=== PATIENT | female | born 1965 | race Caucasian/White ===

== ENCOUNTER 2020-07-18 09:55 | Outpatient (REF) | payer OTHER, SELFPAY ==
--- NOTE | 2020-07-18 09:58 | CT_ITS ---
EXAMINATION: CT CHEST WITHOUT CONTRAST CLINICAL INFORMATION: Malignant neoplasm of upper lobe and right bronchus. COMPARISON: None TECHNIQUE: Multidetector volumetric CT imaging of the chest was done. Axial MIP volume rendering provided. Sagittal and coronal reformatted images were obtained. This CT examination was performed using dose optimization techniques as appropriate, variously including the following: *Automated exposure control *Adjustment of mA and/or kV according to patient size (this includes techniques or standardized protocols for targeted exams where dose is matched to indication/reason for exam; i.e. 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 LUNGS: There is diffuse centrilobular emphysema with right upper lobe postsurgical changes following partial right upper lobectomy. No recurrent mass, nodule or ground-glass density seen. MEDIASTINUM: The thyroid lobes are symmetrical and normal. The central trachea and the bronchi are widely patent. Small pericardial effusion seen. The heart size and the great vessels are normal caliber. No abnormal-sized mediastinal or hilar lymph node seen. PLEURA: There is no pleural effusion. No pleural mass or thickening. AXILLA: There are small shotty lymph nodes seen in the mediastinum. The chest wall appears unremarkable. UPPER ABDOMEN: Visualized liver, spleen, pancreas and bilateral adrenal glands are unremarkable. OSSEOUS STRUCTURES: No lytic or sclerotic process seen. CT/CT chest wo con IMPRESSION: Centrilobular emphysema with postsurgical changes right upper lobe. No recurrent mass or nodule seen. Tiny pericardial effusion, unchanged to previous study.
== END 2020-07-18 09:56 | disposition home or self-care (01) ==
LOC: HO.CT 09:55
PROVIDERS: Visit Provider Surgery
DX: C34.11 Malignant neoplasm of upper lobe, right bronchus or lung (principal)
CPT/HCPCS: 71250

== ENCOUNTER → 2020-07-31 16:00 | Outpatient (BNV) | payer MEDICAID, OTHER, SELFPAY | PROVIDERS: PCP Internal Medicine; Visit Provider Internal Medicine | DX: Z85.118 Personal history of other malignant neoplasm of bronchus and lung (principal); Z87.891 Personal history of nicotine dependence; R91.1 Solitary pulmonary nodule | CPT/HCPCS: 99213; 99214 ==

== ENCOUNTER → 2020-08-03 09:16 | Outpatient (BNVA) | payer OTHER, SELFPAY | PROVIDERS: PCP Internal Medicine; Visit Provider Surgery | DX: Z13.89 Encounter for screening for other disorder (principal) | CPT/HCPCS: 99215 ==

== ENCOUNTER 2020-11-05 14:33 | Outpatient (REF) | payer OTHER, SELFPAY ==
--- NOTE | ~2020-11-05 | XR_ITS ---
EXAMINATION: XR HIP, RIGHT CLINICAL INFORMATION: Right hip pain. COMPARISON: None TECHNIQUE: Two views of the right hip. FINDINGS: Prominent mixed lucency and sclerosis in the subchondral femoral head, with slight flattening/subchondral collapse along the medial aspect of the femoral head. Findings are suspicious for avascular necrosis. Borderline right hip joint space narrowing. No acute fracture is seen in the visualized pelvis. XR/XR hip RT min 2V IMPRESSION: Prominent area of mixed lucency and sclerosis in the subchondral right femoral head suggesting avascular necrosis. Findings suspicious for subchondral collapse/fracture in the medial femoral head. Consider further evaluation with MRI.
== END 2020-11-05 14:34 | disposition home or self-care (01) ==
LOC: HO.HMGCX 14:33
PROVIDERS: PCP Internal Medicine; Visit Provider Hospitalist
DX: M25.551 Pain in right hip (principal)
CPT/HCPCS: 73502

== ENCOUNTER → 2020-11-13 10:06 | Outpatient (BNVA) | payer OTHER, SELFPAY | PROVIDERS: PCP Internal Medicine; Visit Provider Orthopaedic Surgery ==

== ENCOUNTER 2021-01-22 08:15 | Outpatient (REF) | payer OTHER, SELFPAY ==
--- NOTE | ~2021-01-22 | CT_ITS ---
EXAMINATION: CT CHEST WITHOUT CONTRAST CLINICAL INFORMATION: Lung cancer COMPARISON: Previous CT scans most recent July 2020 TECHNIQUE: Multidetector volumetric CT imaging of the chest was done. Axial MIP volume rendering provided. Sagittal and coronal reformatted images were obtained. This CT examination was performed using dose optimization techniques as appropriate, variously including the following: *Automated exposure control *Adjustment of mA and/or kV according to patient size (this includes techniques or standardized protocols for targeted exams where dose is matched to indication/reason for exam; i.e. 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 There is a new irregularly-shaped parenchymal density seen in the posterior right upper lobe abutting and retracting the major fissure. This measures 1 x 2 cm in transverse and AP dimension and 2 cm in longitudinal dimension. This has spiculated margins. Appearance is worrisome for neoplasm. The lungs are otherwise clear. MEDIASTINUM: There is coronary artery calcification. There is a small pericardial effusion that is stable. There are small mediastinal lymph nodes that are stable. PLEURA: There is no pleural effusion. No pleural mass or thickening. AXILLA: No lymphadenopathy. UPPER ABDOMEN: Unremarkable. OSSEOUS STRUCTURES: Unremarkable. CT/CT chest wo con IMPRESSION: Postsurgical changes from partial right upper lobe lobectomy. New be spiculated lesion in the posterior right upper lobe near the major fissure worrisome for neoplasm. Coronary artery calcification. Stable small pericardial effusion.
== END 2021-01-22 08:16 | disposition home or self-care (01) ==
LOC: HO.CT 08:15
PROVIDERS: PCP Internal Medicine; Visit Provider Surgery
DX: C34.90 Malignant neoplasm of unspecified part of unspecified bronchus or lung (principal)
CPT/HCPCS: 71250

== ENCOUNTER 2021-02-01 08:27 | Outpatient (REF) | payer OTHER, SELFPAY ==
--- NOTE | 2021-02-01 | PFT_ITS ---
Forced vital capacity is normal. FEV1, GAC77-71 are markedly reduced. MVV moderately reduced. Post bronchodilator therapy, there is a slight improvement in FEV1 and [id number]. Total lung capacity and residual volume normal. Diffusion capacity is markedly decreased. CONCLUSION: Severe obstructive airway disorder. Minimal improvement after bronchodilator therapy is noted. MD STEPHIE Melton/SISSY / [id number]
== END 2021-02-01 08:28 | disposition home or self-care (01) ==
LOC: HO.RESP 08:27
PROVIDERS: PCP Internal Medicine; Visit Provider Surgery
DX: R91.1 Solitary pulmonary nodule (principal)
CPT/HCPCS: 94060; 94727; 94729

== ENCOUNTER 2021-02-05 09:42 | Outpatient (REF) | payer OTHER, SELFPAY ==
--- NOTE | ~2021-02-05 | PE_ITS ---
EXAMINATION: PET/CT FUSION SKULL TO THIGH CLINICAL INFORMATION: Solitary pulmonary nodule. COMPARISON: CT chest 01/22/2021 TECHNIQUE: Following intravenous administration of 16.7 mCi of F 18 FDG in left antecubital vein, whole-body emission scan was obtained approximately 60 minutes later. 3.[address] transmission scan was obtained without oral or IV contrast. CT scan was performed for correlative imaging. Serum baseline glucose measures DLP 496 mGy-cm. FINDINGS: SKULL: There is no abnormal metabolic activity seen in the skull or the neck region except for mild metabolic activity in bilateral maxillary sinuses which corresponds to polyps or retention cysts. No intracranial parenchymal abnormality seen. Normal activity seen within the posterior tongue and palatoglossal sulcus likely secondary to salivary secretions. Nonspecific metabolic activity seen in the left posterior neck strap muscle with an SUV of 3.44. No corresponding CT abnormality seen. This may be related to nonspecific muscle contusion or inflammation. Correlate clinically. CHEST: There is a solitary right upper lobe pulmonary nodule with an SUV of 3.67 which corresponds to an irregular nodule in the right upper lobe measuring 2 cm. No additional metabolic activity seen in the chest. No abnormal metabolic activity seen in the mediastinum or the axilla. ABDOMEN AND PELVIS: No abnormal metabolic activity is seen in the abdomen. Normal activity seen in both kidneys and right ureter. Nonspecific mild focal activity seen sigmoid and descending colon. MSK: No abnormal skeletal metabolic activity seen. PET/PET CT fusion skull to thigh IMPRESSION: Solitary abnormal metabolic activity of right upper lobe nodule highly suspicious for metastatic focus. Findings are concordant with previous CT chest exam 01/22/2021 No additional areas of abnormal activity seen in the lungs or the mediastinum. No distant abnormal metabolic activity is seen. Nonspecific metabolic activity is seen in the left posterior neck strap muscle, likely contusion or inflammation. Correlate with clinical exam.
== END 2021-02-05 09:43 | disposition home or self-care (01) ==
LOC: HO.PET 09:42
PROVIDERS: PCP Internal Medicine; Visit Provider Surgery
DX: Z13.89 Encounter for screening for other disorder (principal)

== ENCOUNTER 2021-02-14 10:41 | Day surgery (SDC) | payer OTHER, SELFPAY ==
--- NOTE | 2021-02-13 10:50 | HO.ANESPROP2 ---
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 PMFSH Active Problems Active Problems: All Active Problems (Updated 01/29/21 @ 15:35 by Hilda Mazariegos MD) On home O2 (Acute) Tobacco dependence (Acute) Malignant neoplasm of right upper lobe of lung (Acute ~2017) Avascular necrosis of bone of right hip (Acute) Right hip pain (Acute) Hyperlipemia (Acute) Depression (Acute) COPD (chronic obstructive pulmonary disease) (Acute) Lung cancer (Chronic ~2018) Past Medical History Medical History Anxiety COPD (chronic obstructive pulmonary disease) Depression History of hypertension History of seizure Hyperlipemia Lung cancer Malignant neoplasm of right upper lobe of lung (~2017) On home O2 Osteopenia Restless leg syndrome Tobacco dependence Family History Family History Father Alcohol abuse Maternal Aunt Breast cancer Sister Breast cancer Brother Skin cancer Surgical History Surgical History History of bronchoscopy (~06/2018) History of colonoscopy (~03/2017) History of lung surgery (~07/2018) History of tonsillectomy Social History Social History Household Members: Spouse Housing: House Alcohol intake: current Alcohol intake frequency: holidays/special occasions only Patient Tobacco Use Status: Current everyday Tobacco user Tobacco use type: Cigar Cigarettes Per Day: 2 Years Smoked: 43 (onset 12yo) Smoked in Last 30 Days: Yes e-Cigarette/Vaping Use: Former Use Patient Interested in Nicotine Replacement: No Patient Given Instructions on How to Stop Smoking: No Second Hand Smoke Exposure: No Use of substances other than those prescribed or required for medical reasons: Yes Substance Use Type: Marijuana Substance Use Frequency: Occasionally Are you DNR?: No Advance Directives: No Advance Directives Information Provided: Yes Patient : No Meds Allergies Allergy/AdvReac Type Severity Reaction Status Date / Time apple [Apple] Allergy Severe TONGUE Verified 02/13/21 12:22 SWELLS penicillin V Allergy Unknown unknown - Verified 02/13/21 12:22 childhood Penicillins [PENICILLINS] Allergy Unknown UNKNOWN-CHILDHOOD Verified 02/13/21 12:22 ALLERGY Home Medications Medication Instructions Recorded Confirmed Last Taken Type albuterol sulfate 90 mcg/actuation 2 puff PO Q4H PRN 07/31/20 02/13/21 Unknown History aerosol inhaler atorvastatin 20 mg tablet 1 tab PO DAILY 07/31/20 02/13/21 Unknown History fluticasone fur. 100 mcg-umeclid 100 inh INHALATION DAILY 07/31/20 02/13/21 02/14/21 07:30 History 62.5 mcg-vilant 25 mcg inhalat.powder (Trelegy Ellipta) montelukast 10 mg tablet 1 tab PO DAILY 07/31/20 02/13/21 Unknown History risperidone 1 mg tablet 1 tab PO BEDTIME 07/31/20 02/13/21 Unknown History trazodone 50 mg tablet tab PO 07/31/20 02/13/21 Unknown History venlafaxine 37.5 mg tablet 37.5 mg PO DAILY 07/31/20 02/13/21 Unknown History venlafaxine 75 mg tablet 75 mg PO DAILY 07/31/20 02/13/21 Unknown History nicotine 14 mg/24 hr daily 1 patch TOPICAL DAILY 02/13/21 02/13/21 Unknown History transdermal patch Exam Exam Date and Time: February 13, 2021 1050 Pertinent Lab Results Pertinent Lab Results: Laboratory Tests 01/29/21 01/29/21 15:53 15:53 WBC 9.8 Hgb 14.0 Hct 41.4 Plt Count 190 Sodium 139 Potassium 3.8 Chloride 102 Carbon Dioxide 25 BUN 9 Creatinine 0.88 Narrative Narrative: PFT 01/2021 Forced vital capacity is normal.? FEV1, XCS96-26 are markedly reduced.? MVV moderately reduced. ? Post bronchodilator therapy, there is a slight improvement in FEV1 and RPZ57-84. ? Total lung capacity and residual volume normal. ? Diffusion capacity is markedly decreased. ? CONCLUSION:? Severe obstructive airway disorder. ? Minimal improvement after bronchodilator therapy is noted. Assessment and Plan Assessment Anesthesia Assessment: Chart Reviewed Documented by User: Chente Berkowitz MD 02/14/21 13:06 [facility] Past Medical History Medical History Anxiety COPD (chronic obstructive pulmonary disease) Depression History of hypertension History of seizure Hyperlipemia Lung cancer Malignant neoplasm of right upper lobe of lung (~2017) On home O2 Osteopenia Restless leg syndrome Tobacco dependence Family History Family History Father Alcohol abuse Maternal Aunt Breast cancer Sister Breast cancer Brother Skin cancer Family history of problems with anesthesia: No Surgical History Surgical History History of bronchoscopy (~06/2018) History of colonoscopy (~03/2017) History of lung surgery (~07/2018) History of tonsillectomy History of Problems with Anesthesia: No Social History Social History Household Members: Spouse Housing: House Alcohol intake: current Alcohol intake frequency: holidays/special occasions only Patient Tobacco Use Status: Current everyday Tobacco user Tobacco use type: Cigar Cigarettes Per Day: 2 Years Smoked: 43 (onset 12yo) Smoked in Last 30 Days: Yes e-Cigarette/Vaping Use: Former Use Patient Interested in Nicotine Replacement: No Patient Given Instructions on How to Stop Smoking: No Second Hand Smoke Exposure: No Use of substances other than those prescribed or required for medical reasons: Yes Substance Use Type: Marijuana Substance Use Frequency: Occasionally Are you DNR?: No Advance Directives: No Advance Directives Information Provided: Yes Patient : No Meds Allergies Allergy/AdvReac Type Severity Reaction Status Date / Time apple [Apple] Allergy Severe TONGUE Verified 02/13/21 12:22 SWELLS penicillin V Allergy Unknown unknown - Verified 02/13/21 12:22 childhood Penicillins [PENICILLINS] Allergy Unknown UNKNOWN-CHILDHOOD Verified 02/13/21 12:22 ALLERGY Home Medications Medication Instructions Recorded Confirmed Last Taken Type albuterol sulfate 90 mcg/actuation 2 puff PO Q4H PRN 01/19/21 08/04/21 Unknown History aerosol inhaler atorvastatin 20 mg tablet 1 tab PO DAILY 07/31/20 02/13/21 Unknown History fluticasone fur. 100 mcg-umeclid 100 inh INHALATION DAILY 07/31/20 02/13/21 02/14/21 07:30 History 62.5 mcg-vilant 25 mcg inhalat.powder (Trelegy Ellipta) montelukast 10 mg tablet 1 tab PO DAILY 07/31/20 02/13/21 Unknown History risperidone 1 mg tablet 1 tab PO BEDTIME 07/31/20 02/13/21 Unknown History trazodone 50 mg tablet tab PO 07/31/20 02/13/21 Unknown History venlafaxine 37.5 mg tablet 37.5 mg PO DAILY 07/31/20 02/13/21 Unknown History venlafaxine 75 mg tablet 75 mg PO DAILY 07/31/20 02/13/21 Unknown History nicotine 14 mg/24 hr daily 1 patch TOPICAL DAILY 02/13/21 02/13/21 Unknown History transdermal patch Exam Airway Mallampati Class: II TM Dist: >3cm Neck ROM: Full Denture: Upper Loose/Missing/Broken Teeth: Yes (Poor dentition, broken teeth lower) Assessment and Plan Assessment Anesthesia Assessment: Anesthesia Plan Discussed Final Anesthetic Review Family History of Problems with Anesthesia: No History of Problems with Anesthesia: No NPO: Yes ASA Class: III Final Preanesthetic Review: No Changes in Pt Med Stat, Meds/Allgs Chart Reviewed, Consent Obtained/Reviewed and Anes Risks/Benef Reviewed Patient Risk: High Procedure Risk: Intermediate Anesthetic Plan Anesthetic Plan: MAC: Disposition: Standard PACU
[2021-02-14] VITALS (7 sets, daily range): BP systolic 111–167; BP diastolic 67–93; PULSE 56–65; RESP 16–20; TEMP 36.3–36.7; O2SAT 95–98; BMI 22.6
--- NOTE | ~2021-02-14 | XR_ITS ---
EXAMINATION: XR CHEST CLINICAL INFORMATION: Follow-up right apical pneumothorax. COMPARISON: None TECHNIQUE: Frontal view of the chest was obtained. FINDINGS: There is a small right apical pneumothorax less than 5% unchanged to the previous study from 3:11 PM. There are surgical sutures seen in the right upper lobe from previous intervention for lung cancer. There is increased interstitial markings in both lungs likely mild interstitial pneumonitis or chronic changes. Heart size and pulmonary vascularity is normal. No gross bony abnormality. XR/XR chest 1V IMPRESSION: Small right apical pneumothorax, stable. Otherwise no change in prominent interstitial markings from previous exam..
--- NOTE | ~2021-02-14 | XR_ITS ---
EXAMINATION: XR CHEST CLINICAL INFORMATION: Small pneumothorax post right upper lobe biopsy. COMPARISON: Post right upper lobe chest biopsy 02/14/2021. TECHNIQUE: Frontal view of the chest was obtained. FINDINGS: There is a tiny right apical pneumothorax but appears stable when compared to CT chest both biopsy findings. Otherwise the lungs are well-expanded with increased bilateral interstitial markings likely chronic interstitial changes. There is minimal atelectatic changes in the lung bases. The heart size is normal. No visible pneumothorax seen. XR/XR chest 1V IMPRESSION: Trace right apical pneumothorax is visualized. Recommends repeat chest x-ray inspiration and expiration.
--- NOTE | ~2021-02-14 | CT_ITS ---
PROCEDURE: CT GUIDED BIOPSY, LUNG CLINICAL INFORMATION: Right upper lobe lesion. Positive on PET/CT study. COMPARISON: PET/CT fusion 02/05/[address] chest 01/22/2021 TECHNIQUE: Following explaining CT fluoroscopy-guided right upper lobe spiculated lesion biopsy procedure, benefits and risk, a written consent was obtained. Patient was initially placed in a right decubitus view but subsequently changed to left decubitus view on the CT table and imaging was performed. An optimal site was selected along the right posterior chest wall and marked with markers following scanning. The optimal marker was cleaned and draped in the usual sterile manner. 1% lidocaine was injected at puncture site. Through a small skin incision, a 20-gauge guide needle was advanced from the skin to the posterior pleura. Coaxially a 20-gauge Achieve biopsy gun was inserted, and a 2 pass right upper lobe nodule biopsy was obtained. There is adequate tissue obtained. Patient developed a small pneumothorax. At this point, the exam was discontinued following removal of the guide needle. Complete hemostasis was achieved at puncture site. Simple compression dressing applied at the puncture site. Sedation was provided by Anesthesia Department. This CT examination was performed using dose optimization techniques as appropriate, variously including the following: *Automated exposure control *Adjustment of mA and/or kV according to patient size (this includes techniques or standardized protocols for targeted exams where dose is matched to indication/reason for exam; i.e. extremities or head) *Use of iterative reconstruction technique DLP: 351 mGy-cm FINDINGS: There is a spiculated lesion in the right upper lobe tenting the major fissure. A small sliver of superior segment right lower lobe is seen between the posterior chest wall and the lesion. There is a second lesion more along the paramediastinum which is not metabolically active and much smaller. CT fluoroscopy-guided successful right upper lobe posterior segment lesion biopsy performed. Initial results by pathologist revealed adequate tissue for diagnosis. There is a small right apical pneumothorax which will be followed with sequential chest x-rays. CT/CT guided needle placement IMPRESSION: Successful CT fluoroscopy-guided right upper lobe apical posterior segment lung lesion biopsy performed. Patient developed a small pneumothorax which will be followed with chest x-ray.
[2021-02-14 11:10] LABS: MANUAL DIFF FLAG NO
[2021-02-14 11:14] LABS: Basophils Percent Auto 0.5 % (0-2); Eosinophils Absolute Auto 0.1 X10*3/uL (0.0-0.4); Eosinophils Percent Auto 0.9 % (0-4); Hemoglobin 14.5 g/dl (12.0-16.0); Imm Gran Abs Auto 0.03 X10*3/uL (0.00-0.03); Imm Gran Pct Auto 0.4 % (0.0-0.4); Lymphocytes Absolute Auto 1.7 X10*3/uL (1.2-4.9); Lymphocytes Percent Auto 20.7 % (20-40); Mean Corpuscular Hemoglobin 31.5 pg (27.0-33.0); Mean Corpuscular Volume 95.7 fL (80-98); Mean Platelet Volume 10.7 fL (9.4-12.3); Monocytes Absolute Auto 0.5 X10*3/uL (0.1-1.2); Monocytes Percent Auto 6.6 % (2-11); Neutrophils Absolute Auto 5.8 X10*3/uL (2.0-8.3); Neutrophils Percent Auto 70.9 % (45-73); Platelet Count 174 X10*3/uL (160-400); Red Cell Distribution Width 11.9 % (11.0-16.0); White Blood Count 8.2 X10*3/uL (4.8-10.8)
[2021-02-14 11:18] LABS: Prothrombin Time 11.7 SEC (9.9-13.0)
[2021-02-14 11:20] LABS: Partial Thromboplastin Time 36.1 SEC (24.1-38.0)
[2021-02-14] MEDS: Lactated Ringers 1,000 ML 50 ML IVCONT (11:32)
[2021-02-14] MEDS: Acetaminophen 325 MG TABLET 975 MG PO (11:33)
== END 2021-02-14 17:15 | disposition home or self-care (01) ==
PROVIDERS: Radiology Diagnostic Radiology; PCP Internal Medicine; Visit Provider Radiology Diagnostic Radiology
DX: C34.11 Malignant neoplasm of upper lobe, right bronchus or lung (principal); Z90.2 Acquired absence of lung [part of]; J93.83 Other pneumothorax; J44.9 Chronic obstructive pulmonary disease, unspecified; Z99.81 Dependence on supplemental oxygen; M85.80 Other specified disorders of bone density and structure, unspecified site; Z79.51 Long term (current) use of inhaled steroids; F17.290 Nicotine dependence, other tobacco product, uncomplicated; F12.90 Cannabis use, unspecified, uncomplicated; Z88.0 Allergy status to penicillin
CPT/HCPCS: 32408; 36415; 71045; 77012; 85025; 85610; 85730; 88305; 88333

== ENCOUNTER 2021-02-15 08:07 | Outpatient (REF) | payer OTHER, SELFPAY ==
--- NOTE | ~2021-02-15 | XR_ITS ---
EXAMINATION: XR CHEST CLINICAL INFORMATION: Status post biopsy right upper lobe. Follow-up small pneumothorax. COMPARISON: Chest x-ray 11/29/2020. TECHNIQUE: 2 views of the chest were obtained. FINDINGS: The lungs are well-expanded better than 02/14/2021. A tiny right apical pneumothorax is stable. There is no pleural effusion. The heart size and pulmonary vascularity is normal. No gross bony abnormality seen. XR/XR chest 2V IMPRESSION: Small right apical pneumothorax is stable. The lungs are clear.
== END 2021-02-15 08:08 | disposition home or self-care (01) ==
LOC: HO.XRAY 08:07
PROVIDERS: PCP Internal Medicine; Visit Provider Radiology Diagnostic Radiology
DX: J93.9 Pneumothorax, unspecified (principal)
CPT/HCPCS: 71046

== ENCOUNTER → 2021-02-22 10:38 | Outpatient (BNVA) | payer OTHER, SELFPAY | PROVIDERS: PCP Internal Medicine; Visit Provider Surgery | DX: C34.11 Malignant neoplasm of upper lobe, right bronchus or lung (principal); F17.210 Nicotine dependence, cigarettes, uncomplicated; Z79.899 Other long term (current) drug therapy; Z90.2 Acquired absence of lung [part of] | CPT/HCPCS: 99212 ==

== ENCOUNTER 2021-04-22 12:19 | Emergency (ER) | payer OTHER, SELFPAY ==
[2021-04-22 12:56] VITALS: BP 166/76; PULSE 79; RESP 16; TEMP 36.4; O2SAT 98; BMI 22.6
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
[2021-04-22] MEDS: HYDROcodone Bit/Acetam 5/325 TABLET 1 TAB PO (15:31)
[2021-04-22] MEDS: Cyclobenzaprine HCl 10 MG TABLET PO (15:31)
== END 2021-04-22 15:38 | disposition home or self-care (01) ==
PROVIDERS: Emergency Provider Emergency Medicine; PCP Internal Medicine
DX: S16.1XXA Strain of muscle, fascia and tendon at neck level, initial encounter (principal); S39.012A Strain of muscle, fascia and tendon of lower back, initial encounter; I10 Essential (primary) hypertension; J44.9 Chronic obstructive pulmonary disease, unspecified; Z79.899 Other long term (current) drug therapy; V43.52XA Car driver injured in collision with other type car in traffic accident, initial encounter; Y93.9 Activity, unspecified; Y92.410 Unspecified street and highway as the place of occurrence of the external cause; Y99.9 Unspecified external cause status; Z99.81 Dependence on supplemental oxygen
CPT/HCPCS: 99283; 99284

== ENCOUNTER → 2021-05-24 09:48 | Outpatient (BNVA) | payer OTHER, SELFPAY | PROVIDERS: PCP Internal Medicine; Visit Provider Surgery | DX: C34.11 Malignant neoplasm of upper lobe, right bronchus or lung (principal); R91.1 Solitary pulmonary nodule; J44.9 Chronic obstructive pulmonary disease, unspecified; F17.290 Nicotine dependence, other tobacco product, uncomplicated; Z71.6 Tobacco abuse counseling; Z79.899 Other long term (current) drug therapy | CPT/HCPCS: 99212 ==

== ENCOUNTER 2021-07-03 10:00 | Outpatient (RCR) | payer OTHER, SELFPAY ==
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
== END 2021-07-15 10:57 | disposition home or self-care (01) ==
LOC: HO.PT 10:00
PROVIDERS: PCP Internal Medicine; Visit Provider Internal Medicine
DX: M54.50 Low back pain, unspecified (principal); M54.2 Cervicalgia
CPT/HCPCS: 97110; 97140; 97162; 97530

== ENCOUNTER 2021-08-22 14:16 | Outpatient (REF) | payer OTHER, SELFPAY ==
--- NOTE | ~2021-08-22 | XR_ITS ---
EXAMINATION: XR CERVICAL SPINE CLINICAL INFORMATION: Neck pain. COMPARISON: None TECHNIQUE: 3 views of the cervical spine were obtained. FINDINGS: There is normal cervical lordosis. The vertebral heights and alignment is normal. There is mild loss of C5-C6 disc height with mild ventral spondylosis C5-C6 and C6-C7 disc levels. No visible acute fracture, dislocation or lytic process seen. The prevertebral and paravertebral soft tissues are unremarkable. Incidental finding of surgical sutures in right lung apex from previous intervention. XR/XR cervical spine 3V IMPRESSION: Degenerative disc changes with ventral spondylosis C5-C6 and C6-C7 disc levels.
== END 2021-08-22 14:17 | disposition home or self-care (01) ==
LOC: HO.XRAY 14:16
PROVIDERS: PCP Internal Medicine; Visit Provider Internal Medicine
DX: M54.2 Cervicalgia (principal)
CPT/HCPCS: 72040

== ENCOUNTER 2021-09-12 09:18 | Outpatient (REF) | payer OTHER, SELFPAY ==
--- NOTE | ~2021-09-12 | MM_ITS ---
EXAMINATION: MM SCREENING DIGITAL BREAST TOMOSYNTHESIS, BILATERAL CLINICAL INFORMATION: Screening. Asymptomatic. The lifetime risk of breast cancer based on the Tyrer-Cuzick Model is 6%. COMPARISON: Mammography: 02/09/2020, 09/29/2018, 09/23/2017 TECHNIQUE: Digital breast tomosynthesis is performed in both the craniocaudal and mediolateral oblique views along with computer-aided detection (CAD). Synthesized 2D images are generated from the tomosynthesis. Additional bilateral CC and right MLO views are provided. FINDINGS: There are scattered areas of fibroglandular density (ACR BI-RADS breast composition Category b). There are no significant masses, abnormal calcifications, or other abnormalities. There are bilateral solitary low axillary node bilateral posterior upper outer quadrants. There is no developing density or architectural abnormality. The skin contours are smooth. There is chronic bilateral nipple retraction similar to prior exams. No significant changes. MM/MM tomosynthesis screening BI IMPRESSION: No significant changes from prior studies. ASSESSMENT: BI-RADS 2: Benign RECOMMENDATION: Routine annual mammography screening. This patient's information was entered into a reminder system with a target due date for their next mammogram.
== END 2021-09-12 09:19 | disposition home or self-care (01) ==
LOC: HO.MAMMO 09:18
PROVIDERS: PCP Internal Medicine; Visit Provider Internal Medicine
DX: Z12.31 Encounter for screening mammogram for malignant neoplasm of breast (principal)
CPT/HCPCS: 77063; 77067

== ENCOUNTER → 2021-11-29 10:12 | Outpatient (BNVA) | payer OTHER, SELFPAY | PROVIDERS: PCP Internal Medicine; Visit Provider Surgery | DX: C34.11 Malignant neoplasm of upper lobe, right bronchus or lung (principal); R91.1 Solitary pulmonary nodule; F17.210 Nicotine dependence, cigarettes, uncomplicated | CPT/HCPCS: 99212 ==

== ENCOUNTER 2022-02-27 10:09 | Outpatient (REF) | payer OTHER, SELFPAY ==
--- NOTE | ~2022-02-27 | XR_ITS ---
EXAMINATION: XR LUMBOSACRAL SPINE CLINICAL INFORMATION: Low back pain COMPARISON: None TECHNIQUE: Three views of the lumbosacral spine. FINDINGS: Bone alignment is normal. No fracture or dislocation is seen. There is degenerative spondylosis and L2-L3 and L3-L4. Disc spaces are normal. There is lower lumbar spine facet arthritis. There is atherosclerotic disease. XR/XR lumbar spine 2-3V IMPRESSION: Degenerative changes.
== END 2022-02-27 10:10 | disposition home or self-care (01) ==
LOC: HO.HMGCX 10:09
PROVIDERS: PCP Internal Medicine; Visit Provider Internal Medicine
DX: G89.29 Other chronic pain (principal); M54.50 Low back pain, unspecified
CPT/HCPCS: 72100

== ENCOUNTER 2022-09-24 08:11 | Outpatient (REF) | payer OTHER, MEDICAID, SELFPAY ==
--- NOTE | ~2022-09-24 | MM_ITS ---
EXAMINATION: MM SCREENING DIGITAL BREAST TOMOSYNTHESIS, BILATERAL CLINICAL INFORMATION: Screening. Asymptomatic. Family history breast cancer: sister, maternal aunt. The lifetime risk of breast cancer based on the Tyrer-Cuzick Model is 10%. COMPARISON: Mammography: 09/12/2021, 02/09/2020, 09/29/2018, 09/23/2017 TECHNIQUE: Digital breast tomosynthesis is performed in both the craniocaudal and mediolateral oblique views along with computer-aided detection (CAD). Synthesized 2D images are generated from the tomosynthesis. FINDINGS: There are scattered areas of fibroglandular density (ACR BI-RADS breast composition Category b). There is subtle 0.4 cm focal nodular asymmetric density retroareolar left breast. Patient will be recalled for additional imaging. The remainder of the bilateral breasts show parenchymal pattern similar to prior studies. There are incidental intramammary nodes in both outer quadrants. There are no abnormal calcifications. No architectural abnormality. The axilla are unremarkable. There is chronic bilateral nipple retraction, stable. MM/MM tomosynthesis screening BI IMPRESSION: Left: -Subtle 4 mm focal nodular asymmetric density retroareolar left breast. Right: -No mammographic evidence of malignancy. ASSESSMENT: BI-RADS 0: Incomplete - Need Additional Imaging Evaluation RECOMMENDATION: 1. Additional views left breast (spot CC, spot ML). 2. Targeted ultrasound if warranted after review of the additional views. 3. Radiology department staff will contact the patient for additional imaging. This patient's information was entered into a reminder system with a target due date for their next mammogram.
== END 2022-09-24 08:12 | disposition home or self-care (01) ==
LOC: HO.MAMMO 08:11
PROVIDERS: PCP Internal Medicine; Visit Provider Internal Medicine
DX: Z12.31 Encounter for screening mammogram for malignant neoplasm of breast (principal)
CPT/HCPCS: 77063; 77067

== ENCOUNTER 2022-10-15 07:57 | Outpatient (REF) | payer OTHER, MEDICAID, SELFPAY ==
--- NOTE | ~2022-10-15 | CT_ITS ---
EXAMINATION: CT CHEST WITHOUT CONTRAST CLINICAL INFORMATION: Malignant neoplasm of upper lobe. COMPARISON: Chest x-ray 02/14/2021. CT chest 01/22/[address] biopsy 02/14/2021. TECHNIQUE: Multidetector volumetric CT imaging of the chest was done. Axial MIP volume rendering provided. Sagittal and coronal reformatted images were obtained. This CT examination was performed using dose optimization techniques as appropriate, variously including the following: *Automated exposure control *Adjustment of mA and/or kV according to patient size (this includes techniques or standardized protocols for targeted exams where dose is matched to indication/reason for exam; i.e. extremities or head) *Use of iterative reconstruction technique DLP: 109 mGy-cm FINDINGS: MOTOR MAN: Hyperinflated lungs are clear. LUNGS: There is a postsurgical scar in the right upper lobe anteriorly. There is an ill-defined soft tissue opacity, right upper lobe, measuring 7 mm, significantly improved since 01/22/2021 exam. There are no new pulmonary nodules, masses or consolidation. There is diffuse centrilobular emphysema. MEDIASTINUM: The thyroid lobes are symmetric and normal. The central trachea and the bronchi are widely patent. A three-vessel branching arch is noted. There is mild atherosclerotic calcification of thoracic arch without dilation. No abnormal size mediastinal or hilar lymph nodes seen. No pericardial effusion. CORONARY ARTERY CALCIFICATION: Moderate coronary artery calcifications are noted. PLEURA: There is no pleural effusion. No pleural mass or thickening. AXILLA: There are benign small shotty lymph nodes in bilateral axilla. UPPER ABDOMEN: Visualized liver, spleen, pancreas and bilateral adrenal glands are unremarkable. OSSEOUS STRUCTURES: No aggressive lytic or sclerotic process seen. CT/CT chest wo IV con IMPRESSION: 1. Previously seen nodular-like density, right upper lobe posteriorly, is now smaller and appears ill-defined soft tissue. No additional lesions seen. 2. There is a postop scar right upper lobe anteriorly. 3. Diffuse emphysema without acute process. Fleischner guidelines were followed.
== END 2022-10-15 07:58 | disposition home or self-care (01) ==
LOC: HO.CT 07:57
PROVIDERS: PCP Internal Medicine; Visit Provider Surgery
DX: C34.11 Malignant neoplasm of upper lobe, right bronchus or lung (principal)
CPT/HCPCS: 71250

== ENCOUNTER 2022-10-20 14:41 | Outpatient (REF) | payer OTHER, MEDICAID, SELFPAY ==
--- NOTE | ~2022-10-20 | MM_ITS ---
EXAMINATION: MM DIAGNOSTIC DIGITAL BREAST TOMOSYNTHESIS, LEFT US DIAGNOSTIC ULTRASOUND BREAST, LEFT CLINICAL INFORMATION: Recall from screening for small nodular asymmetry periareolar 12:00 left breast. Family history breast cancer, sister, maternal aunt. TC score 10%. COMPARISON: Prior mammography exams, most recent dated 09/24/2022. TECHNIQUE: Digital breast tomosynthesis is performed. 2D images are generated from the tomosynthesis. The following views are obtained: Spot CC, spot ML Ultrasound left breast is targeted to the retroareolar and periareolar breast using grayscale imaging and color Doppler without and with harmonics. FINDINGS: There are scattered areas of fibroglandular density (ACR BI-RADS breast composition Category b). There is fibronodular parenchymal pattern similar to prior studies. The finding for recall is less conspicuous on the additional views. There is no suspicious focal asymmetric density or architectural abnormality. Ultrasound demonstrates no cystic or solid mass or architectural abnormality or focal duct ectasia. No abnormal color flow. Results are discussed with the patient at time of visit. As a precaution given the family history, short interval six-month follow-up left diagnostic mammography will be requested to exclude remote possibility of a developing density. MM/MM tomosynthesis added views L IMPRESSION: -Finding for recall left conspicuous on additional views. No architectural abnormality. -Unremarkable left breast ultrasound. ASSESSMENT: BI-RADS 3: Probably Benign RECOMMENDATION: Diagnostic left mammography in 6 months. This patient's information was entered into a reminder system with a target due date for their next mammogram.
== END 2022-10-20 14:42 | disposition home or self-care (01) ==
LOC: HO.MAMMO 14:41
PROVIDERS: PCP Internal Medicine; Visit Provider Internal Medicine
DX: R92.2 Inconclusive mammogram (principal)
CPT/HCPCS: 76642; 77061; 77065

== ENCOUNTER → 2022-11-07 09:12 | Outpatient (BNVA) | payer OTHER, MEDICAID, SELFPAY | PROVIDERS: PCP Internal Medicine; Visit Provider Surgery | DX: Z85.118 Personal history of other malignant neoplasm of bronchus and lung (principal); R91.8 Other nonspecific abnormal finding of lung field; F17.290 Nicotine dependence, other tobacco product, uncomplicated | CPT/HCPCS: 99212 ==

== ENCOUNTER 2022-12-08 18:04 | Emergency (ER) | payer OTHER, MEDICAID, SELFPAY ==
--- NOTE | ~2022-12-08 | XR_ITS ---
EXAMINATION: XR WRIST, RIGHT CLINICAL INFORMATION: Rule out foreign body above wrist. Animal bite. COMPARISON: None available. TECHNIQUE: PA, lateral, and oblique views of the right wrist. FINDINGS: The bones and soft tissues are normal. No fracture. Alignment is anatomic with normal joint spaces. No erosions or abnormal soft tissue calcifications. XR/XR wrist RT 2V IMPRESSION: No fracture or radiopaque foreign body.
[2022-12-08 18:08] VITALS: BP 141/81; PULSE 89; RESP 18; TEMP 36.9; O2SAT 97; BMI 21.1
--- NOTE | 2022-12-08 18:09 | ED.GENADULT ---
HPI - General Adult General Chief complaint: Extremity Injury, Upper Stated complaint: cat scratches,bites right arm Time Seen by Provider: 12/08/22 19:34 Source: patient Mode of arrival: ambulatory Limitations: no limitations History of Present Illness HPI narrative: Patient comes to emergency room complaining of bilateral cat scratches and bites. Patient states that she was at home in her backyard, had her cat on a leash. They were sitting around a picnic table. Patient noticed that there was a bear coming towards them, patient tried to grab her cat and run, the leash got stuck, tried picking up her cat quickly, the cat panicked and started scratching and biting the patient in both forearms and hands. The cat is up-to-date with all its shots, patient states that she is up-to-date with her tetanus shot. Related Data Home Medications Medication Instructions Recorded Confirmed albuterol sulfate 90 mcg/actuation 2 puff PO Q4H PRN Shortness Of 07/31/20 11/07/22 aerosol inhaler Breath fluticasone fur. 100 mcg-umeclid 100 inh inhalation DAILY 07/31/20 11/07/22 62.5 mcg-vilant 25 mcg inhalat.powder (Trelegy Ellipta) trazodone 50 mg tablet 1 tab PO DAILY 07/31/20 11/07/22 multivitamin 1 tab PO DAILY 04/02/21 11/07/22 ipratropium 0.5 mg-albuterol 3 mg ml inhalation 02/26/22 11/07/22 (2.5 mg base)/3 mL nebulization soln Previous Rx's Medication Instructions Recorded nicotine 1 patch transdermal DAILY #56 08/21/21 21mg/24hr-14mg/24hr-7mg/24hr daily patches transderm patches,sequentl ibuprofen 600 mg tablet 600 mg PO Q6H PRN pain #60 tabs 06/17/22 atorvastatin 20 mg tablet 20 mg PO DAILY #90 tabs 08/06/22 cyclobenzaprine 10 mg tablet 10 mg PO BID PRN for muscle spasm 08/06/22 #30 tabs omeprazole 40 mg capsule,delayed 40 mg PO DAILY #90 caps 09/12/22 release doxycycline hyclate 100 mg tablet 100 mg PO BID #19 tabs 12/08/22 Allergies Allergy/AdvReac Type Severity Reaction Status Date / Time apple [Apple] Allergy Severe TONGUE Verified 11/07/22 09:52 SWELLS penicillin V Allergy Unknown unknown - Verified 11/07/22 09:52 childhood Penicillins [PENICILLINS] Allergy Unknown UNKNOWN-CHILDHOOD Verified 11/07/22 09:52 ALLERGY Review of Systems Review of Systems: Constitutional : No Weight loss, No Fever, No Chills, No Night Sweats, No Fatigue, No Malaise ENT/Mouth : No Hearing loss, No Ear Pain, No Nasal Congestion, No Sinus Pain, No Hoarseness, No sore throat, No Rhinorrhea, No Swallowing Difficulty Eyes: No Eye Pain, No Swelling, No Redness, No Foreign Body, No Discharge, No Vision Changes Cardiovascular : No Chest Pain, No SOB, No Dyspnea on Exertion, No Orthopnea, No Edema, No Palpitations Respiratory : No Cough, No Sputum, No Wheezing, No Smoke Exposure, No Dyspnea Gastrointestinal : No Nausea, No Vomiting, No Diarrhea, No Constipation, No abdominal Pain, No Hematochezia, No Melena Genitourinary : no irregular bleeding, No Dysuria, No Urinary Frequency, No Hematuria, No Urinary Incontinence, No Urgency, No Flank Pain, No Urinary Flow Changes, No Hesitancy Musculoskeletal : No joint pain, No Myalgias, No Joint Swelling Skin : Complaining of multiple scratches and multiple cat bites to both hands and forearms Neuro : No Weakness, No Numbness, No Paresthesias, No Loss of Consciousness, No Dizziness, No Headache Psych : No Anxiety/Panic, No Depression, No SI/HI/AH/VH, No Social Issues, Heme/Lymph: No Bruising, No Bleeding,No Lymphadenopathy Endocrine : No Polyuria, No Polydipsia, No Temperature Intolerance [facility] Past Medical History Medical History Anxiety COPD (chronic obstructive pulmonary disease) Depression History of seizure Hyperlipemia Lower back pain Malignant neoplasm of right upper lobe of lung (~2017) Neck pain On home O2 Osteopenia Restless leg syndrome Tobacco dependence Surgical History History of bronchoscopy (~06/2018) History of colonoscopy (~03/2017) History of lung surgery (~07/2018) History of tonsillectomy Family History Family History Father Alcohol abuse Maternal Aunt Breast cancer Sister Breast cancer Brother Skin cancer Other Mental health disorder Substance use disorder Social History Social History Household Members: Spouse Housing: House Alcohol intake: current Alcohol intake frequency: holidays/special occasions only Patient Tobacco Use Status: Current everyday Tobacco user Tobacco use type: Cigar Cigarettes Per Day: 2 Years Smoked: 43 (onset 12yo) e-Cigarette/Vaping Use: Former Use Second Hand Smoke Exposure: No Substance Use Type: Marijuana Advance Directives: No Advance Directives Information Provided: Yes service: No 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 Oriented X3. No acute distress. Eyes: Pupils equal, round and reactive to light. ENT: Pharynx normal. Neck: Normal inspection. Neck supple. No lymph nodes noted. No crepitus CVS: Normal heart rate and rhythm. Pulses normal. Normal S1 and S2 Respiratory: No respiratory distress. Breath sounds normal. No Wheezing. No rales Abdomen: Soft and nontender. No rigidity. No distention. Skin: Skin warm and dry. Patient has multiple scratches and puncture wounds to both hands on the dorsum and forearms, bleeding controlled Extremities: No lower extremity edema. No Lacerations. No Rash Neuro: Oriented X 3. No motor deficit. No sensory deficit. Moving all extremities. No slurred speech. CN 2 through 12 grossly intact Psych: calm, cooperative, normal affect Course Course Course Narrative: RME: 57 yold female presents to the ED for mutliple cat scratch and bites on right arm caused by her cat. She states Cat is uptodate with rabies. patient herself uptodate with tetanus. She state Cat bite is very painful Medications Administered Discontinued Medications Generic Name Dose Route Start Last Admin Trade Name Freq PRN Reason Stop Dose Admin Doxycycline Monohydrate 100 mg 12/08/22 19:41 12/08/22 19:55 Doxycycline Monohydrate 100 Mg Capsule PO 12/08/22 19:42 100 mg ONCE ONE Administration Ketorolac Tromethamine 60 mg 12/08/22 19:50 12/08/22 19:56 Ketorolac Tromethamine 60 Mg/2 Ml Vial IM 12/08/22 19:51 60 mg ONCE ONE Administration Medical Decision Making Medical Decision Making MDM Narrative: -my interpretation of x-ray of the wrist: No foreign body present, no fracture -patient is allergic to penicillin, unknown allergic reaction. At this time, patient does not have cellulitis, patient will be given empiric treatment with doxycycline, 1st dose given in the emergency room. Patient will continue treatment at home. Discharge Plan Discharge Clinical Impression: Cat scratch, Cat bite Patient Disposition: Home, Self-Care Instructions: Animal Bite (ED) Additional Instructions: If you see any signs of infection such as redness, pus drainage, fever chills, please return to the emergency room. Please make sure that you take the full course of antibiotics. Please follow-up with your primary care physician tomorrow. If you have any worsening or new symptoms, please return to the emergency room or call 911 Prescriptions: New doxycycline hyclate 100 mg tablet 100 mg PO BID Qty: 19 0RF No Action atorvastatin 20 mg tablet 20 mg PO DAILY Qty: 90 3RF cyclobenzaprine 10 mg tablet 10 mg PO BID PRN (Reason: for muscle spasm) Qty: 30 1RF omeprazole 40 mg capsule,delayed release(DR/EC) 40 mg PO DAILY Qty: 90 1RF trazodone 50 mg tablet 1 tab PO DAILY albuterol sulfate 90 mcg/actuation HFA aerosol inhaler 2 puff PO Q4H PRN (Reason: Shortness Of Breath) Trelegy Ellipta 100-62.5-25 mcg blister with device 100 inh inhalation DAILY multivitamin Tablet 1 tab PO DAILY nicotine 21-14-7 mg/24 hr patch, TD daily, sequential 1 patch transdermal DAILY Qty: 56 3RF ipratropium-albuterol 0.5 mg-3 mg(2.5 mg base)/3 mL solution for nebulization inhalation ibuprofen 600 mg tablet 600 mg PO Q6H PRN (Reason: pain) Qty: 60 0RF Interventions: ED Discharge Assessment Last Done: 12/08/22 20:33 Discharge Date/Time: 12/08/22 20:34
[2022-12-08] MEDS: Doxycycline Monohydrate 100 MG CAPSULE PO (19:55)
[2022-12-08] MEDS: Ketorolac Tromethamine 60 MG/2 ML VIAL IM (19:56)
--- NOTE | 2022-12-08 20:03 | PC.NURSE ---
pt medicated per SEP, toradol 60mg IM given for 10 pain
== END 2022-12-08 20:34 | disposition home or self-care (01) ==
PROVIDERS: Emergency Provider Emergency Medicine; PCP Internal Medicine
DX: S40.811A Abrasion of right upper arm, initial encounter (principal); S40.812A Abrasion of left upper arm, initial encounter; W55.03XA Scratched by cat, initial encounter; Y93.9 Activity, unspecified; Y92.9 Unspecified place or not applicable; Y99.9 Unspecified external cause status; Z79.899 Other long term (current) drug therapy
CPT/HCPCS: 73100; 96372; 99283; 99284; J1885

== ENCOUNTER 2022-12-10 22:40 | Inpatient (IN) | payer OTHER, MEDICAID, SELFPAY ==
--- NOTE | ~2022-12-10 | CT_ITS ---
EXAMINATION: CT WRIST WITH CONTRAST, RIGHT CLINICAL INFORMATION: Tenosynovitis COMPARISON: Radiographs 12/08/2022 TECHNIQUE: CT of the right wrist is performed following intravenous administration of 85 mL Omnipaque 350 iodinated contrast. Sagittal and coronal reformats were performed. This CT examination was performed using dose optimization techniques as appropriate, variously including the following: *Automated exposure control *Adjustment of mA and/or kV according to patient size (this includes techniques or standardized protocols for targeted exams where dose is matched to indication/reason for exam; i.e. extremities or head) *Use of iterative reconstruction technique DLP: 152 mGy-cm FINDINGS: Diffuse subcutaneous edema surrounds the distal forearm, wrist, and hand. There is no focal fluid collection to indicate an abscess. Flexor and extensor tendons appear intact although assessment is suboptimal with CT. No significant tenosynovitis. No cortical erosions are identified that would suggest osteomyelitis. There is curvilinear sclerosis of the proximal pole of the scaphoid, possibly chronic AVN. No fracture is evident. Consider MRI for further evaluation if indicated. CT/CT wrist RT w IV con IMPRESSION: 1. Diffuse subcutaneous edema. No abscess or evidence of osteomyelitis. No significant tenosynovitis. 2. 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 Consider MRI for further evaluation if indicated. MRI is also more sensitive in the evaluation of tenosynovitis or tendon integrity.
[2022-12-10 22:42] VITALS: BP 151/79; PULSE 91; RESP 17; TEMP 36.6; O2SAT 97; BMI 21.1
--- NOTE | 2022-12-11 01:15 | ED.EXTPRO ---
HPI - Extremity Problem General Chief complaint: Extremity Problem Stated complaint: Right hand swollen revisit Time Seen by Provider: 12/11/22 01:14 Source: patient Mode of arrival: ambulatory Limitations: no limitations History of Present Illness HPI Narrative: Patient comes here for right hand swelling after cat bite on 12/08. Patient got bitten by her cat accidentally 3 days ago was seen here on day 1 and start on antibiotic doxycycline in last 24 hours swelling has increased with increased pains redness spreading to the forearm Related Data Home Medications Medication Instructions Recorded Confirmed albuterol sulfate 90 mcg/actuation 2 puff PO Q4H PRN Shortness Of 07/31/20 12/11/22 aerosol inhaler Breath fluticasone fur. 100 mcg-umeclid 100 inh inhalation DAILY 07/31/20 12/11/22 62.5 mcg-vilant 25 mcg inhalat.powder (Trelegy Ellipta) trazodone 50 mg tablet 1 tab PO DAILY 07/31/20 12/11/22 multivitamin 1 tab PO DAILY 04/02/21 12/09/22 lorazepam 0.5 mg tablet 0.5 mg PO DAILY PRN Anxiety 12/11/22 12/11/22 Previous Rx's Medication Instructions Recorded nicotine 1 patch transdermal DAILY #56 08/21/21 21mg/24hr-14mg/24hr-7mg/24hr daily patches transderm patches,sequentl atorvastatin 20 mg tablet 20 mg PO DAILY #90 tabs 08/06/22 omeprazole 40 mg capsule,delayed 40 mg PO DAILY #90 caps 09/12/22 release Allergies Allergy/AdvReac Type Severity Reaction Status Date / Time apple [Apple] Allergy Severe TONGUE Verified 12/11/22 04:00 SWELLS penicillin V Allergy Unknown unknown - Verified 12/11/22 04:00 childhood Penicillins [PENICILLINS] Allergy Unknown UNKNOWN-CHILDHOOD Verified 12/11/22 04:00 ALLERGY Review of Systems Review of Systems: Yes all other systems are reviewed and are negative PMFSH Past Medical History Medical History Anxiety COPD (chronic obstructive pulmonary disease) Depression History of seizure Hyperlipemia Lower back pain Malignant neoplasm of right upper lobe of lung (~2017) Neck pain On home O2 Osteopenia Restless leg syndrome Tobacco dependence Surgical History History of bronchoscopy (~06/2018) History of colonoscopy (~03/2017) History of lung surgery (~07/2018) History of tonsillectomy Family History Family History Father Alcohol abuse Maternal Aunt Breast cancer Sister Breast cancer Brother Skin cancer Other Mental health disorder Substance use disorder Social History Social History Household Members: Spouse Housing: House Alcohol intake: current Alcohol intake frequency: a few times a week Patient Tobacco Use Status: Current everyday Tobacco user Tobacco use type: Cigar Cigarettes Per Day: 2 Years Smoked: 43 (onset 12yo) Smoked in Last 30 Days: Yes e-Cigarette/Vaping Use: Former Use Second Hand Smoke Exposure: No Substance Use Type: Marijuana Advance Directives: No Advance Directives Information Provided: Yes Patient : No service: No Current occupational status: employed and unemployed Cognitive needs: No Hearing needs: No Vision needs: Yes Physical Exam Vital Signs: Vital Signs: Last Vital Signs Temp 98.3 F 12/11/22 06:13 Pulse 66 12/11/22 06:13 Resp 17 12/11/22 06:13 BP 131/63 12/11/22 06:13 Pulse Ox 94 12/11/22 06:13 O2 Del Method Room Air 12/11/22 06:13 BMI result Body Mass Index 21.1 Appearance: Alert. Oriented X3. No acute distress. Neck: Normal inspection. Neck supple. CVS: Normal heart rate and rhythm. Pulses normal. Respiratory: No respiratory distress. Equal air entry bilateral, Abdomen: Soft and nontender. Bowel sounds are present, no mass palpable, no CVA tenderness Skin: Skin warm and dry. Normal skin color. Normal skin turgor. Extremities: No lower extremity edema. No calf tenderness right hand swollen erythema all the way spreading to the forearm with bite alexandra on the wrist sensations normal increased pain on dorsiflexion of the right wrist Neuro: Oriented X 3. No motor deficit. No sensory deficit.No cerebellar signs , cranial nerves II-XII intact Medications Administered Discontinued Medications Generic Name Dose Route Start Last Admin Trade Name Freq PRN Reason Stop Dose Admin Piperacillin Sod/Tazobactam 50 mls @ 100 mls/hr 12/11/22 01:37 12/11/22 03:04 Sod 3.375 gm/ Sodium Chloride IV 12/11/22 02:06 Infused ONCE ONE Infusion Vancomycin HCl 1,500 mg/ 500 mls @ 333.333 mls/hr 12/11/22 02:00 12/11/22 04:36 Sodium Chloride IV 12/11/22 03:29 Infused ONCE ONE Infusion Morphine Sulfate 4 mg 12/11/22 01:39 12/11/22 02:42 Morphine Sulfate 4 Mg/Ml Cartridge IVPUSH 12/11/22 01:40 4 mg ONCE ONE Administration Protocol Ondansetron HCl 4 mg 12/11/22 01:39 12/11/22 01:56 Ondansetron Hcl 4 Mg/2 Ml Vial IVPUSH 12/11/22 01:40 4 mg ONCE ONE Administration Medical Decision Making Medical Decision Making MDM Narrative: Patient with infected wounds the right wrist after a cat bite 3 days ago. Cat is up-to-date with her shots patient a tetanus shot in 2018 on antibiotic doxycycline comes here for worsening of the swelling at this time is possible involvement of the tendons questionable tenosynovitis. Started on vancomycin and Zosyn we are getting a CT scan of the wrist surgeon to see in am Consult Healthcare Provider Management of the patient was discussed with: Hospitalist Lab Data 12/11/22 06:16 12/11/22 06:16 Labs: Lab Results 12/11/22 12/11/22 12/11/22 Range/Units 04:16 04:16 05:08 WBC 10.9 H (4.8-10.8) X10*3/uL RBC 4.07 L (4.20-5.50) X10*6/uL Hgb 13.4 (12.0-16.0) g/dl Hct 38.4 (37.0-47.0) % MCV 94.3 (80.0-98.0) fL MCH 32.9 (27.0-33.0) pg MCHC 34.9 (31.0-35.0) g/dl RDW 12.2 (11.0-16.0) % Plt Count 109 L D (160-400) X10*3/uL MPV 11.4 (9.4-12.3) fL Immature Gran % (Auto) 0.4 (0.0-0.4) % Neut % (Auto) 56.1 (45-73) % Lymph % (Auto) 33.6 (20-40) % [place] % (Auto) 7.9 (2-11) % Eos % (Auto) 1.4 (0-4) % Baso % (Auto) 0.6 (0-2) % Lymph # (Auto) 3.7 (1.2-4.9) X10*3/uL [place] # (Auto) 0.9 (0.1-1.2) X10*3/uL Eos # (Auto) 0.2 (0.0-0.4) X10*3/uL Baso # (Auto) 0.1 (0.0-0.2) X10*3/uL Abs Immat Gran (auto) 0.04 H (0.00-0.03) X10*3/uL Absolute Neuts (auto) 6.1 (2.0-8.3) x10*3/uL Absolute Nucleated RBC 0.000 (0.0-0.012) X10*3/uL Nucleated RBC % (auto) 0.0 (0.0-0.2) /100WBC PT 11.1 (10.0-13.1) SEC INR 1.0 (0.9-1.1) Sodium 141 (135-145) mmol/L Potassium 3.4 (3.3-5.1) mmol/L Chloride 105 (96-108) mmol/L Carbon Dioxide 26 (22-29) mmol/L Anion Gap 13 (12-20) BUN 6 L (9-16) mg/dL Creatinine 0.81 (0.5-1.4) mg/dL Estim Creat Clear Calc 68.1 Estimated GFR > 60 Random Glucose 106 (60-115) mg/dL Lactic Acid (0.5-2.0) mmol/L Calcium 9.2 D (8.4-10.2) mg/dL Total Bilirubin 1.2 H (0.0-1.0) mg/dL AST 25 (5-31) U/L ALT 17 (0-31) U/L Alkaline Phosphatase 93 (39-117) U/L Total Protein 5.8 L (6.5-8.0) g/dL Albumin 3.8 (3.5-5.0) g/dL 12/11/22 Range/Units 05:08 WBC (4.8-10.8) X10*3/uL RBC (4.20-5.50) X10*6/uL Hgb (12.0-16.0) g/dl Hct (37.0-47.0) % MCV (80.0-98.0) fL MCH (27.0-33.0) pg MCHC (31.0-35.0) g/dl RDW (11.0-16.0) % Plt Count (160-400) X10*3/uL MPV (9.4-12.3) fL Immature Gran % (Auto) (0.0-0.4) % Neut % (Auto) (45-73) % Lymph % (Auto) (20-40) % [place] % (Auto) (2-11) % Eos % (Auto) (0-4) % Baso % (Auto) (0-2) % Lymph # (Auto) (1.2-4.9) X10*3/uL [place] # (Auto) (0.1-1.2) X10*3/uL Eos # (Auto) (0.0-0.4) X10*3/uL Baso # (Auto) (0.0-0.2) X10*3/uL Abs Immat Gran (auto) (0.00-0.03) X10*3/uL Absolute Neuts (auto) (2.0-8.3) x10*3/uL Absolute Nucleated RBC (0.0-0.012) X10*3/uL Nucleated RBC % (auto) (0.0-0.2) /100WBC PT (10.0-13.1) SEC INR (0.9-1.1) Sodium (135-145) mmol/L Potassium (3.3-5.1) mmol/L Chloride (96-108) mmol/L Carbon Dioxide (22-29) mmol/L Anion Gap (12-20) BUN (9-16) mg/dL Creatinine (0.5-1.4) mg/dL Estim Creat Clear Calc Estimated GFR Random Glucose (60-115) mg/dL Lactic Acid 1.2 (0.5-2.0) mmol/L Calcium (8.4-10.2) mg/dL Total Bilirubin (0.0-1.0) mg/dL AST (5-31) U/L ALT (0-31) U/L Alkaline Phosphatase (39-117) U/L Total Protein (6.5-8.0) g/dL Albumin (3.5-5.0) g/dL Discharge Plan Discharge Clinical Impression: Cellulitis of hand, right, Cat bite Patient Disposition: Admitted As Inpatient
[2022-12-11] MEDS: ondansetron HCL 4 MG/2 ML VIAL IVPUSH (01:56)
[2022-12-11] MEDS: Piperacillin Sodium/Tazobactam 3.375 GM in 0.9 % Sodium Chloride 50 ML IV (02:30)
[2022-12-11] MEDS: vancomycin HCL 1,500 MG in 0.9 % Sodium Chloride 500 ML 333.33 MG IV (02:41)
[2022-12-11 02:42] VITALS: RESP 20
[2022-12-11] MEDS: Morphine Sulfate 4 MG/ML CARTRIDGE IVPUSH (02:42)
[2022-12-11 03:03] VITALS: BP 122/66; PULSE 71; RESP 14; TEMP 36.9; O2SAT 96
[2022-12-11 04:20] LABS: Basophils Percent Auto 0.6 % (0-2); Imm Gran Abs Auto 0.04 X10*3/uL (0.00-0.03); Imm Gran Pct Auto 0.4 % (0.0-0.4); Lymphocytes Absolute Auto 3.7 X10*3/uL (1.2-4.9); PLT CLUMP 1; Red Cell Distribution Width 12.2 % (11.0-16.0); SCAN SMEAR FLAG 1
[2022-12-11 04:22] LABS: Basophils Absolute Auto 0.1 X10*3/uL (0.0-0.2); Eosinophils Absolute Auto 0.2 X10*3/uL (0.0-0.4); Eosinophils Percent Auto 1.4 % (0-4); Hematocrit 38.4 % (37.0-47.0); Hemoglobin 13.4 g/dl (12.0-16.0); Lymphocytes Percent Auto 33.6 % (20-40); Mean Corpuscular HGB Conc 34.9 g/dl (31.0-35.0); Mean Corpuscular Hemoglobin 32.9 pg (27.0-33.0); Mean Corpuscular Volume 94.3 fL (80.0-98.0); Mean Platelet Volume 11.4 fL (9.4-12.3); Monocytes Absolute Auto 0.9 X10*3/uL (0.1-1.2); Monocytes Percent Auto 7.9 % (2-11); Neutrophils Absolute Auto 6.1 x10*3/uL (2.0-8.3); Neutrophils Percent Auto 56.1 % (45-73); Red Blood Count 4.07 X10*6/uL (4.20-5.50)
[2022-12-11 04:24] LABS: MANUAL DIFF FLAG NO; White Blood Count 10.9 X10*3/uL (4.8-10.8)
[2022-12-11 04:25] LABS: Prothrombin Time 11.1 SEC (10.0-13.1)
--- NOTE | 2022-12-11 04:30 | PC.NURSE ---
med rec complete
--- NOTE | 2022-12-11 04:41 | PC.NURSE ---
report given to Lauren RN, pt to ED17
[2022-12-11 04:42] LABS: Platelet Count 109 X10*3/uL (160-400)
--- NOTE | 2022-12-11 05:24 | PC.NURSE ---
Report received by RN, Addie. pt is resting in bed, denies any CP, SOB, feeling of faint, numbness/tingling to extremities.
[2022-12-11 05:33] LABS: Lactic Acid 1.2 mmol/L (0.5-2.0)
[2022-12-11 05:38] LABS: Alanine Aminotransferase 17 U/L (0-31); Albumin Level 3.8 g/dL (3.5-5.0); Alkaline Phosphatase 93 U/L (39-117); Anion Gap 13 (12-20); Aspartate Amino Transferase 25 U/L (5-31); Bilirubin Total 1.2 mg/dL (0.0-1.0); Blood Urea Nitrogen 6 mg/dL (9-16); Calcium 9.2 mg/dL (8.4-10.2); Carbon Dioxide 26 mmol/L (22-29); Chloride 105 mmol/L (96-108); Creatinine Clr Calc Pharmacy 68.1; Estimated Glomerular Filt Rate > 60; Glucose Random 106 mg/dL (60-115); Potassium 3.4 mmol/L (3.3-5.1); Sodium 141 mmol/L (135-145); Total Protein 5.8 g/dL (6.5-8.0)
--- NOTE | 2022-12-11 05:42 | PC.NURSE ---
Patient to ED for c/o right hand swelling after cat bite on 12/08. Pt states she got bitten by her cat accidentally 3 days ago was seen at [facility] and placed on the antibiotic, doxycycline. Pt states in last 24 hours swelling has increased with increased pains and redness that is spreading to the forearm
--- NOTE | 2022-12-11 05:45 | PM.IMHP ---
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 Patient reports that on Thursday, she had a cat scratch/bite from her cat due to the CT being nervous in the presence of a bare, her cat is fully vaccinated, Thursday she started developing pain and swelling in her right hand, she came to the ED here, was given doxycycline, she took approximately 2-3 doses of that, but noticed that the swelling was getting worse and the redness was traveling upper arm to the point where now she cannot close her hand in a fist. She went to a walk-in clinic the day prior, was given meloxicam, and sent home. She 2 turns stating no relief, and worsening symptoms. She denies any fever, has chills, reports no chest pain, no shortness of breath, no dizziness headache or change in vision, no abdominal pain nausea or vomiting, no diarrhea constipation, no urinary symptoms and no lower extremity edema. She has swelling of her right hand, unable to make a fist, limited range of motion, pain in the thumb when she tries to bend it, pain is severe, worse with movement, is also swelling and redness of her right arm. On arrival to the ED patient hemodynamically stable with no significant abnormal vitals labs are significant for WBC count of 10.9, hemoglobin of 4.0, labs otherwise unremarkable CT of the hand pending Patient started on IV antibiotics and will be admitted for further management Review of Systems Review of Systems: Yes all other systems are reviewed and are negative [facility], [facility] Medical History Anxiety COPD (chronic obstructive pulmonary disease) Depression History of seizure Hyperlipemia Lower back pain Malignant neoplasm of right upper lobe of lung (~2018) Neck pain On home O2 Osteopenia Restless leg syndrome Tobacco dependence Family History Father Alcohol abuse Maternal Aunt Breast cancer Sister Breast cancer Brother Skin cancer Other Mental health disorder Substance use disorder Surgical History History of bronchoscopy (~06/2018) History of colonoscopy (~03/2017) History of lung surgery (~07/2018) History of tonsillectomy Social History Household Members: Spouse Housing: House Alcohol intake: current Alcohol intake frequency: a few times a week Patient Tobacco Use Status: Current everyday Tobacco user Tobacco use type: Cigar Cigarettes Per Day: 2 Years Smoked: 43 (onset 12yo) Smoked in Last 30 Days: Yes e-Cigarette/Vaping Use: Former Use Second Hand Smoke Exposure: No Substance Use Type: Marijuana Advance Directives: No Advance Directives Information Provided: Yes Patient : No service: No Current occupational status: employed and unemployed Cognitive needs: No Hearing needs: No Vision needs: Yes Meds Allergies Allergy/AdvReac Type Severity Reaction Status Date / Time apple [Apple] Allergy Severe TONGUE Verified 12/11/22 04:00 SWELLS penicillin V Allergy Unknown unknown - Verified 12/11/22 04:00 childhood Penicillins [PENICILLINS] Allergy Unknown UNKNOWN-CHILDHOOD Verified 12/11/22 04:00 ALLERGY Active Medications: Current Medications Acetaminophen (Acetaminophen 325 Mg Tablet) 650 mg PO Q6H PRN PRN Reason: Pain, Mild (Pain Scale 1-3) Docusate Sodium (Docusate Sodium 100 Mg Capsule) 100 mg PO DAILY PRN PRN Reason: Constipation Vancomycin HCl 1,250 mg/ (Sodium Chloride) 250 mls @ 166.667 mls/hr IV Q12H [facility] Cefepime HCl 2 gm/ Sodium (Chloride) 50 mls @ 100 mls/hr IV Q8H [facility] Ondansetron HCl (Ondansetron Hcl 4 Mg/2 Ml Vial) 4 mg IVPUSH Q8H PRN PRN Reason: Nausea and Vomiting Pharmacy Consult (Consult Rx Vancomycin Dosing) 1 each MISCELLANE DAILY PRN PRN Reason: Consult order Pharmacy Consult (Consult Rx Vancomycin Dosing) 1 each MISCELLANE DAILY PRN PRN Reason: Consult order Sodium Chloride (0.9 % Sodium Chloride Flush 3 Ml Syringe) 3 ml IVFLUSH QSHIFT [facility] Home Medications Medication Instructions Recorded Confirmed Last Taken Type albuterol sulfate 90 mcg/actuation 2 puff PO Q4H PRN Shortness Of 07/31/20 12/11/22 Unknown History aerosol inhaler Breath fluticasone fur. 100 mcg-umeclid 100 inh inhalation DAILY 07/31/20 12/11/22 02/14/21 07:30 History 62.5 mcg-vilant 25 mcg inhalat.powder (Trelegy Ellipta) trazodone 50 mg tablet 1 tab PO DAILY 07/31/20 12/11/22 Unknown History multivitamin 1 tab PO DAILY 04/02/21 12/09/22 Unknown History lorazepam 0.5 mg tablet 0.5 mg PO DAILY PRN Anxiety 12/11/22 12/11/22 Unknown History Physical Exam Vital Signs and Narrative: Vital Signs: Last Vital Signs Temp 98.4 F 12/11/22 03:03 Pulse 71 12/11/22 03:03 Resp 14 12/11/22 03:03 BP 122/66 12/11/22 03:03 Pulse Ox 96 12/11/22 03:03 O2 Del Method Room Air 12/11/22 03:03 BMI result Body Mass Index 21.1 Const: General: cooperative and no acute distress Orientation/consciousness: patient oriented x3 Eyes: General: appearance normal, both eyes and all related structures Resp: Effort & Inspection: normal respiratory effort Auscultation: clear to auscultation bilaterally Cardio: Rate: regular rate Rhythm: regular rhythm GI: Palpation (GI): Soft to palpation Auscultation: normal bowel sounds Skin: Other: Right hand erythema, warmth, limited range of motion due to pain, erythema is traveling all the way to the mid forearm, Neuro: General: patient oriented x3 Cognition (Neuro): normal cognition Extrem: Other: No pedal edema See scanned Results Labs 12/11/22 04:16 12/11/22 05:08 Labs: Laboratory Results - last 24 hr 12/11/22 12/11/22 12/11/22 04:16 04:16 05:08 MCV 94.3 MCH 32.9 MCHC 34.9 RDW 12.2 Plt Count 109 L D MPV 11.4 Immature Gran % (Auto) 0.4 Neut % (Auto) 56.1 Lymph % (Auto) 33.6 [place] % (Auto) 7.9 Eos % (Auto) 1.4 Baso % (Auto) 0.6 Lymph # (Auto) 3.7 [place] # (Auto) 0.9 Eos # (Auto) 0.2 Baso # (Auto) 0.1 Abs Immat Gran (auto) 0.04 H Absolute Neuts (auto) 6.1 Absolute Nucleated RBC 0.000 Nucleated RBC % (auto) 0.0 PT 11.1 INR 1.0 Anion Gap 13 Estim Creat Clear Calc 68.1 Estimated GFR > 60 Random Glucose 106 Lactic Acid Calcium 9.2 D Total Bilirubin 1.2 H AST 25 ALT 17 Alkaline Phosphatase 93 Total Protein 5.8 L Albumin 3.8 12/11/22 05:08 MCV MCH MCHC RDW Plt Count MPV Immature Gran % (Auto) Neut % (Auto) Lymph % (Auto) [place] % (Auto) Eos % (Auto) Baso % (Auto) Lymph # (Auto) [place] # (Auto) Eos # (Auto) Baso # (Auto) Abs Immat Gran (auto) Absolute Neuts (auto) Absolute Nucleated RBC Nucleated RBC % (auto) PT INR Anion Gap Estim Creat Clear Calc Estimated GFR Random Glucose Lactic Acid 1.2 Calcium Total Bilirubin AST ALT Alkaline Phosphatase Total Protein Albumin Assessment and Plan (1) Cellulitis of hand, right: Status: Acute (2) Cat bite: Status: Acute Plan 57-year-old female with past medical history as mentioned above presents to the hospital with worsening right hand cellulitis # acute right hand cellulitis - secondary to cat bite/scratch is - failed outpatient therapy with p.o. doxycycline - worsening - patient started on IV antibiotic - follow cultures - if does not improve, consider infectious disease consult # history of COPD - not in exacerbation - continue home inhalers # depression anxiety - continue home anxiolytic DVT prophylaxis: Early ambulation Given patient's need for IV antibiotics, patient will require minimum 2 nights inpatient hospital stay for further management and monitor Time Spent With Patient Time: Total time managing care of this patient today ____ minutes. Quality Stroke Does the patient have a stroke diagnosis?: No VTE Prior VTE?: No VTE Risk Level:: Medical - low VTE Device Contraindication: N/A - Device Ordered VTE Drug Contraindication: Treatment Not Indicated
[2022-12-11 06:13] VITALS: BP 131/63; PULSE 66; RESP 17; TEMP 36.8; O2SAT 94
[2022-12-11 06:22] LABS: Hematocrit 38.2 % (37.0-47.0); Imm Gran Abs Auto 0.03 X10*3/uL (0.00-0.03); Imm Gran Pct Auto 0.3 % (0.0-0.4); Mean Platelet Volume 11.2 fL (9.4-12.3); PLT CLUMP 1; Red Cell Distribution Width 12.1 % (11.0-16.0); SCAN SMEAR FLAG 1
[2022-12-11 06:24] LABS: Basophils Absolute Auto 0.1 X10*3/uL (0.0-0.2); Basophils Percent Auto 0.5 % (0-2); Eosinophils Absolute Auto 0.1 X10*3/uL (0.0-0.4); Eosinophils Percent Auto 1.3 % (0-4); Hemoglobin 13.1 g/dl (12.0-16.0); Lymphocytes Absolute Auto 3.5 X10*3/uL (1.2-4.9); Lymphocytes Percent Auto 35.9 % (20-40); Mean Corpuscular HGB Conc 34.3 g/dl (31.0-35.0); Mean Corpuscular Hemoglobin 32.3 pg (27.0-33.0); Mean Corpuscular Volume 94.3 fL (80.0-98.0); Monocytes Absolute Auto 0.7 X10*3/uL (0.1-1.2); Neutrophils Absolute Auto 5.4 x10*3/uL (2.0-8.3); Red Blood Count 4.05 X10*6/uL (4.20-5.50)
[2022-12-11 06:26] LABS: MANUAL DIFF FLAG NO; Platelet Count 127 X10*3/uL (160-400); White Blood Count 9.9 X10*3/uL (4.8-10.8)
[2022-12-11 06:45] LABS: Anion Gap 12 (12-20); Blood Urea Nitrogen 6 mg/dL (9-16); Calcium 8.7 mg/dL (8.4-10.2); Carbon Dioxide 25 mmol/L (22-29); Chloride 107 mmol/L (96-108); Creatinine Clr Calc Pharmacy 73.5; Estimated Glomerular Filt Rate > 60; Glucose Random 105 mg/dL (60-115); Potassium 3.2 mmol/L (3.3-5.1); Sodium 141 mmol/L (135-145)
--- NOTE | 2022-12-11 06:48 | MHC.CM.PN ---
Attempted to meet with patient in regards to discharge planning. Patient currently sleeping. No family present. Will attempt to meet again. Continue to monitor for d/c needs.
--- NOTE | 2022-12-11 06:52 | PHA.PROG ---
Admission Date/Time: December 11, 2022 05:37 Indication: BONE & JOINT Weight in k.606 kg Adjusted body weight in K.242 [place] body weight in K.0 Obesity Dosing Indication % IBW: 21.1 Serum Creatinine - Last 168 Hours 12/11/22 12/11/22 05:08 06:16 Creatinine 0.81 0.75 Estimated CrCl and GFR - Last 168 Hours 12/11/22 12/11/22 05:08 06:16 Estim Creat Clear Calc 68.1 73.5 Estimated GFR > 60 > 60 Vancomycin Loading Dose: 2000 MG Current Vancomycin Dosing Regimen: 1250 MG Q12 Vancomycin Monitoring using AUC goal of 400 - 600 range with trough as surrogate marker: AUC 444 EXPECTED AFTER 4TH DOSE. TREATING MORE AGGRESSIVELY WITH DOSE APPROX 22 MG/KG. PT WAS SCRATCHED BY A CAT AND TREATED ON PO DOXYCYCLINE X2-3 DAYS WITH WORSENING SYMPTOMS. Date and Time for next Vancomycin Level to be drawn: 12/12 @1300 Pharmacist Comments on Vancomycin Plan: CLOSELY MONITOR PT SCR. CURRENT SCR IS GOOD AT 0.81 BUT MONITOR FOR CHANGES WITH HIGHER DOSING. Vancomycin dosing will take advantage of [employer] as a clinical decision support tool that uses Bayesian modeling to calculate individual patient's pharmacokinetic parameters and forecast the patient's drug concentration time course with the target goal AUC 24 range of 400 - 600 mg/L/hr.
[2022-12-11] MEDS: cefEPime HCl 2 GM in 0.9 % Sodium Chloride 50 ML IV ×3 (07:30→21:37)
--- NOTE | 2022-12-11 07:39 | PHA.MEDREC ---
Pharmacy Consult ? Medication Reconciliation Pharmacy has reviewed the medication reconciliation.
[2022-12-11] MEDS: levoFLOXacin/D5W 750 MG/150 ML PIGGYBACK 100 MG IV (08:03)
--- NOTE | 2022-12-11 08:11 | PC.NURSE ---
assumed care of this pt at 0700. pt a&o x4, pleasant, calm, and cooperative. pt ate breakfast at side of the bed and walked independently to the bathroom. makes needs known. medicated per sep. currently resting quietly on stretcher in no apparent distress. rr even/unlabored. awaiting CT scan and bed assignment. wctm
--- NOTE | 2022-12-11 09:26 | MHC.CM.PN ---
Met with patient in regards to discharge planning. Patient lives with her , ambulates independently and had no services prior to coming to the hospital. No services anticipated to be needed because patient is not homebound. PCP verified. Copy of HCP verified to be on file. Patient received 4 Moderna vaccines and 1 Pfizer vaccine. Patient's or mother will transport her home when medically stable. Continue to monitor for d/c needs.
[2022-12-11] MEDS: Potassium Chloride Packet 20 MEQ PACKET 40 MEQ PO (10:12)
[2022-12-11 10:15] LABS: Erythrocyte Sedimentation Rate 11 MM/HR (0-20)
[2022-12-11 10:16] LABS: C Reactive Protein 5.28 mg/dL (< or = 0.50); Magnesium 1.1 mg/dL (1.6-2.6)
[2022-12-11] MEDS: iohexoL 350 MG/ML 100 ML INFUS..BTL IV (10:16)
[2022-12-11] MEDS: Magnesium Sulfate/H2O 2 GM/50 ML PIGGYBACK IV (10:41)
--- NOTE | 2022-12-11 12:26 | PC.NURSE ---
continues to rest comfortably in bed, ambulates with steady gait. call deshpande within reach
[2022-12-11 13:09] VITALS: BP 140/76; PULSE 80; RESP 18; TEMP 36.4; O2SAT 94
[2022-12-11] MEDS: 0.9 % Sodium Chloride Flush 3 ML SYRINGE IVFLUSH ×2 (15:00→19:31)
[2022-12-11 15:03] VITALS: BP 140/64; PULSE 68; RESP 18; TEMP 36.2; O2SAT 96
[2022-12-11] MEDS: vancomycin HCL 1,250 MG in 0.9 % Sodium Chloride 250 ML 166.67 MG IV (15:34)
[2022-12-11] MEDS: Acetaminophen 325 MG TABLET 650 MG PO (15:45)
--- NOTE | 2022-12-11 16:13 | P.PNIM_ITS ---
Subjective Subjective Date of Service: 12/11/22 Interval History: swollen hand Review of Systems has erythema ,swelling no fevers Physical Exam Vital Signs: Vital Signs: Last Vital Signs Temp 97.2 F 12/11/22 15:03 Pulse 68 12/11/22 15:03 Resp 18 12/11/22 15:03 BP 140/64 H 12/11/22 15:03 Pulse Ox 96 12/11/22 15:03 O2 Del Method Room Air 12/11/22 15:03 BMI result Body Mass Index 21.1 similar as h&p. Objective Data Active Medications Acetaminophen (Acetaminophen 325 Mg Tablet) 650 mg PO Q6H PRN PRN Reason: Pain, Mild (Pain Scale 1-3) Last Admin: 12/11/22 15:45 Dose: 650 mg Documented By: DONY Albuterol Sulfate (Albuterol Sulfate 90 Mcg 8 Gm Inhaler) 2 puff INHALE Q4H PRN PRN Reason: Shortness Of Breath Atorvastatin Calcium (Atorvastatin Calcium 20 Mg Tablet) 20 mg PO DAILY [facility] Docusate Sodium (Docusate Sodium 100 Mg Capsule) 100 mg PO DAILY PRN PRN Reason: Constipation Vancomycin HCl 1,250 mg/ (Sodium Chloride) 250 mls @ 166.667 mls/hr IV Q12H [facility] Last Admin: 12/11/22 15:34 Dose: 166.67 mls/hr Documented By: DONY Cefepime HCl 2 gm/ Sodium (Chloride) 50 mls @ 100 mls/hr IV Q8H [facility] Last Infusion: 12/11/22 15:27 Dose: 0 mls/hr Documented By: DONY Levofloxacin (Levaquin) 750 mg in 150 mls @ 100 mls/hr IV Q24H [facility] Last Infusion: 12/11/22 09:34 Dose: 0 mls/hr Documented By: SUKHJINDER Lorazepam (Lorazepam 0.5 Mg Tablet) 0.5 mg PO DAILY PRN PRN Reason: Anxiety Magnesium Oxide (Magnesium Oxide 400 Mg Tablet) 400 mg PO BIDPC [facility] Pat Own Med ( Fluticasone- Umeclidin-Vilanter [ Trelegy Ellipta] 100 -62.5-25 Mcg 1 inhalation INHALE DAILY [facility] Last Admin: 12/11/22 14:13 Dose: Not Given Documented By: KOFI Non-Admin Reason: Med Not Available Omeprazole (Omeprazole 40 Mg Capsule.Dr) 40 mg PO DAILY [facility] Ondansetron HCl (Ondansetron Hcl 4 Mg/2 Ml Vial) 4 mg IVPUSH Q8H PRN PRN Reason: Nausea and Vomiting Pharmacy Consult (Consult Rx Vancomycin Dosing) 1 each MISCELLANE DAILY PRN PRN Reason: Consult order Sodium Chloride (0.9 % Sodium Chloride Flush 3 Ml Syringe) 3 ml IVFLUSH QSHIFT [facility] Last Admin: 12/11/22 15:00 Dose: 3 ml Documented By: DONY Trazodone HCl (Trazodone Hcl 50 Mg Tablet) 50 mg PO BEDTIME [facility] Labs 12/11/22 06:16 12/11/22 06:16 Labs: Laboratory Results - last 24 hr 12/11/22 12/11/22 12/11/22 04:16 04:16 05:08 MCV 94.3 MCH 32.9 MCHC 34.9 RDW 12.2 Plt Count 109 L D MPV 11.4 Immature Gran % (Auto) 0.4 Neut % (Auto) 56.1 Lymph % (Auto) 33.6 [place] % (Auto) 7.9 Eos % (Auto) 1.4 Baso % (Auto) 0.6 Lymph # (Auto) 3.7 [place] # (Auto) 0.9 Eos # (Auto) 0.2 Baso # (Auto) 0.1 Abs Immat Gran (auto) 0.04 H Absolute Neuts (auto) 6.1 Absolute Nucleated RBC 0.000 Nucleated RBC % (auto) 0.0 ESR PT 11.1 INR 1.0 Anion Gap 13 Estim Creat Clear Calc 68.1 Estimated GFR > 60 Random Glucose 106 Lactic Acid Calcium 9.2 D Magnesium Total Bilirubin 1.2 H AST 25 ALT 17 Alkaline Phosphatase 93 C-Reactive Protein Total Protein 5.8 L Albumin 3.8 12/11/22 12/11/22 12/11/22 05:08 06:16 06:16 MCV 94.3 MCH 32.3 MCHC 34.3 RDW 12.1 Plt Count 127 L MPV 11.2 Immature Gran % (Auto) 0.3 Neut % (Auto) 55.0 Lymph % (Auto) 35.9 [place] % (Auto) 7.0 Eos % (Auto) 1.3 Baso % (Auto) 0.5 Lymph # (Auto) 3.5 [place] # (Auto) 0.7 Eos # (Auto) 0.1 Baso # (Auto) 0.1 Abs Immat Gran (auto) 0.03 Absolute Neuts (auto) 5.4 Absolute Nucleated RBC 0.000 Nucleated RBC % (auto) 0.0 ESR PT INR Anion Gap 12 Estim Creat Clear Calc 73.5 Estimated GFR > 60 Random Glucose 105 Lactic Acid 1.2 Calcium 8.7 Magnesium 1.1 L* Total Bilirubin AST ALT Alkaline Phosphatase C-Reactive Protein 5.28 H Total Protein Albumin 12/11/22 06:16 MCV MCH MCHC RDW Plt Count MPV Immature Gran % (Auto) Neut % (Auto) Lymph % (Auto) [place] % (Auto) Eos % (Auto) Baso % (Auto) Lymph # (Auto) [place] # (Auto) Eos # (Auto) Baso # (Auto) Abs Immat Gran (auto) Absolute Neuts (auto) Absolute Nucleated RBC Nucleated RBC % (auto) ESR 11 PT INR Anion Gap Estim Creat Clear Calc Estimated GFR Random Glucose Lactic Acid Calcium Magnesium Total Bilirubin AST ALT Alkaline Phosphatase C-Reactive Protein Total Protein Albumin Assessment and Plan (1) Cellulitis of hand, right: Status: Acute (2) Cat bite: Status: Acute Plan 57-year-old female with past medical history as mentioned above presents to the hospital with worsening right hand cellulitis: assessment and plan coordinated inh&p. continue iv antibiotics ,added ortho eval. Time Spent With Patient Time: Total time managing care of this patient today ____ minutes. Quality Stroke Does the patient have a stroke diagnosis?: No VTE Prior VTE?: No VTE Risk Level:: Medical - low VTE Device Contraindication: N/A - Device Ordered VTE Drug Contraindication: Treatment Not Indicated
[2022-12-11] MEDS: Magnesium Oxide 400 MG TABLET PO (17:11)
[2022-12-11 19:16] VITALS: BP 132/72; PULSE 67; RESP 18; TEMP 36.2; O2SAT 97
[2022-12-11] MEDS: traZODone HCL 50 MG TABLET PO (21:36)
[2022-12-12] MEDS: vancomycin HCL 1,250 MG in 0.9 % Sodium Chloride 250 ML 166.67 MG IV ×2 (03:10→22:01)
[2022-12-12 04:00] VITALS: BP 131/81; PULSE 77; RESP 16; TEMP 36; O2SAT 97
[2022-12-12] MEDS: cefEPime HCl 2 GM in 0.9 % Sodium Chloride 50 ML IV ×3 (05:20→21:16)
[2022-12-12] MEDS: levoFLOXacin/D5W 750 MG/150 ML PIGGYBACK 100 MG IV (06:04)
[2022-12-12 07:10] LABS: Creatinine Clr Calc Pharmacy 66.5; Estimated Glomerular Filt Rate > 60
[2022-12-12] MEDS: 0.9 % Sodium Chloride Flush 3 ML SYRINGE IVFLUSH ×3 (07:41→22:01)
[2022-12-12] MEDS: Acetaminophen 325 MG TABLET 650 MG PO ×2 (07:46→13:06)
[2022-12-12] MEDS: Magnesium Oxide 400 MG TABLET PO ×2 (07:47→16:39)
[2022-12-12] MEDS: Atorvastatin Calcium 20 MG TABLET PO (07:47)
[2022-12-12] MEDS: Omeprazole 40 MG CAPSULE.DR PO (07:47)
[2022-12-12 08:00] VITALS: BP 128/68; PULSE 70; RESP 18; TEMP 36.4; O2SAT 97
--- NOTE | 2022-12-12 09:23 | PM.CNOR ---
History of Present Illness HPI Consult date: 12/12/22 Chief complaint: Cellulitis Narrative: 57 yo female who was admitted to the medical service s/p cat bite. She states the bite occured on 12/08-she was seen at urgent care and given Doxycycline but noticed increased redness, pain and swelling the next day so she came to the ED. She was admitted and started on iv abx. She states the pain and swelling has improved slightly since admission but she continues to have severe pain and difficulty with movement. Review of Systems Review of Systems: per [facility] Past Medical History Medical History Anxiety COPD (chronic obstructive pulmonary disease) Depression History of seizure Hyperlipemia Lower back pain Malignant neoplasm of right upper lobe of lung (~2017) Neck pain On home O2 Osteopenia Restless leg syndrome Tobacco dependence Family History Family History Father Alcohol abuse Maternal Aunt Breast cancer Sister Breast cancer Brother Skin cancer Other Mental health disorder Substance use disorder Surgical History Surgical History History of bronchoscopy (~06/2018) History of colonoscopy (~03/2017) History of lung surgery (~07/2018) History of tonsillectomy Social History Social History Household Members: Significant Other Housing: House Do you presently have visiting nurse or other home services: No Alcohol intake: current Alcohol intake frequency: a few times a week Patient Tobacco Use Status: Current someday Tobacco user Tobacco use type: Cigar Cigarettes Per Day: 2 Years Smoked: 43 (onset 12yo) e-Cigarette/Vaping Use: Former Use Second Hand Smoke Exposure: No Substance Use Type: Marijuana service: No Current occupational status: unemployed Cognitive needs: No Hearing needs: No Vision needs: Yes Meds Allergies Allergy/AdvReac Type Severity Reaction Status Date / Time apple [Apple] Allergy Severe TONGUE Verified 12/11/22 04:00 SWELLS penicillin V Allergy Unknown unknown - Verified 12/11/22 04:00 childhood Penicillins [PENICILLINS] Allergy Unknown UNKNOWN-CHILDHOOD Verified 12/11/22 04:00 ALLERGY Active Medications: Current Medications Acetaminophen (Acetaminophen 325 Mg Tablet) 650 mg PO Q6H PRN PRN Reason: Pain, Mild (Pain Scale 1-3) Last Admin: 12/12/22 07:46 Dose: 650 mg Albuterol Sulfate (Albuterol Sulfate 90 Mcg 8 Gm Inhaler) 2 puff INHALE Q4H PRN PRN Reason: Shortness Of Breath Atorvastatin Calcium (Atorvastatin Calcium 20 Mg Tablet) 20 mg PO DAILY [facility] Last Admin: 12/12/22 07:47 Dose: 20 mg Docusate Sodium (Docusate Sodium 100 Mg Capsule) 100 mg PO DAILY PRN PRN Reason: Constipation Vancomycin HCl 1,250 mg/ (Sodium Chloride) 250 mls @ 166.667 mls/hr IV Q12H [facility] Last Infusion: 12/12/22 04:50 Dose: Infused Cefepime HCl 2 gm/ Sodium (Chloride) 50 mls @ 100 mls/hr IV Q8H [facility] Last Infusion: 12/12/22 06:00 Dose: Infused Levofloxacin (Levaquin) 750 mg in 150 mls @ 100 mls/hr IV Q24H [facility] Last Infusion: 12/12/22 07:50 Dose: Infused Lorazepam (Lorazepam 0.5 Mg Tablet) 0.5 mg PO DAILY PRN PRN Reason: Anxiety Magnesium Oxide (Magnesium Oxide 400 Mg Tablet) 400 mg PO BIDPC [facility] Last Admin: 12/12/22 07:47 Dose: 400 mg Pat Own Med ( Fluticasone- Umeclidin-Vilanter [ Trelegy Ellipta] 100 -62.5-25 Mcg 1 inhalation INHALE DAILY [facility] Last Admin: 12/12/22 07:53 Dose: 1 inhalation Omeprazole (Omeprazole 40 Mg Capsule.Dr) 40 mg PO DAILY [facility] Last Admin: 12/12/22 07:47 Dose: 40 mg Ondansetron HCl (Ondansetron Hcl 4 Mg/2 Ml Vial) 4 mg IVPUSH Q8H PRN PRN Reason: Nausea and Vomiting Pharmacy Consult (Consult Rx Vancomycin Dosing) 1 each MISCELLANE DAILY PRN PRN Reason: Consult order Sodium Chloride (0.9 % Sodium Chloride Flush 3 Ml Syringe) 3 ml IVFLUSH QSHIFT [facility] Last Admin: 12/12/22 07:41 Dose: 3 ml Trazodone HCl (Trazodone Hcl 50 Mg Tablet) 50 mg PO BEDTIME [facility] Last Admin: 12/11/22 21:36 Dose: 50 mg Home Medications Medication Instructions Recorded Confirmed Last Taken Type albuterol sulfate 90 mcg/actuation 2 puff PO Q4H PRN Shortness Of 07/31/20 12/11/22 Unknown History aerosol inhaler Breath fluticasone fur. 100 mcg-umeclid 100 inh inhalation DAILY 07/31/20 12/11/22 02/14/21 07:30 History 62.5 mcg-vilant 25 mcg inhalat.powder (Trelegy Ellipta) trazodone 50 mg tablet 1 tab PO DAILY 07/31/20 12/11/22 Unknown History lorazepam 0.5 mg tablet 0.5 mg PO DAILY PRN Anxiety 12/11/22 12/11/22 Unknown History Physical Exam Vital Signs: Vital Signs: Last Vital Signs Temp 97.6 F 12/12/22 08:00 Pulse 70 12/12/22 08:00 Resp 18 12/12/22 08:00 BP 128/68 12/12/22 08:00 Pulse Ox 97 12/12/22 08:00 O2 Del Method Room Air 12/12/22 08:00 BMI result Body Mass Index 21.1 Extrem: Other: Several cat bites on the right hand- of note the most tender bites are the ones ove the wrist and thenar eminance. No evidence of abscess formation No pain along the flexor tendons No pain or abscess formation within the deep web spaces of the hand/palm Significant pain along the wrist-unable to test axial loading due to guarding mild tenderenss along the thenar eminance. No evidence of lymphangitis see updated images below from exam today Results Labs 12/11/22 06:16 12/12/22 05:28 Labs: Abnormal lab results 12/11/22 Range/Units 06: Magnesium 1.1 L* (1.6-2.6) mg/dL C-Reactive Protein 5.28 H (< or = 0.50) mg/dL H & H 12/11/22 12/11/22 Range/Units 04:16 06:16 Hgb 13.4 13.1 (12.0-16.0) g/dl Hct 38.4 38.2 (37.0-47.0) % Coagulation 12/11/22 Range/Units 04:16 INR 1.0 (0.9-1.1) All other labs normal. Assessment and Plan (1) Cellulitis of hand, right: Status: Acute Plan Recommend continue iv abx and re-eval tomorrow as she feels she is improving and there is no evidence of abscess OT order placed for gentle ROM and fabricated hand and wrist splint to use prn No need for surgical intervention at this time Time Spent With Patient Time: Total time managing care of this patient today ____ minutes. Procedures Date of Service Date of Service: 12/12/22
--- NOTE | 2022-12-12 12:09 | MHC.CM.PN ---
per rounds pt not ready for dc dc plan remains home no servceis
--- NOTE | 2022-12-12 13:48 | P.CDIM_ITS ---
PROVIDER RESPONSE TEXT: To clarify, the appropriate diagnosis supported by the clinical indicators: Hypomagnesemia QUERY TEXT: PHYSICIAN'S DOCUMENTATION REQUEST Date of Query: 12/12/2022 12:50 PM EDT Patient Name: Sully Brery Admit Date: 12/11/2022 Dear Pranav Harris, A review of the medical record indicates additional documentation may be needed. Please review below and update the documentation accordingly. Clinical Indicators: The following diagnoses or signs and symptoms were noted in the patient record: Magnesium level on 12/11/22: 1.1 Treated with Magnesium Oxide 400 mg po BID Based on the above, could you clarify the appropriate diagnosis, if significant, that supports the ab ove abnormalities and additional evaluation, monitoring, and/or treatment rendered: Hypomagnesemia Labs indicate a diagnosis of (please specify) Other (explain)Clinically unable to determine (explain)Thank you, Susy Zuniga RN Use of terms such as suspected, likely, concern for, or probable (associated with a specific diagnosi s that is being evaluated, monitored, or treated as if it exists) are acceptable and can be coded in the inpatient se tting, when documented at the time of discharge. Please use your independent medical judgment in providing your response. THIS QUERY IS PART OF THE PERMANENT MEDICAL RECORD
[2022-12-12 13:53] LABS: Vancomycin Trough 24.1 mcg/mL (10.0-20.0)
--- NOTE | 2022-12-12 14:15 | HE.PHANOTE ---
Vancomcyin Dosing Addendum Vancomycin trough 24.1 after 3 doses. Adjusting dose to 1250 mg q24h and attempting to restart tonight at 2300. Random level to be drawn 12/12/22 @2100.
[2022-12-12 15:24] VITALS: BP 130/73; PULSE 80; RESP 18; TEMP 36.2; O2SAT 96
--- NOTE | 2022-12-12 17:05 | HO.PM.IMPN ---
Subjective Subjective Date of Service: 12/12/22 Interval History: swollen hand Review of Systems has erythema ,swelling no fevers Physical Exam Vital Signs: Vital Signs: Last Vital Signs Temp 97.2 F 12/12/22 15:24 Pulse 80 12/12/22 15:24 Resp 18 12/12/22 15:24 BP 130/73 12/12/22 15:24 Pulse Ox 96 12/12/22 15:24 O2 Del Method Room Air 12/12/22 15:24 BMI result Body Mass Index 21.1 Appearance: Alert.? Oriented X3.? not in distress.? cvs: [id number], [id number] , no murmur res: clear to auscultation ,no rhonchii or wheezing abd: no rebound or guarding ,nt, bs present. ext pulses present , no cyanosis . neuro: axo3 , nonfocal. Objective Data Active Medications Acetaminophen (Acetaminophen 325 Mg Tablet) 650 mg PO Q6H PRN PRN Reason: Pain, Mild (Pain Scale 1-3) Last Admin: 12/12/22 13:06 Dose: 650 mg Documented By: JORGE Albuterol Sulfate (Albuterol Sulfate 90 Mcg 8 Gm Inhaler) 2 puff INHALE Q4H PRN PRN Reason: Shortness Of Breath Atorvastatin Calcium (Atorvastatin Calcium 20 Mg Tablet) 20 mg PO DAILY [facility] Last Admin: 12/12/22 07:47 Dose: 20 mg Documented By: VICK Docusate Sodium (Docusate Sodium 100 Mg Capsule) 100 mg PO DAILY PRN PRN Reason: Constipation Cefepime HCl 2 gm/ Sodium (Chloride) 50 mls @ 100 mls/hr IV Q8H [facility] Last Infusion: 12/12/22 14:18 Dose: 0 mls/hr Documented By: JORGE Levofloxacin (Levaquin) 750 mg in 150 mls @ 100 mls/hr IV Q24H [facility] Last Infusion: 12/12/22 07:50 Dose: 100 mls/hr Documented By: VICK Vancomycin HCl 1,250 mg/ (Sodium Chloride) 250 mls @ 166.667 mls/hr IV Q24H [facility] Lorazepam (Lorazepam 0.5 Mg Tablet) 0.5 mg PO DAILY PRN PRN Reason: Anxiety Magnesium Oxide (Magnesium Oxide 400 Mg Tablet) 400 mg PO BIDPC [facility] Last Admin: 12/12/22 16:39 Dose: 400 mg Documented By: JORGE Pat Own Med ( Fluticasone- Umeclidin-Vilanter [ Trelegy Ellipta] 100 -62.5-25 Mcg 1 inhalation INHALE DAILY [facility] Last Admin: 12/12/22 07:53 Dose: 1 inhalation Documented By: VICK Omeprazole (Omeprazole 40 Mg Capsule.Dr) 40 mg PO DAILY [facility] Last Admin: 12/12/22 07:47 Dose: 40 mg Documented By: VICK Ondansetron HCl (Ondansetron Hcl 4 Mg/2 Ml Vial) 4 mg IVPUSH Q8H PRN PRN Reason: Nausea and Vomiting Pharmacy Consult (Consult Rx Vancomycin Dosing) 1 each MISCELLANE DAILY PRN PRN Reason: Consult order Sodium Chloride (0.9 % Sodium Chloride Flush 3 Ml Syringe) 3 ml IVFLUSH QSHIFT [facility] Last Admin: 12/12/22 16:40 Dose: 3 ml Documented By: JORGE Trazodone HCl (Trazodone Hcl 50 Mg Tablet) 50 mg PO BEDTIME [facility] Last Admin: 12/11/22 21:36 Dose: 50 mg Documented By: CALEBSA Labs 12/11/22 06:16 12/12/22 05:28 Labs: Laboratory Results - last 24 hr 12/12/22 12/12/22 05:28 12:59 Estim Creat Clear Calc 66.5 Estimated GFR > 60 Vancomycin Trough 24.1 H Microbiology Microbiology Results: Microbiology 12/11/22 05:09 Blood Culture - Preliminary Blood - Venous No growth after 24 hours. 12/11/22 05:08 Blood Culture - Preliminary Blood - Venous No growth after 24 hours. Assessment and Plan (1) Cellulitis of hand, right: Status: Acute (2) Cat bite: Status: Acute Plan 57-year-old female with past medical history as mentioned above presents to the hospital with worsening right hand cellulitis: acute right hand cellulitis- secondary to cat bite/scratch . failed outpatient therapy with p.o. doxycycline if does not improve. consider infectious disease/ortho -hand swelling seems to be improving, still range of motion is not improving. Will continue IV antibiotics-vanco trough in range 24. on IV antibiotic-vanco and levaquin, follow blood cultures@24hrs , another Vanco trough will be checked this evening for further use of vanco. history of COPD- not in exacerbation continue home inhalers depression anxiety continue home anxiolytic DVT prophylaxis:? Early ambulation inaptient : Severe cellulitis of harm-not improving, c need iv antibiotics ,ortho following Time Spent With Patient Time: Total time managing care of this patient today ____ minutes. Quality Stroke Does the patient have a stroke diagnosis?: No VTE Prior VTE?: No VTE Risk Level:: Medical - low VTE Device Contraindication: N/A - Device Ordered VTE Drug Contraindication: Treatment Not Indicated
[2022-12-12 18:22] LABS: Magnesium 1.7 mg/dL (1.6-2.6)
[2022-12-12 19:37] VITALS: BP 165/85; PULSE 80; RESP 18; TEMP 36.2; O2SAT 96
[2022-12-12 21:22] LABS: Creatinine Clr Calc Pharmacy 58.1; Estimated Glomerular Filt Rate > 60
[2022-12-12 21:26] LABS: Vancomycin Random 15.7 mcg/mL (15-20)
[2022-12-13 03:59] VITALS: BP 167/87; PULSE 86; RESP 16; TEMP 36.2; O2SAT 94
[2022-12-13 05:15] VITALS: BP 144/83
[2022-12-13] MEDS: cefEPime HCl 2 GM in 0.9 % Sodium Chloride 50 ML IV ×3 (05:21→21:46)
[2022-12-13] MEDS: levoFLOXacin/D5W 750 MG/150 ML PIGGYBACK 100 MG IV (05:54)
[2022-12-13 07:06] LABS: Creatinine Clr Calc Pharmacy 66.5; Estimated Glomerular Filt Rate > 60
[2022-12-13] MEDS: Omeprazole 40 MG CAPSULE.DR PO (07:58)
[2022-12-13] MEDS: Atorvastatin Calcium 20 MG TABLET PO (07:58)
[2022-12-13] MEDS: Acetaminophen 325 MG TABLET 650 MG PO (07:58)
[2022-12-13] MEDS: Magnesium Oxide 400 MG TABLET PO (07:58)
[2022-12-13] MEDS: 0.9 % Sodium Chloride Flush 3 ML SYRINGE IVFLUSH ×3 (07:59→21:46)
[2022-12-13 08:00] VITALS: BP 173/78; PULSE 86; RESP 18; TEMP 36.4; O2SAT 97
--- NOTE | 2022-12-13 11:01 | P.PNIM_ITS ---
Subjective Subjective Date of Service: 12/13/22 Interval History: swollen hand Review of Systems has erythema ,swelling slow improvement. no fevers Physical Exam Vital Signs: Vital Signs: Last Vital Signs Temp 97.5 F 12/13/22 08:00 Pulse 86 12/13/22 08:00 Resp 18 12/13/22 08:00 BP 173/78 H 12/13/22 08:00 Pulse Ox 97 12/13/22 08:00 O2 Del Method Room Air 12/13/22 08:00 BMI result Body Mass Index 21.1 Appearance: Alert.? Oriented X3.? not in distress.? cvs: rrr, [id number] , no murmur res: clear to auscultation ,no rhonchii or wheezing abd: no rebound or guarding ,nt, bs present. ext pulses present , no cyanosis . right hand /wrist -swelling erythema/swellin -little improving , rom-little improving neuro: axo3 , nonfocal. Objective Data Active Medications Acetaminophen (Acetaminophen 325 Mg Tablet) 650 mg PO Q6H PRN PRN Reason: Pain, Mild (Pain Scale 1-3) Last Admin: 12/13/22 07:58 Dose: 650 mg Documented By: LOPEZ Albuterol Sulfate (Albuterol Sulfate 90 Mcg 8 Gm Inhaler) 2 puff INHALE Q4H PRN PRN Reason: Shortness Of Breath Atorvastatin Calcium (Atorvastatin Calcium 20 Mg Tablet) 20 mg PO DAILY [facility] Last Admin: 12/13/22 07:58 Dose: 20 mg Documented By: LOPEZ Docusate Sodium (Docusate Sodium 100 Mg Capsule) 100 mg PO DAILY PRN PRN Reason: Constipation Cefepime HCl 2 gm/ Sodium (Chloride) 50 mls @ 100 mls/hr IV Q8H [facility] Last Infusion: 12/13/22 05:51 Dose: 0 mls/hr Documented By: IVORY Levofloxacin (Levaquin) 750 mg in 150 mls @ 100 mls/hr IV Q24H [facility] Last Infusion: 12/13/22 07:53 Dose: 0 mls/hr Documented By: LOPEZ Vancomycin HCl 1,250 mg/ (Sodium Chloride) 250 mls @ 166.667 mls/hr IV Q24H [facility] Last Infusion: 12/12/22 23:31 Dose: 0 mls/hr Documented By: IVORY Lorazepam (Lorazepam 0.5 Mg Tablet) 0.5 mg PO DAILY PRN PRN Reason: Anxiety Magnesium Oxide (Magnesium Oxide 400 Mg Tablet) 400 mg PO BIDPC [facility] Last Admin: 12/13/22 07:58 Dose: 400 mg Documented By: LOPEZ Pat Own Med ( Fluticasone- Umeclidin-Vilanter [ Trelegy Ellipta] 100 -62.5-25 Mcg 1 inhalation INHALE DAILY [facility] Last Admin: 12/13/22 10:42 Dose: 1 inhalation Documented By: LOPEZ Omeprazole (Omeprazole 40 Mg Capsule.Dr) 40 mg PO DAILY [facility] Last Admin: 12/13/22 07:58 Dose: 40 mg Documented By: LOPEZ Ondansetron HCl (Ondansetron Hcl 4 Mg/2 Ml Vial) 4 mg IVPUSH Q8H PRN PRN Reason: Nausea and Vomiting Pharmacy Consult (Consult Rx Vancomycin Dosing) 1 each MISCELLANE DAILY PRN PRN Reason: Consult order Sodium Chloride (0.9 % Sodium Chloride Flush 3 Ml Syringe) 3 ml IVFLUSH QSHIFT [facility] Last Admin: 12/13/22 07:59 Dose: 3 ml Documented By: LOPEZ Trazodone HCl (Trazodone Hcl 50 Mg Tablet) 50 mg PO BEDTIME [facility] Last Admin: 12/12/22 20:26 Dose: Not Given Documented By: IVORY Non-Admin Reason: Patient Refused Labs 12/11/22 06:16 12/13/22 05:41 Labs: Laboratory Results - last 24 hr 12/12/22 12/12/22 12/12/22 12:59 17:31 20:53 Estim Creat Clear Calc Estimated GFR Magnesium 1.7 Vancomycin Trough 24.1 H Random Vancomycin 15.7 12/12/22 12/13/22 20:53 05:41 Estim Creat Clear Calc 58.1 66.5 Estimated GFR > 60 > 60 Magnesium Vancomycin Trough Random Vancomycin Microbiology Microbiology Results: Microbiology 12/11/22 05:09 Blood Culture - Preliminary Blood - Venous No growth after 48 hours. 12/11/22 05:08 Blood Culture - Preliminary Blood - Venous No growth after 48 hours. Assessment and Plan (1) Hypomagnesemia: Status: Acute (2) Hypokalemia: Status: Acute (3) Cellulitis of hand, right: Status: Acute Plan 57-year-old female with past medical history as mentioned above presents to the hospital with worsening right hand cellulitis: ?acute right hand cellulitis- secondary to cat bite/scratch . ?failed outpatient therapy with p.o. doxycycline. hand swelling seems to be little improving, still range of motion is not improving. Will continue IV antibiotics-vanco trough in range 15.7 yesterday ?on IV antibiotic-vanco and levaquin, follow blood? cultures@48hrs . seen by ortho-hand wrist splint ,continue iv antibiotics , OT-need outpatient OT. ?history of COPD- not in exacerbation ?continue home inhalers ?depression anxiety ?continue home anxiolytic DVT prophylaxis:? Early ambulation inaptient :? Severe cellulitis of harm-minimum improving, need? iv antibiotics ,ortho following Time Spent With Patient Time: Total time managing care of this patient today ____ minutes. Quality Stroke Does the patient have a stroke diagnosis?: No VTE Prior VTE?: No VTE Risk Level:: Medical - low VTE Device Contraindication: N/A - Device Ordered VTE Drug Contraindication: Treatment Not Indicated
--- NOTE | 2022-12-13 11:56 | PM.PNORT ---
Subjective Subjective Date of Service: 12/13/22 Interval history: Patient is siting comfortably in bed. at bedside. She reports that the swelling, pain, and redness as begun to subside. The brace is helping. No additional complaints. Physical Exam Vital Signs: Vital Signs: Last Vital Signs Temp 97.5 F 12/13/22 08:00 Pulse 86 12/13/22 08:00 Resp 18 12/13/22 08:00 BP 173/78 H 12/13/22 08:00 Pulse Ox 97 12/13/22 08:00 O2 Del Method Room Air 12/13/22 08:00 BMI result Body Mass Index 21.1 Extrem: Other: Several cat bites on the right hand The most tender bites are the ones over the dorsal aspect of the wrist and thenar eminance. No evidence of abscess formation No pain along the flexor tendons No pain or abscess formation within the deep web spaces of the hand/palm Able to flex and extend the wrist. No evidence of lymphangitis Sensation intact Capillary refill is brisk Procedures Date of Service Date of Service: 12/13/22 Progress Note: A&P Assessment and plan (1) Cellulitis of hand, right: Status: Acute Assessment and Plan: Continue iv abx No evidence of abscess or flexor tenosynovitis OT - gentle ROM Demonstrated exercises to patient at bedside for gentle ROM to get fingers to closed fist No need for surgical intervention at this time - Improving symptoms (2) Cat bite: Status: Acute Time Spent With Patient Time: Total time managing care of this patient today ____ minutes. Quality Stroke Does the patient have a stroke diagnosis?: No VTE Prior VTE?: No VTE Risk Level:: Medical - low VTE Device Contraindication: N/A - Device Ordered VTE Drug Contraindication: Treatment Not Indicated
[2022-12-13 14:14] VITALS: BP 155/85; PULSE 74; RESP 18; O2SAT 97
[2022-12-13] MEDS: oxyCODONE HCl Immed Release 5 MG TABLET PO ×2 (14:44→21:50)
[2022-12-13 15:21] VITALS: BP 146/81; PULSE 71; RESP 16; TEMP 36.3; O2SAT 95
[2022-12-13 19:34] VITALS: BP 158/89; PULSE 75; RESP 18; TEMP 36.2; O2SAT 98
[2022-12-13 21:09] LABS: Vancomycin Random 12.1 mcg/mL (15-20)
[2022-12-13] MEDS: vancomycin HCL 750 MG in 0.9 % Sodium Chloride 250 ML 265 MG IV (22:54)
--- NOTE | 2022-12-14 00:53 | PC.NURSE ---
Patient refuse compression booths and currently not on any DVT prophylaxis medications. Pt states, I ambulate the joyner alot and that she have restless leg syndrome. Patient was educated on the risk of not wearing the compression booths. Dr. Warren was notified .
[2022-12-14 03:51] VITALS: BP 156/93; PULSE 87; RESP 16; TEMP 36.8; O2SAT 93
[2022-12-14 04:03] VITALS: BP 156/93; PULSE 78; RESP 18; TEMP 36.3; O2SAT 94
[2022-12-14 05:10] VITALS: BP 142/84
[2022-12-14] MEDS: cefEPime HCl 2 GM in 0.9 % Sodium Chloride 50 ML IV (05:30)
[2022-12-14] MEDS: levoFLOXacin/D5W 750 MG/150 ML PIGGYBACK 100 MG IV (05:32)
[2022-12-14 06:05] LABS: Creatinine Clr Calc Pharmacy 72.6; Estimated Glomerular Filt Rate > 60
[2022-12-14] MEDS: Omeprazole 40 MG CAPSULE.DR PO (07:48)
[2022-12-14] MEDS: Atorvastatin Calcium 20 MG TABLET PO (07:48)
[2022-12-14] MEDS: 0.9 % Sodium Chloride Flush 3 ML SYRINGE IVFLUSH (07:49)
[2022-12-14] MEDS: oxyCODONE HCl Immed Release 5 MG TABLET PO (07:54)
[2022-12-14 07:59] VITALS: PULSE 90; RESP 20; TEMP 36.4; O2SAT 97
--- NOTE | 2022-12-14 08:45 | PM.PNORT ---
Subjective Subjective Date of Service: 12/14/22 Interval history: Patient is siting comfortably in bed. She reports that the swelling, pain, and redness continues to improve. The brace is helping. No additional complaints. Pain is well managed. C/o slight nausea from abx. Physical Exam Vital Signs: Vital Signs: Last Vital Signs Temp 97.5 F 12/14/22 07:59 Pulse 90 12/14/22 07:59 Resp 20 12/14/22 07:59 BP 142/84 H 12/14/22 05:10 Pulse Ox 97 12/14/22 07:59 O2 Del Method Room Air 12/14/22 07:59 BMI result Body Mass Index 21.1 Const: General: cooperative, healthy appearing and no acute distress Resp: Effort & Inspection: normal respiratory effort and able to speak in complete sentences Cardio: Rate: regular rate Peripheral pulses: Peripheral pulses 2+ throughout GI: Palpation (GI): Soft to palpation Skin: Lesions: no lesions Rashes: no rashes Extrem: Other: Several cat bites on the right hand The most tender bites are the ones over the dorsal aspect of the wrist and thenar eminance. No evidence of abscess formation No pain along the flexor tendons No pain or abscess formation within the deep web spaces of the hand/palm Able to flex and extend the wrist. Lacking about 3cm from making a closed fist No evidence of lymphangitis Sensation intact Capillary refill is brisk Procedures Date of Service Date of Service: 12/14/22 Progress Note: A&P Assessment and plan (1) Cellulitis of hand, right: Status: Acute Assessment and Plan: Transition to PO abx No evidence of abscess or flexor tenosynovitis OT - gentle ROM Demonstrated exercises to patient at bedside for gentle ROM to get fingers to closed fist No need for surgical intervention at this time - Improving symptoms - Orthopedics signing off. May f/u out patient. (2) Cat bite: Status: Acute Time Spent With Patient Time: Total time managing care of this patient today ____ minutes. Quality Stroke Does the patient have a stroke diagnosis?: No VTE Prior VTE?: No VTE Risk Level:: Medical - low VTE Device Contraindication: N/A - Device Ordered VTE Drug Contraindication: Treatment Not Indicated
--- NOTE | 2022-12-14 11:07 | PM.DS ---
DS: Providers Provider Date of Service: 12/14/22 Date of admission: 12/11/22 05:37 Primary care physician: Unknown Physician Consults: 12/11/22 10:20 Consult to Orthopedics Routine Consulting Provider: Yuni Koch Reason for consultation: cat bite right hand -cellulitis vs tenosynovitis Has provider been notified: No 12/13/22 16:21 Consult to Infectious Diseases Routine Consulting Provider: [facility] Infectious Disease Reason for consultation: right upper ext cellulitis Has provider been notified: No DS: Diagnosis Discharge Diagnosis (1) Cellulitis of hand, right: Status: Acute (2) Cat bite: Status: Acute DS: Summary Hospital Course Hospital Course: 57-year-old female with past medical history of hypertension, COPD, anxiety depression, history of seizures, HLD, malignant neoplasm of right upper lobe of lung status post lobectomy, on chronic O2, among others who presents to the hospital with complaints of right hand worsening swelling and redness.? Patient reports that on Thursday, she had a cat scratch/bite from her cat due to the CT being nervous in the presence of a bare, her cat is fully vaccinated, Thursday she started developing pain and swelling in her right hand, she came to the ED here, was given doxycycline, she took approximately 2-3 doses of that, but noticed that the swelling was getting worse and the redness was traveling upper arm to the point where now she cannot close her hand in a fist.? She went to a walk-in clinic the day prior, was given meloxicam, and sent home.? She 2 turns stating no relief, and worsening symptoms.? She denies any fever, has chills, reports no chest pain, no shortness of breath, no dizziness headache or change in vision, no abdominal pain nausea or vomiting, no diarrhea constipation, no urinary symptoms and no lower extremity edema.? She has swelling of her right hand, unable to make a fist, limited range of motion, pain in the thumb when she tries to bend it, pain is severe, worse with movement, is also swelling and redness of her right arm.? On arrival to the ED patient hemodynamically stable with no significant abnormal vitals labs are significant for WBC count of 10.9, hemoglobin of 4.0, labs otherwise unremarkable CT of the hand pending Patient started on IV antibiotics and will be admitted for further management. hospital course: Patient was admitted after failing outpatient treatment for cellulitis(happened after cat bite): Patient was started on IV antibiotics(vanco, Levaquin, cefepime), blood cultures sent, also managed pain with pain medications, also a ortho was consulted due to wrist cellulitis and decreased range of motion- with above treatments-patient leukocytosis resolved, no fever, wrist swelling and erythema is seems to be significantly better, range of motion seems to be improved significantly, seen by OT: Will need outpatient OT. Blood culture negative at 48 hours. Patient will be going home with p.o. antibiotics. Hypomagnesemia and hypokalemia repleted and corrected, will give limited supply of magnesium . she says her cats uptodate with shots. Plan: Please complete the course of Antibiotics for 7 days, monitor BMP and magnesium level outpatient. In addition continue OT outpatient, also follow-up with Ortho outpatient. follow up renal function and electrolytes, magnesium levels out patiently in 1 week. Above management discussed the patient detail and she understand and in agreement with the above plan, Assessment plan coordination time spent 50 minute. Time Spent with Patient Time attestation: Total time managing care of this patient today ____ minutes. Discharge coordination time: Greater than 30 minutes Quality: Safe Use of Opioids Does Pt have an Active Cancer Diagnosis on the Problem List?: No Quality: Stroke Does the patient have a stroke diagnosis?: No Physical Exam Vital Signs: Vital Signs: Last Vital Signs Temp 97.5 F 12/14/22 07:59 Pulse 90 12/14/22 07:59 Resp 20 12/14/22 07:59 BP 142/84 H 12/14/22 05:10 Pulse Ox 97 12/14/22 07:59 O2 Del Method Room Air 12/14/22 07:59 BMI result Body Mass Index 21.1 Appearance: Alert.? Oriented X3.? not in distress.? cvs: rrr, [id number] , no murmur res: clear to auscultation ,no rhonchii or wheezing abd: no rebound or guarding ,nt, bs present. ext pulses present , no cyanosis . right hand /wrist -improved significantly ,no erythema,monimum swelling neuro: axo3 , nonfocal. DS: Data Data Completed and Pending Labs on day of discharge: Laboratory Results - last 24 hr 12/13/22 12/14/22 20:51 05:35 Creatinine 0.76 Estim Creat Clear Calc 72.6 Estimated GFR > 60 Random Vancomycin 12.1 L Preliminary micro results at discharge 12/11/22 05:09 Blood Culture - Preliminary Blood - Venous No growth after 48 hours. 12/11/22 05:08 Blood Culture - Preliminary Blood - Venous No growth after 48 hours. Imaging Chest x-ray: Radiologist's impression: ITS Impressions Wrist CT 12/11/22 10:19 IMPRESSION: 1. Diffuse subcutaneous edema. No abscess or evidence of osteomyelitis. No significant tenosynovitis. 2. 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 Consider MRI for further evaluation if indicated. MRI is also more sensitive in the evaluation of tenosynovitis or tendon integrity. Discharge Plan Discharge Anticipated Discharge Date/Time: 12/14/22 10:45 Patient Disposition: Home Health Service Discharge Diagnosis: Wrist cellulitis, hypokalemia, hypomagnesemia Referrals: Genny Garcia MD [Physician] - 1 Week (follow up outpatient) Yuni Koch MD [Physician] - 1 Week (follow up outpatient) Physician,David Izquierdo [Physician] - 1 Week Discharge Medications: New magnesium oxide 400 mg (241.3 mg magnesium) Tablet 400 mg PO BIDPC Qty: 10 0RF levofloxacin 750 mg tablet 750 mg PO DAILY Qty: 7 0RF clindamycin HCl 300 mg capsule 450 mg PO Q8H Qty: 32 0RF Continued atorvastatin 20 mg tablet 20 mg PO DAILY Qty: 90 3RF omeprazole 40 mg capsule,delayed release(DR/EC) 40 mg PO DAILY Qty: 90 1RF trazodone 50 mg tablet 1 tab PO DAILY albuterol sulfate 90 mcg/actuation HFA aerosol inhaler 2 puff PO Q4H PRN (Reason: Shortness Of Breath) Trelegy Ellipta 100-62.5-25 mcg blister with device 100 inh inhalation DAILY lorazepam 0.5 mg tablet 0.5 mg PO DAILY PRN (Reason: Anxiety) Discharge Orders: Discharge Order (Routine); Ordered 12/14/22 Ordered By: Prnaav Harris Diet: Advance to usual diet Activity on Discharge: As tolerated Stand Alone Forms: Patient Portal Discharge page Care Plan Goals: Patient was admitted after failing outpatient treatment for cellulitis(happened after cat bite): Patient was started on IV antibiotics(vanco, Levaquin, cefepime), blood cultures sent, also managed pain with pain medications, also a ortho was consulted due to wrist cellulitis and decreased range of motion- with above treatments-patient leukocytosis resolved, no fever, wrist swelling and erythema is seems to be significantly better, range of motion seems to be improved significantly, seen by OT: Will need outpatient OT. Blood culture negative at 48 hours. Patient will be going home with p.o. antibiotics. she says her cats uptodate with shots. Hypomagnesemia and hypokalemia repleted and corrected, will give limited supply of magnesium . Please complete the course of Antibiotics for 7 days, monitor BMP and magnesium level outpatient. In addition continue OT outpatient, also follow-up with Ortho outpatient. follow up renal function and electrolytes, magnesium levels out patiently in 1 week. Health Concerns: Please complete the course of Antibiotics for 7 days, monitor BMP and magnesium level outpatient. In addition continue OT outpatient, also follow-up with Ortho outpatient. follow up renal function and electrolytes, magnesium levels out patiently in 1 week. follow up with Dr. Garcia tomorrow at 11:00 am. Plan of Treatment: As above. Assessment: As above.
[2022-12-14] MEDS: vancomycin HCL 750 MG in 0.9 % Sodium Chloride 250 ML 265 MG IV (11:09)
--- NOTE | 2022-12-14 11:10 | P.F2F_ITS ---
Service Date Service Date: 12/14/22 Encounter Date of encounter: 12/14/22 Encounter: Wrist cellulitis, hyponatremia and hypokalemia. Reasons for Services Signs and symptoms assessed: Monitor wrist area-any new erythema or worsening swelling or range of motion Reason for assisted: medication management, medication treatment and teach disease management Reason for occupational therapy: home safety and mobility, therapeutic exercises, restore joint function, gait/transfer training, assess need for DME, ADL training, energy conservation and other MD Overseeing Care: Elisa Clark Homebound: Leaving the home is medically contraindicated at this time without the asist of a device and/or another person due th the listed conditions above and below. Reason homebound: weakness related to hospital stay Homebound supporting statement: Patient is generalized weak post hospitalization, has range of motion wrist limitation-need help to go to appointments, blood draws, and OT to improve range of motion Certification: Based on the above findings, I certify that this patient is confined to the home and needs intermittent assisted care, physical therapy and/or speech therapy, or continues to need occupational therapy. The patient is under my care, and I have initiated the establishment of the plan of care. The patient will be followed by a physician who will periodically review the plan of care. Time Spent With Patient Time: Total time managing care of this patient today ____ minutes.
[2022-12-14] MEDS: Clindamycin HCL 150 MG CAPSULE 450 MG PO (13:00)
--- NOTE | 2022-12-14 13:16 | MHC.CM.PN ---
PT WILL DC HOME TODAY SHE NEEDS [facility] FOR OT REFERRAL M[facility] EXPECTED TOMORROW WHEN THEY REOPEN TO TRANSPORT
== END 2022-12-14 13:11 | disposition home health service (06) | DRG 603 ==
LOC: HO.ED 12-11 04:37 → HO.EDOVER 12-11 05:45 → HO.S3 12-11 13:18
PROVIDERS: Admitting Provider Internal Medicine; Emergency Provider Internal Medicine; PCP Internal Medicine; Visit Provider Internal Medicine
DX: L03.113 Cellulitis of right upper limb (principal); J44.9 Chronic obstructive pulmonary disease, unspecified; G25.81 Restless legs syndrome; S60.571A Other superficial bite of hand of right hand, initial encounter; W55.01XA Bitten by cat, initial encounter; E83.42 Hypomagnesemia; F17.290 Nicotine dependence, other tobacco product, uncomplicated; E87.6 Hypokalemia; Z71.6 Tobacco abuse counseling; F41.9 Anxiety disorder, unspecified; F32.A Depression, unspecified; Z99.81 Dependence on supplemental oxygen; Z88.0 Allergy status to penicillin; Z79.899 Other long term (current) drug therapy
CPT/HCPCS: 36415; 73201; 80048; 80053; 80202; 82565; 83605; 83735; 84132; 85025; 85610; 85652; 86140; 87040; 97166; 99285; J0692; J1956; J2270; J2405; J2543; J3370; J3371; J3475; Q9967

== ENCOUNTER → 2022-12-15 11:13 | Outpatient (BNVA) | payer OTHER, MEDICAID, SELFPAY | PROVIDERS: PCP Internal Medicine; Visit Provider Internal Medicine ==

== ENCOUNTER → 2022-12-16 08:22 | Outpatient (BNVA) | payer OTHER, MEDICAID, SELFPAY | PROVIDERS: PCP Internal Medicine; Visit Provider Physician Assistant ==

== ENCOUNTER 2022-12-22 09:16 | Outpatient (REF) | payer OTHER, MEDICAID, SELFPAY ==
[2022-12-22 11:57] LABS: Anion Gap 16 (12-20); Blood Urea Nitrogen 5 mg/dL (9-16); Calcium 10.6 mg/dL (8.4-10.2); Carbon Dioxide 22 mmol/L (22-29); Chloride 108 mmol/L (96-108); Estimated Glomerular Filt Rate > 60; Glucose Random 103 mg/dL (60-115); Magnesium 1.9 mg/dL (1.6-2.6); Potassium 4.3 mmol/L (3.3-5.1); Sodium 142 mmol/L (135-145)
== END 2022-12-22 09:17 | disposition home or self-care (01) ==
LOC: HO.HMGCLDS 09:16
PROVIDERS: PCP Internal Medicine; Visit Provider Internal Medicine
DX: L03.113 Cellulitis of right upper limb (principal); E83.42 Hypomagnesemia; E87.6 Hypokalemia
CPT/HCPCS: 36415; 80048; 83735

== ENCOUNTER → 2022-12-25 08:48 | Outpatient (BNVA) | payer OTHER, MEDICAID, SELFPAY | PROVIDERS: PCP Internal Medicine; Visit Provider Physician Assistant ==

== ENCOUNTER 2023-01-30 09:00 | Outpatient (RCR) | payer OTHER, MEDICAID, SELFPAY ==
--- NOTE | 2022-12-31 10:20 | MHC.OT.EP ---
[address] [phone] Occupational Therapy Plan of Care Patient Name: Sully Berry Date of Evaluation: 12/31/22 Diagnosis: Right hand cellulitis s/p cat bite Pain Location: Low pain at rest Constant cold feeling Shooting pain w/ certain movements Pain Score: 9 Pain Scale Used: Numeric (0 - 10) Aggravating Factors: Strenuous movements Alleviating Factors: Tylenol Assessment: 57 yo right hand dominant female was bite by a cat almost one month ago, treated at [facility] and received inpatient OT w/ resting wrist orthosis and initiation of ROM. She was seen by [facility] as outpatient and completed course of antibiotics. She has now been referred to OT for continued management of range, strength and sensory changes. On assessment, cat bite location is well healed, she continues to have scabbed lacarations on both hands, no redness, edema or signs of infection however. ROM assessment shows impaired wrist flex, thumb range and digit tightness, especially in hook fist. Gross grasp and pinches are low as well, but patient reports she has been trying to increase use with her right hand, wearing orthosis at nighttime only for protection. Pain is low at rest but increases with movement and use. She notes numbness and tingling in digits and over dorsal hand, Edmond Lucas shows diminished light touch B/L'ly and coordination is impaired B/L'ly (left worse than right) and she is observed to be generally avoiding use of right hand. Sully will benefit form cont'd therapy services to progress range, strength and functional use of right hand. Frequency and Duration: The patient will be seen 2x/wk for 6 weeks Short Term Goals: Ind w/ HEP Ind w/ use of heat and ice appropriately Right gross grasp >20lb Thumb opp to small finger w/ ease <1 cm from hook fist Pt to demo ease w/ ADL closure boards [facility]cf Goals: Right gross grasp >45lb Full hook fist right hand Pain free right hand/wrist w/ light daily activities QuickDASH score <40 pts Wrist flex >50 degrees Ind w/ sensory re-ed techniques Treatment Plan: Therapeutic Exercise Therapeutic Activity Home Exercise Program Patient Education Desensitization/Sensory Re-ed Edema Control ADL Training Paraffin Fluidotherapy MHP Cold Packs Joint Mobilization Soft Tissue Mobilization Kinesiotaping Electronically Signed By: Amparo Maxwell OTR/David CHT Please Sign and return to therapist. Thank you once again for your referral.
--- NOTE | 2023-01-30 10:56 | MHC.OT.DC ---
[address] [phone] F: [phone] Occupational Therapy Discharge Note Patient Name: Sully Berry Provider: Lauren Wright PA-C Diagnosis: Right hand cellulitis s/p cat bite Date of Evaluation: 12/31/22 Date of Discharge: 01/30/23 Treatments to Date: 6 Discharge Status: Achieved Goals Improved Function Independent with HEP Discharge Summary: Sully is doing well w/ overall decreased pain in wrist and hand, good follow through w/ HEP. Still occasional sharp pain in radial or dorsal wrist at times, mild edema. All goals met and good range and strength. She is also dealing with external stressors at home and doing majority of home care needs. Electronically Signed By: Amparo Maxwell OTR/L CHT Please Sign and return to therapist, thank you for your referral.
== END 2023-01-30 10:57 | disposition home or self-care (01) ==
LOC: HO.OT 09:00
PROVIDERS: PCP Internal Medicine; Visit Provider Physician Assistant
DX: L03.113 Cellulitis of right upper limb (principal)
CPT/HCPCS: 97033; 97110; 97165

== ENCOUNTER 2023-02-05 09:31 | Outpatient (AMB) | payer OTHER, MEDICAID, SELFPAY ==
[2023-02-05 09:42] VITALS: BMI 20.1
--- NOTE | 2023-02-05 09:42 | MHC.OFFVIS ---
Intake Vital Signs 02/05/23 09:42 Height 5 ft 5 in Weight 121 lb BMI 20.1 Intake Visit Reasons: ov- RT hand, cat bite DOI 12/08/22 Intake Note: Sully a 57 year old right hand dominant female who present today for a follow up of her cat bite on her right hand, DOI 12/08/22. Patient reports pain comes with certain movements. She has concerns of continued swelling. She finished with OT last Thursday but continues to do at home exercises as instructed. Allergies apple [Apple] Allergy (Severe, Verified 02/05/23 09:44) TONGUE SWELLS penicillin V Allergy (Unknown, Verified 02/05/23 09:44) unknown - childhood Penicillins [PENICILLINS] Allergy (Unknown, Verified 02/05/23 09:44) UNKNOWN-CHILDHOOD ALLERGY HPI ov- RT hand, cat bite DOI 12/08/22 HPI Details 57-year-old right hand dominant female who returns to the office today for a follow-up of right-hand cat bite, 12/08/22. She continues to have swelling and pain in her hand with certain movements. She is completed with occupational therapy last Thursday but she continues to do home exercises as instructed. [facility] Medical History Anxiety COPD (chronic obstructive pulmonary disease) Depression History of seizure Hyperlipemia Lower back pain Malignant neoplasm of right upper lobe of lung (~2017) Neck pain On home O2 Osteopenia Restless leg syndrome Tobacco dependence Surgical History History of bronchoscopy (~06/2018) History of colonoscopy (~03/2017) History of lung surgery (~07/2018) History of tonsillectomy Family History Father Alcohol abuse Maternal Aunt Breast cancer Sister Breast cancer Brother Skin cancer Other Mental health disorder Substance use disorder Social History Household Members: Significant Other Housing: House Do you presently have visiting nurse or other home services: No Alcohol intake: current Alcohol intake frequency: a few times a week Patient Tobacco Use Status: Current someday Tobacco user Tobacco use type: Cigar Cigarettes Per Day: 2 Years Smoked: 43 (onset 12yo) e-Cigarette/Vaping Use: Former Use Second Hand Smoke Exposure: No Substance Use Type: Marijuana service: No Current occupational status: unemployed Cognitive needs: No Hearing needs: No Vision needs: Yes Review of Systems Const All systems reviewed & are unremarkable except as noted in HPI and below Physical Exam Vital Signs: BMI result Body Mass Index 20.1 Extrem Other: Right hand: Normal to inspection. All abrasions are healed.There is no open wound no drainage, erythema or swelling. No pain with wrist ROM or axial loading. She is able to full flex or extend her digits. There is no tenderness with abduction and adduction of thumb. No pain with axial loading. NVI Assessment & Plan Assessment & Plan (1) Cellulitis of hand, right: Code(s): L03.113 - Cellulitis of right upper limb (2) Cat bite of right hand: Comment: She has improvement on regimen designed for patients with PCN allergy Code(s): S61.451A - Open bite of right hand, initial encounter; W55.01XA - Bitten by cat, initial encounter Plan She will continue to work on her home exercises to maintain her motion and strength. She will see me back as needed. Patient Instructions: Scribed for Oksana Hopkins PA-C, by Saul Gan medical biller coder, on 02/05/2023 at 9:45 AM MILLICENT. IOksana PA-C, have personally reviewed and agree with the information entered by the scribe. Coding Level of Care Code Est Pt Level 3 (86581) Diagnoses Cellulitis of hand, right L03.113 Cat bite of right hand S61.451A; W55.01XA
== END 2023-02-05 10:34 | disposition home or self-care (01) ==
PROVIDERS: PCP Internal Medicine; Visit Provider Physician Assistant
DX: L03.113 Cellulitis of right upper limb (principal); S61.451D Open bite of right hand, subsequent encounter; W55.01XD Bitten by cat, subsequent encounter
CPT/HCPCS: 99213

== ENCOUNTER → 2023-02-05 09:31 | Outpatient (BNVA) | payer OTHER, MEDICAID, SELFPAY | PROVIDERS: PCP Internal Medicine; Visit Provider Physician Assistant ==

== ENCOUNTER 2023-02-11 12:13 | Outpatient (AMB) | payer OTHER, MEDICAID, SELFPAY ==
--- NOTE | 2023-02-11 12:15 | AM.OFFWIN_ITS ---
Intake Vital Signs 02/11/23 12:16 Height 5 ft 5 in BP 150/64 H Blood Pressure Location Rt brachial Position Sitting Pulse 78 Pulse Source Pulse Oximeter Temp 97.4 F Temp Source Temporal Artery Scan Pulse Oximetry (%) 95 Oxygen Delivery Method Room Air Intake Visit Reasons: EP High BP? 187/93, pulse 88, anxiety (lobby) Intake Note: Pt is here c/o high bp readings for the last week. Pt states her pulse has also been very high all week. Patient Tobacco Use Status: Current someday Tobacco user Allergies apple [Apple] Allergy (Severe, Verified 02/11/23 12:27) TONGUE SWELLS penicillin V Allergy (Unknown, Verified 02/11/23 12:27) unknown - childhood Penicillins [PENICILLINS] Allergy (Unknown, Verified 02/11/23 12:27) UNKNOWN-CHILDHOOD ALLERGY Medication List - Last Reconciled 02/11/23 by Tom Gómez MD albuterol sulfate 90 mcg/actuation 2 puffs PO Q4H PRN atorvastatin 20 mg PO DAILY gpflvcraqhu-kykybgmkf-addynyao 100-62.5-25 mcg (Trelegy Ellipta) 100 inhalations inhalation DAILY lisinopril 10 mg PO DAILY lorazepam 0.5 mg PO DAILY PRN multivitamin 1 tab PO DAILY omeprazole 40 mg PO DAILY trazodone 1 tab PO DAILY Do you need a note to return to daycare/school/sports/work: No HPI EP High BP? 187/93, pulse 88, anxiety (lobby) HPI Details 57-year-old female presents to the office for a sick visit. Patient has been recording her blood pressures at home and has found it to be elevated. The blood pressures were also elevated in a recent hospitalization for ce llulitis of the hand. She reports no symptoms of headaches or blurred visions. Patient smokes cigars. Currently she is not working. [facility] Medical History Anxiety COPD (chronic obstructive pulmonary disease) Depression History of seizure Hyperlipemia Lower back pain Malignant neoplasm of right upper lobe of lung (~2017) Neck pain On home O2 Osteopenia Restless leg syndrome Tobacco dependence Surgical History History of bronchoscopy (~06/2018) History of colonoscopy (~03/2017) History of lung surgery (~07/2018) History of tonsillectomy Family History Father Alcohol abuse Maternal Aunt Breast cancer Sister Breast cancer Brother Skin cancer Other Mental health disorder Substance use disorder Social History Household Members: Significant Other Housing: House Do you presently have visiting nurse or other home services: No Alcohol intake: current Alcohol intake frequency: a few times a week Patient Tobacco Use Status: Current someday Tobacco user Tobacco use type: Cigar Cigarettes Per Day: 2 Years Smoked: 43 (onset 12yo) e-Cigarette/Vaping Use: Former Use Second Hand Smoke Exposure: No Substance Use Type: Marijuana service: No Current occupational status: unemployed Cognitive needs: No Hearing needs: No Vision needs: Yes Physical Exam Vital Signs: Last Vital Signs Temp 97.4 F 02/11/23 12:16 Pulse 78 02/11/23 12:16 BP 150/64 H 02/11/23 12:16 Pulse Ox 95 02/11/23 12:16 Oxygen Delivery Method Room Air 02/11/23 12:16 Const General: cooperative and healthy appearing Nutritional Appearance: well nourished Orientation/consciousness: patient oriented x3 Limitations: no limitations HEENT Head: Yes normal to inspection Eyes General: appearance normal, both eyes and all related structures Neck Neck: Yes normal visual inspection Chest Chest palpation & inspection: normal palpation of entire chest wall Resp Effort & Inspection: normal respiratory effort Neuro General: patient oriented x3 Assessment & Plan Assessment & Plan (1) Essential hypertension: Code(s): I10 - Essential (primary) hypertension Plan: Lisinopril called in. Patient was advised to make an appointment with her primary care. Follow-up appointment is very important. Her medications have to be adjusted. Medications: New lisinopril 10 mg PO DAILY 90 tabs 1RF Coding Level of Care Code Est Pt Level 4 (59789) Diagnoses Essential hypertension I10
[2023-02-11 12:16] VITALS: BP 150/64; PULSE 78; TEMP 36.3; O2SAT 95
== END 2023-02-11 13:50 | disposition home or self-care (01) ==
PROVIDERS: PCP Internal Medicine; Visit Provider Internal Medicine
DX: I10 Essential (primary) hypertension (principal)
CPT/HCPCS: 99214

== ENCOUNTER 2023-03-04 12:35 | Outpatient (AMB) | payer OTHER, MEDICAID, SELFPAY ==
--- NOTE | 2023-03-04 13:01 | MHC.PC.OV ---
Vital Signs 03/04/23 13:03 Height 5 ft 5 in Weight 118 lb BMI 19.6 BP 140/70 H Blood Pressure Location Lt brachial Position Sitting Pulse 76 Pulse Source Pulse Oximeter Pulse Oximetry (%) 96 Oxygen Delivery Method Room Air Intake Visit Reasons: Blood pressure/pulse elevated Intake Note: Pt is here today for a follow up visit on HTN. Allergies apple [Apple] Allergy (Severe, Verified 03/04/23 13:06) TONGUE SWELLS penicillin V Allergy (Unknown, Verified 03/04/23 13:06) unknown - childhood Penicillins [PENICILLINS] Allergy (Unknown, Verified 03/04/23 13:06) UNKNOWN-CHILDHOOD ALLERGY Medication List - Last Reconciled 03/04/23 by Elisa Clark MD albuterol sulfate 90 mcg/actuation 2 puffs PO Q4H PRN atorvastatin 20 mg PO DAILY ukkpzipcixc-vyklsjkny-neefzakw 100-62.5-25 mcg (Trelegy Ellipta) 100 inhalations inhalation DAILY lisinopril 5 mg PO DAILY lorazepam 0.5 mg PO DAILY PRN multivitamin 1 tab PO DAILY omeprazole 40 mg PO DAILY trazodone 1 tab PO DAILY Tobacco use date assessed: 09/04/22 Dental Screening Dental Screen Date: 03/04/23 Did you have a dental visit in the last 12 months?: No Did you have a dental problem in the last 6 months where you did not have access to dental care?: No Was dental information given to patient?: Patient declined HPI Blood pressure/pulse elevated HPI Details pt presents for f/u of elevated BP. Pt could not tolerate 10 mg of Lisinopril because of SIMONS, tingling. fatigue. She has been taking 5 mg at the bedtime for the last week and has been feeling better. Patient still gets occasionally headaches. COPD stable on Trelegy PFSH Medical History Anxiety COPD (chronic obstructive pulmonary disease) Depression History of seizure Hyperlipemia Lower back pain Malignant neoplasm of right upper lobe of lung (~2017) Neck pain On home O2 Osteopenia Restless leg syndrome Tobacco dependence Surgical History History of bronchoscopy (~06/2018) History of colonoscopy (~03/2017) History of lung surgery (~07/2018) History of tonsillectomy Family History Father Alcohol abuse Maternal Aunt Breast cancer Sister Breast cancer Brother Skin cancer Other Mental health disorder Substance use disorder Social History Household Members: Significant Other Housing: House Do you presently have visiting nurse or other home services: No Alcohol intake: current Alcohol intake frequency: a few times a week Patient Tobacco Use Status: Current someday Tobacco user Tobacco use type: Cigar Cigarettes Per Day: 2 Years Smoked: 43 (onset 12yo) e-Cigarette/Vaping Use: Former Use Second Hand Smoke Exposure: No Substance Use Type: Marijuana service: No Current occupational status: unemployed Cognitive needs: No Hearing needs: No Vision needs: Yes Questionnaire Thrive Questionnaire Date Thrive assessed: 08/21/21 ARTEM-7 AMB Questionnaire ARTEM-7 Date ARTEM - 7 assessed: 08/21/21 Source: Developed by Drs. Luis Juarez, Lelo Churchill, Alf Yusuf and colleagues, with an educational edgar from [employer]. Review of Systems Const All systems reviewed & are unremarkable except as noted in HPI and below Reports no additional complaints Eyes Reports no additional complaints ENT Reports no additional complaints Resp Reports no additional complaints GI Reports no additional complaints Physical exam (Primary Care) Vital Signs: Last Vital Signs Pulse 76 03/04/23 13:03 BP 150/70 H 03/04/23 13:03 Pulse Ox 96 03/04/23 13:03 Oxygen Delivery Method Room Air 03/04/23 13:03 BMI result Body Mass Index 19.6 Tobacco/Smoking Status: Tobacco use Status Tobacco use date assessed 09/04/22 03/04/23 13:01 Patient Tobacco Use Status Current someday Tobacco 03/04/23 13:01 Tobacco use type Cigar 03/04/23 13:01 e-Cigarette/Vaping Use Former Use 03/04/23 13:01 Thrive Assessment: Date of Thrive Assessment Date Thrive assessed 08/21/21 03/04/23 13:01 Const General: no acute distress Resp Effort & Inspection: normal respiratory effort Auscultation: diminished lung sounds Cardio Rhythm: regular rhythm Heart sounds: S1 normal heart sound present and S2 normal heart sound present Assessment and Plan Assessment & Plan (1) Essential hypertension: Code(s): I10 - Essential (primary) hypertension Plan: Continue 5 mg of lisinopril, regular physical activity decrease salt intake discussed with the patient. Follow-up in 1 month with a fasting labs before (2) COPD (chronic obstructive pulmonary disease): Code(s): J44.9 - Chronic obstructive pulmonary disease, unspecified Plan: Continue Trelegy Orders: Orders Comprehensive [place]. Panel Fast Today I10 - Essential (primary) hypertension Medications: New oodepacnydv-dlaabszgc-dcwltkga 100-62.5-25 mcg (Trelegy Ellipta) 100 inhalations inhalation DAILY 60 ea 6RF albuterol sulfate 90 mcg/actuation 2 puffs PO Q4H PRN 8.5 grams 4RF Shortness Of Breath lisinopril 5 mg PO DAILY 30 tabs 1RF Coding Level of Care Code Est Pt Level 3 (04371) Diagnoses Essential hypertension I10 COPD (chronic obstructive pulmonary disease) J44.9
[2023-03-04 13:03] VITALS: BP 140/70; PULSE 76; O2SAT 96; BMI 19.6
== END 2023-03-04 13:35 | disposition home or self-care (01) ==
PROVIDERS: PCP Internal Medicine; Visit Provider Internal Medicine
DX: I10 Essential (primary) hypertension (principal); J44.9 Chronic obstructive pulmonary disease, unspecified
CPT/HCPCS: 99213

== ENCOUNTER 2023-04-06 09:09 | Outpatient (REF) | payer OTHER, MEDICAID, SELFPAY ==
[2023-04-06 12:41] LABS: Alanine Aminotransferase 86 U/L (0-31); Albumin Level 4.5 g/dL (3.5-5.0); Alkaline Phosphatase 145 U/L (39-117); Anion Gap 18 (12-20); Aspartate Amino Transferase 95 U/L (5-31); Bilirubin Total 0.7 mg/dL (0.0-1.0); Blood Urea Nitrogen 6 mg/dL (9-16); Calcium 9.3 mg/dL (8.4-10.2); Carbon Dioxide 26 mmol/L (22-29); Chloride 102 mmol/L (96-108); Estimated Glomerular Filt Rate > 60; Glucose Fasting 121 mg/dL (60-99); Potassium 3.2 mmol/L (3.3-5.1); Sodium 143 mmol/L (135-145); Total Protein 7.1 g/dL (6.5-8.0)
== END 2023-04-06 09:10 | disposition home or self-care (01) ==
LOC: HO.HMGCLDS 09:09
PROVIDERS: PCP Internal Medicine; Visit Provider Internal Medicine
DX: I10 Essential (primary) hypertension (principal)
CPT/HCPCS: 36415; 80053

== ENCOUNTER 2023-04-08 13:48 | Outpatient (AMB) | payer OTHER, MEDICAID, SELFPAY ==
[2023-04-08 14:24] VITALS: BP 110/64; PULSE 76; O2SAT 97; BMI 18.3
--- NOTE | 2023-04-08 14:24 | MHC.PC.OV ---
Vital Signs 04/08/23 14:24 Height 5 ft 5 in Weight 110 lb BMI 18.3 BP 110/64 Blood Pressure Location Lt brachial Position Sitting Pulse 76 Pulse Source Pulse Oximeter Pulse Oximetry (%) 97 Oxygen Delivery Method Room Air Intake Visit Reasons: 1 month follow up HTN Intake Note: Pt is here today for 1 month follow up visit on HTN. Pt states that she has been having a cough for 3-4 days. Pt states that her has been sick and he had 2 covid tests at home which were negative. Allergies apple [Apple] Allergy (Severe, Verified 04/08/23 14:31) TONGUE SWELLS penicillin V Allergy (Unknown, Verified 04/08/23 14:31) unknown - childhood Penicillins [PENICILLINS] Allergy (Unknown, Verified 04/08/23 14:31) UNKNOWN-CHILDHOOD ALLERGY Medication List - Last Reconciled 04/08/23 by Elisa Clark MD albuterol sulfate 90 mcg/actuation 2 puffs PO Q4H PRN atorvastatin 20 mg PO DAILY rprdmchaqhp-qmmtvswit-dqasiqfh 100-62.5-25 mcg (Trelegy Ellipta) 100 inhalations inhalation DAILY lisinopril 5 mg PO DAILY lorazepam 0.5 mg PO DAILY PRN multivitamin 1 tab PO DAILY omeprazole 40 mg PO DAILY potassium chloride ER 20 mEq PO DAILY trazodone 1 tab PO DAILY Tobacco use date assessed: 09/04/22 HPI 1 month follow up HTN HPI Details PATIENT PRESENTS FOR THE FOLLOW-UP ON HYPERTENSION CONTROLLED ON LISINOPRIL. Patient complains of dry cough for 5 days but denies fever chills sore throat congestion. COPD stable on Trelegy and hyperlipidemia controlled on atorvastatin. [facility] Medical History Anxiety COPD (chronic obstructive pulmonary disease) Depression History of seizure Hyperlipemia Lower back pain Malignant neoplasm of right upper lobe of lung (~2017) Neck pain On home O2 Osteopenia Restless leg syndrome Tobacco dependence Surgical History History of bronchoscopy (~06/2018) History of colonoscopy (~03/2017) History of lung surgery (~07/2018) History of tonsillectomy Family History Father Alcohol abuse Maternal Aunt Breast cancer Sister Breast cancer Brother Skin cancer Other Mental health disorder Substance use disorder Social History Household Members: Significant Other Housing: House Do you presently have visiting nurse or other home services: No Alcohol intake: current Alcohol intake frequency: a few times a week Patient Tobacco Use Status: Current someday Tobacco user Tobacco use type: Cigar Cigarettes Per Day: 2 Years Smoked: 43 (onset 12yo) e-Cigarette/Vaping Use: Former Use Second Hand Smoke Exposure: No Substance Use Type: Marijuana service: No Current occupational status: unemployed Cognitive needs: No Hearing needs: No Vision needs: Yes Questionnaire Thrive Questionnaire Date Thrive assessed: 08/21/21 ARTEM-7 AMB Questionnaire ARTEM-7 Date ARTEM - 7 assessed: 08/21/21 Source: Developed by Drs. Luis Juarez, Lelo Churchill, Alf Yusuf and colleagues, with an educational edgar from [employer]. Review of Systems Const All systems reviewed & are unremarkable except as noted in HPI and below Reports no additional complaints Eyes Reports no additional complaints ENT Reports no additional complaints Card Reports no additional complaints Resp Reports no additional complaints GI Reports no additional complaints Reports no additional complaints Physical exam (Primary Care) Vital Signs: Last Vital Signs Pulse 76 04/08/23 14:24 BP 110/64 04/08/23 14:24 Pulse Ox 97 04/08/23 14:24 Oxygen Delivery Method Room Air 04/08/23 14:24 BMI result Body Mass Index 18.3 Tobacco/Smoking Status: Tobacco use Status Tobacco use date assessed 09/04/22 04/08/23 14:24 Patient Tobacco Use Status Current someday Tobacco 04/08/23 14:24 Tobacco use type Cigar 04/08/23 14:24 e-Cigarette/Vaping Use Former Use 04/08/23 14:24 Thrive Assessment: Date of Thrive Assessment Date Thrive assessed 08/21/21 04/08/23 14:24 Const General: no acute distress HENMT Head: Yes normal to inspection Ears: TM's normal bilaterally General nose exam: Normal nasal mucous membranes and turbinates present Mouth: Normal oral and palatal mucosa present Throat: Yes posterior oropharynx normal Neck Neck: Yes supple Resp Effort & Inspection: normal respiratory effort Auscultation: clear to auscultation bilaterally Cardio Rhythm: regular rhythm Heart sounds: S1 normal heart sound present and S2 normal heart sound present Assessment and Plan Assessment & Plan (1) Essential hypertension: Code(s): I10 - Essential (primary) hypertension Plan: Continue lisinopril, if the dry cough persist it could be side effect (2) Hyperglycemia: Comment: A1C 5.4 09/04 Code(s): R73.9 - Hyperglycemia, unspecified Plan: Continue ADA diet follow-up in 3 months with a fasting labs before (3) COPD (chronic obstructive pulmonary disease): Code(s): J44.9 - Chronic obstructive pulmonary disease, unspecified Plan: Continue Trelegy (4) Hyperlipemia: Code(s): E78.5 - Hyperlipidemia, unspecified Plan: Continue statin Orders: Orders SARS-CoV2/FLU/RSV Today J06.9 - Acute upper respiratory infection, unspecified Complete Blood Count Auto Diff 3 Months E78.5 - Hyperlipidemia, unspecified, I10 - Essential (primary) hypertension, R73.9 - Hyperglycemia, unspecified Microalbumin, Random (w Creat) 3 Months E78.5 - Hyperlipidemia, unspecified, I10 - Essential (primary) hypertension, R73.9 - Hyperglycemia, unspecified Comprehensive [place]. Panel Fast 3 Months E78.5 - Hyperlipidemia, unspecified, I10 - Essential (primary) hypertension, R73.9 - Hyperglycemia, unspecified Hemoglobin A1c 3 Months E78.5 - Hyperlipidemia, unspecified, I10 - Essential (primary) hypertension, R73.9 - Hyperglycemia, unspecified Lipid Panel 3 Months E78.5 - Hyperlipidemia, unspecified, I10 - Essential (primary) hypertension, R73.9 - Hyperglycemia, unspecified Coding Level of Care Code Est Pt Level 4 (65748) Diagnoses Essential hypertension I10 Hyperglycemia R73.9 COPD (chronic obstructive pulmonary disease) J44.9 Hyperlipemia E78.5
== END 2023-04-08 15:26 | disposition home or self-care (01) ==
PROVIDERS: PCP Internal Medicine; Visit Provider Internal Medicine
DX: I10 Essential (primary) hypertension (principal); R73.9 Hyperglycemia, unspecified; J44.9 Chronic obstructive pulmonary disease, unspecified; E78.5 Hyperlipidemia, unspecified
CPT/HCPCS: 99214

== ENCOUNTER 2023-04-08 15:05 | Outpatient (REF) | payer OTHER, MEDICAID, SELFPAY ==
[2023-04-08 16:56] LABS: Influenza A PCR NEGATIVE (Negative); Influenza B PCR NEGATIVE (Negative); Resp Syncy Virus RNA Qual PCR NEGATIVE (Negative); SARS COV2 PCR INHOUSE NEGATIVE (Negative)
== END 2023-04-08 15:06 | disposition home or self-care (01) ==
LOC: HO.LAB 15:05
PROVIDERS: Visit Provider Internal Medicine
DX: Z20.822 Contact with and (suspected) exposure to COVID-19 (principal); J06.9 Acute upper respiratory infection, unspecified
CPT/HCPCS: 0241U

== ENCOUNTER 2023-04-14 08:36 | Outpatient (REF) | payer OTHER, MEDICAID, SELFPAY ==
[2023-04-14 12:27] LABS: Anion Gap 15 (12-20); Blood Urea Nitrogen 8 mg/dL (9-16); Calcium 8.9 mg/dL (8.4-10.2); Carbon Dioxide 26 mmol/L (22-29); Chloride 102 mmol/L (96-108); Estimated Glomerular Filt Rate > 60; Glucose Random 106 mg/dL (60-115); Potassium 4.3 mmol/L (3.3-5.1); Sodium 139 mmol/L (135-145)
== END 2023-04-14 08:37 | disposition home or self-care (01) ==
LOC: HO.HMGCLDS 08:36
PROVIDERS: PCP Internal Medicine; Visit Provider Internal Medicine
DX: E87.6 Hypokalemia (principal)
CPT/HCPCS: 36415; 80048

== ENCOUNTER 2023-04-28 12:59 | Outpatient (REF) | payer OTHER, MEDICAID, SELFPAY ==
--- NOTE | ~2023-04-28 | MM_ITS ---
EXAMINATION: MM DIAGNOSTIC DIGITAL BREAST TOMOSYNTHESIS, LEFT US BREAST LIMITED, LEFT MAMMOGRAPHY: CLINICAL INFORMATION: 6 month follow-up for retroareolar nodule left breast, without prior ultrasonographic correlate. COMPARISON: Mammography: 09/24/2022, 09/12/2021, 02/09/2020, 09/29/2018, 09/23/2017 TECHNIQUE: Digital breast tomosynthesis is performed in the following views, full-field digital left 3-D CC, and 3-D MLO x2, FINDINGS: There are scattered areas of fibroglandular density (ACR BI-RADS breast composition Category b). Left breast demonstrates a stable and unchanged 5 mm nodule in the retroareolar region directly, similar to prior exams. We will evaluate this with a Second Look ultrasound. There are otherwise no suspicious masses, suspicious grouped calcifications, or areas of architectural distortion in the left breast. The parenchymal pattern is stable from prior exams. ULTRASOUND: CLINICAL INFORMATION: Retroareolar nodule left breast, Second Look ultrasound COMPARISON: 10/20/2022 left breast ultrasound. TECHNIQUE: Targeted sonographic evaluation retroareolar left breast was performed using a high frequency linear transducer. Selected archived documentation. FINDINGS: LEFT BREAST: There is a 4 x 5 x 4 mm hypoechoic nodule present in the 12:00 immediate retroareolar region, which does correlate well with the mammographic retroareolar nodule. This does not demonstrate posterior features or internal color Doppler signal. It is indeterminate. Six-month interval follow-up ultrasound recommended to ensure stability. There are fibrocystic changes in the left breast 3:00 axis, 2 cm from the nipple. These are benign. Otherwise, no additional solid mass, or edema within the soft tissue planes. MM/MM tomosynthesis diagnostic LT IMPRESSION: 4 x 5 x 4 mm hypoechoic nodule in the 12:00 in the retroareolar region left breast, probably benign appearing to correlate well with the mammographic retroareolar nodule. Recommend six-month interval follow-up targeted left breast ultrasound and left mammography (standard CC and MLO views in 3-D) to ensure stability. OVERALL ASSESSMENT: Mammography: BI-RADS 3 - Probably benign finding(s) - 6 month follow-up suggested Ultrasound: BI-RADS 3 - Probably benign finding(s) - 6 month follow-up suggested RECOMMENDATION: 6 Month F/U Results were provided to the patient at time of visit by the technologist. This patient's information was entered into a reminder system with a target due date for their next mammogram.
== END 2023-04-28 13:00 | disposition home or self-care (01) ==
LOC: HO.MAMMO 12:59
PROVIDERS: PCP Internal Medicine; Visit Provider Internal Medicine
DX: N63.25 Unspecified lump in the left breast, overlapping quadrants (principal)
CPT/HCPCS: 76642; 77061; 77065

== ENCOUNTER → 2023-04-28 13:30 | Outpatient (BNV) | payer OTHER, MEDICAID, SELFPAY | PROVIDERS: PCP Internal Medicine; Visit Provider Radiology Diagnostic Radiology | DX: N63.25 Unspecified lump in the left breast, overlapping quadrants (principal) | CPT/HCPCS: 76642; 77061; 77065 ==

== ENCOUNTER 2023-07-14 10:07 | Outpatient (AMB) | payer OTHER, MEDICAID, SELFPAY ==
--- NOTE | 2023-07-14 10:14 | MHC.PC.OV ---
Vital Signs 07/14/23 10:16 Height 5 ft 5 in Weight 105 lb BMI 17.5 BP 144/64 H Blood Pressure Location Lt brachial Position Sitting Pulse 88 Pulse Source Pulse Oximeter Pulse Oximetry (%) 95 Oxygen Delivery Method Room Air Intake Visit Reasons: 3 month fu Intake Note: Pt is here today for 3 months follow up visit. Pt states that she saw her Oncologist last week and her BP was high. Allergies apple [Apple] Allergy (Severe, Verified 07/14/23 10:18) TONGUE SWELLS penicillin V Allergy (Unknown, Verified 07/14/23 10:18) unknown - childhood Penicillins [PENICILLINS] Allergy (Unknown, Verified 07/14/23 10:18) UNKNOWN-CHILDHOOD ALLERGY Medication List - Last Reconciled 07/14/23 by Elisa Clark MD albuterol sulfate 90 mcg/actuation 2 puffs PO Q4H PRN atorvastatin 20 mg PO DAILY utnvdvwdovn-ysdzhcqis-lqdpsndd 100-62.5-25 mcg (Trelegy Ellipta) 100 inhalations inhalation DAILY lisinopril 5 mg PO DAILY lisinopril 3 tabl orally daily; lorazepam 0.5 mg PO DAILY PRN multivitamin 1 tab PO DAILY omeprazole 40 mg PO DAILY trazodone 1 tab PO DAILY Tobacco use date assessed: 07/14/23 Dental Screening Dental Screen Date: 07/14/23 Did you have a dental visit in the last 12 months?: No Did you have a dental problem in the last 6 months where you did not have access to dental care?: No Was dental information given to patient?: Patient declined HPI 3 month fu HPI Details Pt presents for f/u HTN, hyperlipid, COPD. Pt f/u with oncology and thoracic surgery for hx of lung ca in 2018. Pt c/o increased stress because of her dxd with dementia and being verbally abusive. Patient follows up with Psychiatry and Counseling regularly. She denies suicidal ideation. Patient reports elevated blood pressure in a few occasions while taking 5 mg of lisinopril but could not tolerate 10 mg before. [facility] Medical History Lower back pain Neck pain Restless leg syndrome History of seizure On home O2 Osteopenia Malignant neoplasm of right upper lobe of lung (~2018) Tobacco dependence COPD (chronic obstructive pulmonary disease) Depression Anxiety Hyperlipemia Surgical History History of colonoscopy (~03/2017) History of bronchoscopy (~06/2018) History of lung surgery (~07/2018) History of tonsillectomy Family History Father Alcohol abuse Maternal Aunt Breast cancer Sister Breast cancer Brother Skin cancer Other Mental health disorder Substance use disorder Social History Household Members: Significant Other Housing: House Do you presently have visiting nurse or other home services: No Alcohol intake: current Alcohol intake frequency: a few times a week Patient Tobacco Use Status: Current someday Tobacco user Tobacco use type: Cigar Cigarettes Per Day: 2 Years Smoked: 43 (onset 12yo) e-Cigarette/Vaping Use: Former Use Second Hand Smoke Exposure: No Substance Use Type: Marijuana service: No Current occupational status: unemployed Cognitive needs: No Hearing needs: No Vision needs: Yes Questionnaire PHQ-9 Over the last 2 weeks, how often have you been bothered by any of the following problems? 1. Little interest or pleasure in doing things: more than half the days 2. Feeling down, depressed, or hopeless: more than half the days 3. Trouble falling or staying asleep, or sleeping too much: more than half the days 4. Feeling tired or having little energy: nearly every day 5. Poor appetite or overeating: more than half the days 6. Feeling bad about yourself - or that you are a failure or have let yourself or your family down: not at all 7. Trouble concentrating on things, such as reading the newspaper or watching television: not at all 8. Moving or speaking so slowly that other people could have noticed. Or the opposite - being so fidgety or restless that you have been moving around a lot more than usual: not at all 9. Thoughts that you would be better off or of hurting yourself in some way: not at all Total score: 11 Depression Screening Interpretation: Positive Depression Screening Done: Yes 46880 - PHQ-9 Billing: Yes Source: Developed by Drs. Luis Juarez, Lelo B.W. Alf Churchill and colleagues, with an educational edgar from [employer]. Thrive Questionnaire Date Thrive assessed: 07/14/23 I am a: Patient What is your living situation today?: I have a steady place to live Within the past 12 months, did the food you bought not last and you didn't have the money to get more?: Sometimes True Within the past 12 months, did you worry whether your food would run out before you got money to buy more?: Sometimes True Do you have trouble paying for medicines?: No Do you have trouble getting transportation to medical appointments?: No Do you have trouble paying your heating and electricity bill?: No Do you have trouble taking care of your child, family member or friend?: No Do you have trouble with day-to-day activities such as bathing, preparing meals, shopping, managing finances, etc.?: No Are you currently unemployed and looking for a job?: No Are you interested in more education?: No Please select the resources that you would like help with: None AUDIT C Alcohol Use Questionnaire (AUDIT-C) 1. How often do you have a drink containing alcohol?: 2-3 times a week 2. How many drinks containing alcohol do you have on a typical day when you are drinking?: 1 or 2 3. How often do you have six or more drinks on one occasion?: Never Total Score: 3 ARTEM-7 AMB Questionnaire ARTEM-7 Date ARTEM - 7 assessed: 07/14/23 Feeling nervous, anxious, or on edge: 2 = More than half the days Not being able to stop or control worryin = More than half the days Worrying too much about different things: 2 = More than half the days Trouble relaxin = Nearly every day Being so restless that it is hard to sit still: 0 = Not at all Becoming easily annoyed or irritable: 3 = Nearly every day Feeling afraid as if something awful might happen: 0 = Not at all Total ARTEM-7 score (0-4 normal; 5-9 mild; 10-14 moderate; 15-21 severe): 12 Source: Developed by Drs. Luis Juarez, Alf Syed and colleagues, with an educational edgar from [employer]. Review of Systems Const All systems reviewed & are unremarkable except as noted in HPI and below Eyes Reports no additional complaints ENT Reports no additional complaints Card Reports no additional complaints Resp Reports no additional complaints GI Reports no additional complaints Reports no additional complaints Physical exam (Primary Care) Vital Signs: Last Vital Signs Pulse 88 07/14/23 10:16 BP 144/64 H 07/14/23 10:16 Pulse Ox 95 07/14/23 10:16 Oxygen Delivery Method Room Air 07/14/23 10:16 BMI result Body Mass Index 17.5 Tobacco/Smoking Status: Tobacco use Status Tobacco use date assessed 07/14/23 07/14/23 10:20 Patient Tobacco Use Status Current someday Tobacco 07/14/23 10:15 Tobacco use type Cigar 07/14/23 10:15 e-Cigarette/Vaping Use Former Use 07/14/23 10:15 Depression Screening Interpretation: Positive Thrive Assessment: Date of Thrive Assessment Date Thrive assessed 08/21/21 07/14/23 10:15 Const General: no acute distress HENMT Head: Yes normal to inspection Ears: hearing grossly normal bilaterally Eyes General: appearance normal, both eyes and all related structures Resp Effort & Inspection: normal respiratory effort Auscultation: clear to auscultation bilaterally Cardio Rhythm: regular rhythm Heart sounds: S1 normal heart sound present and S2 normal heart sound present GI Inspection: Yes normal to inspection Palpation (GI): Soft to palpation Percussion: Yes normal to percussion Assessment and Plan Assessment & Plan (1) Elevated LFTs: Code(s): R79.89 - Other specified abnormal findings of blood chemistry Plan: For elevated LFTs abdominal ultrasound will be obtained, patient was advised to stop drinking alcohol and taking zhje-joz-sscnjjx NSAIDs and Tylenol. LFTs will be rechecked in 1 my (2) Hyperglycemia: Comment: A1C 5.4 09/04 Code(s): R73.9 - Hyperglycemia, unspecified Plan: ADA diet discussed with the patient, check A1c. (3) Hyperlipemia: Code(s): E78.5 - Hyperlipidemia, unspecified Plan: Continue statin (4) Tobacco dependence: Comment: (Current smoker, onset 12yo, 1/2-1ppd x 43yrs, 30+PYH) Code(s): F17.200 - Nicotine dependence, unspecified, uncomplicated Plan: Tobacco quitting discussed with the patient, continue Trelegy for COPD (5) Essential hypertension: Code(s): I10 - Essential (primary) hypertension Plan: Increase lisinopril to 7.5 mg a day and follow-up in 2 months for blood pressure check (6) Malignant neoplasm of right upper lobe of lung: Onset Date: ~2017 Comment: (RUL Invasive Adenocarcinoma, Acinar type, 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), f/u thoracic surgeon Code(s): C34.11 - Malignant neoplasm of upper lobe, right bronchus or lung Plan: Follow-up with oncology and thoracic surgery Orders: Orders US abdomen corral w elastography Today R79.89 - Other specified abnormal findings of blood chemistry Comprehensive Met. Panel 1 Month E78.5 - Hyperlipidemia, unspecified, F17.200 - Nicotine dependence, unspecified, uncomplicated, R73.9 - Hyperglycemia, unspecified, R79.89 - Other specified abnormal findings of blood chemistry Hemoglobin A1c 1 Month E78.5 - Hyperlipidemia, unspecified, F17.200 - Nicotine dependence, unspecified, uncomplicated, R73.9 - Hyperglycemia, unspecified, R79.89 - Other specified abnormal findings of blood chemistry Lipid Panel 1 Month E78.5 - Hyperlipidemia, unspecified, F17.200 - Nicotine dependence, unspecified, uncomplicated, R73.9 - Hyperglycemia, unspecified, R79.89 - Other specified abnormal findings of blood chemistry Medications: New lisinopril 3 tabl orally daily; 90 tabs 3RF Discontinued lisinopril Discontinued Reason: Doctor's Order 5 mg PO DAILY 90 tabs 1RF Coding Level of Care Code Est Pt Level 4 (72153) Diagnoses Elevated LFTs R79.89 Hyperglycemia R73.9 Hyperlipemia E78.5 Tobacco dependence F17.200 Essential hypertension I10 Malignant neoplasm of right upper lobe of lung C34.11
[2023-07-14 10:16] VITALS: BP 144/64; PULSE 88; O2SAT 95; BMI 17.5
== END 2023-07-14 10:52 | disposition home or self-care (01) ==
PROVIDERS: PCP Internal Medicine; Visit Provider Internal Medicine
DX: R73.9 Hyperglycemia, unspecified (principal); E78.5 Hyperlipidemia, unspecified; C34.11 Malignant neoplasm of upper lobe, right bronchus or lung; F17.200 Nicotine dependence, unspecified, uncomplicated; I10 Essential (primary) hypertension
CPT/HCPCS: 99214

== ENCOUNTER 2023-08-11 07:37 | Outpatient (REF) | payer OTHER, MEDICAID, SELFPAY ==
--- NOTE | ~2023-08-11 | CT_ITS ---
EXAMINATION: CT CHEST WITH CONTRAST CLINICAL INFORMATION: Surveillance, follow-up malignant neoplasm of upper lobe COMPARISON: 10/15/2022 TECHNIQUE: Multidetector volumetric CT imaging of the chest was obtained after the administration of 65 mL of Omnipaque 350 intravenous contrast without immediate adverse reactions. Axial MIP volume rendering provided. Sagittal and coronal reformatted images were obtained. This CT examination was performed using dose optimization techniques as appropriate, variously including the following: *Automated exposure control *Adjustment of mA and/or kV according to patient size (this includes techniques or standardized protocols for targeted exams where dose is matched to indication/reason for exam; i.e. extremities or head) *Use of iterative reconstruction technique DLP: 75 mGy-cm FINDINGS: Lungs: Unremarkable there is scarring in the right upper lobe and changes of centrilobular emphysema seen bilaterally. There is new since previous examination lobulated mildly spiculated left lower lobe mass measured 1.0 x 1.2 x 0.9 cm. Findings are suspicious for malignancy and need to be followed by PET/CT or biopsy. Right central airways are patent. MEDIASTINUM: Thyroid gland is unremarkable. There is no hilar or mediastinal lymphadenopathy seen. Coronary artery calcifications present. There is no pericardial effusion. Aorta is nondilated. PLEURA: There is no pleural effusion. No pleural mass or thickening. AXILLA: No lymphadenopathy. UPPER ABDOMEN: Unremarkable OSSEOUS STRUCTURES: Unremarkable. CT/CT chest w IV con IMPRESSION: 1. New left lower lobe lung mass suspicious for malignancy. PET/CT or excisional biopsy recommended 2. Changes of centrilobular emphysema and scarring in the right upper lobe. 3. Coronary artery calcifications. Fleischner guidelines were followed.
[2023-08-11] MEDS: iohexoL 350 MG/ML 100 ML INFUS..BTL IV (08:39)
[2023-08-12 06:32] LABS: Creatinine POC 0.6 mg/dL (0.5-1.4); GFR POC > 60
== END 2023-08-11 07:38 | disposition home or self-care (01) ==
LOC: HO.CT 07:37
PROVIDERS: PCP Internal Medicine; Visit Provider Internal Medicine
DX: C34.11 Malignant neoplasm of upper lobe, right bronchus or lung (principal)
CPT/HCPCS: 71260; 82565; Q9967

== ENCOUNTER 2023-08-14 08:19 | Outpatient (REF) | payer OTHER, MEDICAID, SELFPAY ==
[2023-08-14 11:52] LABS: MANUAL DIFF FLAG NO
[2023-08-14 11:58] LABS: Basophils Absolute Auto 0.1 X10*3/uL (0.0-0.2); Basophils Percent Auto 1.2 % (0-2); Eosinophils Absolute Auto 0.3 X10*3/uL (0.0-0.4); Eosinophils Percent Auto 4.5 % (0-4); Hematocrit 46.5 % (37.0-47.0); Imm Gran Abs Auto 0.04 X10*3/uL (0.00-0.03); Imm Gran Pct Auto 0.6 % (0.0-0.4); Lymphocytes Absolute Auto 2.5 X10*3/uL (1.2-4.9); Lymphocytes Percent Auto 37.4 % (20-40); Mean Corpuscular HGB Conc 34.4 g/dl (31.0-35.0); Mean Corpuscular Hemoglobin 34.3 pg (27.0-33.0); Mean Corpuscular Volume 99.6 fL (80.0-98.0); Mean Platelet Volume 11.2 fL (9.4-12.3); Monocytes Absolute Auto 0.4 X10*3/uL (0.1-1.2); Monocytes Percent Auto 6.5 % (2-11); Neutrophils Absolute Auto 3.3 x10*3/uL (2.0-8.3); Neutrophils Percent Auto 49.8 % (45-73); Platelet Count 200 X10*3/uL (160-400); Red Blood Count 4.67 X10*6/uL (4.20-5.50); Red Cell Distribution Width 11.9 % (11.0-16.0); White Blood Count 6.6 X10*3/uL (4.8-10.8)
[2023-08-14 12:04] LABS: Estimated Average Glucose 97 mg/dL
[2023-08-14 12:17] LABS: Alanine Aminotransferase 43 U/L (0-31); Albumin Level 4.6 g/dL (3.5-5.0); Alkaline Phosphatase 102 U/L (39-117); Anion Gap 18 (12-20); Aspartate Amino Transferase 33 U/L (5-31); Blood Urea Nitrogen 17 mg/dL (9-16); Calcium 9.9 mg/dL (8.4-10.2); Carbon Dioxide 24 mmol/L (22-29); Chloride 101 mmol/L (96-108); Cholesterol 159 mg/dL (<200); Estimated Glomerular Filt Rate > 60; Glucose Random 84 mg/dL (60-115); HDL Cholesterol 53 mg/dL (>40); LDL Cholesterol Calculated 35 mg/dL (<100); Potassium 3.8 mmol/L (3.3-5.1); Sodium 139 mmol/L (135-145); Total Protein 7.4 g/dL (6.5-8.0); Triglycerides 356 mg/dL (<150)
== END 2023-08-14 08:20 | disposition home or self-care (01) ==
LOC: HO.HMGCLDS 08:19
PROVIDERS: PCP Internal Medicine; Visit Provider Internal Medicine
DX: I10 Essential (primary) hypertension (principal); R73.9 Hyperglycemia, unspecified; E78.5 Hyperlipidemia, unspecified; F17.200 Nicotine dependence, unspecified, uncomplicated
CPT/HCPCS: 36415; 80053; 80061; 83036; 85025

== ENCOUNTER 2023-08-18 07:49 | Outpatient (REF) | payer OTHER, MEDICAID, SELFPAY ==
--- NOTE | ~2023-08-18 | US_ITS ---
EXAMINATION: US ABDOMEN LIMITED WITH LIVER ELASTOGRAPHY CLINICAL INFORMATION: Elevated liver function tests. COMPARISON: CT abdomen and pelvis dated 05/12/2018. TECHNIQUE: Real-time imaging of the abdominal viscera. Noninvasive ultrasound liver fibrosis assessment is performed using Todd ElastPQ point quantification shear wave elastography (2D-SWE) with a C5-2 MHz transducer. Multiple elastography samples are obtained. FINDINGS: PANCREAS: Normal. The visualized pancreatic head and body are normal in appearance. The remainder of the pancreas is obscured from visualization by the overlying bowel gas. LIVER: Normal. The liver demonstrates normal size, contour and echogenicity. No focal lesion or intrahepatic biliary duct dilatation. The right lobe measures 1.31 cm in length. The left lobe measures 0.25 cm in length. Portal flow is towards the liver (hepatopetal). Shear wave liver elastography median stiffness is 1.31 m/s (reference: normal median stiffness is 1.3 m/s or less). IQR/median stiffness to assess sampling precision is 0.25 (reference: good quality data set is IQR/median stiffness of 0.15 or less). GALLBLADDER: Normal. The gallbladder is physiologically distended without evidence of stones, sludge, polyps, wall thickening or pericholecystic fluid. COMMON BILE DUCT: Upper normal in caliber, measuring 0.7 cm in diameter (79/86). There is mild wall thickening and/or adherent sludge noted of the common bile duct. RIGHT KIDNEY: Normal. There is mild pelviectasis, without devang hydronephrosis. No renal calculi or focal parenchymal lesions. The kidney measures 10.6 cm in maximum dimension. FREE FLUID: None. US/US abdomen corral w elastography IMPRESSION: 1. The common bile duct is upper normal in caliber. There is mild wall thickening and/or adherent sludge noted of the common bile duct. Please correlate clinically. 2. Liver elastography: In the absence of other known clinical signs, measurements rule out compensated advanced chronic liver disease. If there are known clinical signs, further testing may be needed for confirmation. REFERENCE: Society of Radiologists in Ultrasound Liver Stiffness Thresholds (2020): LIVER STIFFNESS THRESHOLDS: *Liver Stiffness equal or less than 1.3 m/s: High probability of being normal. *Liver Stiffness less than 1.7 m/s: In the absence of other known clinical signs, rules out compensated advanced chronic liver disease. *Liver Stiffness 1.7-2.1 m/s: Suggestive of compensated advanced chronic liver disease but need further test for confirmation. *Liver Stiffness over 2.1 m/s: Rules in compensated advanced chronic liver disease. *Liver Stiffness over 2.4 m/s: Suggestive of clinically significant portal hypertension. QUALITY OF DATA SET: *IQR/Median value equal or less than 0.15 implies a quality data set. *IQR/Median value over 0.15 implies a poor quality data set. SIGNIFICANT CHANGE FROM PRIOR EXAM: Significant change if liver stiffness measurement is 10% or greater from prior exam. OTHER CONSIDERATIONS: The stage of liver fibrosis may be overestimated in the setting of acute hepatitis, liver inflammation, elevated liver function tests, hepatic vascular congestion, obstructive cholestasis, non-fasting state, and infiltrative diseases such as amyloidosis and lymphoma. In some patients with NAFLD, the liver stiffness thresholds for compensated advanced chronic liver disease may be lower. In causes other than viral hepatitis and NAFLD, liver stiffness thresholds are not well established.
== END 2023-08-18 07:50 | disposition home or self-care (01) ==
LOC: HO.US 07:49
PROVIDERS: PCP Internal Medicine; Visit Provider Internal Medicine
DX: R79.89 Other specified abnormal findings of blood chemistry (principal)
CPT/HCPCS: 76705; 76981

== ENCOUNTER 2023-09-15 07:58 | Outpatient (REF) | payer OTHER, MEDICAID, SELFPAY ==
--- NOTE | ~2023-09-15 | PE_ITS ---
EXAMINATION: Fluorine-18 FDG PET/CT Scan CLINICAL INDICATION: Subsequent treatment management. Malignant neoplasm of right bronchus or lung, restaging. PROCEDURE: 60 minutes following the intravenous administration of 16.8 mCi of fluorine 18 FDG, images from the base of the skull to the mid thighs were obtained using a combined PET/CT scanner with CT scan based attenuation correction. No oral contrast was administered. No intravenous contrast was administered. Transverse, coronal, sagittal, and volume reconstruction projections were obtained. The patient's blood glucose as determined by a finger stick, was 112 mg/dl immediately prior to injection. Total CT exam dose-length product 337.52 mGy-cm * These CT images were obtained using dose optimization techniques as appropriate, variously including the following: Automated exposure control * Adjustment of mA and/or kV according to patient size (this includes techniques or standardized protocols for targeted exams where dose is matched to indication/reason for exam; i.e. extremities or head) * Use of iterative reconstruction technique COMPARISON: Prior PET/CT scans dated 02/05/2021 and 05/27/2018 are available for comparison. CT scan of the chest dated 08/11/2023 is also available for comparison. FINDINGS: (Slice numbers described in this report are numbered superiorly to inferiorly with slice #1 in the head) NECK AND VISUALIZED HEAD: No foci of abnormal FDG activity are noted. The distribution of FDG activity is physiological. There is no cervical lymphadenopathy. There is marked mucosal opacification which is near-complete in the left maxillary sinus and moderate opacification of the right maxillary sinus. No associated abnormal FDG activity is present. The CT appearance is similar to 02/05/[address] scan, but on that study there was mild FDG activity in both maxillary sinuses which is not present. THORAX: There is a spiculated 0.9 x 0.8 cm left lower lobe pulmonary nodule. This shows no abnormal FDG activity. This is not significantly changed from the recent 08/11/[address] scan, but this was not present on the 02/05/[address] scan. On the 02/05/2021 study and FDG avid nodule in the right upper lobe was present. There is now no abnormal FDG activity present at this site and minimal opacity on the CT images is much smaller, now measuring approximately 0.9 x 0.4 cm in largest transverse dimensions, previously measuring up to 2 cm in largest transverse dimension. There are no foci of abnormal FDG activity in the chest. Diffuse emphysema is present and there is some scarring in the lung apices bilaterally, unchanged from prior studies. There is no pleural or pericardial fluid, or pneumothorax. There is no mediastinal, supraclavicular, or axillary lymphadenopathy. ABDOMEN AND PELVIS: There are no foci of abnormal FDG activity in the abdomen or pelvis. There is mild FDG activity throughout the gastrointestinal tract without a suspicious focal component. There is diverticulosis without evidence of diverticulitis. The hollow viscera are otherwise unremarkable. The liver, gallbladder, and spleen appear unremarkable. Bilateral extrarenal pelves are noted in the kidneys, but the kidneys are otherwise unremarkable. The adrenal glands and pancreas are unremarkable. The pelvic organs are unremarkable. There is no retroperitoneal, mesenteric, pelvic or inguinal lymphadenopathy. MUSCULOSKELETAL: There are no foci of abnormal FDG activity in the osseous structures. There are minimal degenerative changes in the spine and hips but no suspicious sclerotic or lytic lesions are visualized. VASCULAR: Diffuse vascular calcifications including coronary are noted. Reference SUVmax Levels: Mediastinal Blood Pool: 1.4, Slice 98/267 Liver: 2.3, Slice 146/267 PET/PET CT fusion skull to thigh IMPRESSION: 1. A spiculated left lower lobe pulmonary nodule is present, unchanged from 08/11/2023 but new since 02/05/2021. This shows no abnormal FDG activity, suggesting a benign etiology. However, because approximately 10% of pulmonary malignancies demonstrate no abnormal FDG activity, if biopsy of this nodule is not obtained, followup with diagnostic CT scan in 3 months is recommended. 2. The continues to be a complete metabolic response to therapy of an FDG avid right upper lobe pulmonary nodule visualized on the 02/05/[address] scan. This nodule was even more intense on the less recent 05/27/2018 PET/CT scan, and in addition, some FDG avid left axillary lymphadenopathy is present on that date, but none of this is now present. 3. No additional abnormalities suspicious for metastatic or other malignant lesions are noted. 4. Diffuse vascular calcifications including coronary.
== END 2023-09-15 07:59 | disposition home or self-care (01) ==
LOC: HO.PET 07:58
PROVIDERS: PCP Internal Medicine; Visit Provider Internal Medicine
DX: Z13.89 Encounter for screening for other disorder (principal)

== ENCOUNTER 2023-09-29 08:20 | Outpatient (REF) | payer MEDICAID, SELFPAY ==
[2023-09-29 11:52] LABS: Estimated Average Glucose 97 mg/dL
[2023-09-29 12:11] LABS: Alanine Aminotransferase 31 U/L (0-31); Albumin Level 4.5 g/dL (3.5-5.0); Alkaline Phosphatase 88 U/L (39-117); Anion Gap 13 (12-20); Aspartate Amino Transferase 34 U/L (5-31); Bilirubin Total 0.8 mg/dL (0.0-1.0); Blood Urea Nitrogen 12 mg/dL (9-16); Calcium 10.2 mg/dL (8.4-10.2); Carbon Dioxide 31 mmol/L (22-29); Chloride 102 mmol/L (96-108); Cholesterol 151 mg/dL (<200); Estimated Glomerular Filt Rate > 60; Glucose Fasting 91 mg/dL (60-99); HDL Cholesterol 67 mg/dL (>40); LDL Cholesterol Calculated 64 mg/dL (<100); Potassium 4.5 mmol/L (3.3-5.1); Sodium 141 mmol/L (135-145); Total Protein 7.1 g/dL (6.5-8.0); Triglycerides 102 mg/dL (<150)
== END 2023-09-29 08:21 | disposition home or self-care (01) ==
LOC: HO.HMGCLDS 08:20
PROVIDERS: PCP Internal Medicine; Visit Provider Internal Medicine
DX: I10 Essential (primary) hypertension (principal); R73.9 Hyperglycemia, unspecified; E78.5 Hyperlipidemia, unspecified
CPT/HCPCS: 36415; 80053; 80061; 83036

== ENCOUNTER 2023-10-01 13:47 | Outpatient (AMB) | payer OTHER, MEDICAID, SELFPAY ==
--- NOTE | 2023-10-01 13:55 | A.OFFPC_ITS ---
Vital Signs 10/01/23 14:03 Height 5 ft 5 in Weight 108 lb BMI 18.0 BP 136/68 Blood Pressure Location Rt brachial Position Sitting Pulse 72 Pulse Source Pulse Oximeter Pulse Oximetry (%) 97 Oxygen Delivery Method Room Air Intake Visit Reasons: 2 Month follow up/ Annual PE Intake Note: Pt is here today for her PE Allergies apple [Apple] Allergy (Severe, Verified 10/01/23 14:02) TONGUE SWELLS penicillin V Allergy (Unknown, Verified 10/01/23 14:02) unknown - childhood Penicillins [PENICILLINS] Allergy (Unknown, Verified 10/01/23 14:02) UNKNOWN-CHILDHOOD ALLERGY Medication List - Last Reconciled 10/01/23 by Elisa Clark MD albuterol sulfate 90 mcg/actuation 2 puffs PO Q4H PRN atorvastatin 20 mg PO DAILY qxzsyswvmcw-[id number]-poiqeowj 100-62.5-25 mcg (Trelegy Ellipta) 100 inhalations inhalation DAILY lisinopril 3 tabl orally daily; lorazepam 0.5 mg PO DAILY PRN multivitamin 1 tab PO DAILY omeprazole 40 mg PO DAILY trazodone 1 tab PO DAILY Tobacco use date assessed: 10/01/23 Dental Screening Dental Screen Date: 10/01/23 Did you have a dental visit in the last 12 months?: No Was dental information given to patient?: No HPI 2 Month follow up/ Annual PE HPI Details Pt presents for PE. Her therapist will be retiring in the end of the year and patient needs to get established with a new counselor. [facility]LY [facility] Medical History (Updated 10/01/23 @ 14:56 by Elisa Clark MD) Lower back pain Neck pain Restless leg syndrome History of seizure On home O2 Osteopenia Malignant neoplasm of right upper lobe of lung (~2017) Tobacco dependence COPD (chronic obstructive pulmonary disease) Depression Anxiety Hyperlipemia Surgical History History of colonoscopy (~03/2017) History of bronchoscopy (~06/2018) History of lung surgery (~07/2018) History of tonsillectomy Family History Father Alcohol abuse Maternal Aunt Breast cancer Sister Breast cancer Brother Skin cancer Other Mental health disorder Substance use disorder Social History Household Members: Significant Other Housing: House Do you presently have visiting nurse or other home services: No Alcohol intake: current Alcohol intake frequency: a few times a week Patient Tobacco Use Status: Current someday Tobacco user Tobacco use type: Cigar Cigarettes Per Day: 2 Years Smoked: 43 (onset 12yo) e-Cigarette/Vaping Use: Former Use Second Hand Smoke Exposure: No Substance Use Type: Marijuana service: No Current occupational status: unemployed Cognitive needs: No Hearing needs: No Vision needs: Yes Questionnaire PHQ-9 Over the last 2 weeks, how often have you been bothered by any of the following problems? 1. Little interest or pleasure in doing things: more than half the days 2. Feeling down, depressed, or hopeless: several days 3. Trouble falling or staying asleep, or sleeping too much: several days 4. Feeling tired or having little energy: more than half the days 5. Poor appetite or overeating: several days 6. Feeling bad about yourself - or that you are a failure or have let yourself or your family down: not at all 7. Trouble concentrating on things, such as reading the newspaper or watching television: not at all 8. Moving or speaking so slowly that other people could have noticed. Or the opposite - being so fidgety or restless that you have been moving around a lot more than usual: not at all 9. Thoughts that you would be better off or of hurting yourself in some way: not at all Total score: 7 Depression Screening Interpretation: Negative Depression Screening Done: Yes Source: Developed by Drs. Luis Juarez, Lelo Churchill, Alf Yusuf and colleagues, with an educational edgar from [employer]. Thrive Questionnaire Date Thrive assessed: 10/01/23 I am a: Patient What is your living situation today?: I have a steady place to live Within the past 12 months, did the food you bought not last and you didn't have the money to get more?: Never true Within the past 12 months, did you worry whether your food would run out before you got money to buy more?: Never true Do you have trouble paying for medicines?: No Do you have trouble getting transportation to medical appointments?: No Do you have trouble paying your heating and electricity bill?: Yes Do you have trouble taking care of your child, family member or friend?: No Do you have trouble with day-to-day activities such as bathing, preparing meals, shopping, managing finances, etc.?: No Are you currently unemployed and looking for a job?: Yes Are you interested in more education?: Yes THRIVE Score: 1 AUDIT C Alcohol Use Questionnaire (AUDIT-C) 1. How often do you have a drink containing alcohol?: Monthly or less 2. How many drinks containing alcohol do you have on a typical day when you are drinking?: 1 or 2 3. How often do you have six or more drinks on one occasion?: Never Total Score: 1 ARTEM-7 AMB Questionnaire ARTEM-7 Date ARTEM - 7 assessed: 10/01/23 Feeling nervous, anxious, or on edge: 3 = Nearly every day Not being able to stop or control worryin = Several days Worrying too much about different things: 1 = Several days Trouble relaxin = Several days Being so restless that it is hard to sit still: 0 = Not at all Becoming easily annoyed or irritable: 3 = Nearly every day Feeling afraid as if something awful might happen: 0 = Not at all Total ARTEM-7 score (0-4 normal; 5-9 mild; 10-14 moderate; 15-21 severe): 9 Source: Developed by Drs. Luis Juarez, Lelo Churchill, Alf Yusuf and colleagues, with an educational edgar from [employer]. Review of Systems Const All systems reviewed & are unremarkable except as noted in HPI and below Reports no additional complaints Eyes Reports no additional complaints ENT Reports no additional complaints Card Reports no additional complaints Resp Reports no additional complaints GI Reports no additional complaints Reports no additional complaints Physical exam (Primary Care) Vital Signs: Last Vital Signs Pulse 72 10/01/23 14:03 BP 150/68 H 10/01/23 14:03 Pulse Ox 97 10/01/23 14:03 Oxygen Delivery Method Room Air 10/01/23 14:03 BMI result Body Mass Index 18.0 Tobacco/Smoking Status: Tobacco use Status Tobacco use date assessed 10/01/23 10/01/23 14:07 Patient Tobacco Use Status Current someday Tobacco 10/01/23 13:57 Tobacco use type Cigar 10/01/23 13:57 e-Cigarette/Vaping Use Former Use 10/01/23 13:57 PHQ-9: PHQ-9 Score PHQ-9: Total score 7 10/01/23 14:14 Depression Screening Interpretation: Negative Thrive Assessment: Date of Thrive Assessment Date Thrive assessed 10/01/23 10/01/23 14:14 Const General: no acute distress HENMT Head: Yes normal to inspection Ears: hearing grossly normal bilaterally Mouth: Normal oral and palatal mucosa present Throat: Yes posterior oropharynx normal Neck Neck: Yes no lymphadenopathy and Yes supple Resp Effort & Inspection: normal respiratory effort Auscultation: clear to auscultation bilaterally Cardio Rhythm: regular rhythm Heart sounds: S1 normal heart sound present and S2 normal heart sound present GI Inspection: Yes normal to inspection Palpation (GI): Soft to palpation Percussion: Yes normal to percussion Auscultation: normal bowel sounds Assessment and Plan Assessment & Plan (1) Hyperglycemia: Comment: A1C 5.4 09/04 Code(s): R73.9 - Hyperglycemia, unspecified Plan: Continue ADA diet regular exercise (2) Hyperlipemia: Code(s): E78.5 - Hyperlipidemia, unspecified Plan: Continue statin (3) Essential hypertension: Code(s): I10 - Essential (primary) hypertension Plan: Increase lisinopril to 10 mg a day (4) Elevated LFTs: Comment: US abd 09/05 ? 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 Panel Fast 6 Months E78.5 - Hyperlipidemia, unspecified, I10 - Essential (primary) hypertension, R73.9 - Hyperglycemia, unspecified Lipid Panel 6 Months E78.5 - Hyperlipidemia, unspecified, I10 - Essential (primary) hypertension, R73.9 - Hyperglycemia, unspecified Referrals Counseling Referral F32.9 - Major depressive disorder, single episode, unspecified Medications: New lisinopril 10 mg PO DAILY 90 tabs 0RF Discontinued lisinopril Discontinued Reason: Doctor's Order 3 tabl orally daily; 270 tabs 3RF Coding Level of Care Code Est Pt Prev Care 40-64y(93787) Diagnoses Hyperglycemia R73.9 Hyperlipemia E78.5 Essential hypertension I10 Elevated LFTs R79.89 Malignant neoplasm of right upper lobe of lung C34.11 COPD (chronic obstructive pulmonary disease) J44.9 Tobacco dependence F17.200
[2023-10-01 14:03] VITALS: BP 136/68; PULSE 72; O2SAT 97; BMI 18.0
== END 2023-10-01 14:57 | disposition home or self-care (01) ==
PROVIDERS: PCP Internal Medicine; Visit Provider Internal Medicine
DX: Z00.00 Encounter for general adult medical examination without abnormal findings (principal); C34.11 Malignant neoplasm of upper lobe, right bronchus or lung; J44.9 Chronic obstructive pulmonary disease, unspecified; R73.9 Hyperglycemia, unspecified; E78.5 Hyperlipidemia, unspecified; I10 Essential (primary) hypertension; R79.89 Other specified abnormal findings of blood chemistry; F17.200 Nicotine dependence, unspecified, uncomplicated
CPT/HCPCS: 99396

== ENCOUNTER 2023-11-06 14:07 | Outpatient (REF) | payer MEDICAID, SELFPAY ==
--- NOTE | ~2023-11-06 | MM_ITS ---
EXAMINATION: MM DIAGNOSTIC DIGITAL BREAST TOMOSYNTHESIS, BILATERAL US BREAST LIMITED, LEFT MAMMOGRAPHY: CLINICAL INFORMATION: Patient here for bilateral screening. 58-year-old female, six-month follow-up anterior left breast small complicated cyst anterior 12:00 axis left breast, seen on the both mammography and sonography. If unchanged, this will represent a one-year stability. COMPARISON: Mammography: 04/28/2023 mammography and left breast ultrasound, 10/20/2022 mammography and left breast ultrasound (BI-RADS 3), 09/24/2022 mammography (BI-RADS 0), 09/12/2021, 02/09/2020, and exams dating back to 2018. TECHNIQUE: Digital breast tomosynthesis is performed in both the craniocaudal and mediolateral oblique views along with computer-aided detection (CAD). Synthesized 2D images are generated from the tomosynthesis. In addition to standard views, a repeat left full-field 3-D MLO view was obtained for improved anterior compression. FINDINGS: There are scattered areas of fibroglandular density (ACR BI-RADS breast composition Category b). Breast tissue is bordering on heterogeneously dense. There is mild chronic left nipple retraction. The patient is somewhat cachectic. The previously seen oval density in the anterior left breast at 12:00 is no longer definitively visualized on today's exam. There are benign vascular calcifications bilaterally, with regional scattered right greater than left punctate benign-appearing calcifications without suspicious grouping or clustering. These are unchanged. There are no suspicious masses or developing areas of architectural distortion in either breast. The parenchymal pattern is stable from prior exams. No skin or axillary abnormalities. ULTRASOUND: CLINICAL INFORMATION: Follow-up left breast complicated cyst. COMPARISON: As above. 04/28/2023, 10/20/2022. TECHNIQUE: Targeted sonographic evaluation was performed using a high frequency linear transducer. Attention was given to the anterior left breast spanning 11-5 o'clock axis, covering the region of previously seen small complicated cyst. Selected archived documentation. FINDINGS: LEFT BREAST: -There is heterogeneously dense fibrocystic tissue present in the retroareolar and lateral region of the left breast. There are several small simple cysts present, and mild duct ectasia present in the retroareolar region. No intraductal masses or filling defects. -The previously seen complicated cyst is no longer definitively identified and appears to have resolved. There are no suspicious masses, suspicious cystic abnormalities, abnormal regions of shadowing, or edema within the soft tissue planes. MM/MM tomosynthesis diagnostic BI IMPRESSION: -There are no findings suspicious for malignancy in either breast. -Previously seen mildly complicated cyst in the left breast at 12:00 is no longer visualized and appears to have resolved. No suspicious findings on ultrasound. -Fibrocystic changes in the retroareolar and lateral left breast. Recommend the patient resume routine annual screening to include both breasts. OVERALL ASSESSMENT: Mammography: BI-RADS 2 - Benign Findings Ultrasound: BI-RADS 2 - Benign Findings RECOMMENDATION: 1 year F/U Results were provided to the patient at time of visit by the technologist. This patient's information was entered into a reminder system with a target due date for their next mammogram.
== END 2023-11-06 14:08 | disposition home or self-care (01) ==
LOC: HO.MAMMO 14:07
PROVIDERS: PCP Internal Medicine; Visit Provider Internal Medicine
DX: R92.2 Inconclusive mammogram (principal)
CPT/HCPCS: 76642; 77062; 77066

== ENCOUNTER → 2023-11-06 14:30 | Outpatient (BNV) | payer MEDICAID, SELFPAY | PROVIDERS: PCP Internal Medicine; Visit Provider Radiology Diagnostic Radiology | DX: R92.1 Mammographic calcification found on diagnostic imaging of breast (principal); N60.42 Mammary duct ectasia of left breast | CPT/HCPCS: 76642; 77062; 77066 ==

== ENCOUNTER 2023-12-05 09:25 | Outpatient (AMB) | payer OTHER, SELFPAY ==
[2023-12-05 10:50] VITALS: BP 128/78; PULSE 80; TEMP 37.2; O2SAT 98; BMI 18.2
--- NOTE | 2023-12-05 10:50 | MHC.OFFWIV ---
Intake Vital Signs 12/05/23 10:50 Height 5 ft 5 in Weight 109 lb 6 oz BMI 18.2 BP 128/78 Blood Pressure Location Lt brachial Position Sitting Pulse 80 Pulse Source Pulse Oximeter Temp 99.0 F Temp Source Oral Pulse Oximetry (%) 98 Oxygen Delivery Method Room Air Intake Visit Reasons: EP Stomach bug, blood in stool Intake Note: Patient is here with dry heaves, and blood in stool, there a re clots. She states it started around 1 am. Patient Tobacco Use Status: Current someday Tobacco user Allergies apple [Apple] Allergy (Severe, Verified 12/28/23 08:07) TONGUE SWELLS penicillin V Allergy (Unknown, Verified 12/28/23 08:07) unknown - childhood Penicillins [PENICILLINS] Allergy (Unknown, Verified 12/28/23 08:07) UNKNOWN-CHILDHOOD ALLERGY Do you need a note to return to daycare/school/sports/work: No HPI EP Stomach bug, blood in stool HPI Details Patient is a 58-year-old female comes to the walk-in clinic complaining of mild nausea associated with apparently obvious blood with clots in her loose stool that started in the middle of the night. No abdominal pain, coffee-ground stools, vomiting, fever or chills, weakness or dizziness, back pain or flank pain, myalgias or malaise, chest pain or palpitations, respiratory symptoms or other significant associated symptoms. No overall change in diet or lifestyle. No recent heavy NSAID use. Does smoke tobacco currently. [facility]LY [facility] Medical History Lower back pain Neck pain Restless leg syndrome History of seizure On home O2 Osteopenia Malignant neoplasm of right upper lobe of lung (~2017) Tobacco dependence COPD (chronic obstructive pulmonary disease) Depression Anxiety Hyperlipemia Surgical History History of colonoscopy (~03/2017) History of bronchoscopy (~06/2018) History of lung surgery (~07/2018) History of tonsillectomy Family History Father Alcohol abuse Maternal Aunt Breast cancer Sister Breast cancer Brother Skin cancer Other Mental health disorder Substance use disorder Social History Household Members: Significant Other Housing: House Do you presently have visiting nurse or other home services: No Alcohol intake: current Alcohol intake frequency: a few times a week Patient Tobacco Use Status: Current someday Tobacco user Tobacco use type: Cigar Cigarettes Per Day: 2 Years Smoked: 43 (onset 12yo) e-Cigarette/Vaping Use: Former Use Second Hand Smoke Exposure: No Substance Use Type: Marijuana service: No Current occupational status: unemployed Cognitive needs: No Hearing needs: No Vision needs: Yes Review of Systems Const All systems reviewed & are unremarkable except as noted in HPI and below Physical Exam Vital Signs: Last Vital Signs Temp 99.0 F 12/05/23 10:50 Pulse 80 12/05/23 10:50 BP 128/78 12/05/23 10:50 Pulse Ox 98 12/05/23 10:50 Oxygen Delivery Method Room Air 12/05/23 10:50 BMI result Body Mass Index 18.2 Const General: cooperative, healthy appearing, comfortable, no acute distress, alert, awake, Physically active and well groomed; No anxious, diaphoretic, ill appearing, intoxicated appearing, poor hygiene or tired appearing Nutritional Appearance: average body habitus Orientation/consciousness: patient oriented x3 Limitations: no limitations Chest Chest palpation & inspection: normal palpation of entire chest wall Resp Effort & Inspection: normal respiratory effort, able to speak in complete sentences, no audible wheezes, no cough, no grunting, not labored, no nasal flaring, no retractions and symmetric chest movement Auscultation: clear to auscultation bilaterally, no crackles, no rales, no rhonchi, no wheezes, lung sounds not diminished and No rub present Cardio Rate: regular rate Rhythm: regular rhythm GI Palpation (GI): Soft to palpation, not firm, nontender, no guarding, not rigid and No hepatosplenomegaly present General: Yes no CVA tenderness Back/Spine/Pelvis Back: no CVA tenderness Skin Other: Good color, warm and dry Neuro General: patient oriented x3 and gait normal Psych Appearance: grossly normal Mental Status: mental status grossly normal Speech and movement: Normal speech and movement present Affect: normal affect Attitude: cooperative Thought process: Normal thought process present Insight: Good insight present (Psych) Judgement: Good judgement present (Psych) Assessment & Plan Assessment & Plan (1) Gastroenteritis: Code(s): K52.9 - Noninfective gastroenteritis and colitis, unspecified Plan Patient is a 58-year-old female who is high risk due to age as well as immuno, immunosuppression, who has had acute low-grade temp, intermittent nausea and diarrhea with blood in the stool, which has been improving. Symptoms began a short while after eating a carton of ice cream. No other sick contacts that she knows of. I told her that due to this possibly being a severe GI bleed, she should consider going to the emergency department for further management. She was hesitant on this, as she reports that she feels fine other than the improving diarrhea and mild abdominal cramping. She declined going to the emergency department straight from the walk-in against medical advice. She said that she wants to see how she feels tomorrow. If she does not go to emergency department over the weekend, I advised that she at least follow-up with the walk-in if needed if symptoms are still persisting, as she does not have a PCP currently. She reported she will try to call her insurance company to see if she can get referrals to specialists outpatient, as she would likely need GI evaluation at that point, or abdominal CT, for further management. At that point it would also be indicated to get stool studies done for bacterial culture, especially to exclude STEC infection. We gave her lab supplies in order to collect a specimen, and she knows that she would have to go to the hospital lab immediately, so that the sample can be preserved and the microscopy testing could be started within 2 hours. I told her about how she could get suddenly ill if this is a true GI bleed, or if it is an infection that she could develop hemolytic uremic syndrome. She knows that if symptoms worsen in any way, that she should go immediately to the emergency department. Orders: Orders GI Panel 12/07/23 R19.7 - Diarrhea, unspecified Coding Level of Care Code Est Pt Level 4 (46515) Diagnoses Gastroenteritis K52.9
== END 2023-12-05 12:17 | disposition home or self-care (01) ==
PROVIDERS: PCP Internal Medicine; Visit Provider Physician Assistant Medical
DX: K52.9 Noninfective gastroenteritis and colitis, unspecified (principal)
CPT/HCPCS: 99051; 99214

== ENCOUNTER 2023-12-07 08:21 | Outpatient (REF) | payer OTHER, SELFPAY ==
[2023-12-07 11:30] LABS: Adenovirus F 40/41 Not Detected (Not Detect.); Astrovirus Not Detected (Not Detect.); Campylobacter Not Detected (Not Detect.); Cryptosporidium Not Detected (Not Detect.); Cyclospora cayetanensis Not Detected (Not Detect.); E. coli EAEC Not Detected (Not Detect.); E. coli EPEC Not Detected (Not Detect.); E. coli ETEC Not Detected (Not Detect.); E. coli STEC Not Detected (Not Detect.); Entamoeba histolytica Not Detected (Not Detect.); Giardia lamblia Not Detected (Not Detect.); Norovirus GI/GII Not Detected (Not Detect.); Plesiomonas shigelloides Not Detected (Not Detect.); Rotavirus A Not Detected (Not Detect.); Salmonella Not Detected (Not Detect.); Sapovirus Not Detected (Not Detect.); Shigella sp./EIEC Not Detected (Not Detect.); Vibrio Not Detected (Not Detect.); Vibrio Cholerae Not Detected (Not Detect.); Yersinia enterocolitica Not Detected (Not Detect.)
== END 2023-12-07 08:22 | disposition home or self-care (01) ==
LOC: HO.HMGCLNP 08:21
PROVIDERS: Visit Provider Physician Assistant Medical
DX: R19.7 Diarrhea, unspecified (principal)
CPT/HCPCS: 87507

== ENCOUNTER 2023-12-09 08:55 | Outpatient (AMB) | payer OTHER, SELFPAY ==
[2023-12-09 09:53] VITALS: BP 110/60; PULSE 79; TEMP 36.1; O2SAT 96; BMI 17.6
--- NOTE | 2023-12-09 09:53 | MHC.OFFWIV ---
Intake Vital Signs 12/09/23 09:53 Height 5 ft 5 in Weight 106 lb BMI 17.6 BP 110/60 Blood Pressure Location Lt brachial Position Sitting Pulse 79 Pulse Source Pulse Oximeter Temp 97.0 F Temp Source Temporal Artery Scan Pulse Oximetry (%) 96 Oxygen Delivery Method Room Air Intake Visit Reasons: EP diarreah not resolved from 12/04 [place] visit Intake Note: pt is here today for diarreah started 12/04 Patient Tobacco Use Status: Current someday Tobacco user Allergies apple [Apple] Allergy (Severe, Verified 12/09/23 09:57) TONGUE SWELLS penicillin V Allergy (Unknown, Verified 12/09/23 09:57) unknown - childhood Penicillins [PENICILLINS] Allergy (Unknown, Verified 12/09/23 09:57) UNKNOWN-CHILDHOOD ALLERGY Do you need a note to return to daycare/school/sports/work: No HPI HPI Comments History of Present Illness Details 58 y/o female patient who presents to walk in clinic with c/o abdominal cramping associated with Diarrhea since Sat. She was seen and evaluated Sat here at clinic for similar symptoms. Pt provided Stool sample Thursday - negative for infection. Today Pt reports feeling ~ 50% better that before, but continues to have diarrhea with yellow stools. Denies any more blood clots in stools. Reports weight loss with this. She has been hydrating well with fluids. She has also been avoiding spicy, and oily foods. Pt was advised to go to ED for further testing and treatment. [facility] Medical History Lower back pain Neck pain Restless leg syndrome History of seizure On home O2 Osteopenia Malignant neoplasm of right upper lobe of lung (~2017) Tobacco dependence COPD (chronic obstructive pulmonary disease) Depression Anxiety Hyperlipemia Surgical History History of colonoscopy (~03/2017) History of bronchoscopy (~06/2018) History of lung surgery (~07/2018) History of tonsillectomy Family History Father Alcohol abuse Maternal Aunt Breast cancer Sister Breast cancer Brother Skin cancer Other Mental health disorder Substance use disorder Social History Household Members: Significant Other Housing: House Do you presently have visiting nurse or other home services: No Alcohol intake: current Alcohol intake frequency: a few times a week Patient Tobacco Use Status: Current someday Tobacco user Tobacco use type: Cigar Cigarettes Per Day: 2 Years Smoked: 43 (onset 12yo) e-Cigarette/Vaping Use: Former Use Second Hand Smoke Exposure: No Substance Use Type: Marijuana service: No Current occupational status: unemployed Cognitive needs: No Hearing needs: No Vision needs: Yes Review of Systems Const All systems reviewed & are unremarkable except as noted in HPI and below Physical Exam Vital Signs: Last Vital Signs Temp 97.0 F 12/09/23 09:53 Pulse 79 12/09/23 09:53 BP 110/60 12/09/23 09:53 Pulse Ox 96 12/09/23 09:53 Oxygen Delivery Method Room Air 12/09/23 09:53 BMI result Body Mass Index 17.6 Const General: no acute distress, ill appearing and tired appearing Orientation/consciousness: patient oriented x3 Resp Effort & Inspection: normal respiratory effort and able to speak in complete sentences Auscultation: clear to auscultation bilaterally, no crackles, no rales, no rhonchi and no wheezes Cardio Rate: regular rate Rhythm: regular rhythm Neuro General: patient oriented x3, gait normal and moves all extremities Psych Speech and movement: Normal speech and movement present Assessment & Plan Assessment & Plan (1) Gastroenteritis: Code(s): K52.9 - Noninfective gastroenteritis and colitis, unspecified Plan: - Stool Culture negative - No need for Abx now - Advised Pt to go to Emergency room Coding Level of Care Code Est Pt Level 3 (80965) Diagnoses Gastroenteritis K52.9 Time Spent (min) 15
== END 2023-12-09 10:50 | disposition home or self-care (01) ==
PROVIDERS: PCP Internal Medicine; Visit Provider Nurse Practitioner Family
DX: K52.9 Noninfective gastroenteritis and colitis, unspecified (principal)
CPT/HCPCS: 99213

== ENCOUNTER 2023-12-28 08:06 | Outpatient (AMB) | payer OTHER, SELFPAY ==
[2023-12-28 08:07] VITALS: BP 130/70; PULSE 76; TEMP 36.9; O2SAT 98; BMI 17.6
--- NOTE | 2023-12-28 08:07 | MHC.OFFWIV ---
Intake Vital Signs 12/28/23 08:07 Height 5 ft 5 in Weight 106 lb BMI 17.6 BP 130/70 Blood Pressure Location Rt brachial Position Sitting Pulse 76 Pulse Source Pulse Oximeter Temp 98.5 F Temp Source Oral Pulse Oximetry (%) 98 Oxygen Delivery Method Room Air Intake Visit Reasons: EP ?Gout Right Foot Intake Note: pt is here for gout on right foot Patient Tobacco Use Status: Current someday Tobacco user Allergies apple [Apple] Allergy (Severe, Verified 12/28/23 08:07) TONGUE SWELLS penicillin V Allergy (Unknown, Verified 12/28/23 08:07) unknown - childhood Penicillins [PENICILLINS] Allergy (Unknown, Verified 12/28/23 08:07) UNKNOWN-CHILDHOOD ALLERGY Do you need a note to return to daycare/school/sports/work: No HPI HPI Comments History of Present Illness Details Patient is a 58-year-old female complaining of right foot pain x3 days. She also has associated swelling in the little bit of tingling. She states she can walk on it but it is very painful in the toe. She states even blankets make it hurt. She denies any history of gout but states her parents both have gout flares. She is able to walk on it although very gently. [facility] Medical History Lower back pain Neck pain Restless leg syndrome History of seizure On home O2 Osteopenia Malignant neoplasm of right upper lobe of lung (~2017) Tobacco dependence COPD (chronic obstructive pulmonary disease) Depression Anxiety Hyperlipemia Surgical History History of colonoscopy (~03/2017) History of bronchoscopy (~06/2018) History of lung surgery (~07/2018) History of tonsillectomy Family History Father Alcohol abuse Maternal Aunt Breast cancer Sister Breast cancer Brother Skin cancer Other Mental health disorder Substance use disorder Social History Household Members: Significant Other Housing: House Do you presently have visiting nurse or other home services: No Alcohol intake: current Alcohol intake frequency: a few times a week Patient Tobacco Use Status: Current someday Tobacco user Tobacco use type: Cigar Cigarettes Per Day: 2 Years Smoked: 43 (onset 12yo) e-Cigarette/Vaping Use: Former Use Second Hand Smoke Exposure: No Substance Use Type: Marijuana service: No Current occupational status: unemployed Cognitive needs: No Hearing needs: No Vision needs: Yes Review of Systems Const All systems reviewed & are unremarkable except as noted in HPI and below Physical Exam Vital Signs: Last Vital Signs Temp 98.5 F 12/28/23 08:07 Pulse 76 12/28/23 08:07 BP 130/70 12/28/23 08:07 Pulse Ox 98 12/28/23 08:07 Oxygen Delivery Method Room Air 12/28/23 08:07 BMI result Body Mass Index 17.6 Const General: cooperative, healthy appearing, comfortable and no acute distress Orientation/consciousness: patient oriented x3 Limitations: no limitations HEENT Head: Yes normal to inspection Resp Effort & Inspection: normal respiratory effort and able to speak in complete sentences Neuro General: patient oriented x3 Extrem Right lower extremity: foot Details: normal capillary refill, abnormal to inspection (MTP great toe ) Details: joint swelling, tenderness Location: of the great toe Location: at the MTP joint and abnormal ROM of toe Details: pain with active ROM Location: of the great toe and pain with passive ROM Location: of the great toe; no unusual warmth Assessment & Plan Assessment & Plan (1) Gout of big toe: Code(s): M10.9 - Gout, unspecified Plan: Prednisone and indomethacin said to pharmacy, recommended follow-up with PCP if no relief Plan see above Medications: New prednisone 50 mg PO DAILY 5 tabs 0RF indomethacin administer with food or milk 50 mg PO BID 14 caps 0RF M10.9 - Gout, unspecified Coding Level of Care Code Est Pt Level 3 (71533) Diagnoses Gout of big toe M10.9
== END 2023-12-28 09:04 | disposition home or self-care (01) ==
PROVIDERS: PCP Internal Medicine; Visit Provider Physician Assistant
DX: M10.9 Gout, unspecified (principal)
CPT/HCPCS: 99213

== ENCOUNTER 2024-03-16 13:46 | Outpatient (AMB) | payer OTHER, SELFPAY ==
[2024-03-16 13:58] VITALS: BP 136/78; PULSE 71; O2SAT 94; BMI 18.6
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
== END 2024-03-16 14:31 | disposition home or self-care (01) ==
PROVIDERS: PCP Internal Medicine; Visit Provider Internal Medicine
DX: E83.42 Hypomagnesemia (principal); I10 Essential (primary) hypertension; C34.11 Malignant neoplasm of upper lobe, right bronchus or lung; J44.9 Chronic obstructive pulmonary disease, unspecified; E78.5 Hyperlipidemia, unspecified; F17.200 Nicotine dependence, unspecified, uncomplicated
CPT/HCPCS: 99214

== ENCOUNTER 2024-03-16 14:32 | Outpatient (REF) | payer OTHER, SELFPAY ==
[2024-03-16 16:54] LABS: Alanine Aminotransferase 25 U/L (0-31); Albumin Level 4.7 g/dL (3.5-5.0); Alkaline Phosphatase 93 U/L (39-117); Anion Gap 17 (12-20); Aspartate Amino Transferase 33 U/L (5-31); Bilirubin Total 0.8 mg/dL (0.0-1.0); Blood Urea Nitrogen 18 mg/dL (9-16); Calcium 9.7 mg/dL (8.4-10.2); Carbon Dioxide 27 mmol/L (22-29); Chloride 102 mmol/L (96-108); Estimated Glomerular Filt Rate > 60; Glucose Random 105 mg/dL (60-115); Magnesium 1.3 mg/dL (1.6-2.6); Sodium 142 mmol/L (135-145); Total Protein 7.2 g/dL (6.5-8.0)
== END 2024-03-16 14:33 | disposition home or self-care (01) ==
LOC: HO.HMGCLDS 14:32
PROVIDERS: PCP Internal Medicine; Visit Provider Internal Medicine
DX: I10 Essential (primary) hypertension (principal); E83.42 Hypomagnesemia
CPT/HCPCS: 36415; 80053; 83735

== ENCOUNTER 2024-05-13 08:13 | Outpatient (AMB) | payer OTHER, SELFPAY ==
--- NOTE | 2024-05-13 08:19 | AM.OFFWIN_ITS ---
Intake Vital Signs 05/13/24 08:20 Height 5 ft 5 in Weight 111 lb BMI 18.5 BP 130/90 H Blood Pressure Location Lt brachial Position Sitting Pulse 77 Pulse Source Pulse Oximeter Temp 98.4 F Temp Source Oral Pulse Oximetry (%) 94 Oxygen Delivery Method Room Air Intake Visit Reasons: EP Congestion, ears block, cough,breathing diff Intake Note: Patient here for cough, congestion, bilat ears blocked and difficulty breathing which started Thursday. Patient Tobacco Use Status: Former Tobacco user (January 2024) Allergies apple [Apple] Allergy (Severe, Verified 05/13/24 08:21) TONGUE SWELLS penicillin V Allergy (Unknown, Verified 05/13/24 08:21) unknown - childhood Penicillins [PENICILLINS] Allergy (Unknown, Verified 05/13/24 08:21) UNKNOWN-CHILDHOOD ALLERGY Do you need a note to return to daycare/school/sports/work: No HPI HPI Comments History of Present Illness Details Patient is a 58-year-old female complaining of 3 days of coughing fits, head congestion and nasal congestion with yellow mucus, bilateral ear blockage and shortness of breath. She denies any fevers, sinus pain. She tells me she does have a history of COPD and has been using her Trelegy inhaler daily as well as her albuterol inhaler more than usual. She tells me she is out of her DuoNeb nebulizer solution. Patient has been taking Tylenol for her symptoms without much relief. [facility] Medical History (Updated 05/13/24 @ 09:34 by Ann Ardon PA-C) Lower back pain Neck pain Restless leg syndrome History of seizure On home O2 Osteopenia Malignant neoplasm of right upper lobe of lung (~2017) Tobacco dependence COPD (chronic obstructive pulmonary disease) Depression Anxiety Hyperlipemia Surgical History History of colonoscopy (~03/2017) History of bronchoscopy (~06/2018) History of lung surgery (~07/2018) History of tonsillectomy Family History Father Alcohol abuse Maternal Aunt Breast cancer Sister Breast cancer Brother Skin cancer Other Mental health disorder Substance use disorder Social History Household Members: Significant Other Housing: House Do you presently have visiting nurse or other home services: No Alcohol intake: current Alcohol intake frequency: a few times a week Patient Tobacco Use Status: Former Tobacco user (January 2024) Tobacco use type: Cigar Cigarettes Per Day: 2 Years Smoked: 43 (onset 12yo) e-Cigarette/Vaping Use: Currently Using Second Hand Smoke Exposure: No Substance Use Type: Marijuana service: No Current occupational status: unemployed Cognitive needs: No Hearing needs: No Vision needs: Yes Review of Systems Const All systems reviewed & are unremarkable except as noted in HPI and below Physical Exam Vital Signs: Last Vital Signs Temp 98.4 F 05/13/24 08:20 Pulse 77 05/13/24 08:20 BP 130/90 H 05/13/24 08:20 Pulse Ox 94 05/13/24 08:20 Oxygen Delivery Method Room Air 05/13/24 08:20 BMI result Body Mass Index 18.5 Const General: cooperative, healthy appearing, comfortable and no acute distress Orientation/consciousness: patient oriented x3 Limitations: no limitations HEENT Head: Yes normal to inspection Ears: hearing grossly normal bilaterally, external ears normal and TM's normal bilaterally General nose exam: Normal external nose present, Normal nares present and No nasal discharge present Face and sinus: Yes normal facial exam and Yes sinuses nontender Mouth: Normal oral and palatal mucosa present and moist mucous membranes Throat: Yes tonsils normal, Yes uvula midline and Yes posterior oropharynx abnormal (Erythema) Eyes General: appearance normal, both eyes and all related structures Neck Neck: Yes normal visual inspection Resp Effort & Inspection: normal respiratory effort, able to speak in complete sentences, Actively coughing, no respiratory distress, not tachypneic, no tripod positioning and no use of accessory muscles Auscultation: wheezes expiratory wheezes and diminished lung sounds Cardio Rate: regular rate Rhythm: regular rhythm Heart sounds: normal S1 and S2 Skin General skin exam: no rashes or lesions noted Neuro General: patient oriented x3 Extrem General: Yes normal to inspection and Yes no clubbing, cyanosis or edema Assessment & Plan Assessment & Plan (1) Lower respiratory infection (e.g., bronchitis, pneumonia, pneumonitis, pulmo nitis): Code(s): J22 - Unspecified acute lower respiratory infection Plan: Patient is satting 94% on room air, lung sounds are dim with expiratory wheezes. We will get a chest x-ray and start her on prednisone 20mg daily for 5 days. Also will send DuoNeb nebulizer solution, as requested by patient. Plan see above Orders: Orders SARS-CoV2/FLU/RSV Today R09.89 - Other specified symptoms and signs involving the circulatory and respiratory systems XR chest 2V Today R05.9 - Cough, unspecified Medications: New ipratropium-albuterol 0.5 mg-3 mg(2.5 mg base)/3 mL 3 mL inhalation Q6-8H PRN 90 mL 0RF wheezing prednisone 20 mg PO QAM 5 tabs 0RF Coding Level of Care Code Est Pt Level 4 (24955) Diagnoses Lower respiratory infection (e.g., bronchitis, pneumonia, pneumonitis, pulmonitis) J22
[2024-05-13 08:20] VITALS: BP 130/90; PULSE 77; TEMP 36.9; O2SAT 94; BMI 18.5
== END 2024-05-13 09:21 | disposition home or self-care (01) ==
PROVIDERS: PCP Internal Medicine; Visit Provider Physician Assistant
DX: J22 Unspecified acute lower respiratory infection (principal)

== ENCOUNTER 2024-05-13 08:13 | Outpatient (REF) | payer OTHER, SELFPAY ==
--- NOTE | ~2024-05-13 | XR_ITS ---
EXAMINATION: XR CHEST CLINICAL INFORMATION: Cough. COMPARISON: CT chest dated 08/11/2023. TECHNIQUE: 2 views of the chest were obtained. FINDINGS: The lungs are clear. The cardiomediastinal silhouette is normal in size. There is no pleural effusion or pneumothorax. No acute osseous abnormality. XR/XR chest 2V IMPRESSION: No acute cardiopulmonary findings. Electronically signed by: David Gaona MD 05/13/2024 10:03 AM EDT
== END 2024-05-13 08:14 | disposition home or self-care (01) ==
LOC: HO.HMGCX 08:13
PROVIDERS: PCP Internal Medicine; Visit Provider Physician Assistant
DX: R05.9 Cough, unspecified (principal); R09.89 Other specified symptoms and signs involving the circulatory and respiratory systems; J22 Unspecified acute lower respiratory infection
CPT/HCPCS: 71046; 99212

== ENCOUNTER 2024-05-13 09:16 | Outpatient (REF) | payer OTHER, SELFPAY ==
[2024-05-13 12:41] LABS: Influenza A PCR NEGATIVE (Negative); Influenza B PCR NEGATIVE (Negative); Resp Syncy Virus RNA Qual PCR NEGATIVE (Negative); SARS COV2 PCR INHOUSE NEGATIVE (Negative)
== END 2024-05-13 09:17 | disposition home or self-care (01) ==
LOC: HO.LAB 09:16
PROVIDERS: Visit Provider Physician Assistant
DX: R09.89 Other specified symptoms and signs involving the circulatory and respiratory systems (principal)
CPT/HCPCS: 0241U

== ENCOUNTER 2024-05-23 08:40 | Outpatient (AMB) | payer OTHER, SELFPAY ==
--- NOTE | 2024-05-23 08:42 | MHC.OFFWIV ---
Intake Vital Signs 05/23/24 08:46 Height 5 ft 5 in Weight 114 lb BMI 19.0 BP 130/80 Blood Pressure Location Rt brachial Position Sitting Pulse 66 Pulse Source Pulse Oximeter Temp 98.5 F Temp Source Oral Pulse Oximetry (%) 97 Oxygen Delivery Method Room Air Intake Visit Reasons: EP congestion, mucus, cough Intake Note: Patient here for congestion, coughing which has been going on for over 1 week. she was put on prednisone for a few days which helped but symptoms came back. Patient Tobacco Use Status: Former Tobacco user (January 2024) Allergies apple [Apple] Allergy (Severe, Verified 05/23/24 08:47) TONGUE SWELLS penicillin V Allergy (Unknown, Verified 05/23/24 08:47) unknown - childhood Penicillins [PENICILLINS] Allergy (Unknown, Verified 05/23/24 08:47) UNKNOWN-CHILDHOOD ALLERGY Do you need a note to return to daycare/school/sports/work: No HPI EP congestion, mucus, cough HPI Details This note is constructed using voice recognition software. While every effort has been made to ensure accuracy, playground monitor errors may have been included. The patient is a 58 year old female who presents to the clinic today with ongoing cough, congestion, and mild dyspnea. She reports a history of COPD, asthma, emphysema, and stage 1 lung cancer. She was last seen in the clinic one-week ago, and treated with prednisone burst for 5 days. She reports that the prednisone made her feel better, however it did not completely resolve the symptoms when she had her last dose on Thursday. She reports that she did not get worse over the weekend, but should not have complete resolution, feels that she may need a longer treatment. She was tested for COVID, flu, RSV and was negative at her last visit. She denies fever, chills. [facility] Medical History (Updated 05/13/24 @ 09:34 by Ann Ardon PA-C) Lower back pain Neck pain Restless leg syndrome History of seizure On home O2 Osteopenia Malignant neoplasm of right upper lobe of lung (~2017) Tobacco dependence COPD (chronic obstructive pulmonary disease) Depression Anxiety Hyperlipemia Surgical History History of colonoscopy (~03/2017) History of bronchoscopy (~06/2018) History of lung surgery (~07/2018) History of tonsillectomy Family History Father Alcohol abuse Maternal Aunt Breast cancer Sister Breast cancer Brother Skin cancer Other Mental health disorder Substance use disorder Social History Household Members: Significant Other Housing: House Do you presently have visiting nurse or other home services: No Alcohol intake: current Alcohol intake frequency: a few times a week Patient Tobacco Use Status: Former Tobacco user (January 2024) Tobacco use type: Cigar Cigarettes Per Day: 2 Years Smoked: 43 (onset 12yo) e-Cigarette/Vaping Use: Currently Using Second Hand Smoke Exposure: No Substance Use Type: Marijuana service: No Current occupational status: unemployed Cognitive needs: No Hearing needs: No Vision needs: Yes Review of Systems Const All systems reviewed & are unremarkable except as noted in HPI and below Physical Exam Vital Signs: Last Vital Signs Temp 98.5 F 05/23/24 08:46 Pulse 66 05/23/24 08:46 BP 130/80 05/23/24 08:46 Pulse Ox 97 05/23/24 08:46 Oxygen Delivery Method Room Air 05/23/24 08:46 BMI result Body Mass Index 19.0 Const General: cooperative, healthy appearing, comfortable and no acute distress Orientation/consciousness: patient oriented x3 Limitations: no limitations HEENT Head: Yes normal to inspection Ears: hearing grossly normal bilaterally, external ears normal and TM's normal bilaterally General nose exam: Normal external nose present, Normal nares present and No nasal discharge present Face and sinus: Yes normal facial exam and Yes sinuses nontender Mouth: Normal oral and palatal mucosa present and moist mucous membranes Throat: Yes tonsils normal and Yes uvula midline Eyes General: appearance normal, both eyes and all related structures Neck Neck: Yes normal visual inspection Resp Effort & Inspection: normal respiratory effort, able to speak in complete sentences, Actively coughing, no respiratory distress, not tachypneic, no tripod positioning and no use of accessory muscles Auscultation: clear to auscultation bilaterally Cardio Jugular venous distension: no JVD Rate: regular rate Rhythm: regular rhythm Heart sounds: S1 normal heart sound present, S2 normal heart sound present, no click, no gallops, no murmurs and no rubs Skin General skin exam: no rashes or lesions noted, elasticity normal and turgor normal Neuro General: patient oriented x3 Extrem General: Yes normal to inspection and Yes no clubbing, cyanosis or edema Assessment & Plan Assessment & Plan (1) URI (upper respiratory infection): Code(s): J06.9 - Acute upper respiratory infection, unspecified Qualifiers: URI type: unspecified URI Qualified Code(s): J06.9 - Acute upper respiratory infection, unspecified Plan: Symptoms have improved dramatically, however not completely of his called with prednisone burst. We will try a prolonged prednisone taper. Reviewed risk associated with repeat use of prednisone and developement of diabetes. We deferred repeat of Viral swab to avoid duplication of testing. Advised follow up with worsening symptoms such as dyspnea at rest, which would require emergent evaluation. Plan See above for full details and plan. Medications: New prednisone 5 tablets daily for 2 days, then 4 tablets daily for 2 days, then 3 tablets daily for 2 days, then 2 tablets daily for 2 days, then 1 tablet daily for 2 days. 10 mg PO DIRECTED 30 tabs 0RF Coding Level of Care Code Est Pt Level 3 (63005) Diagnoses Upper respiratory tract infection, unspecified type J06.9 URI type: unspecified URI
[2024-05-23 08:46] VITALS: BP 130/80; PULSE 66; TEMP 36.9; O2SAT 97; BMI 19.0
== END 2024-05-23 09:09 | disposition home or self-care (01) ==
PROVIDERS: PCP Internal Medicine; Visit Provider Registered Nurse
DX: J06.9 Acute upper respiratory infection, unspecified (principal)

== ENCOUNTER → 2024-05-23 08:40 | Outpatient (BNVA) | payer OTHER, SELFPAY | PROVIDERS: PCP Internal Medicine; Visit Provider Registered Nurse | DX: J06.9 Acute upper respiratory infection, unspecified (principal) | CPT/HCPCS: 99212 ==

== ENCOUNTER 2024-07-07 08:55 | Outpatient (AMB) | payer OTHER, SELFPAY ==
--- OUTSIDE RECORDS SUMMARY | 2024-07-07 08:58 | XMS_ITS ---
Author Organization [facility] Address [address] [place] [address] Care Team Providers Care Psychologist Developmental Name Role Phone Elisa Clark MD Primary Care Provider Elvira Betancourt [phone] Encounters Encounter Location Date Provider Diagnosis [address] [address] 08/11/2023 Elvira Mart Plan Of Treatment No Information Progress Notes * Sully RAO MDOB:[birth year] (58 yo F)Acc No.[id number]:08/11/2023 Progress Note Patient:?Sully RAO Provider:?Elvira Mart DPM :1965???Age:57 Y???Sex:Female D ate:08/11/2023 Address:[address] [place], [place] [id number] Pcp:Elisa Clark MD Subjective: * Chief Complaints: * ??? * Medical History:? Objective: * Vitals:? Assessment: Plan: * Treatment: * Images: * The named appointment provid er may or may not be the originator of this progress note, and it is not deemed complete until electronically signed by the appointment provider. Sign off status: Pending * Provider:?Elvira Mart DPM Date:? Generated for Russell rosado/Samanta/eTransmitting on:?07/07/2024 08:57 AM EST
--- OUTSIDE RECORDS SUMMARY | 2024-07-07 08:58 | XMS_ITS ---
Author [facility] Address [address] [facility] [place] [address] Care Team Providers Care Desktop Publishing Specialist Name Role Phone Elisa Clark MD Primary Care Provider Unavaila Elvira Hill Unavailable [phone] Allergies Allergen (clinical drug ingredient) Drug/Non Drug Allergy documented on EMR Reaction Allergy Type Onset Date Status Penicillin Childhood unsure Drug Allergy Active REASON FOR VISIT PCP - 02/2023, At Risk Footcare, Painful Nail(s) aggrevated by shoes and causing difficulty standing/walking., Fungal Nails Medications Medication SIG (Take, Route, Frequency, Duration) Notes Start Date End Date Status Trelegy Ellipta 100-62.5-25 MCG/ACT Inhalation for 30 Active Multivitamin Active Omeprazole 40 MG Oral for 30 A ctive Lisinopril 5 MG Oral for 30 Ac tive Lamisil 250mg 1 tablet orally Once daily for 30 days Active Atorvastatin Calcium 20 MG Oral for 30 Active Ciclopirox 0.77 % 1 application Leave Coordinator ally Twice a day for 365 days Active Albuterol Sulfate HFA 108 (90 Base) MCG/ACT INHALE 2 PUFFS BY MOUTH INTO THE LUNGS EVERY 4 HOURS NEEDED Inhalation for 17 Active Social History Tobacco Use: Social History Observation Description Date Details (start date - stop date) Current Smoker NA - NA Tobacco Use/Smoking Question Answer Notes Are you a: current smoker Alcohol Screen Question Answer Notes Did you have a drink contain ing alcohol in the past year? Yes How often did you have a dri nk containing alcohol in the past year? 2 to 3 times a week (3 points) Points 3 Interpretation Positive Tobacco use other than smoking: Question Answer Notes Are you an other tobacco user? Yes Problems Problem Type SNOMED Code ICD Code Onset Dates Problem Status W/U Status Risk Notes Problem [id number] Atherosclerosi s of artery of both lower extremities (I70.203) Active confirmed Vital Signs Height 5 ft 5 in in 05/12/2023 Weight 110 lbs 05/12/2023 BMI 18.30 kg/m2 05/12/2023 Encounters Encounter Location Date Provider Diagnosis [facility] [address] 05/12/2023 Elvira Mart Fungal infection of nail B35.1 and Atherosclerosis of artery of both lower extremities I70.203 Assessments Encounter Date Diagnosis (ICD Code) Assessment Notes Treatment Notes Treatment Clinical Notes Section Notes 05/12/2023 Fungal infection of nail (ICD-10 - B35.1) 05/12/2023 Atherosclerosis of artery of both lower extremities (ICD-10 - I70.203) Plan Of Treatment Medication Medication Name Sig Start Date Stop Date Notes Lamisil 250mg 1 tablet orally Once daily for 30 days Ciclopirox 0.77 % 1 application Leave Coordinator ally Twice a day for 365 days Pending Test Test Name Order Date *Liver Function Test (LFT) 05/12/2023 Next Appt Details Follow Up: 3 Months, Reason: Procedure Notes * Category Sub-Category Detail Notes Debride Nail 6-10 Nail debridement Nail debridem ent performed extensively to reduce/remove overall nail length and girth, subungual debris, and necrotic tissue, by manual and electrical means with use of a nail nipper and/or dremel, to more viable healthy nail plate or bed tissue 6-10. Silver nitrate used for any petechial bleeding as necessary. Patient chooses, no pharmaceutical tx (76835) Progress Notes * Sully RAO MDOB:[birth year] (57 yo F)Acc No.[id number]:05/12/2023 Progress Notes Patient:?Sully Rao Provider:?Elvira Mart DPM :1965???Age:57 Y???Sex:Female D ate:05/12/2023 Address:[address] [place], [place] [id number] Pcp:Elisa Clark MD Subjective: * Chief Complaints: * ???PCP - 08/2023At Risk Foot carePainful Nail(s) aggrevated by shoes and causing difficulty standing/walking.Fungal Nails * HPI: ???At Risk footcare:?Pt States Last PCP Visit:?Date?02/23/2023 ???Painful Nails:?Nature:?aching, tender, discolored, thick.?Course:?worse.?Aggrevated by:?shoegear causing difficulty standing/walking.?Treatments:?none.? * ROS:?General/Constitutional:?Nausea?denies.?Vomiting?denies.?Hunger Thirst?denies.?Loss appetite?denies.?Chills?denies.?Fatigue?denies.?Fever?denies.?Night Sweats?denies.?Unexplained weight loss?admits.?Unexplained weight gain?denies.?HEENTM:?Dentures?admits.?Dizziness?denies.?Glasses/contacts?admits.?Retinopathy?de nies.?Blurred/double vision?denies.?TMJ?denies.?Discharge/drainage?denies.?Implants?denies.?Sore throat?denies.?Dental implants?denies.?Hard of hearing ?denies.?Difficulty chewing/swallowing/speaking?denies.?Nose bleeds?denies.?Sore mouth?denies.?Respiratory:?On Oxygen?admits.?Pneumonia/pleurisy?denies.?Bronchitis?admits.?Emphysema?admits.?C oughing?admits.?Cough blood?denies.?Shortness of breath?denies.?Wheezing?admits.?Cardiovascular:?Pacemaker?denies.?MVP?denies.?WPW?denies.?CHF?denies.?Heart attack?denies.?Septal defect?denies.?Rapid beat?denies.?Chest pain ?denies.?Atrial Fib.?denies.?Murmur/Palpitations?denies.?Gastrointestinal:?Hemorrhoids?denies.?Stomach/Abdominal pain?denies.?Dark blood stool?denies.?Irritable bowel ?denies.?Constipation?denies.?Diarrhea?denies.?Hematology:?Swelling?denies.?Clots?denies.?Varicose Veins?denies.?Bruising?denies.?Bleeding problem?denies.?Genitourinary:?Blood urine?denies.?Frequent/Painfu/urination/bladder control?denies.?Kidney stones?denies.?Infection (UTI)?denies.?Nephropathy?denies.?sex trans dis (STD)?denies.?Prostate?denies.?Musculoskeletal:?Hammertoes?denies.?Bunions?denies.?Back Pain?admits.?Muscle Cramps/ Resting?denies.?Muscle cramps / walking?denies.?Generalized aches and pains?denies.?Weakness?denies.?Integ.:?Baptiste?denies.?Scars?admits.?Corns/calluses?denies.?Ingrown nails?denies.?Painful nails?admits.?Open Sores?denies.?Rashes?denies.?Neurologic:?Difficulty sleeping?denies.?Brain disorder?denies.?Numbness?admits.?Balance trouble?denies.?Confusion?denies.?Fainting/blackouts?denies.?Tingling?admits.?Tr emors?denies.? * Medical History:? * Surgical History:?Lung 2019 * Hospitalization/Major Diagno stic Procedure:?Denies Past Hospitalization * Family History:?Mother: aliv e, heart attack, kidney/liver disease, foot problems, diagnosed with Family history of arthritis.?Father: .?Maternal Grand Mother: cancer.?Maternal aunt: cancer.?Siblings: cancer.? * Social History:?Tobacco Use:?Tobacco Use/Smoking?Are you a:?current smoker ?Tobacco use other than smoking?Are you an other tobacco user??Yes ???Drugs/Alcohol:?Drugs?Have you used drugs other than those for medical reasons in the past 12 months??Yes ?Alcohol Screen?Did you have a drink containing alcohol in the past year??Yes ?How often did you have a drink containing alcohol in the past year??2 to 3 times a week (3 points) ?Points?3 ?Interpretation?Positive ???Miscellaneous:?Caffeine: yes. ?Children: yes, 4. ?Marital status: . * Medications:?TakingAlbuterol Sulfate HFA 108 (90 Base) MCG/ACT Aerosol Solution INHALE 2 PUFFS BY MOUTH INTO THE LUNGS EVERY 4 HOURS NEEDED Inhalation Atorvastatin Calcium 20 MG Tablet Oral Lisinopril 5 MG Tablet Oral Omeprazole 40 MG Capsule Delayed Release Oral Multivitamin Trelegy Ellipta 100-62.5-25 MCG/ACT Aerosol Powder Breath Activated Inhalation Medication List reviewed and reconciled with the patientTaking Albuterol Sulfate HFA 108 (90 Base) MCG/ACT Aerosol Solution INHALE 2 PUFFS BY MOUTH INTO THE LUNGS EVERY 4 HOURS NEEDED Inhalation Taking Atorvastatin Calcium 20 MG Tablet Oral Taking Lisinopril 5 MG Tablet Oral Taking Omeprazole 40 MG Capsule Delayed Release Oral Taking Multivitamin Taking Trelegy Ellipta 100-62.5-25 MCG/ACT Aerosol Powder Breath Activated Inhalation Medication List reviewed and reconciled with the patient * Allergies:?Penicillin: Child mai unsure - Allergyyes[Allergies Verified] Objective: * Vitals:?Ht: 5 ft 5 in, Wt: 1 10, BMI:18.30, Shoe size: 8-9. * Examination: ???Vascular: ?DP PULSES:? 0/4, B/L.?PT PULSES:? 0/4, B/L.?CAPILLARY FILL TIME:? delayed, all digits, B/L.?SKIN TEMPERTURE GRADIENT OF THE LOWER EXTERMITIES:? decreased, cool to cool, proximal to distal, B/L.?HAIR GROWTH/TEXTURE/ELASTICITY/TURGOR:? decreased, B/L.?PIGMENTATION:?pale, B/L.?CLAUDICATION:?denies, B/L.?REST PAIN:?denies, B/L.?Nails: ?NAILS are:? Elongated, overgrown, dystrophic, lytic, greater than 3mm thick, discolored and friable with crumbly malodorous subungual debris, with pain on palpation, 1-5 B/L.?Dermatologic: ?SKIN FINDINGS:?Skin exam reveals normal color, texture, elasticity, and turgor. There are no masses, nor excrescences. The interspaces are clear, B/L.?Orthopedic: ?MUSCLE STRENGTH:?5/5 all groups in a symmetrical fashion, B/L.?Neurological: ?SENSORY:?Neurological exam reveals intact sensorium, pain sensation normal, vibration sensation intact, pinprick sensation is normal in the lower extremities, Pt denies, anesthesia, burning, paresthesia, tingling, B/L.?General Examination: ?GENERAL APPEARANCE:?Reveals a pleasant, alert, well nourished, well- developed, well hydrated individual, who demonstrates proper attention to hygiene/body habitus, and is in no acute distress, Pt serves as own historian for office visit today.?ORIENTED:?person, place, and time.? 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 Plan: * Treatment: * Procedures:?Debride Nail 6-10:?Nail debridement?Nail debridement performed extensively to reduce/remove overall nail length and girth, subungual debris, and necrotic tissue, by manual and electrical means with use of a nail nipper and/or dremel, to more viable healthy nail plate or bed tissue 6-10. Silver nitrate used for any petechial bleeding as necessary. Patient chooses, no pharmaceutical tx (25670).? * Procedure Codes:? * Preventive Medicine:? ??Counseling:?Discussion:?-03: Office or other outpatient visit for the evaluation and management of a new patient, which required a medically appropriate history and/or examination and LOW level of DECISION MAKING for: 1 STABLE ACUTE UNCOMPLICATED PROBLEM, 2 OR MORE MINOR PROBLEMS, OR 1 STABLE CHRONIC PROBLEM, THAT POSE(S) A LOW RISK FOR MORBIDITY/MORTALITY. The visit on the day of the encounter encompassed interpreting the data and educating the patient as to the nature of their condition, treatment options available according to their individual PMH, meds, allergies, and overall health/living conditions, as well as any potential risks or complications that may occur from a failure to adhere to, and participate in, the recommended course of therapy. The discussion included a complete verbal, and/or written explanation of the examination results, any x-rays taken, the proposed diagnosis, and outline of the treatment plan. A schedule for future care needs was also explained. The patient verbalized an understanding of the instructions at this time and agreed to be an active participant in their treatment. If the patient should think of any questions or concerns after the visit, I have encouraged the patient to call the office.?Fungal Nail Counseling:?The Pt defers any type of treatment at the present time, Nail debridement performed extensively to reduce/remove overall nail length and girth, subungual debris, and necrotic tissue, by manual and electrical means with use of a nail nipper and/or dremel, to more viable healthy nail plate or bed tissue. Silver nitrate used for any petechial bleeding as necessary, The patient was counseled on the diagnosis, potential etiologies (including, but not limited to, environmental factors, genetic, immune deficiency), and the multiple treatment options for Onychomycosis. We discussed the risks and benefits of each option from performing no treatment, to ultraviolet light shoe treatment, to laser nail treatment, to applying topical antifungals, to taking oral antifungal medication, to surgical removal of the involved nail(s) with or without performing a matricectomy, or any combination thereof. We discussed the advantages and disadvantages of each of possible treatment and importance for adherence to all the recommended therapies for optimum success. This includes the necessity for weekly emery board self nail home debridements, and control the nail and skin environment as much as possible by only using a fresh, dry pair of shoes/socks each day, as well as keeping the skin as dry as possible through the use of sprays/powders if necessary. The patient was instructed to discard the emery board after use to prevent reinfection of the involved nail(s). We discussed the mycological and visual clinical effectiveness of topical vs oral antifungal treatments as well as each ones potential side effects and/or any patient-specific medication interactions. We discussed the reasons behind the important requirement of regular liver function testing with oral antifungal therapy for safety. Patient questions regarding use, dosage, successful outcomes, blood tests, and possible pharmaceutical interactions were reviewed and the patient verbalized that all answers were clearly understood.? * Follow Up:?3 Months * Images: * Sign off status: Completed true * Provider:?Elvira Mart DPM Date:? Generated for Russell rosado/Samanta/Servando on:?07/07/2024 08:57 AM EST History and Physical Notes * HPI (History of Present Illness) Category Sub-Category Detail Notes Category Not es Painful Nails Aggravated by: shoegear causing difficulty standing/walking Course: worse Nature: aching, tender, disc olored, thick Treatments: none At Risk footcare Pt States Last PCP Visit: Date: 3 Examination Category Sub-Category Detail Notes Category Not es Neurological SENSORY: Neurological exa m reveals intact sensorium, pain sensation normal, vibration sensation intact, pinprick sensation is normal in the lower extremities, Pt denies, anesthesia, burning, paresthesia, tingling, B/L Dermatologic SKIN FINDINGS: Skin exam reveal s normal color, texture, elasticity, and turgor. There are no masses, nor excrescences. The interspaces are clear, B/L Orthopedic MUSCLE STRENGTH: 5/5 all groups in a symmetrical fashion, B/L General Examination GENERAL APPEARANCE: Reveals a pleasant, alert, well nourished, well-developed, well hydrated individual, who demonstrates proper attention to hygiene/body habitus, and is in no acute distress, Pt serves as own historian for office visit today ORIENTED: person, place, and t luis Vascular DP PULSES (B): 0/4, B/L PT PULSES (B): 0/4, B/L CAPILLARY FILL TIME: delayed, all digits , B/L TEMPERTURE GRADIENT (C): decreased, cool to cool, proximal to distal, B/L TROPHIC CONDITION-TEXTURE/ELASTICITY/TURGOR/HAIR GROWTH (B): decreased, B/L CLAUDICATION (C): denies, B/L REST PAIN: denies, B/L PIGMENTATION: pale, B/L Nails NAILS are: Elongated, overg rown, dystrophic, lytic, greater than 3mm thick, discolored and friable with crumbly malodorous subungual debris, with pain on palpation, 1-5 B/L
--- OUTSIDE RECORDS SUMMARY | 2024-07-07 08:58 | XMS_ITS | Patient Health Record ---
Author Organization [facility] Address [address] [place] [address] Care Team Providers Care Assistant Manager Name Role Phone Elisa Clark MD Primary Care Provider Unavaila Elvira Hill Unavailable [phone] Allergies Allergen (clinical drug ingredient) Drug/Non Drug Allergy documented on EMR Reaction Allergy Type Onset Date Status Penicillin Childhood unsure Drug Allergy Active Reason For Referral No Information Medications Medication SIG (Take, Route, Frequency, Duration) Notes Start Date End Date Status Trelegy Ellipta 100-62.5-25 MCG/ACT Inhalation for 30 Active Multivitamin Active Atorvastatin Calcium 20 MG Oral for 30 Active Omeprazole 40 MG Oral for 30 A ctive Lisinopril 5 MG Oral for 30 Ac tive Lamisil 250mg 1 tablet orally Once daily for 30 days Active Ciclopirox 0.77 % 1 application Oil Well Fishing Tool Operator ally Twice a day for 365 days [...] Answer Notes Did you have a drink containing alcohol in the p ast year? Yes Points 0 Interpretation Negative Tobacco use other than smoking: Question Answer Notes Are you an other tobacco user? Yes Problems Problem Type SNOMED Code ICD Code Onset Dates Problem Status W/U Status Risk Notes Problem [id number] Atherosclerosi s of artery of both lower extremities (I70.203) Active confirmed Encounters Encounter [facility] Date [facility] [address] [facility] [address] [place] [address] 07/20/2023 Elvira Mart Plan Of Treatment Pending Test Test Name Order Date *Liver Function Test (LFT) 05/12/2023 Insurance Providers Payer Name Payer Address Payer Phone Subscriber Number Group Number Insured Name Patient Relationship to Insured Coverage Start Date Coverage End Date Leslie Goehner [address] [id number] Yoshi Berry Spouse - patient is the spouse of the insured 3 Medical (General) History Medical History History ICD Code Arthritis asthma Back,Hip,and Knee pain Cancer High blood pressure Lung disease Numbness Reflux ( GERD) Chicken pox Anxiety Surgical History Surgery Date(Month/Year) Lung 2019
--- OUTSIDE RECORDS SUMMARY | 2024-07-07 08:58 | XMS_ITS ---
Author Organization [facility] Address [address] [place] [address] Care Team Providers Care Seal Delivery Vehicle Officer Name Role Phone Elisa Clark MD Primary Care Provider UnavailElvira Mcdonald Unavailable [phone] REASON FOR VISIT 08/11/23 appt Encounters Encounter Location Date Provider Diagnosis [facility] [address] [place] [address] [place] [address] 07/20/2023 Elvira Mart Plan Of Treatment No Information Progress Notes * Sully RAO MDOB:[birth year] (57 yo F)Acc No.[id number]:07/20/2023 Patient:?Sully Rao :1965???Age:57 Y???Sex:Female Address:[address] [place] [address], [address] * true * Date:? Generated for Russell rosado/Samanta/eTransmitting on:?07/07/2024 08:57 AM EST
--- NOTE | 2024-07-07 09:53 | AM.OFFWIN_ITS ---
Intake Vital Signs 07/07/24 09:54 Weight 112 lb BP 124/80 Blood Pressure Location Rt brachial Position Sitting Pulse 90 Pulse Source Pulse Oximeter Temp 98.6 F Temp Source Oral Pulse Oximetry (%) 95 Oxygen Delivery Method Room Air Intake Visit Reasons: EP ?Respiratory infection, done with meds Intake Note: Patient here for cough, SOB that has been present for a few weeks now. Patient Tobacco Use Status: Former Tobacco user (January 2024) Allergies apple [Apple] Allergy (Severe, Verified 07/07/24 09:54) TONGUE SWELLS penicillin V Allergy (Unknown, Verified 07/07/24 09:54) unknown - childhood Penicillins [PENICILLINS] Allergy (Unknown, Verified 07/07/24 09:54) UNKNOWN-CHILDHOOD ALLERGY Do you need a note to return to daycare/school/sports/work: No HPI HPI Comments History of Present Illness Details History - The patient is a 58-year-old female pr esenting with a chronic cough and associated symptoms. - Chronic cough persists despite treatme nt with prednisone initiated on May 13 and repeated on May 23. - An upper respiratory tract infection w as noted with all viral testing negative on May 13. - Chest X-ray on the did not indicat e acute illness, corroborated by a follow-up examination on May 20. - The patient reports a significant impa ct of symptoms on daily activities, with associated back, rib, and stomach pain along with headaches following intense coughing. - Difficulty in swallowing due to throat dryness is noted, and the patient requires hydration at bedside during nighttime. - No antibiotic therapy has been documen kortney recently, with a known allergy to penicillin. - blowing nose with yellowy green discha rge - Home management involving al[facility]ol [facility] is confirmed, but nebulizer usage is constrained by its location within the home. Physical Exam General: Cooperative, healthy appearing, comfortable and no acute distress Orientation/consciousness: Patient oriented x3 Limitations: No limitations Head: Normal to inspection Ears: Hearing grossly normal bilaterally, external ears normal and TM's normal bilaterally, right ear with a little bit of wax Nose: Normal external nose present, Normal nares present and No nasal discharge present, Face and sinus: Normal facial exam and Yes sinuses nontender Mouth: Normal oral and palatal mucosa present and moist mucous membranes Throat: Yes tonsils normal, Yes uvula midline. Posterior oropharynx erythema Eyes: Appearance normal, both eyes and all related structures Neck: Normal visual inspection Respiratory: dim to auscultation bilaterally. Normal respiratory effort, able to speak in complete sentences, Actively coughing, no respiratory distress, not tachypneic, no tripod positioning and no use of accessory muscles, shortness of breath reported Cardiovascular: Regular rate and rhythm. Normal S1 and S2 Skin: No rashes or lesions noted Neuro: Patient oriented x3 Extremities: Normal to inspection and Yes no clubbing, cyanosis or edema [facility] Medical History (Updated 05/13/24 @ 09:34 by Ann Ardon PA-C) Lower back pain Neck pain Restless leg syndrome History of seizure On home O2 Osteopenia Malignant neoplasm of right upper lobe of lung (~2017) Tobacco dependence COPD (chronic obstructive pulmonary disease) Depression Anxiety Hyperlipemia Surgical History History of colonoscopy (~03/2017) History of bronchoscopy (~06/2018) History of lung surgery (~07/2018) History of tonsillectomy Family History Father Alcohol abuse Maternal Aunt Breast cancer Sister Breast cancer Brother Skin cancer Other Mental health disorder Substance use disorder Social History Household Members: Significant Other Housing: House Do you presently have visiting nurse or other home services: No Alcohol intake: current Alcohol intake frequency: a few times a week Patient Tobacco Use Status: Former Tobacco user (January 2024) Tobacco use type: Cigar Cigarettes Per Day: 2 Years Smoked: 43 (onset 12yo) e-Cigarette/Vaping Use: Currently Using Second Hand Smoke Exposure: No Substance Use Type: Marijuana service: No Current occupational status: unemployed Cognitive needs: No Hearing needs: No Vision needs: Yes Review of Systems Const All systems reviewed & are unremarkable except as noted in HPI and below Physical Exam Vital Signs: Last Vital Signs Temp 98.6 F 07/07/24 09:54 Pulse 90 07/07/24 09:54 BP 124/80 07/07/24 09:54 Pulse Ox 95 07/07/24 09:54 Oxygen Delivery Method Room Air 07/07/24 09:54 Assessment & Plan Assessment & Plan (1) Lower respiratory infection (e.g., bronchitis, pneumonia, pneumonitis, pulmonitis): Code(s): J22 - Unspecified acute lower respiratory infection Plan: A chest x-ray was ordered to investigate the persistence of the patient's chronic cough, dyspnea and possible pneumonia, with consideration to initiate antibiotics such as Augmentin and a Z-Michael if bacterial etiology is confirmed. A broad viral swab test was conducted to determine the existence of any viral components, which would inform the decision to avoid unnecessary antibiotic exposure. A short course of prednisone at 20 mg/day for five days was prescribed to manage acute symptoms. The patient was advised on repositioning the nebulizer to improve accessibility for alleviating symptoms of shortness of breath, while taking into account her penicillin allergy as part of the planned antibiotic therapy if required. Patient was informed and verbally consented to the use of an ambient scribe for clinic note documentation during this visit Orders: Orders XR chest 2V Today R05.9 - Cough, unspecified Resp Pathogen Panel - [facility] Today J06.9 - Acute upper respiratory infection, unspecified Medications: New prednisone 20 mg PO DAILY 5 tabs 0RF Coding Level of Care Code Est Pt Level 4 (42361) Diagnoses Lower respiratory infection (e.g., bronchitis, pneumonia, pneumonitis, pulmonitis) J22
[2024-07-07 09:54] VITALS: BP 124/80; PULSE 90; TEMP 37; O2SAT 95
== END 2024-07-07 10:37 | disposition home or self-care (01) ==
PROVIDERS: PCP Internal Medicine; Visit Provider Physician Assistant
DX: J22 Unspecified acute lower respiratory infection (principal)

== ENCOUNTER 2024-07-07 10:24 | Outpatient (REF) | payer OTHER, SELFPAY ==
--- NOTE | ~2024-07-07 | XR_ITS ---
EXAMINATION: XR CHEST CLINICAL INFORMATION: Cough. COMPARISON: Most recent chest radiograph dated 05/13/2024. TECHNIQUE: 2 views of the chest were obtained. FINDINGS: The lungs are clear. The cardiomediastinal silhouette is normal in size. There is no pleural effusion or pneumothorax. No acute osseous abnormality. XR/XR chest 2V IMPRESSION: No acute cardiopulmonary findings. Electronically signed by: David Gaona MD 07/07/2024 02:17 PM MILLICENT SANCHEZ
== END 2024-07-07 10:25 | disposition home or self-care (01) ==
LOC: HO.HMGCX 10:24
PROVIDERS: PCP Internal Medicine; Visit Provider Physician Assistant
DX: R05.9 Cough, unspecified (principal)
CPT/HCPCS: 71046

== ENCOUNTER 2024-09-16 11:25 | Outpatient (AMB) | payer OTHER, SELFPAY ==
[2024-09-16 12:30] VITALS: BP 139/82; PULSE 86; RESP 18; TEMP 37; O2SAT 96; BMI 18.5
--- NOTE | 2024-09-16 12:30 | A.OFFPC_ITS ---
Vital Signs 09/16/24 12:30 Height 5 ft 5 in Weight 111 lb BMI 18.5 BP 139/82 Blood Pressure Location Rt brachial Position Sitting Respiration 18 Pulse 86 Pulse Source Pulse Oximeter Temp 98.6 F Temp Source Oral Pulse Oximetry (%) 96 Oxygen Delivery Method Room Air Intake Visit Reasons: Annual PE Intake Note: Pt is here today for PE. Pt states that she was put on Calcium pills but when she takes them she can not stop vomiting. Pt states that her big toe nail came off and she also has gout in that foot. Allergies apple [Apple] Allergy (Severe, Verified 09/16/24 12:31) TONGUE SWELLS penicillin V Allergy (Unknown, Verified 09/16/24 12:31) unknown - childhood Penicillins [PENICILLINS] Allergy (Unknown, Verified 09/16/24 12:31) UNKNOWN-CHILDHOOD ALLERGY Tobacco use date assessed: 09/16/24 Dental Screening Dental Screen Date: 09/16/24 Did you have a dental visit in the last 12 months?: No Did you have a dental problem in the last 6 months where you did not have access to dental care?: No Was dental information given to patient?: Patient declined HPI Annual PE HPI Details Patient presents for physical. She follows up with Oncology a [facility] for lung cancer. She continues to smoke a few cigarettes a day and trying to quit. Her is moving out to [place]. [facility] Medical History Lower back pain Neck pain Restless leg syndrome History of seizure On home O2 Osteopenia Malignant neoplasm of right upper lobe of lung (~2017) Tobacco dependence COPD (chronic obstructive pulmonary disease) Depression Anxiety Hyperlipemia Surgical History History of colonoscopy (~03/2017) History of bronchoscopy (~06/2018) History of lung surgery (~07/2018) History of tonsillectomy Family History Father Alcohol abuse Maternal Aunt Breast cancer Sister Breast cancer Brother Skin cancer Other Mental health disorder Substance use disorder Social History Household Members: Significant Other Housing: House Do you presently have visiting nurse or other home services: No Alcohol intake: current Alcohol intake frequency: a few times a week Patient Tobacco Use Status: Former Tobacco user (January 2024) Tobacco use type: Cigar Cigarettes Per Day: 2 Years Smoked: 43 (onset 12yo) e-Cigarette/Vaping Use: Currently Using Second Hand Smoke Exposure: No Substance Use Type: Marijuana service: No Current occupational status: unemployed Cognitive needs: No Hearing needs: No Vision needs: Yes Questionnaire PHQ-9 Over the last 2 weeks, how often have you been bothered by any of the following problems? 1. Little interest or pleasure in doing things: more than half the days 2. Feeling down, depressed, or hopeless: more than half the days 3. Trouble falling or staying asleep, or sleeping too much: nearly every day 4. Feeling tired or having little energy: more than half the days 5. Poor appetite or overeating: several days 6. Feeling bad about yourself - or that you are a failure or have let yourself or your family down: several days 7. Trouble concentrating on things, such as reading the newspaper or watching television: several days 8. Moving or speaking so slowly that other people could have noticed. Or the opposite - being so fidgety or restless that you have been moving around a lot more than usual: not at all 9. Thoughts that you would be better off or of hurting yourself in some way: not at all Total score: 12 Depression Screening Interpretation: Positive (Patient is established with a therapist she declined medications) Depression Screening Follow-up: Existing condition and In treatment Depression Screening Done: Yes 91024 - PHQ-9 Billing: Yes Source: Developed by Drs. Luis Juarez, Lelo Churchill, Alf Yusuf and colleagues, with an educational edgar from [employer]. Thrive Questionnaire Date Thrive assessed: 09/16/24 I am a: Patient What is your living situation today?: I have a place to live, but I am worried about losing it in the future Within the past 12 months, did the food you bought not last and you didn't have the money to get more?: Often true Within the past 12 months, did you worry whether your food would run out before you got money to buy more?: Never true Do you have trouble paying for medicines?: No Do you have trouble getting transportation to medical appointments?: No Do you have trouble paying your heating and electricity bill?: I choose not to answer this question Do you have trouble taking care of your child, family member or friend?: No Do you have trouble with day-to-day activities such as bathing, preparing meals, shopping, managing finances, etc.?: No Are you currently unemployed and looking for a job?: No Are you interested in more education?: Yes Please select the resources that you would like help with: Housing/Assisted, Transportation and Education Currently or been in a relationship where the following occur: I choose not to answer THRIVE Score: 2 AUDIT C Alcohol Use Questionnaire (AUDIT-C) 1. How often do you have a drink containing alcohol?: Never 3. How often do you have six or more drinks on one occasion?: Never Total Score: 0 ARTEM-7 AMB Questionnaire ARTEM-7 Date ARTEM - 7 assessed: 09/16/24 Feeling nervous, anxious, or on edge: 3 = Nearly every day Not being able to stop or control worryin = More than half the days Worrying too much about different things: 2 = More than half the days Trouble relaxin = Nearly every day Being so restless that it is hard to sit still: 2 = More than half the days Becoming easily annoyed or irritable: 3 = Nearly every day Feeling afraid as if something awful might happen: 0 = Not at all Total ARTEM-7 score (0-4 normal; 5-9 mild; 10-14 moderate; 15-21 severe): 15 Source: Developed by Drs. Luis Juarez, Lelo Churchill, Alf Yusuf and colleagues, with an educational edgar from [employer]. ARTEM-7 Assessment Billing ARTEM-7 Assessment Tool: ARTEM-7 Assessment 13459 Review of Systems Const All systems reviewed & are unremarkable except as noted in HPI and below Eyes Reports no additional complaints ENT Reports no additional complaints Card Reports no additional complaints Resp Reports no additional complaints GI Reports no additional complaints Reports no additional complaints Physical exam (Primary Care) Vital Signs: Last Vital Signs Temp 98.6 F 09/16/24 12:30 Pulse 86 09/16/24 12:30 Resp 18 09/16/24 12:30 Pulse Ox 96 09/16/24 12:30 Oxygen Delivery Method Room Air 09/16/24 12:30 BMI result Body Mass Index 18.5 Tobacco/Smoking Status: Tobacco use Status Tobacco use date assessed 09/16/24 09/16/24 12:32 Patient Tobacco Use Status Former Tobacco user (09/16/24 12:32 2023) Tobacco use type Cigar 09/16/24 12:32 e-Cigarette/Vaping Use Currently Using 09/16/24 12:32 PHQ-9: PHQ-9 Score PHQ-9: Total score 12 09/16/24 12:32 Depression Screening Interpretation: Positive (Patient is established with a therapist she declined medications) Depression Screening Follow-up: Existing condition and In treatment Thrive Assessment: Date of Thrive Assessment Date Thrive assessed 09/16/24 09/16/24 12:32 Currently or been in a relationship where the following occur: I choose not to answer Const General: no acute distress HENMT Head: Yes normal to inspection Ears: hearing grossly normal bilaterally Face and sinus: Yes normal facial exam Mouth: Normal oral and palatal mucosa present Eyes General: appearance normal, both eyes and all related structures Neck Neck: Yes supple Resp Effort & Inspection: normal respiratory effort Auscultation: clear to auscultation bilaterally Cardio Rhythm: regular rhythm Heart sounds: S1 normal heart sound present and S2 normal heart sound present GI Inspection: Yes normal to inspection Palpation (GI): Soft to palpation Percussion: Yes normal to percussion Auscultation: normal bowel sounds Coding Level of Care Code Est Pt Prev Care 40-64y(03050) Diagnoses Malignant neoplasm of right upper lobe of lung C34.11 Hyperlipemia E78.5 COPD (chronic obstructive pulmonary disease) J44.9 Essential hypertension I10 Hypomagnesemia E83.42 Additional Codes ARTEM-7 Assessment Billing - ARTEM-7 Assessment Tool: ARTEM-7 Assessment 65599 ([id number]) PHQ-9 - 54465 - PHQ-9 Billing: Yes ([id number]) Assessment & Plan Assessment & Plan (1) Malignant neoplasm of right upper lobe of lung: Onset Date: ~2017 Comment: (RUL Invasive Adenocarcinoma, Acinar type, 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), f/u thoracic surgeon Code(s): C34.11 - Malignant neoplasm of upper lobe, right bronchus or lung Category: Medical Plan: Follow-up with oncology and thoracic surgeon at [facility] (2) Hyperlipemia: Code(s): E78.5 - Hyperlipidemia, unspecified Category: Medical Plan: Continue statin (3) COPD (chronic obstructive pulmonary disease): Code(s): J44.9 - Chronic obstructive pulmonary disease, unspecified Category: Medical Plan: Continue Trelegy tobacco quitting discussed with the patient (4) Essential hypertension: Code(s): I10 - Essential (primary) hypertension Category: Medical Plan: Increase lisinopril to 20 mg a day follow-up in 1 month (5) Hypomagnesemia: Code(s): E83.42 - Hypomagnesemia Category: Medical Plan: Well-balanced diet discussed with the patient check magnesium and potassium level in 1 week Orders: Orders Magnesium 1 Week E83.42 - Hypomagnesemia Complete Blood Count Auto Diff 1 Week C34.11 - Malignant neoplasm of upper lobe, right bronchus or lung, E78.5 - Hyperlipidemia, unspecified, I10 - Essential (primary) hypertension, J44.9 - Chronic obstructive pulmonary disease, unspecified Comprehensive [place]. Panel Fast 1 Week C34.11 - Malignant neoplasm of upper lobe, right bronchus or lung, E78.5 - Hyperlipidemia, unspecified, I10 - Essential (primary) hypertension, J44.9 - Chronic obstructive pulmonary disease, unspecified Lipid Panel 1 Week C34.11 - Malignant neoplasm of upper lobe, right bronchus or lung, E78.5 - Hyperlipidemia, unspecified, I10 - Essential (primary) hypertension, J44.9 - Chronic obstructive pulmonary disease, unspecified Hemoglobin A1c 1 Week C34.11 - Malignant neoplasm of upper lobe, right bronchus or lung, E78.5 - Hyperlipidemia, unspecified, I10 - Essential (primary) hypertension, J44.9 - Chronic obstructive pulmonary disease, unspecified TSH reflex Free T4 1 Week C34.11 - Malignant neoplasm of upper lobe, right bronchus or lung, E78.5 - Hyperlipidemia, unspecified, I10 - Essential (primary) hypertension, J44.9 - Chronic obstructive pulmonary disease, unspecified Medications: Changed From lisinopril 10 mg PO DAILY 90 tabs 1RF To lisinopril 10 mg PO BID 180 tabs 1RF
--- OUTSIDE RECORDS SUMMARY | 2024-09-16 13:17 | XMS_ITS | Patient Health Record ---
[facility] Address [address] [facility] [place] [address] Care Team Providers Care Deli Clerk Name Role Phone Elisa Clark MD Primary Care Provider Unavaila Elvira Hill Unavailable [phone] Allergies Allergen (clinical drug ingredient) Drug/Non Drug [...] days Active Ciclopirox 0.77 % 1 application Student Accounts Coordinator ally Twice a day for 365 [...] Problem Status W/U Status Risk Notes Problem [id number] Atherosclerosi s of artery of both lower extremities (I70.203) Active confirmed Plan Of Treatment Pending Test Test Name Order Date *Liver Function Test (LFT) 05/12/2023 Insurance Providers Payer Name Payer Address Payer Phone Subscriber Number Group Number Insured Name Patient Relationship to Insured Coverage Start Date Coverage End Date [place] [address] [place] [phone] [id number] Yoshi Berry Spouse - patient is the spouse of the insured 3 Medical (General) History Medical History History ICD Code Arthritis asthma Back,Hip,and Knee pain Cancer High blood pressure Lung disease Numbness Reflux ( GERD) Chicken pox Anxiety Surgical History Surgery Date(Month/Year) Lung 2019
--- OUTSIDE RECORDS SUMMARY | 2024-09-16 13:17 | XMS_ITS ---
Author Organization [facility] Address [address] [place] [address] Care Team Providers Care Firesetter Name Role Phone Elisa Clark MD Primary Care Provider UnavailElvira Mcdonald Unavailable [phone] REASON FOR VISIT 08/11/23 appt Encounters Encounter Location Date Provider Diagnosis [facility] [address] [place] [address] [place] [phone] 07/20/2023 Elvira Mart Plan Of Treatment No Information Progress Notes * Sully RAO MDOB:[birth year] (57 yo F)Acc No.[id number]:07/20/2023 Patient:?Sully Rao :1965???Age:57 Y???Sex:Female Address:[address] [place] [address], [address] * true * Date:? Generated for Russell rosado/Samanta/eTransmitting on:?09/16/2024 01:16 PM EST
--- OUTSIDE RECORDS SUMMARY | 2024-09-16 13:17 | XMS_ITS ---
Author [facility] Address [address] [facility] [place] [address] Care Team Providers Care Numberer And Wirer Name Role Phone Elisa Clark MD Primary Care Provider Unavaila Elvira Hill Unavailable [phone] Allergies Allergen (clinical drug ingredient) Drug/Non Drug [...] 30 Active Ciclopirox 0.77 % 1 application Hydraulic Mechanic ally Twice a day for 365 days [...] Problem Status W/U Status Risk Notes Problem [id number] Atherosclerosi s of artery of both lower extremities (I70.203) Active confirmed Vital Signs Height 5 ft 5 in in 05/12/2023 Weight 110 lbs 05/12/2023 BMI 18.30 kg/m2 05/12/2023 Encounters Encounter Location Date Provider Diagnosis [facility] [address] 05/12/2023 Elvira Mart Fungal infection of nail [...] 30 days Ciclopirox 0.77 % 1 application Hydraulic Mechanic ally Twice a day for 365 days [...] as necessary. Patient chooses, no pharmaceutical tx ([id number]) Progress Notes * Sully RAO MDOB:[birth year] (57 yo F)Acc No.[id number]:05/12/2023 Progress Notes Patient:?Sully Rao Provider:?Elvira Mart DPM :1965???Age:57 Y???Sex:Female D ate:05/12/2023 Address:[address] [place], [place] [id number] Pcp:Elisa Clark MD Subjective: * Chief Complaints: [...] as necessary. Patient chooses, no pharmaceutical tx ([id number]).? * Procedure Codes:? * Preventive Medicine:? ??Counseling:?Discussion:?-03: [...] Mart DPM Date:? Generated for Russell rosado/Samanta/Servando on:?09/16/2024 01:17 PM EST History and Physical Notes * HPI [...]
--- OUTSIDE RECORDS SUMMARY | 2024-09-16 13:17 | XMS_ITS | Clinical Summary ---
Author Organization [facility] Address [address] [place] [address] Phone Care Team Providers Care Cheese Tester Name Role Phone Elisa Clark MD Primary Care Provider [phone] Allergies Active Allergy Reactions Criticality Noted Date Comments Apple Swelling High 10/12/2023 Penicillin V 10/12/2023 Penicillins 10/12/2023 Medications atorvastatin (LIPITOR) 20 mg tablet Take 1 tablet (20 mg total) by mouth. Active omeprazole (PriLOSEC) [address] capsule 06/06/2021 Active lisinopriL (PRINIVIL,ZESTRI L) 5 mg tablet Take 1 tablet (5 mg total) by mouth 1 (one) time each day. Active albuterol HFA (PROAIR HFA ; PROVENTIL HFA ; VENTOLIN HFA) 90 mcg/actuation inhaler Inhale 2 puffs by mouth every 4 (four) hours if needed. Active fluticasone-umec lidinium-vilante rol (Trelegy Ellipta) 100-62.5-25 mcg inhaler Inhale 1 Puff into the lungs daily. Active traZODone (DESYREL) 50 mg tablet Take 1 Tablet by mouth at bedtime. Active LORazepam (ATIVAN) 0.5 mg tablet Take 1 tablet (0.5 mg total) by mouth every 6 (six) hours if needed. 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 Is requesting referral to [place] as this is closer to her. Referral placed. Oxygen dependent. History of lung cancer 07/20/2024 Assessment & Plan (07/20/2024 12:55 PM EST): Ms. Berry is a 58-year-old female who had a robotic right upper lobe wedge resection in 2019 for stage I lung cancer. She has had waxing and waning pulmonary nodules on her subsequent surveillance CT scans. The patient's most recent surveillance chest CT scan performed on July 05, 2024 shows several new pulmonary nodules the largest of which is a 1.6 x 1.2 irregular nodule in the left lower lobe. The other new nodules include 2 new irregular slightly nodular areas in the right upper lobe, a new irregular 5 mm nodule in the left lower lobe, and a new elongated nodule measuring 5 x 3 mm in the lingula. She has no associated pleural effusion or mediastinal adenopathy. Given the patient's history of waxing and waning pulmonary nodules, some of which appeared very suspicious prompted biopsy which appears similar to her new largest nodule, I would recommend a short interval surveillance scan in 3 months to check for any resolution or improvement of these pulmonary nodules. Multiple pulmonary nodules 10/15/2023 Overview (06/15/2024): Last Assessment & Plan: 58-year-old woman with history of wedge resection for a stage I lung cancer now 5 years out from that operation who had been followed for a new pulmonary nodule that is now nearly resolved. This is the second time she has had a nodule that has resolved over time. I explained to her the findings on the CAT scan as described in the HPI. I also talked about pulmonary nodules in general and how their size, shape, and electronic data interchange specialist time affect her level of suspicion for malignancy. I would like to follow this to resolution in the neck step will be a 6-month follow-up CT scan of the chest and a visit in this office after that. All questions were answered. At that point we will probably do a 1 year follow-up CT and then put her back into our screening program. Encounters Date Type Department Care Team Description 07/21/2024 1:45 PM EST Office Visit Thoracic Surgery - [place] [address] [facility] [address] [place] [address] Shannan Crocker PA History of lung cancer (Primary Dx); Multiple pulmonary nodules; Chronic obstructive pulmonary disease, unspecified COPD type (CMS/HCC) 07/05/2024 7:19 AM EST - 07/05/2024 11:59 PM EST Hospital Encounter [facility] CT Scan [address] [place] [address] History of lung cancer Discharge Disposition: Home or Self Care from Last 3 Months Surgical History Surgery Date Site/Laterality Comments OTHER SURGICAL HISTORY 06/2018 N/A PROCEDURE: PULMONOLOGY BRONCHOSCOPY COLONOSCOPY 03/2017 N/A PROCEDURE: HISTORICAL COLONOSCOPY TONSILLECTOMY N/A PROCEDURE: HISTORICAL TONSILLECTOMY OTHER SURGICAL HISTORY 08/12/2018 PROCEDURE: [place] THORACOSCOPY W/THERA WEDGE RESEXN INITIAL UNILAT; COMMENT: RUL Wedge - Invasive Adenocarcinoma ([id number]) Medical History Medical History Date Comments Anxiety disorder DX:Anxiety diso rder COPD (chronic obstructive pu lmonary disease) (CMS/HCC) DX:COPD (chronic obstructive pulmonary disease) (HCC) Depression DX:Depression History of seizure DX:History of seizure Hyperlipidemia DX:Hyperlipidemi a Low back pain DX:Low back pain Malignant neoplasm of right upper lobe of lung (CMS/HCC) DX:Malignant neoplasm of rig ht upper lobe of lung (HCC) Neck pain DX:Neck pain On home O2 DX:On home O2 Osteopenia DX:Osteopenia Restless leg syndrome DX:Restles s leg syndrome Tobacco dependence DX:Tobacco de pendence GERD (gastroesophageal reflux disease) DX:GERD (gastroesophageal reflux disease) Essential (primary) hypertension 10/15/2023 DX:Essential (primary) hypertension Family History Medical History Relation Name Comments Breast cancer Aunt Other: Skin Cancer Brother Thyroid disease Brother Alcohol/Drug Father Hypertension Mother Other: Heart Disease Mother Other: Kidney Disease Mother Thyroid disease Mother Breast cancer Sister Thyroid disease Sister Relation Name Status Comments Aunt Brother Father Mother Sister Social History Tobacco Use Types Packs/Day Years Used Date Smoking Tobacco: Every Day Cigarettes 1 46.2 Started: 07/13/1978 Smokeless Tobacco: Never Tobacco Cessation:Ready to Q uit: Not Asked; Counseling Given: Not Answered Alcohol Use Standard Drinks/Week Comments Yes 0 (1 standard drink = 0.6 oz pur e alcohol) Comments Unknown Sex and Gender Information Value Date Recorded Sex Assigned at Female 06/28/2024 2:20 PM EST Legal Sex Female 2:54 AM EST Gender Identity Female 06/28/2024 2:20 PM EST Sexual Orientation Straight 06/28/2024 2: 20 PM EST Obstetrics History Last Filed Vital Signs Vital Sign Reading Time Taken Comments Blood Pressure 121/86 07/22/2024 2:16 PM EST Pulse 76 07/22/2024 2:16 PM EST Temperature 36.2 ??C (97.1 ??F) 07/22/2024 2:16 PM ES T Respiratory Rate 16 07/22/2024 2:16 PM EST Oxygen Saturation 98% 07/22/2024 2:16 PM EST Inhaled Oxygen Concentration - - Weight 46.7 kg (102 lb 14.4 oz) 07/22/2024 2:16 PM EST Height 167.6 cm (5' 6 ) 07/22/2024 2:16 PM EST Body Mass Index 16.61 07/22/2024 2:16 PM EST Plan of Treatment Upcoming Encounters Date Type Department Care Team ([facility] st Contact Info) Description 10/18/2024 9:00 AM EDT Appointment [facility] CT Scan [address] [place] [phone] 10/27/2024 9:00 AM EDT Office Visit Thoracic Surgery - [place] [address] [facility] [address] [place] [phone] Shannan Crocker PA [address] [facility], [address] [address] Health Maintenance Due Date Last Done Comments Breast Cancer Screening 1965 Zoster Vaccines (1 of 2) 1983 Cervical Cancer Screening: Pap Smear 1985 Pneumococcal Vaccine: 50+ Years (2 of 2 - PCV) 05/20/2019 05/20/2018 Pneumococcal Vaccine: Pediatrics (0 to 5 Years) and At-Risk Patients (6 to 64 Years) (2 of 2 - PCV) 05/20/2019 05/20/2018 Cholesterol Screening (Lipid Panel) 06/15/2022 Colorectal Cancer Screening: Colonoscopy 06/15/2022 Depression Screening 06/15/2022 HIV Screening 06/15/2022 Hepatitis C Screening 06/15/2022 Lung Cancer Screening (Low Dose CT) 06/15/2022 Social Influencers of Health Screening 06/15/2022 RSV Immunization Patients 60+ Years Old (1 - Risk 60-74 years 1-dose series) 2024 DTaP,Tdap,and Td Vaccines (2 - Td or Tdap) 12/17/2027 12/16/2017 COVID-19 Vaccine Completed 04/12/2024, 12/2021, 11/12/2021, Additional history exists Influenza Vaccine Completed 04/12/2024, , 04/06/2021, Additional history exists HIB Vaccines Aged Out No longer eligi ble based on patient's age to complete this topic HPV Vaccines Aged Out No longer eligi ble based on patient's age to complete this topic Hepatitis A Vaccines Aged Out No long er eligible based on patient's age to complete this topic Hepatitis B Vaccines Aged Out No long er eligible based on patient's age to complete this topic IPV Vaccines Aged Out No longer eligi ble based on patient's age to complete this topic MMR Vaccines Aged Out No longer eligi ble based on patient's age to complete this topic Meningococcal ACWY Vaccine Aged Out N o longer eligible based on patient's age to complete this topic Meningococcal B Vacine Aged Out No lo nger eligible based on patient's age to complete this topic RSV Immunization Patients Under 20 months Aged Out No longer eligible based on patient's age to complete this topic Varicella Vaccines Aged Out No longer eligible based on patient's age to complete this topic Procedures Procedure Name Priority Date/Time Associated Diagnosis Comments CT CHEST WO CONTRAST Routine 07/05/2024 7:52 AM EST History of lung cancer from Last 3 Months Results * CT Chest wo Contrast (07/05/2024 7:52 AM EST) Anatomical Region Laterality Modality Body Computed Tomogra phy 07/07/2024 10:0 4 AM EST Impressions 07/07/2024 10:31 AM EST 1. ??A nodule in the left lower lobe noted on the 01/18/2024 study is unchanged, but as was previously described was not present on 04/15/2021. 2. ??There are several new pulmonary nodules. The most concerning is an irregular nodule in the left lower lobe measuring 1.6 x 1.2 cm. ??These could be inflammatory or neoplastic. ??A short-term follow-up CT could be performed, and larger nodules could be further characterized with PET/CT as well. -------- FINAL REPORT -------- Dictated By: David Sheikh Dictated Date: 07/07/2024 10:04 ET Assigned Physician: David Sheikh Reviewed and Electronically Signed By: David Sheikh Signed Date: 07/07/2024 10:31 ET Workstation ID: [id number] Transcribed By: Self Edit Transcribed Date: 07/07/2024 10:04 ET Narrative 07/07/2024 10:[address], 07/07/2024. TECHNIQUE: CT of the chest without intravenous contrast administration. ??Coronal and sagittal reformats and MIP reconstructions were created. Dose length product: ??172 mGy-cm. HISTORY: Non-small cell lung cancer, monitor COMPARISON: 01/18/2024. FINDINGS: Lungs/pleura: Normal caliber airways. ??Mild diffuse bronchial wall thickening with few small areas of mucus plugging. ??Moderate-severe centrilobular emphysema. ??Postsurgical changes at the right apex with a staple line. ??There are 2 new irregular slightly nodular areas of opacity in the right upper lobe, one on series 4, images 75-79, and one in the central/perihilar region on images 104-113. ??There is a stable previously described 4 mm nodule in the left lower lobe, image 182. ??New irregular 1.6 x 1.2 cm left lower lobe nodule, image 154. ??New irregular 5 mm nodule in the superior segment of the left lower lobe, image 101. ??New elongated nodule measuring 5 x 3 mm in the medial lingula, image 147. ??No pleural effusion. ??No pneumothorax. Mediastinum/fidencio: Heterogeneous appearance of the thyroid gland with suggestion of a small nodule in the right lobe. ??This could be better evaluated with ultrasound. ??No mediastinal mass or lymphadenopathy. ??No appreciable hilar lymphadenopathy on limited noncontrast evaluation. Vasculature: Normal caliber pulmonary arteries. ??Moderate atherosclerotic calcifications of the aorta and great vessels. Cardiac: Moderate coronary artery calcification. ??Normal heart size. Chest wall: No mass or lymphadenopathy. Limited abdomen: There is a calcification along the anterolateral margin/capsule of the liver. Bones: Moderate degenerative changes of the spine. Procedure Note David Sheikh MD - 07/07/[address], 07/07/2024. TECHNIQUE: CT of the chest without intravenous contrast administration.Coronal and sagittal reformats and MIP reconstructions were created. Dose length product: 172 mGy-cm. HISTORY: Non-small cell lung cancer, monitor COMPARISON: 01/18/2024. FINDINGS: Lungs/pleura: Normal caliber airways. Mild diffuse bronchial wallthickening with few small areas of mucus plugging. Moderate-severecentrilobular emphysema. Postsurgical changes at the right apex with astaple line. There are 2 new irregular slightly nodular areas of opacityin the right upper lobe, one on series 4, images 75-79, and one in thecentral/perihilar region on images 104-113. There is a stable previouslydescribed 4 mm nodule in the left lower lobe, image 182. New irregular1.6 x 1.2 cm left lower lobe nodule, image 154. New irregular 5 mm nodulein the superior segment of the left lower lobe, image 101. New elongatednodule measuring 5 x 3 mm in the medial lingula, image 147. No pleuraleffusion. No pneumothorax. Mediastinum/fidencio: Heterogeneous appearance of the thyroid gland withsuggestion of a small nodule in the right lobe. This could be betterevaluated with ultrasound. No mediastinal mass or lymphadenopathy. Noappreciable hilar lymphadenopathy on limited noncontrast evaluation. Vasculature: Normal caliber pulmonary arteries. Moderate atheroscleroticcalcifications of the aorta and great vessels. Cardiac: Moderate coronary artery calcification. Normal heart size. Chest wall: No mass or lymphadenopathy. Limited abdomen: There is a calcification along the anterolateralmargin/capsule of the liver. Bones: Moderate degenerative changes of the spine. IMPRESSION: 1. A nodule in the left lower lobe noted on the 01/18/2024 study isunchanged, but as was previously described was not present on04/15/2021. 2. There are several new pulmonary nodules. The most concerning is anirregular nodule in the left lower lobe measuring 1.6 x 1.2 cm. Thesecould be inflammatory or neoplastic. A short-term follow-up CT could beperformed, and larger nodules could be further characterized with PET/CTas well. -------- FINAL REPORT -------- Dictated By: David Sheikh Dictated Date: 07/07/2024 10:04 ET Assigned Physician: David Sheikh Reviewed and Electronically Signed By: David Sheikh Signed Date: 07/07/2024 10:31 ET Workstation ID: [id number] Transcribed By: Self Edit Transcribed Date: 07/07/2024 10:04 ET Amy Self MD IMG CT PROCEDURES Final Result from Last 3 Months Insurance [employer] PLAN Care Teams Cheese Tester Relationship Specialty Start Date End Date Elisa Clark MD PCP - General Internal Medicine 06/28/24
--- OUTSIDE RECORDS SUMMARY | 2024-09-16 13:17 | XMS_ITS ---
Author Organization [facility] Address [address] [place] [phone] Care Team Providers Care Cyber Engineer Name Role Phone Elisa Clark MD Primary Care Provider Elvira Betancourt [phone] Encounters Encounter Location Date Provider Diagnosis [address] [address] 08/11/2023 Elvira Mart Plan Of Treatment No Information Progress Notes * Sully RAO MDOB:[birth year] (59 yo F)Acc No.[id number]:08/11/2023 Progress Note Patient:?Sully RAO Provider:?Elvira Mart DPM :1965???Age:57 Y???Sex:Female D ate:08/11/2023 Address:[address] [place], [place] [phone] Pcp:Elisa Clark MD Subjective: * Chief Complaints: [...] Mart DPM Date:? Generated for Russell rosado/Samanta/eTransmitting on:?09/16/2024 01:16 PM EST
== END 2024-09-16 13:21 | disposition home or self-care (01) ==
PROVIDERS: PCP Internal Medicine; Visit Provider Internal Medicine
DX: Z00.00 Encounter for general adult medical examination without abnormal findings (principal); C34.11 Malignant neoplasm of upper lobe, right bronchus or lung; J44.9 Chronic obstructive pulmonary disease, unspecified; E78.5 Hyperlipidemia, unspecified; I10 Essential (primary) hypertension; E83.42 Hypomagnesemia

== ENCOUNTER → 2024-09-16 11:25 | Outpatient (BNVA) | payer OTHER, SELFPAY | PROVIDERS: PCP Internal Medicine; Visit Provider Internal Medicine | DX: Z00.01 Encounter for general adult medical examination with abnormal findings (principal); C34.11 Malignant neoplasm of upper lobe, right bronchus or lung; E78.5 Hyperlipidemia, unspecified; J44.9 Chronic obstructive pulmonary disease, unspecified; I10 Essential (primary) hypertension; E83.42 Hypomagnesemia | CPT/HCPCS: 96127; 99396 ==

== ENCOUNTER 2024-09-23 07:40 | Outpatient (REF) | payer OTHER, SELFPAY ==
--- OUTSIDE RECORDS SUMMARY | 2024-09-23 07:43 | XMS_ITS ---
Author Organization [facility] Address [address] [place] [address] Care Team Providers Care Treating Machine Operator Name Role Phone Elisa Clark MD Primary Care Provider UnavailElvira Mcdonald [phone] REASON FOR VISIT 08/11/23 appt Encounters Encounter Location Date Provider Diagnosis [facility] [address] [facility] [address] [place] [phone] 07/20/2023 Elvira Mart Plan Of Treatment No Information Progress Notes * Sully RAO MDOB:[birth year] (57 yo F)Acc No.[id number]:07/20/2023 Patient:?Sully Rao :1965???Age:57 Y???Sex:Female Address:[address] [place] [address], [address] * true * Date:? Generated for Russell rosado/Samanta/eTransmitting on:?09/23/2024 07:43 AM EDT
--- OUTSIDE RECORDS SUMMARY | 2024-09-23 07:43 | XMS_ITS | Clinical Summary ---
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 Is requesting referral to [place] as this is closer to her. Referral [...] general and how their size, shape, and roll changer time affect her level of suspicion for [...] PM EST Office Visit Thoracic Surgery - [place] [address] [facility] [address] [place] [address] Shannan Crocker PA History of lung cancer (Primary Dx); Multiple pulmonary nodules; Chronic obstructive pulmonary disease, unspecified COPD type (CMS/HCC) 07/05/2024 7:19 AM EST - 07/05/2024 11:59 PM EST Hospital Encounter [facility] CT Scan [address] [place] [address] History of lung cancer Discharge Disposition: Home or Self Care from Last 3 Months Surgical History Surgery Date Site/Laterality Comments OTHER SURGICAL HISTORY 06/2018 N/A PROCEDURE: PULMONOLOGY BRONCHOSCOPY COLONOSCOPY 03/2017 N/A PROCEDURE: HISTORICAL COLONOSCOPY TONSILLECTOMY N/A PROCEDURE: HISTORICAL TONSILLECTOMY OTHER SURGICAL HISTORY 08/12/2018 PROCEDURE: [place] THORACOSCOPY W/THERA WEDGE RESEXN INITIAL UNILAT; COMMENT: [...] Upcoming Encounters Date Type Department Care Team ([facility] st Contact Info) Description 10/18/2024 9:00 AM EDT Appointment [facility] CT Scan [address] [place] [phone] 10/27/2024 9:00 AM EDT Office Visit Thoracic Surgery - [place] [address] [facility] [address] [place] [phone] Shannan Crocker PA [address] [facility], [address] [address] Health Maintenance Due Date Last Done Comments [...] Signed Date: 07/07/2024 10:31 ET Workstation ID: [id number] Transcribed By: Self Edit Transcribed Date: 07/07/2024 [...] Signed Date: 07/07/2024 10:31 ET Workstation ID: [id number] Transcribed By: Self Edit Transcribed Date: 07/07/2024 10:04 ET Amy Self MD IMG CT PROCEDURES Final Result from Last 3 Months Insurance [employer] PL[employer] Care Teams Cycle Director Relationship Specialty Start Date End Date Elisa Clark MD PCP - General Internal Medicine 06/28/24
--- OUTSIDE RECORDS SUMMARY | 2024-09-23 07:43 | XMS_ITS ---
Author Organization [facility] Address [address] [facility] [place] [address] Care Team Providers Care Data Acquisition Technician Name Role Phone Elisa Clark MD Primary Care Provider Unavaila Elvira Hill Unavailable [phone] Allergies Allergen (clinical drug ingredient) Drug/Non Drug [...] 30 Active Ciclopirox 0.77 % 1 application Sole Seamer ally Twice a day for 365 days [...] Problem Status W/U Status Risk Notes Problem [id number] Atherosclerosi s of artery of both lower extremities (I70.203) Active confirmed Vital Signs Height 5 ft 5 in in 05/12/2023 Weight 110 lbs 05/12/2023 BMI 18.30 kg/m2 05/12/2023 Encounters Encounter Location Date Provider Diagnosis [facility] [address] 05/12/2023 Elvira Mart Fungal infection of nail [...] 30 days Ciclopirox 0.77 % 1 application Sole Seamer ally Twice a day for 365 days [...] as necessary. Patient chooses, no pharmaceutical tx (78814) Progress Notes * Sully RAO MDOB:[birth year] (57 yo F)Acc No.[id number]:05/12/2023 Progress Notes Patient:?Sully Rao Provider:?Elvira Mart DPM :1965???Age:57 Y???Sex:Female D ate:05/12/2023 Address:[address] [place], [place] [phone] Pcp:Elisa Clark MD Subjective: * Chief Complaints: [...] as necessary. Patient chooses, no pharmaceutical tx (64691).? * Procedure Codes:? * Preventive Medicine:? ??Counseling:?Discussion:?-03: [...] Mart DPM Date:? Generated for Russell rosado/Samanta/Servando on:?09/23/2024 07:43 AM EDT History and Physical Notes * HPI (History [...]
--- OUTSIDE RECORDS SUMMARY | 2024-09-23 07:43 | XMS_ITS | Patient Health Record ---
Author Organization [facility] Address [address] [facility] [place] [address] Care Team Providers Care Airplane Technician Name Role Phone Elisa Clark MD Primary Care Provider Unavaila Elvira Hill Unavailable [phone] Allergies Allergen (clinical drug ingredient) Drug/Non Drug [...] days Active Ciclopirox 0.77 % 1 application Payloader Operator ally Twice a day for 365 [...] Problem Status W/U Status Risk Notes Problem [id number] Atherosclerosi s of artery of both lower extremities (I70.203) Active confirmed Plan Of Treatment Pending Test Test Name Order Date *Liver Function Test (LFT) 05/12/2023 Insurance Providers Payer Name Payer Address Payer Phone Subscriber Number Group Number Insured Name Patient Relationship to Insured Coverage Start Date Coverage End Date [employer] [address] [place] [phone] [id number] Yoshi Berry Spouse - patient is the spouse of the insured 3 Medical (General) History Medical History History ICD Code Arthritis asthma Back,Hip,and Knee pain Cancer High blood pressure Lung disease Numbness Reflux ( GERD) Chicken pox Anxiety Surgical History Surgery Date(Month/Year) Lung 2019
--- OUTSIDE RECORDS SUMMARY | 2024-09-23 07:43 | XMS_ITS ---
Author Organization [facility] Address [address] [place] [address] Care Team Providers Care Heel Emery Buffer Name Role Phone Elisa Clark MD Primary Care Provider Elvira Betancourt [phone] Encounters Encounter Location Date Provider Diagnosis [address] [address] 08/11/2023 Elvira Mart Plan Of Treatment No Information Progress Notes * Sully RAO MDOB:[birth year] (59 yo F)Acc No.[id number]:08/11/2023 Progress Note Patient:?Sully RAO Provider:?Elvira Mart DPM :1965???Age:57 Y???Sex:Female D ate:08/11/2023 Address:[address] [place], [place] [phone] Pcp:Elisa Clark MD Subjective: * Chief Complaints: * ??? * Medical History:? Objective: * Vitals:? Assessment: Plan: * Treatment: * Images: * The named appointment provid er may or may not be the originator of this progress note, and it is not deemed complete until electronically signed by the appointment provider. Sign off status: Pending * Provider:?Elvira Mart DPM Date:? Generated for Beenai alonzo/Fasonu/eTransmitting on:?09/23/2024 07:43 AM EDT
[2024-09-23 10:01] LABS: MANUAL DIFF FLAG NO
[2024-09-23 10:05] LABS: Basophils Absolute Auto 0.1 X10*3/uL (0.0-0.2); Basophils Percent Auto 0.6 % (0-2); Eosinophils Absolute Auto 0.1 X10*3/uL (0.0-0.4); Eosinophils Percent Auto 1.2 % (0-4); Hematocrit 39.7 % (37.0-47.0); Hemoglobin 14.1 g/dl (12.0-16.0); Imm Gran Abs Auto 0.04 X10*3/uL (0.00-0.03); Imm Gran Pct Auto 0.4 % (0.0-0.4); Lymphocytes Absolute Auto 1.2 X10*3/uL (1.2-4.9); Lymphocytes Percent Auto 13.8 % (20-40); Mean Corpuscular HGB Conc 35.5 g/dl (31.0-35.0); Mean Corpuscular Hemoglobin 34.6 pg (27.0-33.0); Mean Corpuscular Volume 97.5 fL (80.0-98.0); Monocytes Absolute Auto 0.6 X10*3/uL (0.1-1.2); Monocytes Percent Auto 6.5 % (2-11); Neutrophils Absolute Auto 6.9 x10*3/uL (2.0-8.3); Neutrophils Percent Auto 77.5 % (45-73); Platelet Count 144 X10*3/uL (160-400); Red Blood Count 4.07 X10*6/uL (4.20-5.50); Red Cell Distribution Width 12.2 % (11.0-16.0); White Blood Count 8.9 X10*3/uL (4.8-10.8)
[2024-09-23 10:12] LABS: Estimated Average Glucose 100 mg/dL; Hemoglobin A1C 115.7136 umol/L; Hemoglobin A1c % 5.1 % (<6.0); Total Hemoglobin (HGBA1C) 3632.3084 umol/L
[2024-09-23 10:45] LABS: Alanine Aminotransferase 67 U/L (0-31); Albumin Level 3.8 g/dL (3.5-5.0); Alkaline Phosphatase 148 U/L (39-117); Anion Gap 15 (12-20); Aspartate Amino Transferase 184 U/L (5-31); Bilirubin Total 0.9 mg/dL (0.0-1.0); Blood Urea Nitrogen 5 mg/dL (9-16); Calcium 8.3 mg/dL (8.4-10.2); Carbon Dioxide 26 mmol/L (22-29); Chloride 104 mmol/L (96-108); Cholesterol 119 mg/dL (<200); Estimated Glomerular Filt Rate > 60; Glucose Fasting 137 mg/dL (60-99); HDL Cholesterol 56 mg/dL (>40); LDL Cholesterol Calculated 33 mg/dL (<100); Magnesium 0.8 mg/dL (1.6-2.6); Potassium 2.8 mmol/L (3.3-5.1); Sodium 142 mmol/L (135-145); Total Protein 6.5 g/dL (6.5-8.0); Triglycerides 152 mg/dL (<150)
[2024-09-23 10:52] LABS: TSH reflex Free T4 1.62 uIU/mL (0.32-4.0)
== END 2024-09-23 07:41 | disposition home or self-care (01) ==
LOC: HO.HMGCLDS 07:40
PROVIDERS: PCP Internal Medicine; Visit Provider Internal Medicine
DX: C34.11 Malignant neoplasm of upper lobe, right bronchus or lung (principal); E78.5 Hyperlipidemia, unspecified; J44.9 Chronic obstructive pulmonary disease, unspecified; E83.42 Hypomagnesemia; I10 Essential (primary) hypertension
CPT/HCPCS: 36415; 80053; 80061; 83036; 83735; 84443; 85025

== ENCOUNTER 2024-09-30 13:01 | Outpatient (AMB) | payer OTHER, SELFPAY ==
[2024-09-30 13:12] VITALS: BP 118/70; PULSE 91; O2SAT 98; BMI 18.2
--- NOTE | 2024-09-30 13:12 | A.OFFVIS_ITS ---
Vital Signs 09/30/24 13:12 Height 5 ft 5 in Weight 109 lb 2.061 oz BMI 18.2 BP 118/70 Blood Pressure Location Rt brachial Position Sitting Pulse 91 Pulse Source Pulse Oximeter Pulse Oximetry (%) 98 Oxygen Delivery Method Room Air Intake Visit Reasons: COPD Allergies apple [Apple] Allergy (Severe, Verified 09/30/24 13:15) TONGUE SWELLS penicillin V Allergy (Unknown, Verified 09/30/24 13:15) unknown - childhood Penicillins [PENICILLINS] Allergy (Unknown, Verified 09/30/24 13:15) UNKNOWN-CHILDHOOD ALLERGY HPI Comments Details: The patient is here for pulmonary evaluation. The patient is a 59 year woman with a known history of tobacco dependency, COPD and history of lung cancer. She did undergo a right upper lobectomy many years ago with curative intent. Now she has some pulmonary nodules on the left lower lobe that are being monitored. She is followed closely by thoracic surgery at [facility]. Unfortunately she does have severe COPD. And also has significantly decreased diffusing capacity. She does use oxygen at nighttime. She does get shortness of breath with activity. Especially going up a flight of stairs. Moderate severity. We did go for brief walking oximetry and she actually did great maintaining a pulse ox of 95% throughout the ambulation speaking in full sentences without any shortness of breath. Therefore, the patient does not require supplemental oxygen at this time. She is going to follow up with a repeat CT scan in October at [facility] to figure out what to do with the irregular left lower lobe pulmonary nodule. She is currently on Trelegy which is perfectly fine. She has to quit smoking altogether she is aware that. Will follow-up in 4-6 months. If she has any issues prior to that she will call for an earlier assessment. [facility] Medical History Lower back pain Neck pain Restless leg syndrome History of seizure On home O2 Osteopenia Malignant neoplasm of right upper lobe of lung (~2017) Tobacco dependence COPD (chronic obstructive pulmonary disease) Depression Anxiety Hyperlipemia Surgical History History of colonoscopy (~03/2017) History of bronchoscopy (~06/2018) History of lung surgery (~07/2018) History of tonsillectomy Family History Father Alcohol abuse Maternal Aunt Breast cancer Sister Breast cancer Brother Skin cancer Other Mental health disorder Substance use disorder Social History (Updated 09/30/24 @ 13:15 by Arabella Jordan CMA) Household Members: Significant Other Housing: House Do you presently have visiting nurse or other home services: No Alcohol intake: current Alcohol intake frequency: a few times a week Patient Tobacco Use Status: Current someday Tobacco user (January 2024) Tobacco use type: Cigar Cigarettes Per Day: 2 Years Smoked: 43 (onset 12yo) e-Cigarette/Vaping Use: Currently Using Second Hand Smoke Exposure: No Substance Use Type: Marijuana service: No Current occupational status: unemployed Cognitive needs: No Hearing needs: No Vision needs: Yes Review of Systems Const All systems reviewed & are unremarkable except as noted in HPI and below Denies fever(s) Eyes Reports no additional complaints ENT Reports nasal congestion Card Denies chest pain and Reports dyspnea on exertion Resp Reports dyspnea on exertion GI Denies abdominal pain Musc Reports back pain Skin/Breast Denies rash Fam/Lymph Denies easy bleeding Physical Exam Vital Signs: Last Vital Signs Pulse 91 09/30/24 13:12 BP 118/70 09/30/24 13:12 Pulse Ox 98 09/30/24 13:12 Oxygen Delivery Method Room Air 09/30/24 13:12 BMI result Body Mass Index 18.2 Immunizations pneumoc 20-mely conj-dip cr(PF) 0.5 mL IM syringe Performing Provider: Roosevelt Manley MD Performing Location: [facility] Pul[facility] Administered by: Lucia Horton LPN on 09/30/24 13:43 Dose Route Admin Location Dispensed Lot Number Expiration Date [facility] Ethnoarchaeology Professor 0.5 mL IM Left Deltoid 0.5 mL [id number] 12/10/25 6097-6325-45 FrilpETH/PFIZER VIS Given Date VIS Provided VIS Publication Date 09/30/24 Single Vaccine 22 Eligibility Eligibility Date Funding Source Not [facility] Eligible 09/30/24 Private Assessment & Plan Assessment & Plan (1) Malignant neoplasm of right upper lobe of lung: Onset Date: ~2017 Comment: (RUL Invasive Adenocarcinoma, Acinar type, 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), f/u thoracic surgeon Code(s): C34.11 - Malignant neoplasm of upper lobe, right bronchus or lung Category: Medical Plan: Follow-up with oncology and thoracic surgeon at [facility] (2) COPD (chronic obstructive pulmonary disease): Code(s): J44.9 - Chronic obstructive pulmonary disease, unspecified Category: Medical Qualifiers: COPD type: chronic bronchitis Chronic bronchitis type: simple Qualif ied Code(s): J41.0 - Simple chronic bronchitis Plan: Continue Trelegy tobacco quitting discussed with the patient (3) Tobacco dependence: Comment: (Current smoker, onset 12yo, 1/2-1ppd x 43yrs, 30+PYH), quit 01/2024 Code(s): F17.200 - Nicotine dependence, unspecified, uncomplicated Category: Medical (4) Pulmonary nodule: Code(s): R91.1 - Solitary pulmonary nodule Category: Medical Plan Continue Trelegy ELIZABETH as needed CT chest 10/2024 at [facility] to F/U concerning LLL nodule. Will F/U with Thoracic surgery, but may not be a surgical candidate?SBRT Will need updated PFTs Prevnar 20 today F/U 3 months Orders: Orders Pneumococcal 20 Immunization 09/30/24 Z23 - Encounter for immunization Coding Level of Care Code New Pt Level 4 (49311) Diagnoses Malignant neoplasm of right upper lobe of lung C34.11 Simple chronic bronchitis J41.0 COPD type: chronic bronchitis Chronic bronchitis type: simple Tobacco dependence F17.200 Pulmonary nodule R91.1 Time Spent (min) 40
--- OUTSIDE RECORDS SUMMARY | 2024-09-30 15:25 | XMS_ITS | Patient Health Record ---
Author Organization [facility] Address [address] [facility] [place] [address] Care Team Providers Care Rail Assembler Name Role Phone Elisa Clark MD Primary Care Provider Unavaila Elvira Hill Unavailable [phone] Allergies Allergen (clinical drug ingredient) Drug/Non Drug [...] days Active Ciclopirox 0.77 % 1 application Test Deskman ally Twice a day for 365 days [...] Problem Status W/U Status Risk Notes Problem [id number] Atherosclerosi s of artery of both lower extremities (I70.203) Active confirmed Plan Of Treatment Pending Test Test Name Order Date *Liver Function Test (LFT) 05/12/2023 Insurance Providers Payer Name Payer Address Payer Phone Subscriber Number Group Number Insured Name Patient Relationship to Insured Coverage Start Date Coverage End Date [place] [address] YESS[place] [phone] [id number] Yoshi Berry Spouse - patient is the spouse of the insured 3 Medical (General) History Medical History History ICD Code Arthritis asthma Back,Hip,and Knee pain Cancer High blood pressure Lung disease Numbness Reflux ( GERD) Chicken pox Anxiety Surgical History Surgery Date(Month/Year) Lung 2019
--- OUTSIDE RECORDS SUMMARY | 2024-09-30 15:25 | XMS_ITS ---
Author Organization [facility] Address [address] [facility] [place] [address] Care Team Providers Care Drum Loader And Unloader Name Role Phone Elisa Clark MD Primary Care Provider Unavaila Elvira Hill Unavailable [phone] Allergies Allergen (clinical drug ingredient) Drug/Non Drug [...] 30 Active Ciclopirox 0.77 % 1 application School Library Media Specialist ally Twice a day for 365 days [...] Problem Status W/U Status Risk Notes Problem [id number] Atherosclerosi s of artery of both lower extremities (I70.203) Active confirmed Vital Signs Height 5 ft 5 in in 05/12/2023 Weight 110 lbs 05/12/2023 BMI 18.30 kg/m2 05/12/2023 Encounters Encounter Location Date Provider Diagnosis [facility] [address] 05/12/2023 Elvira Mart Fungal infection of nail [...] 30 days Ciclopirox 0.77 % 1 application School Library Media Specialist ally Twice a day for 365 days [...] as necessary. Patient chooses, no pharmaceutical tx (49354) Progress Notes * Sully RAO MDOB:[birth year] (57 yo F)Acc No.[id number]:05/12/2023 Progress Notes Patient:?Sully Rao Provider:?Elvira Mart DPM :1965???Age:57 Y???Sex:Female D ate:05/12/2023 Address:[address] [place], [place] [id number] Pcp:Elisa Clark MD Subjective: * Chief Complaints: [...] as necessary. Patient chooses, no pharmaceutical tx (78521).? * Procedure Codes:? * Preventive Medicine:? ??Counseling:?Discussion:?-03: [...] Mart DPM Date:? Generated for Russell rosado/Samanta/Servando on:?09/30/2024 03:25 PM EDT History and Physical Notes * HPI [...]
--- OUTSIDE RECORDS SUMMARY | 2024-09-30 15:25 | XMS_ITS ---
Author Organization [facility] Address [address] [place] [address] Care Team Providers Care Cotton Presser Name Role Phone Elisa Clark MD Primary Care Provider UnavailElvira Mcdonald [phone] REASON FOR VISIT 08/11/23 appt Encounters Encounter Location Date Provider Diagnosis [facility] [address] [facility] [address] [place] [phone] 07/20/2023 Elvira Mart Plan Of Treatment No Information Progress Notes * Sully RAO MDOB:[birth year] (57 yo F)Acc No.[id number]:07/20/2023 Patient:?Sully Rao :1965???Age:57 Y???Sex:Female Address:[address] [place] [address], [address] * true * Date:? Generated for Russell rosado/Samanta/eTransmitting on:?09/30/2024 03:25 PM EDT
--- OUTSIDE RECORDS SUMMARY | 2024-09-30 15:25 | XMS_ITS | Clinical Summary ---
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 Is requesting referral to [place] as this is closer to her. Referral [...] general and how their size, shape, and mold insert changer time affect her level of suspicion [...] PM EST Office Visit Thoracic Surgery - [facility] [address] [facility] [address] [place] [address] Shannan Crocker PA History of lung cancer (Primary Dx); Multiple pulmonary nodules; Chronic obstructive pulmonary disease, unspecified COPD type (CMS/HCC) 07/05/2024 7:19 AM EST - 07/05/2024 11:59 PM EST Hospital Encounter [facility] CT Scan [address] [place] [address] History of lung cancer Discharge Disposition: Home or Self Care from Last 3 Months Surgical History Surgery Date Site/Laterality Comments OTHER SURGICAL HISTORY 06/2018 N/A PROCEDURE: PULMONOLOGY BRONCHOSCOPY COLONOSCOPY 03/2017 N/A PROCEDURE: HISTORICAL COLONOSCOPY TONSILLECTOMY N/A PROCEDURE: HISTORICAL TONSILLECTOMY OTHER SURGICAL HISTORY 08/12/2018 PROCEDURE: [place] THORACOSCOPY W/THERA WEDGE RESEXN INITIAL UNILAT; COMMENT: [...] Upcoming Encounters Date Type Department Care Team ([facility] st Contact Info) Description 10/18/2024 9:00 AM EDT Appointment [facility] CT Scan [address] [place] [phone] 10/27/2024 9:00 AM EDT Office Visit Thoracic Surgery - [facility] [address] [facility] [address] [place] [phone] Shannan Crocker PA [address] [facility], [address] [address] Health Maintenance Due Date Last Done Comments [...] Signed Date: 07/07/2024 10:31 ET Workstation ID: [id number] Transcribed By: Self Edit Transcribed Date: 07/07/2024 [...] Signed Date: 07/07/2024 10:31 ET Workstation ID: [id number] Transcribed By: Self Edit Transcribed Date: 07/07/2024 10:04 ET Amy Self MD IMG CT PROCEDURES Final Result from Last 3 Months Insurance [employer] Care Teams Maintenance Mechanic Helper Relationship Specialty Start Date End Date Elisa Clark MD PCP - General Internal Medicine 06/28/24
--- OUTSIDE RECORDS SUMMARY | 2024-09-30 15:25 | XMS_ITS ---
Author Organization [facility] Address [address] [place] [address] Care Team Providers Care Engineer Byproduct Name Role Phone Elisa Clark MD Primary Care Provider Elvira Betancourt [phone] Encounters Encounter Location Date Provider Diagnosis [address] [address] 08/11/2023 Elvira Mart Plan Of Treatment No Information Progress Notes * Sully RAO MDOB:[birth year] (59 yo F)Acc No.[id number]:08/11/2023 Progress Note Patient:?Sully RAO Provider:?Elvira Mart DPM :1965???Age:57 Y???Sex:Female D ate:08/11/2023 Address:[address] [place], [place] [phone] Pcp:Elisa Clark MD Subjective: * Chief Complaints: [...] Mart DPM Date:? Generated for Beenai alonzo/Fasonu/eTransmitting on:?09/30/2024 03:24 PM EDT
== END 2024-09-30 13:47 | disposition home or self-care (01) ==
LOC: HO.HPS 13:02
PROVIDERS: PCP Internal Medicine; Referring Provider Physician Assistant; Visit Provider Hospitalist
DX: C34.11 Malignant neoplasm of upper lobe, right bronchus or lung (principal); J41.0 Simple chronic bronchitis; F17.200 Nicotine dependence, unspecified, uncomplicated; R91.1 Solitary pulmonary nodule
CPT/HCPCS: 99204

== ENCOUNTER → 2024-09-30 13:01 | Outpatient (BNVA) | payer OTHER, SELFPAY | PROVIDERS: PCP Internal Medicine; Referring Provider Physician Assistant; Visit Provider Hospitalist | DX: Z23 Encounter for immunization (principal); J41.0 Simple chronic bronchitis; R91.1 Solitary pulmonary nodule; C34.11 Malignant neoplasm of upper lobe, right bronchus or lung; F17.210 Nicotine dependence, cigarettes, uncomplicated | CPT/HCPCS: 90471; 90677; 99202 ==

== ENCOUNTER 2024-10-17 07:47 | Outpatient (REF) | payer OTHER, SELFPAY ==
--- OUTSIDE RECORDS SUMMARY | 2024-10-17 07:50 | XMS_ITS ---
Author Organization [facility] Address [address] [place] [address] Care Team Providers Care Primary Care Physician Name Role Phone Elisa Clark MD Primary Care Provider UnavailElvira Mcdonald [phone] REASON FOR VISIT 08/11/23 appt Encounters Encounter Location Date Provider Diagnosis [facility] [address] [facility] [address] [place] [address] 07/20/2023 Elvira Mart Plan Of Treatment No Information Progress Notes * Sully RAO MDOB:[birth year] (57 yo F)Acc No.[id number]:07/20/2023 Patient:?Sully Rao :1965???Age:57 Y???Sex:Female Address:[address] [place] [address], [address] * true * Date:? Generated for Russell rosado/Samanta/eTransmitting on:?10/17/2024 07:50 AM EDT
--- OUTSIDE RECORDS SUMMARY | 2024-10-17 07:50 | XMS_ITS | Patient Health Record ---
Author Organization [facility] Address [address] [facility] [address] Care Team Providers Care Laborer Chicken Farm Name Role Phone Elisa Clark MD Primary Care Provider Unavaila Elvira Hill Unavailable [phone] Allergies Allergen (clinical drug ingredient) Drug/Non Drug [...] days Active Ciclopirox 0.77 % 1 application Waiter/Waitress Cafeteria ally Twice a day for 365 days [...] Problem Status W/U Status Risk Notes Problem [id number] Atherosclerosi s of artery of both lower extremities (I70.203) Active confirmed Plan Of Treatment Pending Test Test Name Order Date *Liver Function Test (LFT) 05/12/2023 Insurance Providers Payer Name Payer Address Payer Phone Subscriber Number Group Number Insured Name Patient Relationship to Insured Coverage Start Date Coverage End Date [place] [address] [place] [phone] [id number] Yoshi Berry Spouse - patient is the spouse of the insured 3 Medical (General) History Medical History History ICD Code Arthritis asthma Back,Hip,and Knee pain Cancer High blood pressure Lung disease Numbness Reflux ( GERD) Chicken pox Anxiety Surgical History Surgery Date(Month/Year) Lung 2019
--- OUTSIDE RECORDS SUMMARY | 2024-10-17 07:50 | XMS_ITS | Clinical Summary ---
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 Is requesting referral to [place] as this is closer to her. Referral [...] general and how their size, shape, and loom changeover operator time affect her level of suspicion for [...] PM EST Office Visit Thoracic Surgery - [address] [place] [address] Shannan Crocker PA History of lung cancer (Primary Dx); Multiple pulmonary nodules; Chronic obstructive pulmonary disease, unspecified COPD type (CMS/HCC) from Last 3 Months Surgical History Surgery Date Site/Laterality Comments OTHER SURGICAL HISTORY 06/2018 N/A PROCEDURE: PULMONOLOGY BRONCHOSCOPY COLONOSCOPY 03/2017 N/A PROCEDURE: HISTORICAL COLONOSCOPY TONSILLECTOMY N/A PROCEDURE: HISTORICAL TONSILLECTOMY OTHER SURGICAL HISTORY 08/12/2018 PROCEDURE: [place] THORACOSCOPY W/THERA WEDGE RESEXN INITIAL UNILAT; COMMENT: [...] Date Smoking Tobacco: Every Day Cigarettes 1 46.3 Started: 07/13/1978 Smokeless Tobacco: Never Tobacco Cessation:Ready [...] Upcoming Encounters Date Type Department Care Team ([facility] st Contact Info) Description 10/18/2024 9:00 AM EDT Appointment [facility] CT Scan [address] [place] [address] 10/27/2024 9:00 AM EDT Office Visit Thoracic Surgery - [place] [address] [facility] [address] [place] [phone] Shannan Crocker, LAZARO [address] [facility] [address] [place] [address] Health Maintenance Due Date Last Done Comments [...] Influencers of Health Screening 06/15/2022 RSV Immunization Adult Patients (1 - Risk 60-74 years 1-dose series) [...] on patient's age to complete this topic Insurance [facility] PLAN Care Teams Gauge Maker Apprentice Relationship Specialty Start Date End Date Elisa Clark MD PCP - General Internal Medicine 06/28/24
--- OUTSIDE RECORDS SUMMARY | 2024-10-17 07:50 | XMS_ITS ---
Author Organization [facility] Address [address] [place] [address] Care Team Providers Care Clinical Marketing Manager Name Role Phone Elisa Clark MD Primary Care Provider Elvira Betancourt [phone] Encounters Encounter Location Date Provider Diagnosis [address] [address] 08/11/2023 Elvira Mart Plan Of Treatment No Information Progress Notes * Sully RAO MDOB:[birth year] (59 yo F)Acc No.[id number]:08/11/2023 Progress Note Patient:?Sully RAO Provider:?Elvira Mart DPM :1965???Age:57 Y???Sex:Female D ate:08/11/2023 Address:[address] [place], [place] [address] Pcp:Elisa Clark MD Subjective: * Chief Complaints: [...] Mart DPM Date:? Generated for Russell rosado/Samanta/eTransmitting on:?10/17/2024 07:50 AM EDT
--- OUTSIDE RECORDS SUMMARY | 2024-10-17 07:51 | XMS_ITS ---
Author Organization [facility] Address [address] [facility] [place] [address] Care Team Providers Care Inlayer Name Role Phone Elisa Clark MD Primary Care Provider Unavaila Elvira Hill Unavailable [phone] Allergies Allergen (clinical drug ingredient) Drug/Non Drug [...] 30 Active Ciclopirox 0.77 % 1 application High School Coach ally Twice a day for 365 days [...] Problem Status W/U Status Risk Notes Problem [id number] Atherosclerosi s of artery of both lower extremities (I70.203) Active confirmed Vital Signs Height 5 ft 5 in in 05/12/2023 Weight 110 lbs 05/12/2023 BMI 18.30 kg/m2 05/12/2023 Encounters Encounter Location Date Provider Diagnosis [facility] [address] 05/12/2023 Elvira Mart Fungal infection of nail [...] 30 days Ciclopirox 0.77 % 1 application High School Coach ally Twice a day for 365 days [...] as necessary. Patient chooses, no pharmaceutical tx (22598) Progress Notes * Sully RAO MDOB:[birth year] (57 yo F)Acc No.[id number]:05/12/2023 Progress Notes Patient:?Sully Rao Provider:?Elvira Mart DPM :1965???Age:57 Y???Sex:Female D ate:05/12/2023 Address:[address] [place], [place] [phone] Pcp:Elisa Clark MD Subjective: * Chief Complaints: [...] as necessary. Patient chooses, no pharmaceutical tx (15397).? * Procedure Codes:? * Preventive Medicine:? ??Counseling:?Discussion:?-03: [...] Mart DPM Date:? Generated for Russell rosado/Samanta/Servando on:?10/17/2024 07:50 AM EDT History and Physical Notes * [...]
[2024-10-17 11:41] LABS: Magnesium 1.1 mg/dL (1.6-2.6)
[2024-10-17 11:43] LABS: Anion Gap 14 (12-20); Blood Urea Nitrogen 8 mg/dL (9-16); Carbon Dioxide 26 mmol/L (22-29); Chloride 104 mmol/L (96-108); Estimated Glomerular Filt Rate > 60; Glucose Random 104 mg/dL (60-115); Sodium 140 mmol/L (135-145)
== END 2024-10-17 07:48 | disposition home or self-care (01) ==
LOC: HO.HMGCLDS 07:47
PROVIDERS: PCP Internal Medicine; Visit Provider Internal Medicine
DX: E87.6 Hypokalemia (principal); E83.42 Hypomagnesemia
CPT/HCPCS: 36415; 80048; 83735

== ENCOUNTER 2024-10-20 09:41 | Outpatient (AMB) | payer OTHER, SELFPAY ==
[2024-10-20 10:18] VITALS: BP 120/74; PULSE 92; O2SAT 97; BMI 18.3
--- NOTE | 2024-10-20 10:18 | MHC.PC.OV ---
Vital Signs 10/20/24 10:18 Height 5 ft 5 in Weight 110 lb BMI 18.3 BP 120/74 Blood Pressure Location Lt brachial Position Sitting Pulse 92 Pulse Source Pulse Oximeter Pulse Oximetry (%) 97 Intake Visit Reasons: 1 month f/up Allergies apple [Apple] Allergy (Severe, Verified 10/20/24 10:19) TONGUE SWELLS penicillin V Allergy (Unknown, Verified 10/20/24 10:19) unknown - childhood Penicillins [PENICILLINS] Allergy (Unknown, Verified 10/20/24 10:19) UNKNOWN-CHILDHOOD ALLERGY Medication List - Last Reconciled 10/20/24 by Elisa Clark MD albuterol sulfate 90 mcg/actuation (Ventolin HFA) 2 puffs inhalation Q4H PRN atorvastatin 20 mg PO DAILY repbeywipaz-xjlizkrsq-vbmqzzjo 100-62.5-25 mcg (Trelegy Ellipta) 1 ea inhalation DAILY ipratropium-albuterol 0.5 mg-3 mg(2.5 mg base)/3 mL 3 mL inhalation Q6-8H PRN lisinopril 20 mg PO .qd lorazepam 0.5 mg PO DAILY PRN magnesium oxide 400 mg PO DAILY multivitamin 1 tab PO DAILY omeprazole 40 mg PO DAILY potassium chloride ER 20 mEq PO BID Tobacco use date assessed: 09/16/24 Dental Screening Dental Screen Date: 09/16/24 HPI 1 month f/up HPI Details Pt presents for follow-up of hypertension hyperlipidemia severe COPD. Blood pressure is better controlled high dose of lisinopril. Patient has been taking magnesium supplement but noticed loose bowel movements. She denies abdominal pain hematochezia melena. Patient had a CT of the chest at [place] ordered by thoracic surgeon which noticed new large area of consolidation with bronchiectasis and bronchiolectasis including posterolateral remaining right upper lobe and superior segment of right lower lobe, small abnormalities in the left lung with question of acute necrotizing pneumonia. Patient denies fever chills pleurisy night sweats change in her chronic cough with white sputum. She denies hemoptysis. She has a follow-up visit with PA next week at thoracic surgeon office. [facility] Medical History Lower back pain Neck pain Restless leg syndrome History of seizure On home O2 Osteopenia Malignant neoplasm of right upper lobe of lung (~2017) Tobacco dependence COPD (chronic obstructive pulmonary disease) Depression Anxiety Hyperlipemia Surgical History History of colonoscopy (~03/2017) History of bronchoscopy (~06/2018) History of lung surgery (~07/2018) History of tonsillectomy Family History Father Alcohol abuse Maternal Aunt Breast cancer Sister Breast cancer Brother Skin cancer Other Mental health disorder Substance use disorder Social History Household Members: Significant Other Housing: House Do you presently have visiting nurse or other home services: No Alcohol intake: current Alcohol intake frequency: a few times a week Patient Tobacco Use Status: Current someday Tobacco user (January 2024) Tobacco use type: Cigar Cigarettes Per Day: 2 Years Smoked: 43 (onset 12yo) e-Cigarette/Vaping Use: Currently Using Second Hand Smoke Exposure: No Substance Use Type: Marijuana service: No Current occupational status: unemployed Cognitive needs: No Hearing needs: No Vision needs: Yes Questionnaire Thrive Questionnaire Date Thrive assessed: 09/16/24 I am a: Patient What is your living situation today?: I have a place to live, but I am worried about losing it in the future Within the past 12 months, did the food you bought not last and you didn't have the money to get more?: Often true Within the past 12 months, did you worry whether your food would run out before you got money to buy more?: Never true Do you have trouble paying for medicines?: No Do you have trouble getting transportation to medical appointments?: No Do you have trouble paying your heating and electricity bill?: I choose not to answer this question Do you have trouble taking care of your child, family member or friend?: No Do you have trouble with day-to-day activities such as bathing, preparing meals, shopping, managing finances, etc.?: No Are you currently unemployed and looking for a job?: No Are you interested in more education?: Yes Currently or been in a relationship where the following occur: I choose not to answer THRIVE Score: 2 ARTEM-7 AMB Questionnaire ARTEM-7 Date ARTEM - 7 assessed: 09/16/24 Source: Developed by Drs. Luis Juarez, Lelo Churchill, Alf Yusuf and colleagues, with an educational edgar from [employer]. Review of Systems Const All systems reviewed & are unremarkable except as noted in HPI and below ENT Reports no additional complaints Card Reports no additional complaints Resp Reports no additional complaints GI Reports no additional complaints Reports no additional complaints Physical exam (Primary Care) Vital Signs: Last Vital Signs Pulse 92 10/20/24 10:18 BP 120/74 10/20/24 10:18 Pulse Ox 97 10/20/24 10:18 BMI result Body Mass Index 18.3 Tobacco/Smoking Status: Tobacco use Status Tobacco use date assessed 09/16/24 10/20/24 10:21 Patient Tobacco Use Status Current someday Tobacco ( 10/20/24 10:31 January 2024) Tobacco use type Cigar 10/20/24 10:21 e-Cigarette/Vaping Use Currently Using 10/20/24 10:21 Thrive Assessment: Date of Thrive Assessment Date Thrive assessed 09/16/24 10/20/24 10:21 Currently or been in a relationship where the following occur: I choose not to answer Const General: no acute distress HENMT Head: Yes normal to inspection Mouth: Normal oral and palatal mucosa present Eyes General: appearance normal, both eyes and all related structures Neck Neck: Yes supple Resp Effort & Inspection: normal respiratory effort Auscultation: no wheezes and diminished lung sounds Cardio Rhythm: regular rhythm Heart sounds: S1 normal heart sound present and S2 normal heart sound present GI Inspection: Yes normal to inspection Palpation (GI): Soft to palpation Coding Level of Care Code Est Pt Level 4 (50914) Diagnoses Malignant neoplasm of right upper lobe of lung C34.11 Simple chronic bronchitis J41.0 COPD type: chronic bronchitis Chronic bronchitis type: simple Essential hypertension I10 Hypomagnesemia E83.42 Assessment & Plan Assessment & Plan (1) Malignant neoplasm of right upper lobe of lung: Onset Date: ~2017 Comment: (RUL Invasive Adenocarcinoma, Acinar type, 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), f/u thoracic surgeon Sweta, CT 10/2024 new fairly large area of consolidation with bronchiectasis and bronchiolectasis including posterolateral remaining right upper lobe and superior segment of the right lower lobe as well as small abnormalities in left lung, severe underlying emphysema Code(s): C34.11 - Malignant neoplasm of upper lobe, right bronchus or lung Category: Medical Plan: Patient will follow-up with thoracic surgeon and climatology professor Dr. Manley. (2) COPD (chronic obstructive pulmonary disease): Code(s): J44.9 - Chronic obstructive pulmonary disease, unspecified Category: Medical Qualifiers: COPD type: chronic bronchitis Chronic bronchitis type: simple Qualified Code(s): J41.0 - Simple chronic bronchitis Plan: Continue Trelegy and supplemental O2. Patient was advised to quit smoking (3) Essential hypertension: Code(s): I10 - Essential (primary) hypertension Category: Medical Plan: Continue lisinopril follow-up in 2 months (4) Hypomagnesemia: Code(s): E83.42 - Hypomagnesemia Category: Medical Plan: recheck magnesium level next week, increasing caloric intake well-balanced diet and supplementing with Ensure daily discussed with the patient. She was advised to avoid alcohol Orders: Orders TSH reflex Free T4 2 Months E83.42 - Hypomagnesemia, I10 - Essential (primary) hypertension, J41.0 - Simple chronic bronchitis Comprehensive [place]. Panel Fast 2 Months E83.42 - Hypomagnesemia, I10 - Essential (primary) hypertension, J41.0 - Simple chronic bronchitis Complete Blood Count Auto Diff 2 Months E83.42 - Hypomagnesemia, I10 - Essential (primary) hypertension, J41.0 - Simple chronic bronchitis Magnesium 2 Months E83.42 - Hypomagnesemia, I10 - Essential (primary) hypertension, J41.0 - Simple chronic bronchitis
--- OUTSIDE RECORDS SUMMARY | 2024-10-20 10:55 | XMS_ITS | Patient Health Record ---
[facility] Address [address] [place] [address] Care Team Providers Care Tap Builder Name Role Phone Elisa Clark MD Primary Care Provider Unavaila Elvira Hill Unavailable [phone] Allergies Allergen (clinical drug ingredient) Drug/Non Drug [...] days Active Ciclopirox 0.77 % 1 application Marketing Editor ally Twice a day for 365 days [...] Problem Status W/U Status Risk Notes Problem [id number] Atherosclerosi s of artery of both lower extremities (I70.203) Active confirmed Plan Of Treatment Pending Test Test Name Order Date *Liver Function Test (LFT) 05/12/2023 Insurance Providers Payer Name Payer Address Payer Phone Subscriber Number Group Number Insured Name Patient Relationship to Insured Coverage Start Date Coverage End Date [employer] [place] [address] [place] [phone] [id number] Yoshi Berry Spouse - patient is the spouse of the insured 3 Medical (General) History Medical History History ICD Code Arthritis asthma Back,Hip,and Knee pain Cancer High blood pressure Lung disease Numbness Reflux ( GERD) Chicken pox Anxiety Surgical History Surgery Date(Month/Year) Lung 2019
--- OUTSIDE RECORDS SUMMARY | 2024-10-20 10:55 | XMS_ITS | Encounter Summary ---
Author Organization [facility] Address [address] [place] [address] Care Team Providers Care Funnel Setter Name Role Phone Elisa Clark MD Primary Care Provider [phone] Reason for Referral * Imaging (Routine) - Authorized Specialty Diagnoses / Procedures Referred By Apolinar dominique Referred To Contact Radiology Diagnoses Multiple pulmonary nodules History of lung cancer Procedures CT Chest wo Contrast Shannan Crocker PA [address] [address] Phone: tel: fax: [facility] Referral ID Status Reason Start Date Expiration Date V isits Requested Visits Authorized [id number] Authorized 07/27/2024 01/24/2025 1 1 Reason for Visit * Imaging (Routine) - Authorized Specialty Diagnoses / Procedures Referred By Apolinar dominique Referred To Contact Radiology Diagnoses Multiple pulmonary nodules History of lung cancer Procedures CT Chest wo Contrast Shannan Crocker PA [address] [facility], [address] [address] Phone: tel: fax: [facility] Referral ID Status Reason Start Date Expiration Date V isits Requested Visits Authorized [id number] Authorized 07/27/2024 01/24/2025 1 1 Encounter Details Date Type Department Care Team (Latest Contact Info) Description 10/18/2024 8:14 AM EDT - 10/18/2024 11:59 PM EDT Hospital Encounter [facility] CT Scan [address] [place] [id number] Multiple pulmonary nodules; History of lung cancer Discharge Disposition: Home or Self Care Social History Tobacco Use Types Packs/Day Years Used Date Smoking Tobacco: Every Day Cigarettes 1 46.3 Started: 07/13/1978 Smokeless Tobacco: Never Alcohol Use Standard Drinks/Week Comments Yes 0 (1 standard drink = 0.6 oz pur e alcohol) Comments Unknown Sex and Gender Information Value Date Recorded Sex Assigned at Female 06/28/2024 2:20 PM EST Legal Sex Female 2:54 AM EST Gender Identity Female 06/28/2024 2:20 PM EST Sexual Orientation Straight 06/28/2024 2: 20 PM EST documented as of this encounter Medications at Time of Discharge albuterol HFA (PROAIR HFA ; PROVENTIL HFA ; VENTOLIN HFA) 90 mcg/actuation inhaler Inhale 2 puffs by mouth every 4 (four) hours if needed. atorvastatin (LIPITOR) 20 mg tablet Take 1 tablet (20 mg total) by mouth. fluticasone-umecl idinium-vilantero l (Trelegy Ellipta) 100-62.5-25 mcg inhaler Inhale 1 Puff into the lungs daily. lisinopriL (PRINIVIL,ZESTRIL ) 5 mg tablet Take 1 tablet (5 mg total) by mouth 1 (one) time each day. LORazepam (ATIVAN) 0.5 mg tablet Take 1 tablet (0.5 mg total) by mouth every 6 (six) hours if needed. Max Daily Amount: 2 mg omeprazole (PriLOSEC) [address] capsule 06/06/2021 traZODone (DESYREL) 50 mg tablet Take 1 Tablet by mouth at bedtime. documented as of this encounter Discharge Disposition Disposition Code Departure Means Destination Home or Self Care documented in this encounter Plan of Treatment Upcoming Encounters Date Type Department Care Team ([facility] st Contact Info) Description 10/27/2024 9:00 AM EDT Office Visit Thoracic Surgery - [place] [address] [facility] [address] [place] [phone] Shannan Crocker PA [address] [place] [address], [address] [place] [address] [phone] (work) documented as of this encounter Procedures Procedure Name Priority Date/Time Associated Diagnosis Comments CT CHEST WO CONTRAST Routine 10/18/2024 8:21 AM EDT Multiple pulmonary nodules History of lung cancer documented in this encounter Results * CT Chest wo Contrast (10/18/2024 8:21 AM EDT) Anatomical Region Laterality Modality Body Computed Tomogra phy 10/20/2024 8:07 AM EDT Impressions 10/20/2024 8:23 AM EDT The study is limited by motion. ??There is marked interval worsening. ??There is severe underlying emphysema. There are new fairly large areas of consolidation with bronchiectasis and bronchiolectasis including the posterolateral remaining right upper lung and the superior segment of the right lower lobe as well as smaller abnormalities in the left lung. ??There is airway thickening. ??There is underlying bronchiectasis. Possibilities include acute necrotizing pneumonia. ?? Underlying atypical infectious causes should be considered. -------- FINAL REPORT -------- Dictated By: Tom Claudio Dictated Date: 10/20/2024 08:07 ET Assigned Physician: Tom Claudio Reviewed and Electronically Signed By: Tom Claudio Signed Date: 10/20/2024 08:23 ET Workstation ID: [id number] Transcribed By: Self Edit Transcribed Date: 10/20/2024 08:07 ET Narrative 10/20/2024 8:23 AM EDT EXAMINATION: CT CHEST WITHOUT CONTRAST CLINICAL INFORMATION: History of lung cancer. ??Multiple new pulmonary nodules. Current smoker with severe COPD, who had a robotic RUL wedge resection for stage I lung cancer in July 2018. ??On subsequent surveillance CT scans she was noted to have a suspicious nodule which was biopsied via navigational bronchoscopy and did not show any malignancy. COMPARISON: Portions of a previous CT 07/05/24 ?? TECHNIQUE: Multidetector CT. Examination of the chest. Examination of the chest without IV contrast. Reformatting in the coronal and sagittal planes. DLP: 318 mGy-cm Dose optimization was performed including the use of low-dose iterative reconstruction technique with automatic exposure control based on patient size. Type of contrast: None Volume of IV contrast: None Volume of contrast discarded: 0 mL FINDINGS: LUNG: There is narrowing the transverse diameter of the trachea which can be seen with chronic obstructive pulmonary disease. There is metallic suture consistent with prior resection of a portion of the right upper lobe. Marked interval worsening. There is a moderate area of consolidation with bronchiectasis extending to the periphery of the remaining right upper lobe laterally. ??This is essentially new. There is a large area of consolidation with scattered internal gas lucencies likely dilated airways in the superior segment of the right lower lobe. ??This is a new finding. There are localized abnormality surrounding dilated airways in the right perihilar region of the right upper lobe anteriorly. ??There are scattered peripheral opacities with distorted airways in the right lower lobe. Slight interval improvement in an area of consolidation surrounding some dilated airways in the lateral aspect of the left lower lobe. Localized abnormality with distortion of the left major fissure involving the superior segment of the left lower lobe which has slightly increased in size. There is motion artifact but there is severe underlying centrilobular emphysema. No large fluid levels. ?? MEDIASTINUM: ??Nonenlarged lymph nodes at the base of the neck. ??There are some prevascular lymph nodes which appear similar. ??The right hilum is not optimally evaluated but grossly within normal limits. CARDIAC: The heart is not enlarged. No pericardial fluid or thickening ?? CORONARY CALCIFICATION: ??There are moderate coronary calcifications. VASCULAR: There is no thoracic aortic aneurysm. ??The central pulmonary arteries are top normal. ?? PLEURA: There is no pleural fluid or pneumothorax. ??As described some of the areas of consolidation and airways disease extends the pleural reflection. ?? AXILLA/CHEST WALL: There are no enlarged axillary lymph nodes. No chest wall mass demonstrated ?? VISUALIZED UPPER ABDOMEN: ??No suspicious abnormality on limited assessment of the visualized upper abdomen. ??No change in trace thickening at the apex of the left adrenal gland. MUSCULOSKELETAL: No suspicious focal bony lesion. ??Probable hemangioma right side L1. ??Unchanged nonspecific small area of sclerosis spinous process T1. Procedure Note Tom Claudio MD - 10/20/2024 EXAMINATION: CT CHEST WITHOUT CONTRAST CLINICAL INFORMATION: History of lung cancer. Multiple new pulmonary nodules. Current smoker with severe COPD, who had a robotic RUL wedge resection forstage I lung cancer in July 2018. On subsequent surveillance CT scansshe was noted to have a suspicious nodule which was biopsied vianavigational bronchoscopy and did not show any malignancy. COMPARISON: Portions of a previous CT 07/05/24 TECHNIQUE: Multidetector CT. Examination of the chest. Examination of the chest without IV contrast. Reformatting in the coronal and sagittal planes. DLP: 318 mGy-cm Dose optimization was performed including the use of low-dose iterativereconstruction technique with automatic exposure control based on patientsize. Type of contrast: None Volume of IV contrast: None Volume of contrast discarded: 0 mL FINDINGS: LUNG: There is narrowing the transverse diameter of the trachea which canbe seen with chronic obstructive pulmonary disease. There is metallicsuture consistent with prior resection of a portion of the right upperlobe. Marked interval worsening. There is a moderate area of consolidation with bronchiectasis extending tothe periphery of the remaining right upper lobe laterally. This isessentially new. There is a large area of consolidation with scattered internal gaslucencies likely dilated airways in the superior segment of the rightlower lobe. This is a new finding. There are localized abnormality surrounding dilated airways in the rightperihilar region of the right upper lobe anteriorly. There are scatteredperipheral opacities with distorted airways in the right lower lobe. Slight interval improvement in an area of consolidation surrounding somedilated airways in the lateral aspect of the left lower lobe. Localized abnormality with distortion of the left major fissure involvingthe superior segment of the left lower lobe which has slightly increasedin size. There is motion artifact but there is severe underlying centrilobularemphysema. No large fluid levels. MEDIASTINUM: Nonenlarged lymph nodes at the base of the neck. There aresome prevascular lymph nodes which appear similar. The right hilum is notoptimally evaluated but grossly within normal limits. CARDIAC: The heart is not enlarged. No pericardial fluid or thickening CORONARY CALCIFICATION: There are moderate coronary calcifications. VASCULAR: There is no thoracic aortic aneurysm. The central pulmonaryarteries are top normal. PLEURA: There is no pleural fluid or pneumothorax. As described some ofthe areas of consolidation and airways disease extends the pleuralreflection. AXILLA/CHEST WALL: There are no enlarged axillary lymph nodes. No chestwall mass demonstrated VISUALIZED UPPER ABDOMEN: No suspicious abnormality on limited assessmentof the visualized upper abdomen. No change in trace thickening at theapex of the left adrenal gland. MUSCULOSKELETAL: No suspicious focal bony lesion. Probable hemangiomaright side L1. Unchanged nonspecific small area of sclerosis spinousprocess T1. IMPRESSION: The study is limited by motion. There is marked interval worsening.There is severe underlying emphysema. There are new fairly large areas of consolidation with bronchiectasis andbronchiolectasis including the posterolateral remaining right upper lungand the superior segment of the right lower lobe as well as smallerabnormalities in the left lung. There is airway thickening. There isunderlying bronchiectasis. Possibilities include acute necrotizing pneumonia. Underlying atypical infectious causes should be considered. -------- FINAL REPORT -------- Dictated By: Tom Claudio Dictated Date: 10/20/2024 08:07 ET Assigned Physician: Tom Claudio Reviewed and Electronically Signed By: Tom Claudio Signed Date: 10/20/2024 08:23 ET Workstation ID: [id number] Transcribed By: Self Edit Transcribed Date: 10/20/2024 08:07 ET Shannan WILLIS IMG CT PROCEDURES Final Resul t documented in this encounter Visit Diagnoses Diagnosis Multiple pulmonary nodules Other diseases of lung, not elsewhere classified History of lung cancer Personal history of malignant neoplasm of bronchus and lung documented in this encounter Care Teams Funnel Setter Relationship Specialty Start Date End Date Elisa Clark MD [address] [place] [phone] PCP - General Internal Medicine 10/18/24 documented as of this encounter
--- OUTSIDE RECORDS SUMMARY | 2024-10-20 10:55 | XMS_ITS ---
Author Organization [facility] Address [address] [place] [address] Care Team Providers Care Slitting Machine Feeder Name Role Phone Elisa Clark MD Primary Care Provider UnavailElvira Mcdonald [phone] REASON FOR VISIT 08/11/23 appt Encounters Encounter Location Date Provider Diagnosis [facility] [address] [facility] [address] [place] [phone] 07/20/2023 Elvira Mart Plan Of Treatment No Information Progress Notes * Sully RAO MDOB:[birth year] (57 yo F)Acc No.[id number]:07/20/2023 Patient:?Sully Rao :1965???Age:57 Y???Sex:Female Address:[address] [place] [address], [address] * true * Date:? Generated for Russell rosado/Samanta/eTransmitting on:?10/20/2024 10:55 AM EDT
--- OUTSIDE RECORDS SUMMARY | 2024-10-20 10:55 | XMS_ITS | Clinical Summary ---
Author Organization [facility] Address [address] [place] [address] Phone Care Team Providers Care Graphic Engineer Name Role Phone Elisa Clark MD Primary Care Provider [phone] Allergies Active Allergy Reactions Criticality Noted Date [...] Noted Date Diagnosed Date COPD (chronic obstructive pu lmonary disease) ([facility] V24, 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 Is requesting referral to [facility] as this is closer to her. Referral [...] general and how their size, shape, and knife changer time affect her level of suspicion [...] Encounters Date Type Department Care Team Description 10/18/2024 8:14 AM EDT - 10/18/2024 11:59 PM EDT Hospital Encounter [facility] CT Scan [address] [place] [address] Multiple pulmonary nodules; History of lung cancer Discharge Disposition: Home or Self Care from Last 3 Months Surgical History Surgery Date Site/Laterality Comments OTHER SURGICAL HISTORY 06/2018 N/A PROCEDURE: PULMONOLOGY BRONCHOSCOPY COLONOSCOPY 03/2017 N/A PROCEDURE: HISTORICAL COLONOSCOPY TONSILLECTOMY N/A PROCEDURE: HISTORICAL TONSILLECTOMY OTHER SURGICAL HISTORY 08/12/2018 PROCEDURE: MS THORACOSCOPY W/THERA WEDGE RESEXN INITIAL UNILAT; COMMENT: RUL Wedge - Invasive Adenocarcinoma (pT1bN0) Medical History Medical History Date Comments Anxiety disorder DX:Anxiety diso rder COPD (chronic obstructive pu lmonary disease) ([facility] V24, [facility] V28) DX:COPD (chronic o bstructive pulmonary disease) ([facility]) Depression DX:Depression History of seizure DX:History of seizure Hyperlipidemia DX:Hyperlipidemi a Low back pain DX:Low back pain Malignant neoplasm of right upper lobe of lung ([facility] V24, [facility] V28) DX:Malignant neopla sm of right upper lobe of lung ([facility]) Neck pain DX:Neck pain On home O2 [...] Upcoming Encounters Date Type Department Care Team ([facility] st Contact Info) Description 10/27/2024 9:00 AM EDT Office Visit Thoracic Surgery - [place] [address] [facility] [address] [place] [phone] Shannan Crocker PA [address] [facility], [address] [place] [address] Health Maintenance Due Date Last Done Comments Breast Cancer Screening 1964 Zoster Vaccines (1 of 2) 1983 Cervical Cancer Screening: Pap Smear 1985 Cholesterol Screening (Lipid Panel) 06/15/2022 Colorectal Cancer [...] Completed 04/12/2024, , 04/06/2021, Additional history exists Pneumococcal Vaccine: 50+ Years Completed 09/30/2024, 05/20/2018 Pneumococcal Vaccine: Pediatrics (0 to 5 Years) and At-Risk Patients (6 to 64 Years) Completed 09/30/2024, 05/20/2018 HIB Vaccines Aged Out No longer eligi [...] age to complete this topic Meningococcal B Vaccine Aged Out No l onger eligible based on patient's age to complete [...] Multiple pulmonary nodules History of lung cancer from Last 3 Months Results * CT Chest wo Contrast (10/18/2024 [...] Signed Date: 10/20/2024 08:23 ET Workstation ID: [id number] Transcribed By: Self Edit Transcribed Date: 10/20/2024 [...] Signed Date: 10/20/2024 08:23 ET Workstation ID: [id number] Transcribed By: Self Edit Transcribed Date: 10/20/2024 08:07 ET Shannan WILLIS IMG CT PROCEDURES Final Resul t from Last 3 Months Insurance [facility] Prizzm PLAN Care Teams Graphic Engineer Relationship Specialty Start Date End Date Elisa Clark MD [address] [place] [address] PCP - General Internal Medicine 10/18/24
--- OUTSIDE RECORDS SUMMARY | 2024-10-20 10:55 | XMS_ITS ---
Author Organization [facility] Address [address] [place] [address] Care Team Providers Care Handtools Repairer Name Role Phone Elisa Clark MD Primary Care Provider Elvira Betancourt [phone] Encounters Encounter Location Date Provider Diagnosis [address] [address] 08/11/2023 Elvira Mart Plan Of Treatment No Information Progress Notes * Sully RAO MDOB:[birth year] (59 yo F)Acc No.[id number]:08/11/2023 Progress Note Patient:?Sully RAO Provider:?Elvira Mart DPM :1965???Age:57 Y???Sex:Female D ate:08/11/2023 Address:[address] [place], [place] [phone] Pcp:Elisa Clark MD Subjective: * Chief Complaints: [...] Mart DPM Date:? Generated for Russell rosado/Samanta/eTransmitting on:?10/20/2024 10:54 AM EDT
--- OUTSIDE RECORDS SUMMARY | 2024-10-20 10:56 | XMS_ITS ---
Author Organization [facility] Address [address] [facility] [place] [address] Care Team Providers Care Gis Scientist Name Role Phone Elisa Clark MD Primary Care Provider Unavaila Elvira Hill Unavailable [phone] Allergies Allergen (clinical drug ingredient) Drug/Non Drug [...] 30 Active Ciclopirox 0.77 % 1 application Supervisor Plate Forming ally Twice a day for 365 days [...] Problem Status W/U Status Risk Notes Problem [id number] Atherosclerosi s of artery of both lower extremities (I70.203) Active confirmed Vital Signs Height 5 ft 5 in in 05/12/2023 Weight 110 lbs 05/12/2023 BMI 18.30 kg/m2 05/12/2023 Encounters Encounter Location Date Provider Diagnosis [facility] [address] 05/12/2023 Elvira Mart Fungal infection of nail [...] 30 days Ciclopirox 0.77 % 1 application Supervisor Plate Forming ally Twice a day for 365 days [...] as necessary. Patient chooses, no pharmaceutical tx ([address]407) Progress Notes * Sully RAO MDOB:[birth year] (57 yo F)Acc No.[id number]:05/12/2023 Progress Notes Patient:?Sully Rao Provider:?Elvira Mart DPM :1965???Age:57 Y???Sex:Female D ate:05/12/2023 Address:[address] [place], [place] [phone] Pcp:Elisa Clark MD Subjective: * Chief Complaints: [...] as necessary. Patient chooses, no pharmaceutical tx (48711).? * Procedure Codes:? * Preventive Medicine:? ??Counseling:?Discussion:?-03: [...] Mart DPM Date:? Generated for Russell rosado/Samanta/Servando on:?10/20/2024 10:55 AM EDT History and Physical Notes * [...]
== END 2024-10-20 11:55 | disposition home or self-care (01) ==
LOC: HO.HMCC 09:41
PROVIDERS: PCP Internal Medicine; Visit Provider Internal Medicine
DX: C34.11 Malignant neoplasm of upper lobe, right bronchus or lung (principal); J41.0 Simple chronic bronchitis; I10 Essential (primary) hypertension; E83.42 Hypomagnesemia

== ENCOUNTER → 2024-10-20 09:41 | Outpatient (BNVA) | payer OTHER, SELFPAY | PROVIDERS: PCP Internal Medicine; Visit Provider Internal Medicine | DX: C34.11 Malignant neoplasm of upper lobe, right bronchus or lung (principal); J41.0 Simple chronic bronchitis; I10 Essential (primary) hypertension; E83.42 Hypomagnesemia | CPT/HCPCS: 99212 ==

== ENCOUNTER 2024-10-21 08:00 | Outpatient (REF) | payer OTHER, SELFPAY ==
--- OUTSIDE RECORDS SUMMARY | 2024-10-21 09:25 | XMS_ITS | Clinical Summary ---
Author Organization [facility] Address [address] [place] [address] Phone Care Team Providers Care Human Factors Engineer Name Role Phone Elisa Clark MD Primary Care Provider [phone] Allergies Active Allergy Reactions Criticality Noted Date [...] Date COPD (chronic obstructive pu lmonary disease) ([facility] V24, [facility] V28) 07/22/2024 Assessment & Plan (07/22/2024 2:18 PM EST): Patient states that her interlibrary loan specialist has retired and is looking for a new interlibrary loan specialist. Is requesting referral to Sruthi as this [...] general and how their size, shape, and military exchange wireless manager time affect her level of suspicion for [...] - 10/18/2024 11:59 PM EDT Hospital Encounter [facility] CT Scan [address] [place] [address] Multiple pulmonary nodules; History of lung cancer Discharge Disposition: Home or Self Care from Last 3 Months Surgical History Surgery Date Site/Laterality Comments OTHER SURGICAL HISTORY 06/2018 N/A PROCEDURE: PULMONOLOGY BRONCHOSCOPY COLONOSCOPY 03/2017 N/A PROCEDURE: HISTORICAL COLONOSCOPY TONSILLECTOMY N/A PROCEDURE: HISTORICAL TONSILLECTOMY OTHER SURGICAL HISTORY 08/12/2018 PROCEDURE: CA THORACOSCOPY W/THERA WEDGE RESEXN INITIAL UNILAT; COMMENT: RUL Wedge - Invasive Adenocarcinoma (pT1bN0) Medical History Medical History Date Comments Anxiety disorder DX:Anxiety diso rder COPD (chronic obstructive pu lmonary disease) ([facility] V24, [facility] V28) DX:COPD (chronic o bstructive pulmonary disease) ([facility]) Depression DX:Depression History of seizure DX:History of seizure Hyperlipidemia DX:Hyperlipidemi a Low back pain DX:Low back pain Malignant neoplasm of right upper lobe of lung ([facility] V24, [facility] V28) DX:Malignant neopla sm of right upper lobe of lung ([facility]) Neck pain DX:Neck pain On [...] Upcoming Encounters Date Type Department Care Team ([facility] st Contact Info) Description 10/27/2024 9:00 AM EDT Office Visit Thoracic Surgery - [place] [address] [facility] [address] [place] [address] [phone] Shannan Crocker PA [address] [facility], [address] [place] [address] Health Maintenance Due Date Last Done Comments [...] Signed Date: 10/20/2024 08:23 ET Workstation ID: [id number] Transcribed By: Self Edit Transcribed Date: 10/20/2024 [...] Signed Date: 10/20/2024 08:23 ET Workstation ID: [id number] Transcribed By: Self Edit Transcribed Date: 10/20/2024 08:07 ET Shannan WILLIS IMG CT PROCEDURES Final Resul t from Last 3 Months Insurance [facility] Inter[employer] PLAN Care Teams Human Factors Engineer Relationship Specialty Start Date End Date Elisa Clark MD [address] [place] [address] PCP - General Internal Medicine 10/18/24
--- OUTSIDE RECORDS SUMMARY | 2024-10-21 09:25 | XMS_ITS | Encounter Summary ---
Author Organization [facility] Address [address] [place] [address] Care Team Providers Care Senior Web Designer Name Role Phone Elisa Clark MD Primary Care Provider [phone] Reason for Referral * Imaging (Routine) - Authorized Specialty Diagnoses / Procedures Referred By Apolinar dominique Referred To Contact Radiology Diagnoses Multiple pulmonary nodules History of lung cancer Procedures CT Chest wo Contrast Shannan Crocker PA [address] [address] Phone: tel: fax: [facility] Referral ID Status Reason Start Date Expiration Date V isits Requested Visits Authorized [id number] Authorized 07/27/2024 01/24/2025 1 1 Reason for Visit * Imaging (Routine) - Authorized Specialty Diagnoses / Procedures Referred By Apolinar dominique Referred To Contact Radiology Diagnoses Multiple pulmonary nodules History of lung cancer Procedures CT Chest wo Contrast Shannan Crocker PA [address] [facility], [address] [address] Phone: tel: fax: [facility] Referral ID Status Reason Start Date Expiration Date V isits Requested Visits Authorized [id number] Authorized 07/27/2024 01/24/2025 1 1 Encounter Details Date Type Department Care Team (Latest Contact Info) Description 10/18/2024 8:14 AM EDT - 10/18/2024 11:59 PM EDT Hospital Encounter [facility] CT Scan [address] [place] [phone] Multiple pulmonary nodules; History of lung cancer [...] Upcoming Encounters Date Type Department Care Team ([facility] st Contact Info) Description 10/27/2024 9:00 AM EDT Office Visit Thoracic Surgery - [place] [address] [facility] [address] [place] [phone] Shannan Crocker PA [address] [place] [address], [address] [place] [address] [phone] (work) documented as of this encounter Procedures [...] Signed Date: 10/20/2024 08:23 ET Workstation ID: [id number] Transcribed By: Self Edit Transcribed Date: 10/20/2024 [...] Signed Date: 10/20/2024 08:23 ET Workstation ID: [id number] Transcribed By: Self Edit Transcribed Date: 10/20/2024 08:07 ET Shannan WILLIS IMG CT PROCEDURES Final Resul t documented in this encounter Visit Diagnoses Diagnosis Multiple pulmonary nodules Other diseases of lung, not elsewhere classified History of lung cancer Personal history of malignant neoplasm of bronchus and lung documented in this encounter Care Teams Senior Web Designer Relationship Specialty Start Date End Date Elisa Clark MD [address] [place] [phone] PCP - General Internal Medicine 10/18/24 documented as of this encounter
== END 2024-10-21 08:01 | disposition home or self-care (01) ==
LOC: HO.LNP 08:00
PROVIDERS: PCP Internal Medicine; Visit Provider Hospitalist
DX: R91.1 Solitary pulmonary nodule (principal); J44.9 Chronic obstructive pulmonary disease, unspecified; J41.0 Simple chronic bronchitis; C34.11 Malignant neoplasm of upper lobe, right bronchus or lung; Z90.2 Acquired absence of lung [part of]; F17.200 Nicotine dependence, unspecified, uncomplicated
CPT/HCPCS: 87070; 87116; 87205; 87206; 94640; 99212

== ENCOUNTER 2024-10-21 08:00 | Outpatient (AMB) | payer OTHER, SELFPAY ==
--- OUTSIDE RECORDS SUMMARY | 2024-10-21 08:03 | XMS_ITS | Encounter Summary ---
Author Organization [facility] Address [address] [place] [address] Care Team Providers Care Field Laboratory Operator Name Role Phone Elisa Clark MD Primary Care Provider [phone] Reason for Referral * Imaging (Routine) - Authorized Specialty Diagnoses / Procedures Referred By Apolinar dominique Referred To Contact Radiology Diagnoses Multiple pulmonary nodules History of lung cancer Procedures CT Chest wo Contrast Shannan Crocker PA [address] [address] Phone: tel: fax: [facility] Referral ID Status Reason Start Date Expiration Date V isits Requested Visits Authorized [id number] Authorized 07/27/2024 01/24/2025 1 1 Reason for Visit * Imaging (Routine) - Authorized Specialty Diagnoses / Procedures Referred By Apolinar dominique Referred To Contact Radiology Diagnoses Multiple pulmonary nodules History of lung cancer Procedures CT Chest wo Contrast Shannan Crocker PA 299 [facility], [address] [address] Phone: tel: fax: [facility] Referral ID Status Reason Start Date Expiration Date V isits Requested Visits Authorized [id number] Authorized 07/27/2024 01/24/2025 1 1 Encounter Details Date Type Department Care Team (Latest Contact Info) Description 10/18/2024 8:14 AM EDT - 10/18/2024 11:59 PM EDT Hospital Encounter [facility] CT Scan [address] [place] [phone] Multiple pulmonary nodules; History of lung cancer [...] Upcoming Encounters Date Type Department Care Team ([facility] st Contact Info) Description 10/27/2024 9:00 AM EDT Office Visit Thoracic Surgery - [place] 299 [facility] [address] [place] [phone] Shannan Crocker PA [address] [place] [address], [address] [place] [address] [phone] (work) documented as of this encounter Procedures [...] Signed Date: 10/20/2024 08:23 ET Workstation ID: [id number] Transcribed By: Self Edit Transcribed Date: 10/20/2024 [...] Signed Date: 10/20/2024 08:23 ET Workstation ID: [id number] Transcribed By: Self Edit Transcribed Date: 10/20/2024 08:07 ET Shannan WILLIS IMG CT PROCEDURES Final Resul t documented in this encounter Visit Diagnoses Diagnosis Multiple pulmonary nodules Other diseases of lung, not elsewhere classified History of lung cancer Personal history of malignant neoplasm of bronchus and lung documented in this encounter Care Teams Field Laboratory Operator Relationship Specialty Start Date End Date Elisa Clark MD [address] [place] [phone] PCP - General Internal Medicine 10/18/24 documented as of this encounter
--- OUTSIDE RECORDS SUMMARY | 2024-10-21 08:03 | XMS_ITS ---
Author Organization [facility] Address [address] [place] [phone] Care Team Providers Care Tool Sharpener Name Role Phone Elisa Clark MD Primary Care Provider Elvira Betancourt [phone] Encounters Encounter Location Date Provider Diagnosis [address] [address] 08/11/2023 Elvira Mart Plan Of Treatment No Information Progress Notes * Sully RAO MDOB:[birth year] (59 yo F)Acc No.[id number]:08/11/2023 Progress Note Patient:?Sully RAO Provider:?Elvira Mart DPM :1965???Age:57 Y???Sex:Female D ate:08/11/2023 Address:[address] [place], [place] [phone] Pcp:Elisa Clark MD Subjective: * Chief Complaints: [...] Mart DPM Date:? Generated for Russell rosado/Samanta/eTransmitting on:?10/21/2024 08:03 AM EDT
--- OUTSIDE RECORDS SUMMARY | 2024-10-21 08:03 | XMS_ITS | Clinical Summary ---
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 Is requesting referral to [facility] as this [...] general and how their size, shape, and filter changer time affect her level of suspicion [...] [facility] CT Scan [address] [place] [address] Multiple pulmonary nodules; History of lung cancer Discharge Disposition: Home or Self Care from Last 3 Months Surgical History Surgery Date Site/Laterality Comments OTHER SURGICAL HISTORY 06/2018 N/A PROCEDURE: PULMONOLOGY BRONCHOSCOPY COLONOSCOPY 03/2017 N/A PROCEDURE: HISTORICAL COLONOSCOPY TONSILLECTOMY N/A PROCEDURE: HISTORICAL TONSILLECTOMY OTHER SURGICAL HISTORY 08/12/2018 PROCEDURE: [place] THORACOSCOPY W/THERA WEDGE RESEXN INITIAL UNILAT; COMMENT: RUL Wedge - Invasive Adenocarcinoma (pT1bN0) Medical History Medical History Date Comments Anxiety disorder DX:Anxiety diso rder COPD (chronic obstructive pu lmonary disease) ([facility] V24, [facility] V28) DX:COPD (chronic o bstructive pulmonary disease) ([facility]) Depression DX:Depression History of seizure DX:History of seizure Hyperlipidemia DX:Hyperlipidemi a Low back pain DX:Low back pain Malignant neoplasm of right upper lobe of lung ([facility] V24, [facility] V28) DX:Malignant neopla sm of right upper lobe of lung ([facility]) Neck pain DX:Neck pain On home O2 [...] Upcoming Encounters Date Type Department Care Team ([facility] st Contact Info) Description 10/27/2024 9:00 AM EDT Office Visit Thoracic Surgery - [place] 299 [facility] [address] [place] [phone] Shannan Crocker PA [address] [facility], [address] [place] [address] Health Maintenance Due Date Last Done Comments [...] Signed Date: 10/20/2024 08:23 ET Workstation ID: [id number] Transcribed By: Self Edit Transcribed Date: 10/20/2024 [...] Signed Date: 10/20/2024 08:23 ET Workstation ID: [id number] Transcribed By: Self Edit Transcribed Date: 10/20/2024 08:07 ET Shannan WILLIS IMG CT PROCEDURES Final Resul t from Last 3 Months Insurance [facility] [place] [address] Care Teams Resident Surgeon Relationship Specialty Start Date End Date Elisa Clark MD [address] [place] [phone] PCP - General Internal Medicine 10/18/24
--- OUTSIDE RECORDS SUMMARY | 2024-10-21 08:04 | XMS_ITS ---
Author Organization [facility] Address [address] [facility] [place] [address] Care Team Providers Care Bridge Welder Name Role Phone Elisa Clark MD Primary Care Provider Unavaila Elvira Hill Unavailable [phone] Allergies Allergen (clinical drug ingredient) Drug/Non Drug [...] 30 Active Ciclopirox 0.77 % 1 application Global Engineering Manager ally Twice a day for 365 days [...] Problem Status W/U Status Risk Notes Problem [id number] Atherosclerosi s of artery of both lower extremities (I70.203) Active confirmed Vital Signs Height 5 ft 5 in in 05/12/2023 Weight 110 lbs 05/12/2023 BMI 18.30 kg/m2 05/12/2023 Encounters Encounter Location Date Provider Diagnosis [facility] [address] 05/12/2023 Elvira Mart Fungal infection of nail [...] 30 days Ciclopirox 0.77 % 1 application Global Engineering Manager ally Twice a day for 365 days [...] as necessary. Patient chooses, no pharmaceutical tx (68834) Progress Notes * Sully RAO MDOB:[birth year] (57 yo F)Acc No.[id number]:05/12/2023 Progress Notes Patient:?Sully Rao Provider:?Elvria Mart DPM :1965???Age:57 Y???Sex:Female D ate:05/12/2023 Address:[address] [place], [place] [phone] Pcp:Elisa Clark MD Subjective: * Chief Complaints: [...] as necessary. Patient chooses, no pharmaceutical tx (08843).? * Procedure Codes:? * Preventive Medicine:? ??Counseling:?Discussion:?-03: [...] * Provider:?Elvira Mart DPM Date:? Generated for uRssell rosado/Samanta/Servando on:?10/21/2024 08:04 AM EDT History and Physical Notes * [...]
--- OUTSIDE RECORDS SUMMARY | 2024-10-21 08:04 | XMS_ITS | Patient Health Record ---
Author Organization [facility] Address [address] [facility] [place] [address] Care Team Providers Care History Department Chair Name Role Phone Elisa Clark MD Primary Care Provider Unavaila Elvira Hill Unavailable [phone] Allergies Allergen (clinical drug ingredient) Drug/Non Drug [...] days Active Ciclopirox 0.77 % 1 application Meal Room Hand ally Twice a day for 365 days [...] Problem Status W/U Status Risk Notes Problem [id number] Atherosclerosi s of artery of both lower extremities (I70.203) Active confirmed Plan Of Treatment Pending Test Test Name Order Date *Liver Function Test (LFT) 05/12/2023 Insurance Providers Payer Name Payer Address Payer Phone Subscriber Number Group Number Insured Name Patient Relationship to Insured Coverage Start Date Coverage End Date Orem Johnston [address] [place] [phone] [id number] Yoshi Berry Spouse - patient is the spouse of the insured 3 Medical (General) History Medical History History ICD Code Arthritis asthma Back,Hip,and Knee pain Cancer High blood pressure Lung disease Numbness Reflux ( GERD) Chicken pox Anxiety Surgical History Surgery Date(Month/Year) Lung 2019
--- OUTSIDE RECORDS SUMMARY | 2024-10-21 08:04 | XMS_ITS ---
Author Organization [facility] Address [address] [place] [address] Care Team Providers Care Commutator Repairer Name Role Phone Elisa Clark MD Primary Care Provider UnavailElvira Mcdonald [phone] REASON FOR VISIT 08/11/23 appt Encounters Encounter Location Date Provider Diagnosis [facility] [address] [facility] [address] [place] [phone] 07/20/2023 Elvira Mart Plan Of Treatment No Information Progress Notes * Sully RAO MDOB:[birth year] (57 yo F)Acc No.[id number]:07/20/2023 Patient:?Sully Rao :1965???Age:57 Y???Sex:Female Address:[address] [place] [address], [address] * true * Date:? Generated for Russell rosado/Samanta/eTransmitting on:?10/21/2024 08:03 AM EDT
[2024-10-21 08:10] VITALS: BP 138/60; PULSE 95; O2SAT 96; BMI 18.3
--- NOTE | 2024-10-21 08:10 | A.OFFVIS_ITS ---
Vital Signs 10/21/24 08:10 Height 5 ft 5 in Weight 110 lb BMI 18.3 BP 138/60 Blood Pressure Location Lt brachial Position Sitting Pulse 95 Pulse Source Pulse Oximeter Pulse Oximetry (%) 96 Oxygen Delivery Method Room Air Intake Visit Reasons: Pulmonary nodule Allergies apple [Apple] Allergy (Severe, Verified 10/21/24 08:12) TONGUE SWELLS penicillin V Allergy (Unknown, Verified 10/21/24 08:12) unknown - childhood Penicillins [PENICILLINS] Allergy (Unknown, Verified 10/21/24 08:12) UNKNOWN-CHILDHOOD ALLERGY HPI Comments Details: The patient is a 59 year woman with a known history of tobacco dependency, COPD and history of lung cancer. She did undergo a right upper lobectomy many years ago with curative intent. Now she has some pulmonary nodules on the left lower lobe that are being monitored. She is followed closely by thoracic surgery at [facility]. Unfortunately she does have severe COPD. And also has significantly decreased diffusing capacity. She does use oxygen at nighttime. She does get shortness of breath with activity. Especially going up a flight of stairs. Moderate severity. We did go for brief walking oximetry and she actually did great maintaining a pulse ox of 95% throughout the ambulation speaking in full sentences without any shortness of breath. Therefore, the patient does not require supplemental oxygen at this time. She is going to follow up with a repeat CT scan in October at [facility] to figure out what to do with the irregular left lower lobe pulmonary nodule. She is currently on Trelegy which is perfectly fine. She has to quit smoking altogether she is aware that. Will follow-up in 4-6 months. If she has any issues prior to that she will call for an earlier assessment. 10/21/2024 the patient is here for a urgent follow-up visit. Apparently the patient with the usual state health until recently started developing increased nausea and fatigue. She also has productive phlegm usually clear in color. Significant amount. She is coughing the whole day. Sometimes she chokes help with her saliva. The patient is following closely with thoracic surgery since her history of lung cancer. The patient did have a CT scan order at [facility] which was done 10/20/2024. Apparently was rather does consolidation the right upper lobe area along with bronchiectatic changes bronchiectatic changes in addition to areas of necrotizing disease. I do not have the images I did request a [facility]. She does have an appointment with thoracic surgery in a week. In the office her lung exam is fairly diminished. No significant crackles appreciated. We did provide him a P present nebulized solution and did provide her sputum culture for both AFB and Gram stain and culture. The patient will start Levaquin for now. She will follow-up next week with thoracic surgery. I did send a message to them as well to be aware of the abnormal findings. The patient may indeed need a bronchoscopy. She can either have that there or here. [facility] Medical History Lower back pain Neck pain Restless leg syndrome History of seizure On home O2 Osteopenia Malignant neoplasm of right upper lobe of lung (~2017) Tobacco dependence COPD (chronic obstructive pulmonary disease) Depression Anxiety Hyperlipemia Surgical History History of colonoscopy (~03/2017) History of bronchoscopy (~06/2018) History of lung surgery (~07/2018) History of tonsillectomy Family History Father Alcohol abuse Maternal Aunt Breast cancer Sister Breast cancer Brother Skin cancer Other Mental health disorder Substance use disorder Social History Household Members: Significant Other Housing: House Do you presently have visiting nurse or other home services: No Alcohol intake: current Alcohol intake frequency: a few times a week Patient Tobacco Use Status: Current someday Tobacco user (January 2024) Tobacco use type: Cigar Cigarettes Per Day: 2 Years Smoked: 43 (onset 12yo) e-Cigarette/Vaping Use: Currently Using Second Hand Smoke Exposure: No Substance Use Type: Marijuana service: No Current occupational status: unemployed Cognitive needs: No Hearing needs: No Vision needs: Yes Review of Systems Const All systems reviewed & are unremarkable except as noted in HPI and below Denies fever(s) Eyes Reports no additional complaints ENT Reports nasal congestion Card Denies chest pain and Reports dyspnea on exertion Resp Reports change in phlegm color, Reports chest congestion, Reports cough, Denies hemoptysis, Reports excessive phlegm production and Reports dyspnea on exertion GI Denies abdominal pain Musc Reports back pain Skin/Breast Denies rash Fam/Lymph Denies easy bleeding Physical Exam Vital Signs: Last Vital Signs Pulse 95 10/21/24 08:10 BP 138/60 10/21/24 08:10 Pulse Ox 96 10/21/24 08:10 Oxygen Delivery Method Room Air 10/21/24 08:10 BMI result Body Mass Index 18.3 Const General: cooperative, healthy appearing, comfortable and no acute distress Orientation/consciousness: patient oriented x3 Limitations: no limitations HEENT Head: Yes normal to inspection Ears: hearing grossly normal bilaterally, external ears normal and TM's normal bilaterally General nose exam: Normal external nose present, Normal nares present and No nasal discharge present Face and sinus: Yes normal facial exam and Yes sinuses nontender Mouth: Normal oral and palatal mucosa present and moist mucous membranes Throat: Yes tonsils normal and Yes uvula midline Eyes General: appearance normal, both eyes and all related structures Neck Neck: Yes normal visual inspection Resp Effort & Inspection: normal respiratory effort, able to speak in complete sentences, Actively coughing, no respiratory distress, not tachypneic, no tripod positioning and no use of accessory muscles Auscultation: diminished lung sounds Cardio Jugular venous distension: no JVD Rate: regular rate Rhythm: regular rhythm Heart sounds: S1 normal heart sound present, S2 normal heart sound present, no click, no gallops, no murmurs and no rubs Skin General skin exam: no rashes or lesions noted, elasticity normal and turgor normal Neuro General: patient oriented x3 Extrem General: Yes normal to inspection and Yes no clubbing, cyanosis or edema Office Procedures Nebulizer Treatment Nebulizer Treatment 41242-Pepdssjxd/MDI RX initial, or Nebulizer Subsequent Treatment Office Meds sodium chloride 3 % for nebulization Performing Provider: Roosevelt Manley MD [place] [facility] [place] [facility] Administered by: Lucia Horton LPN on 10/21/24 08:44 Dose Route Admin Location Dispensed Lot Number Expiration Date [facility] Legal Specialist 3 mL inhalation 3 mL [id number] 04/11/25 [id number] [employer] JEANETH Results Reviewed Results Reviewed: personally reviewed previous CT chest and reviewed recent CT chest report Assessment & Plan Assessment & Plan (1) Malignant neoplasm of right upper lobe of lung: Onset Date: ~2017 Comment: (RUL Invasive Adenocarcinoma, Acinar type, 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), f/u thoracic surgeon [place], CT 10/2024 new fairly large area of consolidation with bronchiectasis and bronchiolectasis including posterolateral remaining right upper lobe and superior segment of the right lower lobe as well as small abnormalities in left lung, severe underlying emphysema Code(s): C34.11 - Malignant neoplasm of upper lobe, right bronchus or lung Category: Medical Plan: Follow-up with oncology and thoracic surgeon at [place] (2) COPD (chronic obstructive pulmonary disease): Code(s): J44.9 - Chronic obstructive pulmonary disease, unspecified Category: Medical Qualifiers: COPD type: chronic bronchitis Chronic bronchitis type: simple Qualified Code(s): J41.0 - Simple chronic bronchitis Plan: Continue Trelegy tobacco quitting discussed with the patient (3) Tobacco dependence: Comment: (Current smoker, onset 12yo, 1/2-1ppd x 43yrs, 30+PYH), quit 01/2024 Code(s): F17.200 - Nicotine dependence, unspecified, uncomplicated Category: Medical (4) Pulmonary nodule: Code(s): R91.1 - Solitary pulmonary nodule Category: Medical (5) Pneumonia: Code(s): J18.9 - Pneumonia, unspecified organism Category: Medical Qualifiers: Pneumonia type: due to unspecified organism Laterality: right Lung location: upper lobe of lung Qualified Code(s): J18.9 - Pneumonia, unspecified organism Plan Continue Trelegy ELIZABETH as needed CT chest 10/2024 at [facility] to F/U concerning RUL consolidation, also the LLL nodule. Will need updated PFTs start Levaquin Sputum AFB abd GS/cx F/U 2-3 months Orders: Orders Acid-fast Culture + Smear Today R91.1 - Solitary pulmonary nodule AMB Nebulizer Treatment Today J41.0 - Simple chronic bronchitis Sputum Cult + Gram stain Today R91.1 - Solitary pulmonary nodule Medications: New levofloxacin 500 mg PO DAILY 14 tabs 0RF 14 days Coding Level of Care Code Est Pt Level 5 (79304) Diagnoses Malignant neoplasm of right upper lobe of lung C34.11 Simple chronic bronchitis J41.0 COPD type: chronic bronchitis Chronic bronchitis type: simple Tobacco dependence F17.200 Pulmonary nodule R91.1 Pneumonia of right upper lobe due to infectious organism J18.9 Pneumonia type: due to unspecified organism Laterality: right Lung location: upper lobe of lung CPT Codes Nebulizer Treatment - Nebulizer Treatment, initial or subsequent: 12374- Nebulizer/MDI RX initial, or Nebulizer Subsequent Treatment ([id number]) Time Spent (min) 45
== END 2024-10-21 08:44 | disposition home or self-care (01) ==
PROVIDERS: PCP Internal Medicine; Visit Provider Hospitalist
DX: C34.11 Malignant neoplasm of upper lobe, right bronchus or lung (principal); J41.0 Simple chronic bronchitis; F17.210 Nicotine dependence, cigarettes, uncomplicated; R91.1 Solitary pulmonary nodule; J18.9 Pneumonia, unspecified organism
CPT/HCPCS: 99215

== ENCOUNTER 2024-10-25 09:06 | Outpatient (REF) | payer OTHER, SELFPAY ==
--- OUTSIDE RECORDS SUMMARY | 2024-10-25 09:44 | XMS_ITS | Clinical Summary ---
Author Organization [facility] Address [address] [place] [address] Phone Care Team Providers Care Mineralogy Teacher Name Role Phone Elisa Clark MD Primary Care Provider [phone] Allergies Active Allergy Reactions Criticality Noted Date [...] lmonary disease) ([facility] V24, [facility] V28) 07/22/2024 Assessment & Plan (07/22/2024 2:18 PM EST): Patient states that her credit checker has retired and is looking for a new credit checker. Is requesting referral to Sruthi as [...] general and how their size, shape, and change management expert time affect her level of suspicion for [...] - 10/18/2024 11:59 PM EDT Hospital Encounter [facility] CT Scan [address] [place] [address] Multiple pulmonary nodules; History of lung cancer Discharge Disposition: Home or Self Care from Last 3 Months Surgical History Surgery Date Site/Laterality Comments OTHER SURGICAL HISTORY 06/2018 N/A PROCEDURE: PULMONOLOGY BRONCHOSCOPY COLONOSCOPY 03/2017 N/A PROCEDURE: HISTORICAL COLONOSCOPY TONSILLECTOMY N/A PROCEDURE: HISTORICAL TONSILLECTOMY OTHER SURGICAL HISTORY 08/12/2018 PROCEDURE: [place] THORACOSCOPY W/THERA WEDGE RESEXN INITIAL UNILAT; COMMENT: RUL Wedge - Invasive Adenocarcinoma (pT1bN0) Medical History Medical History Date Comments Anxiety disorder DX:Anxiety diso rder COPD (chronic obstructive pu lmonary disease) ([facility] V24, [facility] V28) DX:COPD (chronic o bstructive pulmonary disease) ([facility]) Depression DX:Depression History of seizure DX:History of seizure Hyperlipidemia DX:Hyperlipidemi a Low back pain DX:Low back pain Malignant neoplasm of right upper lobe of lung ([facility] V24, [facility] V28) DX:Malignant neopla sm of right upper lobe of lung ([facility]) Neck pain DX:Neck pain On [...] Upcoming Encounters Date Type Department Care Team ([facility] st Contact Info) Description 10/27/2024 9:00 AM EDT Office Visit Thoracic Surgery - [place] [address] [facility] [address] [place] [phone] Shannan Crocker PA [address] [facility], [address] [place] [address] Health Maintenance Due Date Last Done Comments [...] - Risk 60-74 years 1-dose series) 2024 COVID-19 Vaccine (7 - Moderna risk season) 2024 04/12/2024, 04/17/2022, 11/12/2021, Additional history exists DTaP,Tdap,and Td Vaccines (2 - Td or Tdap) 12/17/2027 12/16/2017 Influenza Vaccine Completed 04/12/2024, , 04/06/2021, Additional [...] Signed Date: 10/20/2024 08:23 ET Workstation ID: [id number] Transcribed By: Self Edit Transcribed Date: 10/20/2024 [...] Signed Date: 10/20/2024 08:23 ET Workstation ID: [id number] Transcribed By: Self Edit Transcribed Date: 10/20/2024 08:07 ET Shannan WILLIS IMG CT PROCEDURES Final Resul t from Last 3 Months Insurance [facility] [employer] PLAN Care Teams Mineralogy Teacher Relationship Specialty Start Date End Date Elisa Clark MD [address] [place] [phone] PCP - General Internal Medicine 10/18/24
--- OUTSIDE RECORDS SUMMARY | 2024-10-25 09:45 | XMS_ITS | Patient Health Record ---
Author [facility] Address [address] [place] [address] Care Team Providers Care Coal Mine Inspector Name Role Phone Elisa Clark MD Primary Care Provider Unavaila Elvira Hill Unavailable [phone] Allergies Allergen (clinical drug ingredient) Drug/Non Drug [...] Active Ciclopirox 0.77 % 1 application Oil Plant Operator ally Twice a day for 365 [...] Problem Status W/U Status Risk Notes Problem [id number] Atherosclerosi s of artery of both lower extremities (I70.203) Active confirmed Plan Of Treatment Pending Test Test Name Order Date *Liver Function Test (LFT) 05/12/2023 Insurance Providers Payer Name Payer Address Payer Phone Subscriber Number Group Number Insured Name Patient Relationship to Insured Coverage Start Date Coverage End Date [employer] [place] [address] [place] [phone] [id number] Yoshi Berry Spouse - patient is the spouse of the insured 3 Medical (General) History Medical History History ICD Code Arthritis asthma Back,Hip,and Knee pain Cancer High blood pressure Lung disease Numbness Reflux ( GERD) Chicken pox Anxiety Surgical History Surgery Date(Month/Year) Lung 2019
--- OUTSIDE RECORDS SUMMARY | 2024-10-25 09:45 | XMS_ITS ---
Author Organization [facility] Address [address] [place] [phone] Care Team Providers Care Force Dispatcher Name Role Phone Elisa Clark MD Primary Care Provider Elvira Betancourt [phone] Encounters Encounter Location Date Provider Diagnosis [address] [address] 08/11/2023 Elvira Mart Plan Of Treatment No Information Progress Notes * Sully RAO MDOB:[birth year] (59 yo F)Acc No.[id number]:08/11/2023 Progress Note Patient:?Sully RAO Provider:?Elvira Mart DPM :1965???Age:57 Y???Sex:Female D ate:08/11/2023 Address:[address] [place], [place] [phone] Pcp:Elisa Clark MD Subjective: * Chief Complaints: [...] Mart DPM Date:? Generated for Beenai alonzo/Fasonu/eTransmitting on:?10/25/2024 09:44 AM EDT
[2024-10-25 10:51] LABS: Anion Gap 16 (12-20); Blood Urea Nitrogen 8 mg/dL (9-16); Calcium 9.4 mg/dL (8.4-10.2); Carbon Dioxide 26 mmol/L (22-29); Chloride 102 mmol/L (96-108); Estimated Glomerular Filt Rate > 60; Glucose Random 119 mg/dL (60-115); Magnesium 1.4 mg/dL (1.6-2.6); Potassium 4.6 mmol/L (3.3-5.1); Sodium 139 mmol/L (135-145)
== END 2024-10-25 09:07 | disposition home or self-care (01) ==
LOC: HO.HMGCLDS 09:06
PROVIDERS: PCP Internal Medicine; Visit Provider Internal Medicine
DX: E83.42 Hypomagnesemia (principal)
CPT/HCPCS: 36415; 80048; 83735

== ENCOUNTER 2024-10-27 18:19 | Inpatient (IN) | payer OTHER, SELFPAY ==
--- NOTE | ~2024-10-27 | CT_ITS ---
CLINICAL HISTORY: necrotizing PNA??? --- Additional Notes or Special Instructions: sent by PCP CT chest with contrast Comparison: CR/SR - XR CHEST 2V - 07/07/24 10:33 EST CR/SR - XR CHEST 2V - 05/13/24 09:[address]/REG/SR - CT CHEST W IV CON - 08/11/23 08:09 EST Findings: No mediastinal mass or lymphadenopathy. No cardiomegaly. Severe calcified coronary artery disease. Normal size aorta. Severe calcified atherosclerotic disease. Postsurgical change of the right lung apex. Paraseptal emphysema measures up to 1.5 cm. Advanced destructive centrilobular emphysema. Mild bronchial wall thickening. Consolidation in the right upper lobe and superior segment of the right lower lobe. There is central air which could be secondary to emphysema or cavitation. The spiculated nodule in the left lower lobe now demonstrates central air attenuation which does have a linear/branching pattern. It currently measures 1.6 x 1.2 cm, previously measuring 1.4 x 1.2 cm. There is linear extension to the pleura. There is a new adjacent linear opacity measuring 0.8 cm. No pneumothorax or pleural effusion. No acute osseous or soft tissue abnormality. No acute pathology in the imaged portion of the upper abdomen. Hepatic steatosis. Heterogeneous enhancement of the spleen Impression: Increase in size of the spiculated nodule in the left lower lobe, currently measuring 1.6 cm and previously measuring 1.4 cm. Cavitation versus air bronchograms. Malignancy must be excluded. Follow up or evaluate further with PET-CT. New consolidation in the right upper lobe and in the superior segment of the right lower lobe with central air attenuation which could be secondary to emphysema or cavitation. Pneumonia is favored. A cavitating pneumonia could be considered. Malignancy must be excluded. Short interval follow up is recommended. Follow up to resolution. This document has been electronically signed by: Bianca Seals MD on 10/27/2024 20:17:27
--- NOTE | ~2024-10-27 | XR_ITS ---
CLINICAL HISTORY: re-assess 1 view chest x-ray Comparison: CT/SR - CT CHEST W IV CON - 10/27/24 19:46 EDT Findings: Similar-appearing multifocal pneumonia in the right. Similar-appearing nodular density within the left lower lobe. No acute fracture. IMPRESSION: Multifocal right-sided pneumonia. Ill-defined left lower lobe nodule. No appreciable change versus the recent comparison CT. This document has been electronically signed by: Js Posey MD on 10/31/2024 11:18:33
--- NOTE | 2024-10-27 18:20 | ED.GENADULT ---
HPI - General Adult General Chief complaint: General Medical Stated complaint: ? pneumonia Time Seen by Provider: 10/27/24 19:28 Source: patient Limitations: no limitations History of Present Illness ED Provider: Blanca Gutierrez PA-C HPI narrative: 59-year-old female with history of lung CA s/p right upper lobectomy 2019 without prior radiation or chemotherpay, severe COPD, HTN, HLD presenting to the ED given need for IV antibiotics. Patient states she was found to have ?necrotizing pneumonia?, on recent outpatient chest x-ray. Her thoracic surgeon placed her on Levaquin, today is day 5 of treatment. She was advised to come to the emergency department for admission for IV antibiotic therapy. Denies fevers/chills or hemoptysis. Related Data Home Medications ?Medication ?Instructions ?Recorded ?Confirmed lorazepam 0.5 mg tablet 0.5 mg PO DAILY PRN Anxiety 12/11/22 10/27/24 multivitamin 1 tab PO DAILY 02/05/23 10/27/24 lisinopril 10 mg tablet 20 mg PO DAILY 10/20/24 10/27/24 fluticasone fur. 100 mcg-umeclid 1 ea inhalation DAILY 10/27/24 10/27/24 62.5 mcg-vilant 25 mcg inhalat.powder (Trelegy Ellipta) magnesium oxide 400 mg (241.3 mg 400 mg PO BEDTIME 10/27/24 10/27/24 magnesium) tablet omeprazole 40 mg capsule,delayed 40 mg PO DAILY@0630 10/27/24 10/27/24 release potassium chloride 20 mEq 20 meq PO DAILY 10/27/24 10/27/24 tablet,extended release Previous Rx's ?Medication ?Instructions ?Recorded ipratropium 0.5 mg-albuterol 3 mg 3 ml inhalation Q6-8H PRN wheezing 05/13/24 (2.5 mg base)/3 mL nebulization #90 mL soln atorvastatin 20 mg tablet 20 mg PO DAILY #90 tabs 08/31/24 albuterol sulfate 90 mcg/actuation 2 puff inhalation Q4H PRN for 09/19/24 aerosol inhaler (Ventolin HFA) dyspnea #18 grams levofloxacin 500 mg tablet 500 mg PO DAILY 14 days #14 tabs 10/21/24 Allergies Allergy/AdvReac Type Severity Reaction Status Date / Time apple [Apple] Allergy Severe TONGUE Verified 10/27/24 18:26 SWELLS penicillin V Allergy Unknown unknown - Verified 10/27/24 18:26 childhood Penicillins [PENICILLINS] Allergy Unknown UNKNOWN-CHILDHOOD Verified 10/27/24 18:26 ALLERGY Review of Systems Review of Systems: Yes all other systems are reviewed and are negative Constitutional: Constitutional: Denies fatigue and Denies fever(s) Cardiovascular: Cardiovascular: Denies chest pain and Denies dyspnea Respiratory: Respiratory: Reports chest congestion, Reports cough, Denies hemoptysis and Denies dyspnea Gastrointestinal: Gastrointestinal: Denies abdominal pain, Denies diarrhea, Denies nausea and Denies vomiting Endocrine: Endocrine: Denies fatigue PMFSH Past Medical History Attestation statement: The following information was validated with the patient. Medical History Lower back pain Neck pain Restless leg syndrome History of seizure On home O2 Osteopenia Malignant neoplasm of right upper lobe of lung (~2017) Tobacco dependence COPD (chronic obstructive pulmonary disease) Depression Anxiety Hyperlipemia Surgical History History of colonoscopy (~03/2017) History of bronchoscopy (~06/2018) History of lung surgery (~07/2018) History of tonsillectomy Family History Family History Father Alcohol abuse Maternal Aunt Breast cancer Sister Breast cancer Brother Skin cancer Other Mental health disorder Substance use disorder Social History Social History Household Members: Significant Other Housing: House Do you presently have visiting nurse or other home services: No Alcohol intake: current Alcohol intake frequency: a few times a week Patient Tobacco Use Status: Current someday Tobacco user (January 2024) Tobacco use type: Cigar Cigarettes Per Day: 2 Years Smoked: 43 (onset 12yo) Smoked in Last 30 Days: Yes e-Cigarette/Vaping Use: Currently Using Second Hand Smoke Exposure: No Use of substances other than those prescribed or required for medical reasons: Yes Substance Use Type: Marijuana Advance Directives: Yes Advance Directives on File: Yes Advance Directives Date on File: 01/29/22 service: No Current occupational status: unemployed Cognitive needs: No Hearing needs: No Vision needs: Yes Physical Exam ED Vital Signs: Vital Signs - 24 hr 10/27/24 18:21 10/27/24 19:32 10/27/24 20:49 Temperature 98.1 F 98.1 F 98.5 F Pulse Rate 109 H 92 88 Respiratory Rate 20 20 18 Blood Pressure 124/66 121/70 136/56 L Pulse Oximetry 95 96 95 Oxygen Delivery Method Room Air Room Air Room Air 10/27/24 22:17 10/27/24 22:40 Temperature Pulse Rate Respiratory Rate Blood Pressure 118/65 121/58 L Pulse Oximetry Oxygen Delivery Method BMI result Body Mass Index 17.3 Const Other: Alert Orientation/consciousness: patient oriented x3 Resp Other: Lungs clear to auscultation, active cough at times that is wet Cardio Other: Normal peripheral perfusion Skin Other: Warm dry no rash Neuro General: patient oriented x3, gait normal, no focal motor deficits and CN's II-XI intact bilaterally Psych Other: Calm cooperative Course Course Course Narrative: This is a rapid medical exam performed by Lois Diana NP: Additional HPI, ROS, PE not included below will be deferred to primary provider. Patient is a 59-year-old female with history of lung CA s/p right upper lobectomy, severe COPD, HTN, HLD presenting to the ED stating that she was told she may have necrotizing pneumonia based on recent CT chest from 10/20 ordered by her thoracic surgeon. Has been on levofloxacin. Denies fevers/chills or hemoptysis. Has f/u with thoracic surgery PA next week. Plan: viral serology, labs, will defer imaging to primary provider Reevaluation(s) Reevaluation #1: This is a sepsis focused exam time stamped for 2022 on 10/27, which is also documented repetitively below, ......... I had ordered blood cultures and a lactic acid, given the patient was going to have IV antibiotics following the CT scan of her chest, the lactic resulted at 3. Giving 1L IVF, she does not require weight based IV fluid given the lactic is not greater than 4, and her blood pressures are stable. She has been on antibiotics for 5 days already after being found to have a cavitary PNA on outpt CXR......., ordering broad-spectrum, vancomycin and Zosyn given the findings of the CT scan. Time: 20:23 Medications Administered Discontinued Medications Generic Name Dose Route Start Last Admin Trade Name Freq PRN Reason Stop Dose Admin Piperacillin Sod/Tazobactam 50 mls @ 100 mls/hr 10/27/24 20:23 10/27/24 21:18 Sod 3.375 gm/ Sodium Chloride IV 10/27/24 20:52 Infused ONCE ONE Infusion Sodium Chloride 1,000 mls @ 999 mls/hr 10/27/24 20:30 10/27/24 22:17 Ns IV 10/27/24 21:30 Infused .Q1H1M YEISON Infusion Vancomycin HCl 1,250 mg/ 250 mls @ 166.667 mls/hr 10/27/24 20:45 10/27/24 23:10 Sodium Chloride IV 10/27/24 22:14 Infused ONCE ONE Infusion Iohexol 100 ml 10/27/24 19:46 10/27/24 19:47 Iohexol 350 Mg/Ml 100 Ml Infus..Btl IV 10/27/24 19:47 65 ml ONCE ONE Administration Morphine Sulfate 4 mg 10/27/24 20:42 10/27/24 20:45 Morphine Sulfate 4 Mg/Ml Cartridge IVPUSH 10/27/24 20:43 4 mg ONCE ONE Administration Protocol Medical Decision Making Medical Decision Making MDM Narrative: 59-year-old female with history of lung CA s/p right upper lobectomy 2019 without prior radiation or chemotherpay, severe COPD, HTN, HLD presenting to the ED given need for IV antibiotics. Patient states she was found to have ?necrotizing pneumonia?, on recent outpatient chest x-ray. Her thoracic surgeon placed her on Levaquin, today is day 5 of treatment. She was advised to come to the emergency department for admission for IV antibiotic therapy. Denies fevers/chills or hemoptysis. Problem: COPD, prior lung cancer, active pneumonia, tobacco abuse History: Per patient I have considered the following differential diagnoses: Cavitary pneumonia Plan: In addition to screening labs, given she will have IV antibiotic therapy, I am adding on blood cultures and a lactic, for better differentiation I am adding a CT scan of the chest. I have independently reviewed the following tests: Labs: No leukocytosis, not anemic, no electrolyte abnormality, 1st lactic 3, LFTs elevated, however they are improved from a month ago, lactic 2.5 CT chest:Impression: Increase in size of the spiculated nodule in the left lower lobe, currently measuring 1.6 cm and previously measuring 1.4 cm. Cavitation versus air bronchograms. Malignancy must be excluded. Follow up or evaluate further with PET-CT. New consolidation in the right upper lobe and in the superior segment of the right lower lobe with central air attenuation which could be secondary to emphysema or cavitation. Pneumonia is favored. A cavitating pneumonia could be considered. Malignancy must be excluded. Short interval follow up is recommended. Follow up to resolution. Lab Data 10/27/24 18:45 10/27/24 18:45 Labs: Lab Results 10/27/24 10/27/24 10/27/24 Range/Units 18:45 19:40 21:43 WBC 8.5 (4.8-10.8) X10*3/uL RBC 4.00 L (4.20-5.50) X10*6/uL Hgb 14.1 (12.0-16.0) g/dl Hct 40.2 (37.0-47.0) % MCV 100.5 H (80.0-98.0) fL MCH 35.3 H (27.0-33.0) pg MCHC 35.1 H (31.0-35.0) g/dl RDW 12.2 (11.0-16.0) % Plt Count 163 (160-400) X10*3/uL MPV 10.6 (9.4-12.3) fL Immature Gran % (Auto) 1.2 H (0.0-0.4) % Neut % (Auto) 58.0 (45-73) % Lymph % (Auto) 28.6 (20-40) % [place] % (Auto) 10.1 (2-11) % Eos % (Auto) 1.5 (0-4) % Baso % (Auto) 0.6 (0-2) % Lymph # (Auto) 2.4 (1.2-4.9) X10*3/uL [place] # (Auto) 0.9 (0.1-1.2) X10*3/uL Eos # (Auto) 0.1 (0.0-0.4) X10*3/uL Baso # (Auto) 0.1 (0.0-0.2) X10*3/uL Abs Immat Gran (auto) 0.10 H (0.00-0.03) X10*3/uL Absolute Neuts (auto) 4.9 (2.0-8.3) x10*3/uL Absolute Nucleated RBC 0.000 (0.0-0.012) X10*3/uL Nucleated RBC % (auto) 0.0 (0.0-0.2) /100WBC PT 11.6 (10.9-12.4) SEC INR 1.0 (0.9-1.1) Sodium 139 (135-145) mmol/L Potassium 3.4 D (3.3-5.1) mmol/L Chloride 104 (96-108) mmol/L Carbon Dioxide 22 (22-29) mmol/L Anion Gap 16 (12-20) BUN 4 L (9-16) mg/dL Creatinine 0.63 (0.5-1.4) mg/dL Estim Creat Clear Calc 70.7 Estimated GFR > 60 Random Glucose 105 (60-115) mg/dL Lactic Acid 3.0 H* 2.5 H* (0.5-2.0) mmol/L Calcium 9.0 (8.4-10.2) mg/dL Total Bilirubin 0.6 (0.0-1.0) mg/dL AST 56 H (5-31) U/L ALT 34 H (0-31) U/L Alkaline Phosphatase 199 H (39-117) U/L Total Protein 6.4 L (6.5-8.0) g/dL Albumin 3.6 (3.5-5.0) g/dL Influenza Type A (PCR) NEGATIVE (Negative) Influenza Type B (PCR) NEGATIVE (Negative) RSV RNA Qual (PCR) NEGATIVE (Negative) SARS-CoV-2 RNA (RT-PCR) NEGATIVE (Negative) Discharge Plan Discharge Clinical Impression: Cavitary pneumonia Patient Disposition: Admitted As Inpatient
[2024-10-27 18:21] VITALS: BP 124/66; PULSE 109; RESP 20; TEMP 36.7; O2SAT 95; BMI 17.3
[2024-10-27 18:50] LABS: MANUAL DIFF FLAG NO
[2024-10-27 18:57] LABS: Basophils Absolute Auto 0.1 X10*3/uL (0.0-0.2); Basophils Percent Auto 0.6 % (0-2); Eosinophils Absolute Auto 0.1 X10*3/uL (0.0-0.4); Eosinophils Percent Auto 1.5 % (0-4); Hematocrit 40.2 % (37.0-47.0); Hemoglobin 14.1 g/dl (12.0-16.0); Imm Gran Pct Auto 1.2 % (0.0-0.4); Lymphocytes Absolute Auto 2.4 X10*3/uL (1.2-4.9); Lymphocytes Percent Auto 28.6 % (20-40); Mean Corpuscular HGB Conc 35.1 g/dl (31.0-35.0); Mean Corpuscular Hemoglobin 35.3 pg (27.0-33.0); Mean Corpuscular Volume 100.5 fL (80.0-98.0); Mean Platelet Volume 10.6 fL (9.4-12.3); Monocytes Absolute Auto 0.9 X10*3/uL (0.1-1.2); Monocytes Percent Auto 10.1 % (2-11); Neutrophils Absolute Auto 4.9 x10*3/uL (2.0-8.3); Platelet Count 163 X10*3/uL (160-400); Red Cell Distribution Width 12.2 % (11.0-16.0); White Blood Count 8.5 X10*3/uL (4.8-10.8)
[2024-10-27 18:59] LABS: Prothrombin Time 11.6 SEC (10.9-12.4)
[2024-10-27 19:17] LABS: Alanine Aminotransferase 34 U/L (0-31); Albumin Level 3.6 g/dL (3.5-5.0); Alkaline Phosphatase 199 U/L (39-117); Anion Gap 16 (12-20); Aspartate Amino Transferase 56 U/L (5-31); Bilirubin Total 0.6 mg/dL (0.0-1.0); Blood Urea Nitrogen 4 mg/dL (9-16); Carbon Dioxide 22 mmol/L (22-29); Chloride 104 mmol/L (96-108); Creatinine Clr Calc Pharmacy 70.7; Estimated Glomerular Filt Rate > 60; Glucose Random 105 mg/dL (60-115); Potassium 3.4 mmol/L (3.3-5.1); Sodium 139 mmol/L (135-145); Total Protein 6.4 g/dL (6.5-8.0)
[2024-10-27 19:32] VITALS: BP 121/70; PULSE 92; RESP 20; TEMP 36.7; O2SAT 96
[2024-10-27] MEDS: iohexoL 350 MG/ML 100 ML INFUS..BTL IV (19:47)
--- OUTSIDE RECORDS SUMMARY | 2024-10-27 20:04 | XMS_ITS ---
Author Organization [facility] Address [address] [place] [address] Care Team Providers Care Starch Dumper Name Role Phone Elisa Clark MD Primary Care Provider Elvira Betancourt [phone] Encounters Encounter Location Date Provider Diagnosis [address] [address] 08/11/2023 Elvira Mart Plan Of Treatment No Information Progress Notes * Sully RAO MDOB:[birth year] (59 yo F)Acc No.[id number]:08/11/2023 Progress Note Patient:?Sully RAO Provider:?Elvira Mart DPM :1965???Age:57 Y???Sex:Female D ate:08/11/2023 Address:[address] [place], [place] [id number] Pcp:Elisa Clark MD Subjective: * Chief Complaints: [...] Mart DPM Date:? Generated for Russell rosado/Samanta/eTransmitting on:?10/27/2024 08:54 AM EDT
--- OUTSIDE RECORDS SUMMARY | 2024-10-27 20:04 | XMS_ITS ---
Author Organization [facility] Address [address] [facility] [place] [address] Care Team Providers Care Dairy Associate Name Role Phone Elisa Clark MD Primary Care Provider Unavaila Elvira Hill Unavailable [phone] Allergies Allergen (clinical drug ingredient) Drug/Non Drug [...] 30 Active Ciclopirox 0.77 % 1 application Tin Flipper ally Twice a day for 365 days [...] Problem Status W/U Status Risk Notes Problem [id number] Atherosclerosi s of artery of both lower extremities (I70.203) Active confirmed Vital Signs Height 5 ft 5 in in 05/12/2023 Weight 110 lbs 05/12/2023 BMI 18.30 kg/m2 05/12/2023 Encounters Encounter Location Date Provider Diagnosis [facility] [address] 05/12/2023 Elvira Mart Fungal infection of nail [...] 30 days Ciclopirox 0.77 % 1 application Tin Flipper ally Twice a day for 365 days [...] as necessary. Patient chooses, no pharmaceutical tx (09739) Progress Notes * Sully RAO MDOB:[birth year] (57 yo F)Acc No.[id number]:05/12/2023 Progress Notes Patient:?Sully Rao Provider:?Elvira Mart DPM :1965???Age:57 Y???Sex:Female D ate:05/12/2023 Address:[address] [place], [place] [id number] Pcp:Elisa Clark MD Subjective: * Chief Complaints: [...] as necessary. Patient chooses, no pharmaceutical tx ([id number]).? * Procedure Codes:? * Preventive Medicine:? ??Counseling:?Discussion:?-03: [...] Mart DPM Date:? Generated for Russell rosado/Samanta/Servando on:?10/27/2024 08:04 PM EDT History and Physical Notes * [...]
--- OUTSIDE RECORDS SUMMARY | 2024-10-27 20:04 | XMS_ITS | Encounter Summary ---
Author Organization [facility] Address [address] [place] [address] Care Team Providers Care Cytopathologist Name Role Phone Elisa Clark MD Primary Care Provider [phone] Encounter Details Date Type Department Care Team (Latest Contact Info) Description 10/27/2024 9:20 AM EDT Hospital Encounter [facility] Xray [address] [place] [address] Pneumonia of both lungs due to infectious organism, unspecified part of lung Social History Tobacco Use Types Packs/Day Years Used Date Smoking Tobacco: Every Day Cigarettes 1 46.3 Started: 07/13/1978 Cigars Smokeless Tobacco: Never Alcohol Use Standard Drinks/Week Comments Yes 0 (1 standard drink = 0.6 oz pur e alcohol) Comments Unknown Sex and Gender Information Value Date Recorded Sex Assigned at Female 06/28/2024 2:20 PM EST Legal Sex Female 2:54 AM EST Gender Identity Female 06/28/2024 2:20 PM EST Sexual Orientation Straight 06/28/2024 2: 20 PM EST documented as of this encounter Plan of Treatment Not on file documented as of this encounter Procedures Procedure Name Priority Date/Time Associated Diagnosis Comments XR CHEST 2 VIEWS Routine 10/27/2024 9:32 AM EDT Pneumonia of both lungs due to infectious organism, unspecified part of lung documented in this encounter Results * XR Chest 2 Views (10/27/2024 9:32 AM EDT) Anatomical Region Laterality Modality Body Radiographic Leah ging 10/27/2024 12:0 5 PM EDT Impressions 10/27/2024 12:07 PM EDT Right posterior midlung infiltrate consistent with pneumonia, without significant change since the CT scan performed 10/18/2024. ??Findings as above consistent with COPD. Code 16363 -------- FINAL REPORT -------- Dictated By: Yoshi Brock Dictated Date: 10/27/2024 12:05 ET Assigned Physician: Yoshi Brock Reviewed and Electronically Signed By: Yoshi Brock Signed Date: 10/27/2024 12:07 ET Workstation ID: [id number] Transcribed By: Self Edit Transcribed Date: 10/27/2024 12:05 ET Narrative 10/27/2024 12:07 PM EDT HISTORY: The patient is a 59-year-old female for follow-up of pneumonia. ??Information provided with prior studies indicates that the patient has undergone right upper lobe wedge resection for lung carcinoma in July 2018. FINDINGS: PA and lateral radiographs of the chest demonstrate normal appearance of the bony structures. ??The cardiac and silhouette is within normal limits. ??The aortic knob is calcified. ??An ill-defined infiltrate is again seen posteriorly in the right midlung, similar in appearance to the linotype mechanic radiograph graft from the CT scan performed 10/18/2024. ??The left lung remains clear. ??The lungs are again seen to be hyperinflated with flattening of the diaphragm consistent with chronic obstructive pulmonary disease. ??Emphysematous changes are particularly notable in the right upper lung; this is likely related at least in part to the patient's surgery. Procedure Note Yoshi Brock MD - 10/27/2024 HISTORY: The patient is a 59-year-old female for follow-up of pneumonia.Information provided with prior studies indicates that the patient hasundergone right upper lobe wedge resection for lung carcinoma in July2018. FINDINGS: PA and lateral radiographs of the chest demonstrate normalappearance of the bony structures. The cardiac and silhouette is withinnormal limits. The aortic knob is calcified. An ill-defined infiltrateis again seen posteriorly in the right midlung, similar in appearance tothe linotype mechanic radiograph graft from the CT scan performed 10/18/2024. The leftlung remains clear. The lungs are again seen to be hyperinflated withflattening of the diaphragm consistent with chronic obstructive pulmonarydisease. Emphysematous changes are particularly notable in the rightupper lung; this is likely related at least in part to the patient'ssurgery. IMPRESSION: Right posterior midlung infiltrate consistent with pneumonia, withoutsignificant change since the CT scan performed 10/18/2024. Findings asabove consistent with COPD. Code 75575 -------- FINAL REPORT -------- Dictated By: Yoshi Brock Dictated Date: 10/27/2024 12:05 ET Assigned Physician: Yoshi Brock Reviewed and Electronically Signed By: Yoshi Brock Signed Date: 10/27/2024 12:07 ET Workstation ID: [id number] Transcribed By: Self Edit Transcribed Date: 10/27/2024 12:05 ET us Shannan WILLIS IMG XR PROCEDURES Final Resul t documented in this encounter Visit Diagnoses Diagnosis Pneumonia of both lungs due to infectious organism, unspecified part of lung documented in this encounter Care Teams Cytopathologist Relationship Specialty Start Date End Date Elisa Clark MD [address] [place] [address] PCP - General Internal Medicine 10/18/24 documented as of this encounter
--- OUTSIDE RECORDS SUMMARY | 2024-10-27 20:04 | XMS_ITS | Patient Health Record ---
Author Organization [facility] Address [address] [facility] [place] [address] Care Team Providers Care Anodic Treater Name Role Phone Elisa Clark MD Primary Care Provider Unavaila Elvira Hill Unavailable [phone] Allergies Allergen (clinical drug ingredient) Drug/Non Drug [...] days Active Ciclopirox 0.77 % 1 application Nuts And Bolts Assembler ally Twice a day for 365 days [...] Problem Status W/U Status Risk Notes Problem [id number] Atherosclerosi s of artery of both lower extremities (I70.203) Active confirmed Plan Of Treatment Pending Test Test Name Order Date *Liver Function Test (LFT) 05/12/2023 Insurance Providers Payer Name Payer Address Payer Phone Subscriber Number Group Number Insured Name Patient Relationship to Insured Coverage Start Date Coverage End Date [place] [address] [place] [phone] [id number] Yoshi Berry Spouse - patient is the spouse of the insured 3 Medical (General) History Medical History History ICD Code Arthritis asthma Back,Hip,and Knee pain Cancer High blood pressure Lung disease Numbness Reflux ( GERD) Chicken pox Anxiety Surgical History Surgery Date(Month/Year) Lung 2019
--- OUTSIDE RECORDS SUMMARY | 2024-10-27 20:04 | XMS_ITS | Encounter Summary ---
Author Organization [facility] Address [address] [place] [address] Care Team Providers Care First Dyer Name Role Phone Elisa Clark MD Primary Care Provider [phone] Reason for Visit * Reason Comments Follow-up Chest CT 10/18/24 Encounter Details Date Type Department Care Team ([facility] st Contact Info) Description 10/27/2024 9:00 AM EDT Office Visit Thoracic Surgery - [address] [place] [phone] Shannan Crocker PA [address] [facility], [address] [place] [address] Multiple pulmonary nodules (Primary Dx); History of lung cancer; Pneumonia of both lungs due to infectious organism, unspecified part of lung Social History Tobacco Use Types Packs/Day Years Used Date Smoking Tobacco: Every Day Cigarettes 1 46.3 Started: 07/13/1978 Cigars Smokeless Tobacco: Never Tobacco Cessation:Ready to Q [...] PM EST documented as of this encounter Last Filed Vital Signs Vital Sign Reading Time Taken Comments Blood Pressure 138/77 10/27/2024 8:56 AM EDT Pulse 92 10/27/2024 8:56 AM EDT Temperature 37.3 ??C (99.1 ??F) 10/27/2024 8:56 AM ED T Respiratory Rate 14 10/27/2024 8:56 AM EDT Oxygen Saturation 97% 10/27/2024 8:56 AM EDT Inhaled Oxygen Concentration - - Weight 48.7 kg (107 lb 4.8 oz) 10/27/2024 8:56 A M EDT Height 165.1 cm (5' 5 ) 10/27/2024 8:56 AM EDT Body Mass Index 17.86 10/27/2024 8:56 AM EDT documented in this encounter Progress Notes * LAZARO Smart - 10/26/2024 3:31 PM EDTAssociated Problem(s): History of lung cancer Ms. Berry is a 59-year-old female who had a robotic right upper lobe wedge resection in 2019 for stage I lung cancer. She has had waxing and waning pulmonary nodules on her subsequent surveillance CT scans. documented in this encounter Plan of Treatment Not on file documented as of this encounter Results * XR Chest 2 Views (10/27/2024 9:32 AM EDT) Anatomical Region Laterality Modality Body Radiographic Leah ging 10/27/2024 12:0 5 PM EDT Impressions 10/27/2024 12:07 PM EDT Right posterior midlung infiltrate consistent with pneumonia, without significant change since the CT scan performed 10/18/2024. ??Findings as above consistent with COPD. Code 55658 -------- FINAL REPORT -------- Dictated By: Yoshi Brock Dictated Date: 10/27/2024 12:05 ET Assigned Physician: Yoshi Brock Reviewed and Electronically Signed By: Yoshi Brock Signed Date: 10/27/2024 12:07 ET Workstation ID: [id number] Transcribed By: Self Edit Transcribed Date: 10/27/2024 [...] right midlung, similar in appearance to the carpet floor layer apprentice radiograph graft from the CT scan performed [...] the right midlung, similar in appearance tothe carpet floor layer apprentice radiograph graft from the CT scan performed [...] 10/18/2024. Findings asabove consistent with COPD. Code 04637 -------- FINAL REPORT -------- Dictated By: Yoshi Brock Dictated Date: 10/27/2024 12:05 ET Assigned Physician: Yoshi Brock Reviewed and Electronically Signed By: Yoshi Brock Signed Date: 10/27/2024 12:07 ET Workstation ID: [id number] Transcribed By: Self Edit Transcribed Date: 10/27/2024 12:05 ET Shannan WILLIS IMG XR PROCEDURES Final Resul t documented in this encounter Visit Diagnoses Diagnosis Multiple pulmonary nodules- Primary Other diseases of lung, not elsewhere classified History of lung cancer Personal history of malignant neoplasm of bronchus and lung Pneumonia of both lungs due to infectious organism, unspecified part of lung Pneumonia of both lungs due to infectious organism, unspecified part of lung documented in this encounter Historical Medications * This list may reflect changes made after this encounter. Medication Sig Dispense Quantity Refills Last Filled Start D ate End Date magnesium oxide (MAG-OX) 400 mg (241.3 elemental magnesium) tablet 10/17/2024 added in this encounter Care Teams First Dyer Relationship Specialty Start Date End Date Elisa Clark MD [address] [place] [address] PCP - General Internal Medicine 10/18/24 documented as of this encounter
--- OUTSIDE RECORDS SUMMARY | 2024-10-27 20:04 | XMS_ITS ---
Author Organization [facility] Address [address] [place] [address] Care Team Providers Care Warehouse Shipping Supervisor Name Role Phone Elisa Clark MD Primary Care Provider UnavailElvira Mcdonald [phone] REASON FOR VISIT 08/11/23 appt Encounters Encounter Location Date Provider Diagnosis [facility] [address] [facility] [address] [place] [address] 07/20/2023 Elvira Mart Plan Of Treatment No Information Progress Notes * Sully RAO MDOB:[birth year] (57 yo F)Acc No.[id number]:07/20/2023 Patient:?Sully Rao :1965???Age:57 Y???Sex:Female Address:[address] [place] [address], [address] * true * Date:? Generated for Russell rosado/Samanta/eTransmitting on:?10/27/2024 08:03 PM EDT
[2024-10-27] MEDS: 0.9 % Sodium Chloride 1,000 ML 999 ML IV (20:36)
[2024-10-27] MEDS: Piperacillin Sodium/Tazobactam 3.375 GM in 0.9 % Sodium Chloride 50 ML IV (20:36)
[2024-10-27] MEDS: Morphine Sulfate 4 MG/ML CARTRIDGE IVPUSH (20:45)
[2024-10-27 20:49] VITALS: BP 136/56; PULSE 88; RESP 18; TEMP 36.9; O2SAT 95
[2024-10-27 21:20] LABS: Influenza A PCR NEGATIVE (Negative); Influenza B PCR NEGATIVE (Negative); Resp Syncy Virus RNA Qual PCR NEGATIVE (Negative); SARS COV2 PCR INHOUSE NEGATIVE (Negative)
[2024-10-27] MEDS: vancomycin HCL 1,250 MG in 0.9 % Sodium Chloride 250 ML 166.67 MG IV (21:21)
[2024-10-27 21:43] LABS: Reflex Lactate? Lactic Acid Added
--- NOTE | 2024-10-27 22:08 | PHA.MEDREC ---
Addendum entered by Yessica Hensley RPh 10/27/24 22:14: reviewed by [facility]. Original Note: Pharmacy Consult ? Medication Reconciliation Pharmacy has reviewed the medication reconciliation done by nursing. Patient states she is not taking Calcium carb-vitamin D3, Cymbalta 30 mg (hasn't started yet), Trazodone 100 mg, and Trintellix 10 mg ( not covered by insurance). Patient states she takes Potassium 20 mEq daily not BID.
[2024-10-27 22:17] VITALS: BP 118/65
[2024-10-27 22:20] LABS: Lactic Acid 2.5 mmol/L (0.5-2.0)
[2024-10-27 22:40] VITALS: BP 121/58
--- NOTE | 2024-10-27 23:24 | PM.IMHP ---
History of Present Illness Date of Service: 10/27/24 Chief Complaint: Abnormal imaging, cough This is a 59-year-old female with pertinent history of lung cancer status post right upper lobectomy, tobacco use disorder, severe COPD not on home oxygen, hypertension, gastroesophageal reflux disease, mood disorder who was sent to the emergency department for IV antibiotics. Patient states she has had a cough all her life but it has worsened in the last 2 weeks. Patient also has been having sputum production that has changed over the last 2 weeks, sputum is clear. She had a CAT scan at [facility] on 10/20/2024. Apparently there was right upper lobe consolidation with bronchiectatic changes and necrotizing disease. Patient was seen by pulmonology Dr. Roosevelt Manley on 10/21 and prescribed Levaquin. Patient states she saw her thoracic surgeon on the day of presentation and was advised to go to the ER for IV antibiotics as the symptoms were not improving with p.o. antibiotics. Patient took 5 days of p.o. Levaquin at home. No fever, chills, chest pain, palpitations, abdominal pain, changes in urinary or bowel habits. No wheezing In the emergency department, imaging with consolidation in the right upper lobe with suspicion for cavitating pneumonia. Patient was given IV vancomycin and IV Zosyn in the ER. Review of Systems Constitutional: Constitutional: Reports fatigue, Reports malaise and Reports weakness Respiratory: Respiratory: Reports cough Neurologic: Reports weakness Endocrine: Endocrine: Reports fatigue [facility] Medical History Lower back pain Neck pain Restless leg syndrome History of seizure On home O2 Osteopenia Malignant neoplasm of right upper lobe of lung (~2017) Tobacco dependence COPD (chronic obstructive pulmonary disease) Depression Anxiety Hyperlipemia Family History Father Alcohol abuse Maternal Aunt Breast cancer Sister Breast cancer Brother Skin cancer Other Mental health disorder Substance use disorder Surgical History History of colonoscopy (~03/2017) History of bronchoscopy (~06/2018) History of lung surgery (~07/2018) History of tonsillectomy Social History Household Members: Significant Other Housing: House Do you presently have visiting nurse or other home services: No Alcohol intake: current Alcohol intake frequency: a few times a week Patient Tobacco Use Status: Current someday Tobacco user (January 2024) Tobacco use type: Cigar Cigarettes Per Day: 2 Years Smoked: 43 (onset 12yo) Smoked in Last 30 Days: Yes e-Cigarette/Vaping Use: Currently Using Second Hand Smoke Exposure: No Use of substances other than those prescribed or required for medical reasons: Yes Substance Use Type: Marijuana Advance Directives: Yes Advance Directives on File: Yes Advance Directives Date on File: 01/29/22 service: No Current occupational status: unemployed Cognitive needs: No Hearing needs: No Vision needs: Yes Meds Allergies Allergy/AdvReac Type Severity Reaction Status Date / Time apple [Apple] Allergy Severe TONGUE Verified 10/27/24 18:26 SWELLS penicillin V Allergy Unknown unknown - Verified 10/27/24 18:26 childhood Penicillins [PENICILLINS] Allergy Unknown UNKNOWN-CHILDHOOD Verified 10/27/24 18:26 ALLERGY Home Medications ?Medication ?Instructions ?Recorded ?Confirmed ?Last Taken ?Type lorazepam 0.5 mg tablet 0.5 mg PO DAILY PRN Anxiety 12/11/22 10/27/24 Unknown History multivitamin 1 tab PO DAILY 02/05/23 10/27/24 Unknown History lisinopril 10 mg tablet 20 mg PO DAILY 10/20/24 10/27/24 10/26/24 History fluticasone fur. 100 mcg-umeclid 1 ea inhalation DAILY 10/27/24 10/27/24 10/27/24 History 62.5 mcg-vilant 25 mcg inhalat.powder (Trelegy Ellipta) magnesium oxide 400 mg (241.3 mg 400 mg PO BEDTIME 10/27/24 10/27/24 Unknown History magnesium) tablet omeprazole 40 mg capsule,delayed 40 mg PO DAILY@0630 10/27/24 10/27/24 10/27/24 History release potassium chloride 20 mEq 20 meq PO DAILY 10/27/24 10/27/24 10/27/24 History tablet,extended release Physical Exam Vital Signs and Narrative: Vital Signs: Last Vital Signs Temp 98.5 F 10/27/24 20:49 Pulse 88 10/27/24 20:49 Resp 18 10/27/24 20:49 BP 121/58 L 10/27/24 22:40 Pulse Ox 95 10/27/24 20:49 O2 Del Method Room Air 10/27/24 20:49 BMI result Body Mass Index 17.3 Middle-aged female lying in bed in no distress Neck supple, no JVD Regular rate and rhythm, S1-S2 heard Bilateral crackles present without wheezing Abdomen soft nontender, no guarding, no rigidity Patient is awake, alert and oriented to self, place, time and person ; no focal motor deficit Psych: Normal mood No pedal edema Results Labs 10/27/24 18:45 10/27/24 18:45 Labs: Laboratory Results - last 24 hr 10/27/24 10/27/24 10/27/24 18:45 19:40 21:43 MCV 100.5 H MCH 35.3 H MCHC 35.1 H RDW 12.2 Plt Count 163 MPV 10.6 Immature Gran % (Auto) 1.2 H Neut % (Auto) 58.0 Lymph % (Auto) 28.6 [place] % (Auto) 10.1 Eos % (Auto) 1.5 Baso % (Auto) 0.6 Lymph # (Auto) 2.4 [place] # (Auto) 0.9 Eos # (Auto) 0.1 Baso # (Auto) 0.1 Abs Immat Gran (auto) 0.10 H Absolute Neuts (auto) 4.9 Absolute Nucleated RBC 0.000 Nucleated RBC % (auto) 0.0 PT 11.6 INR 1.0 Anion Gap 16 Estim Creat Clear Calc 70.7 Estimated GFR > 60 Random Glucose 105 Lactic Acid 3.0 H* 2.5 H* Calcium 9.0 Total Bilirubin 0.6 AST 56 H ALT 34 H Alkaline Phosphatase 199 H Total Protein 6.4 L Albumin 3.6 Influenza Type A (PCR) NEGATIVE Influenza Type B (PCR) NEGATIVE RSV RNA Qual (PCR) NEGATIVE SARS-CoV-2 RNA (RT-PCR) NEGATIVE Assessment and Plan (1) Cavitary pneumonia: Status: Acute Plan This is a 59-year-old female with pertinent history of lung cancer status post right upper lobectomy, tobacco use disorder, severe COPD not on home oxygen, hypertension, gastroesophageal reflux disease, mood disorder who was sent to the emergency department for IV antibiotics. #. Cavitary pneumonia: Will admit patient with IV vancomycin and IV Zosyn. Failed outpatient p.o. Levaquin. Sputum culture including AFB and T spot pending. Consulted pulmonology, appreciate assistance. No sepsis #. Severe COPD: Continue home inhalers, no exacerbation during admission. #. Hypertension: Continue home lisinopril #. Gastroesophageal reflux disease: On PPI #. Mood disorder: On Ativan p.r.n. DVT prophylaxis: Lovenox Full code Admit as inpatient and will require two night minimum hospital stay for IV antibiotics (as above), which is not possible in a lesser acute setting. Pulmonology consult pending Quality Stroke Does the patient have a stroke diagnosis?: No VTE Prior VTE?: No VTE Risk Level:: Medical - moderate - high VTE Device Contraindication: Treatment Not Indicated VTE Drug Contraindication: N/A - Med Ordered
[2024-10-27 23:47] LABS: Reflex Lactate? Lactic Acid Added
[2024-10-28] VITALS (9 sets, daily range): BP systolic 113–157; BP diastolic 59–72; PULSE 70–106; RESP 15–20; TEMP 36.3–36.9; O2SAT 94–99; BMI 17.3
[2024-10-28] MEDS: 0.9 % Sodium Chloride Flush 3 ML SYRINGE IVFLUSH ×3 (00:50→16:14)
[2024-10-28] MEDS: Enoxaparin Sodium 40 MG/0.4 ML SYRINGE SUBCUT ×2 (00:50→22:49)
[2024-10-28 00:56] LABS: ~Lactic Acid-LAB USE ONLY 3.9 mmol/L (0.5-2.0)
[2024-10-28 02:15] LABS: Reflex Lactate? 2 Y
[2024-10-28 03:13] LABS: ~Lactic Acid-LAB USE ONLY 1.7 mmol/L (0.5-2.0)
[2024-10-28 05:26] LABS: MANUAL DIFF FLAG NO
[2024-10-28 05:29] LABS: Basophils Percent Auto 0.4 % (0-2); Eosinophils Absolute Auto 0.1 X10*3/uL (0.0-0.4); Eosinophils Percent Auto 0.9 % (0-4); Hematocrit 34.5 % (37.0-47.0); Hemoglobin 11.9 g/dl (12.0-16.0); Imm Gran Abs Auto 0.08 X10*3/uL (0.00-0.03); Imm Gran Pct Auto 0.9 % (0.0-0.4); Lymphocytes Absolute Auto 1.9 X10*3/uL (1.2-4.9); Lymphocytes Percent Auto 20.3 % (20-40); Mean Corpuscular HGB Conc 34.5 g/dl (31.0-35.0); Mean Corpuscular Hemoglobin 34.4 pg (27.0-33.0); Mean Corpuscular Volume 99.7 fL (80.0-98.0); Mean Platelet Volume 10.2 fL (9.4-12.3); Monocytes Absolute Auto 0.7 X10*3/uL (0.1-1.2); Monocytes Percent Auto 7.7 % (2-11); Neutrophils Absolute Auto 6.5 x10*3/uL (2.0-8.3); Neutrophils Percent Auto 69.8 % (45-73); Platelet Count 127 X10*3/uL (160-400); Red Blood Count 3.46 X10*6/uL (4.20-5.50); Red Cell Distribution Width 12.4 % (11.0-16.0); White Blood Count 9.3 X10*3/uL (4.8-10.8)
[2024-10-28] MEDS: traMADoL HCL 50 MG TABLET PO ×2 (05:31→22:45)
[2024-10-28] MEDS: Omeprazole 40 MG CAPSULE.DR PO (05:31)
[2024-10-28] MEDS: Piperacillin Sodium/Tazobactam 4.5 GM in 0.9 % Sodium Chloride 100 ML IV ×3 (05:31→16:14)
[2024-10-28 05:49] LABS: Alanine Aminotransferase 23 U/L (0-31); Albumin Level 3.1 g/dL (3.5-5.0); Anion Gap 14 (12-20); Aspartate Amino Transferase 48 U/L (5-31); Bilirubin Total 0.6 mg/dL (0.0-1.0); Blood Urea Nitrogen 6 mg/dL (9-16); Carbon Dioxide 23 mmol/L (22-29); Chloride 107 mmol/L (96-108); Creatinine Clr Calc Pharmacy 75.5; Estimated Glomerular Filt Rate > 60; Glucose Random 104 mg/dL (60-115); Potassium 3.7 mmol/L (3.3-5.1); Sodium 140 mmol/L (135-145); Total Protein 5.2 g/dL (6.5-8.0)
[2024-10-28 05:58] LABS: Alkaline Phosphatase 159 U/L (39-117)
--- NOTE | 2024-10-28 07:14 | PHA.PROG ---
Admission Date/Time: October 27, 2024 23:23 Indication: RESP INF Weight in k.2 kg Adjusted body weight in K KG [place] body weight in Kg: Obesity Dosing Indication % IBW: Serum Creatinine - Last 168 Hours 10/27/24 10/28/24 18:45 05:12 Creatinine 0.63 0.59 Estimated CrCl and GFR - Last 168 Hours 10/27/24 10/28/24 18:45 05:12 Estim Creat Clear Calc 70.7 75.5 Estimated GFR > 60 > 60 Vancomycin Loading Dose: 1250 MG X 1 Current Vancomycin Dosing Regimen: 750 MG Q12H Vancomycin Monitoring using AUC goal of 400 - 600 range with trough as surrogate marker: PREDICTED AUC 478 Date and Time for next Vancomycin Level to be drawn: 10/28/24 @1900 Pharmacist Comments on Vancomycin Plan: Vancomycin dosing will take advantage of [employer] as a clinical decision support tool that uses Bayesian modeling to calculate individual patient's pharmacokinetic parameters and forecast the patient's drug concentration time course with the target goal AUC 24 range of 400 - 600 mg/L/hr.
[2024-10-28] MEDS: Albuterol/Iprat 2.5/0.5MG 3 ML AMPUL.NEB INHALE ×4 (07:29→20:24)
[2024-10-28] MEDS: Fluticasone/Umeclidinium/Vilanterol 100/62.5/25 BLST.W.DEV 1 PUFF INHALE (07:43)
[2024-10-28] MEDS: Potassium Chloride ER 20 MEQ TAB.ER.PRT PO (08:15)
[2024-10-28] MEDS: Multivitamin TABLET 1 TAB PO (08:15)
[2024-10-28] MEDS: lisinopriL 20 MG TABLET PO (08:15)
[2024-10-28] MEDS: vancomycin HCL 750 MG in 0.9 % Sodium Chloride 250 ML 265 MG IV (08:16)
--- NOTE | 2024-10-28 12:33 | P.PNIM_ITS ---
Subjective Subjective Date of Service: 10/28/24 Interval History: Seen and examined this morning Follow-up up for cavitary pneumonia And patient reports productive cough, no fever, no chills denies shortness or breath Review of Systems Review of Systems: Yes all other systems are reviewed and are negative Constitutional Constitutional: Denies chills and Denies fever(s) Cardiovascular Cardiovascular: Denies dyspnea and Denies dyspnea on exertion Respiratory Respiratory: Reports cough, Denies dyspnea and Denies dyspnea on exertion Gastrointestinal Gastrointestinal: Denies abdominal pain, Denies nausea and Denies vomiting Physical Exam 2 Vital Signs: Vital Signs: Last Vital Signs Temp 98.5 F 10/28/24 07:21 Pulse 70 10/28/24 11:36 Resp 15 10/28/24 11:36 BP 137/63 10/28/24 07:21 Pulse Ox 94 10/28/24 07:21 O2 Del Method Room Air 10/28/24 07:21 BMI result Body Mass Index 17.3 Const: General: cooperative, comfortable, alert and awake Nutritional Appearance: thin Orientation/consciousness: patient oriented x3 Resp: Effort & Inspection: normal respiratory effort, able to speak in complete sentences, no respiratory distress and no use of accessory muscles Cardio: Rate: regular rate Neuro: General: patient oriented x3, moves all extremities and CN's II-XI intact bilaterally Objective Data Active Medications Acetaminophen (Acetaminophen 325 Mg Tablet) 650 mg PO Q6H PRN PRN Reason: Pain, Mild 1-3,fever,headache Albuterol Sulfate (Albuterol Sulfate 90 Mcg 8 Gm Inhaler) 2 puff INHALE Q4H PRN PRN Reason: for dyspnea Albuterol/Ipratropium (Albuterol/Iprat 2.5/0.5mg 3 Ml Ampul.Neb) 3 ml INHALE Q4H PRN PRN Reason: Wheezing Albuterol/Ipratropium (Albuterol/Iprat 2.5/0.5mg 3 Ml Ampul.Neb) 3 ml INHALE RQ4H WHILE AWAKE YEISON Last Admin: 10/28/24 11:36 Dose: 3 ml Documented By: YVON Calcium Carbonate (Calcium Carbonate 750 Mg Tab.Chew) 750 mg PO Q4H PRN PRN Reason: Heartburn Enoxaparin Sodium (Enoxaparin Sodium 40 Mg/0.4 Ml Syringe) 40 mg SUBCUT Q24H [facility] Last Admin: 10/28/24 00:50 Dose: 40 mg Documented By: CÉSAR Fluticasone/Umeclidinium/Vilanterol (Fluticasone/Umeclidinium/Vilanterol 100/62.5 Blst.W.Dev) 1 puff INHALE DAILY [facility] Last Admin: 10/28/24 07:43 Dose: 1 puff Documented By: YVON Piperacillin Sod/Tazobactam (Sod 4.5 gm/ Sodium Chloride) 100 mls @ 200 mls/hr IV Q6H [facility] Last Infusion: 10/28/24 11:30 Dose: Infused Documented By: YENI Vancomycin HCl 750 mg/ Sodium (Chloride) 265 mls @ 265 mls/hr IV Q12H [facility] Last Infusion: 10/28/24 09:45 Dose: Infused Documented By: ETHAN Lisinopril (Lisinopril 20 Mg Tablet) 20 mg PO DAILY [facility]; Protocol Last Admin: 10/28/24 08:15 Dose: 20 mg Documented By: ETHAN Lorazepam (Lorazepam 0.5 Mg Tablet) 0.5 mg PO DAILY PRN PRN Reason: Anxiety Magnesium Hydroxide (Milk Of Magnesia 30 Ml Oral.Susp) 30 ml PO DAILY PRN PRN Reason: Constipation Magnesium Oxide (Magnesium Oxide 400 Mg Tablet) 400 mg PO BEDTIME [facility] Melatonin (Melatonin 3 Mg Tablet) 6 mg PO BEDTIME PRN PRN Reason: Insomnia Multivitamins/Vitamin C (Multivitamin Tablet) 1 tab PO DAILY [facility] Last Admin: 10/28/24 08:15 Dose: 1 tab Documented By: ETHAN Omeprazole (Omeprazole 40 Mg Capsule.Dr) 40 mg PO DAILY@0630 [facility] Last Admin: 10/28/24 05:31 Dose: 40 mg Documented By: CÉSAR Ondansetron HCl (Ondansetron Hcl 4 Mg/2 Ml Vial) 4 mg IVPUSH Q8H PRN PRN Reason: Nausea and Vomiting Pharmacy Consult (Consult Rx Vancomycin Dosing) 1 each MISCELLANE DAILY PRN PRN Reason: Consult order Potassium Chloride (Potassium Chloride Er 20 Meq Tab.Er.Prt) 20 meq PO DAILY [facility] Last Admin: 10/28/24 08:15 Dose: 20 meq Documented By: ETHAN Sodium Chloride (0.9 % Sodium Chloride Flush 3 Ml Syringe) 3 ml IVFLUSH QSMSFT [facility] Last Admin: 10/28/24 08:24 Dose: 3 ml Documented By: ETHAN Labs 10/28/24 05:12 10/28/24 05:12 Labs: Laboratory Results - last 24 hr 10/27/24 10/27/24 10/27/24 18:45 19:40 21:43 MCV 100.5 H MCH 35.3 H MCHC 35.1 H RDW 12.2 Plt Count 163 MPV 10.6 Immature Gran % (Auto) 1.2 H Neut % (Auto) 58.0 Lymph % (Auto) 28.6 [place] % (Auto) 10.1 Eos % (Auto) 1.5 Baso % (Auto) 0.6 Lymph # (Auto) 2.4 [place] # (Auto) 0.9 Eos # (Auto) 0.1 Baso # (Auto) 0.1 Abs Immat Gran (auto) 0.10 H Absolute Neuts (auto) 4.9 Absolute Nucleated RBC 0.000 Nucleated RBC % (auto) 0.0 PT 11.6 INR 1.0 Anion Gap 16 Estim Creat Clear Calc 70.7 Estimated GFR > 60 Random Glucose 105 Lactic Acid 3.0 H* 2.5 H* Lactic Acid F/U @ 2Hr Lactic Acid F/U @ 4Hr Calcium 9.0 Total Bilirubin 0.6 AST 56 H ALT 34 H Alkaline Phosphatase 199 H Total Protein 6.4 L Albumin 3.6 Influenza Type A (PCR) NEGATIVE Influenza Type B (PCR) NEGATIVE RSV RNA Qual (PCR) NEGATIVE SARS-CoV-2 RNA (RT-PCR) NEGATIVE 10/28/24 10/28/24 10/28/24 00:10 02:47 05:12 MCV 99.7 H MCH 34.4 H MCHC 34.5 RDW 12.4 Plt Count 127 L MPV 10.2 Immature Gran % (Auto) 0.9 H Neut % (Auto) 69.8 Lymph % (Auto) 20.3 [place] % (Auto) 7.7 Eos % (Auto) 0.9 Baso % (Auto) 0.4 Lymph # (Auto) 1.9 [place] # (Auto) 0.7 Eos # (Auto) 0.1 Baso # (Auto) 0.0 Abs Immat Gran (auto) 0.08 H Absolute Neuts (auto) 6.5 Absolute Nucleated RBC 0.000 Nucleated RBC % (auto) 0.0 PT INR Anion Gap 14 Estim Creat Clear Calc 75.5 Estimated GFR > 60 Random Glucose 104 Lactic Acid Lactic Acid F/U @ 2Hr 3.9 H* Lactic Acid F/U @ 4Hr 1.7 Calcium 8.0 L D Total Bilirubin 0.6 AST 48 H ALT 23 Alkaline Phosphatase 159 H Total Protein 5.2 L Albumin 3.1 L Influenza Type A (PCR) Influenza Type B (PCR) RSV RNA Qual (PCR) SARS-CoV-2 RNA (RT-PCR) Assessment and Plan (1) Cavitary pneumonia: Status: Acute Plan This is a 59-year-old female with pertinent history of lung cancer status post right upper lobectomy, tobacco use disorder, severe COPD not on home oxygen, hypertension, gastroesophageal reflux disease, mood disorder who was sent to the emergency department for IV antibiotics. Cavitary pneumonia: possible aspiration no night sweats or fever, no h/o TB, no travel outside us, remote h/o incarceration continue IV vancomycin and IV Zosyn. Failed outpatient p.o. Levaquin. continue breathing treatments less likely TB, Sputum culture including AFB, T spot and PCR pending. continue airborne precautions for now pulmonology consult pending speech evaluation pending blood cultures pending. no evidence of sepsis Lung adenocarcinoma follows with thoracic surgery at [facility]/Dr. Mazariegos acute lactic acidosis does not meet sirs criteria, not due to sepsis ?type 2 due to breathing treatments vs due to possible underlying liver dz given chronic transaminitis COPD: Continue home inhalers, no exacerbation during admission. Hypertension: Continue home lisinopril GERD: continue PPI Mood disorder: continue Ativan p.r.n. mild transaminitis appears chronically elevated trending down moderate protein calorie malnutrition bmi 17.3 DVT prophylaxis: Lovenox Full code Requires ongoing inpatient hospital stay for IV antibiotics (as above), which is not possible in a lesser acute setting. Pulmonology consult pending Quality Stroke Does the patient have a stroke diagnosis?: No VTE Prior VTE?: No VTE Risk Level:: Medical - moderate - high VTE Device Contraindication: Treatment Not Indicated VTE Drug Contraindication: N/A - Med Ordered
--- NOTE | 2024-10-28 13:00 | P.CONPL_ITS ---
History of Present Illness History of Present Illness Consult date: 10/28/24 Chief complaint: cough, abnormal imaging Narrative: This is an inpatient pulmonary consultation. This is a 59-year-old female with pertinent history of lung cancer status post right upper lobectomy, tobacco use disorder, severe COPD not on home oxygen, hypertension, gastroesophageal reflux disease, mood disorder who was sent to the emergency department for IV antibiotics. Patient states she has had a cough all her life but it has worsened in the last 2 weeks. Patient also has been having sputum production that has changed over the last 2 weeks, sputum is clear. She had a CAT scan at [facility] on 10/20/2024. Apparently there was right upper lobe consolidation with bronchiectatic changes and necrotizing disease. On 10/21 and prescribed Levaquin. Patient states she saw her thoracic surgeon on the day of presentation and was advised to go to the ER for IV antibiotics as the symptoms were not improving with p.o. antibiotics. In the emergency department, imaging with consolidation in the right upper lobe with suspicion for cavitating pneumonia. Patient was given IV vancomycin and IV Zosyn in the ER. I did personally review the CT scan demonstrating primarily necrotizing looking pneumonia involving the superior segment of the right lower lobe. He does have poor dentition. Likely this is aspiration related. Although the patient was placed on TB precautions. At this point will get some sputums to rule out TB which is unlikely at this time. Like a diagnosis aspiration pneumonia. Review of Systems 2 Constitutional: Constitutional: Reports fatigue, Reports malaise and Reports weakness Respiratory: Respiratory: Reports cough Neurologic: Reports weakness Endocrine: Endocrine: Reports fatigue PMFSH Past Medical History Medical History Lower back pain Neck pain Restless leg syndrome History of seizure On home O2 Osteopenia Malignant neoplasm of right upper lobe of lung (~2017) Tobacco dependence COPD (chronic obstructive pulmonary disease) Depression Anxiety Hyperlipemia Family History Family History Father Alcohol abuse Maternal Aunt Breast cancer Sister Breast cancer Brother Skin cancer Other Mental health disorder Substance use disorder Surgical History Surgical History History of colonoscopy (~03/2017) History of bronchoscopy (~06/2018) History of lung surgery (~07/2018) History of tonsillectomy Social History Social History Household Members: Spouse Housing: House Do you presently have visiting nurse or other home services: No Alcohol intake: current Alcohol intake frequency: a few times a week Patient Tobacco Use Status: Current everyday Tobacco user Tobacco use type: Cigarette Cigarettes Per Day: 1 Years Smoked: 43 (onset 12yo) e-Cigarette/Vaping Use: Currently Using Second Hand Smoke Exposure: No Substance Use Type: Marijuana Advance Directives Date on File: 01/29/22 service: No Current occupational status: unemployed Cognitive needs: No Hearing needs: No Vision needs: Yes Meds Allergies Allergy/AdvReac Type Severity Reaction Status Date / Time apple [Apple] Allergy Severe TONGUE Verified 10/27/24 18:26 SWELLS penicillin V Allergy Unknown unknown - Verified 10/27/24 18:26 childhood Penicillins [PENICILLINS] Allergy Unknown UNKNOWN-CHILDHOOD Verified 10/27/24 18:26 ALLERGY Active Medications: Current Medications Acetaminophen (Acetaminophen 325 Mg Tablet) 650 mg PO Q6H PRN PRN Reason: Pain, Mild 1-3,fever,headache Albuterol Sulfate (Albuterol Sulfate 90 Mcg 8 Gm Inhaler) 2 puff INHALE Q4H PRN PRN Reason: for dyspnea Albuterol/Ipratropium (Albuterol/Iprat 2.5/0.5mg 3 Ml Ampul.Neb) 3 ml INHALE Q4H PRN PRN Reason: Wheezing Albuterol/Ipratropium (Albuterol/Iprat 2.5/0.5mg 3 Ml Ampul.Neb) 3 ml INHALE RQ4H WHILE AWAKE [facility] Last Admin: 10/28/24 11:36 Dose: 3 ml Calcium Carbonate (Calcium Carbonate 750 Mg Tab.Chew) 750 mg PO Q4H PRN PRN Reason: Heartburn Enoxaparin Sodium (Enoxaparin Sodium 40 Mg/0.4 Ml Syringe) 40 mg SUBCUT Q24H [facility] Last Admin: 10/28/24 00:50 Dose: 40 mg Fluticasone/Umeclidinium/Vilanterol (Fluticasone/Umeclidinium/Vilanterol 100/62.5/25 Blst.W.Dev) 1 puff INHALE DAILY [facility] Last Admin: 10/28/24 07:43 Dose: 1 puff Piperacillin Sod/Tazobactam (Sod 4.5 gm/ Sodium Chloride) 100 mls @ 200 mls/hr IV Q6H [facility] Last Infusion: 10/28/24 11:30 Dose: Infused Vancomycin HCl 750 mg/ Sodium (Chloride) 265 mls @ 265 mls/hr IV Q12H [facility] Last Infusion: 10/28/24 09:45 Dose: Infused Lisinopril (Lisinopril 20 Mg Tablet) 20 mg PO DAILY [facility]; Protocol Last Admin: 10/28/24 08:15 Dose: 20 mg Lorazepam (Lorazepam 0.5 Mg Tablet) 0.5 mg PO DAILY PRN PRN Reason: Anxiety Magnesium Hydroxide (Milk Of Magnesia 30 Ml Oral.Susp) 30 ml PO DAILY PRN PRN Reason: Constipation Magnesium Oxide (Magnesium Oxide 400 Mg Tablet) 400 mg PO BEDTIME YEISON Melatonin (Melatonin 3 Mg Tablet) 6 mg PO BEDTIME PRN PRN Reason: Insomnia Multivitamins/Vitamin C (Multivitamin Tablet) 1 tab PO DAILY [facility] Last Admin: 10/28/24 08:15 Dose: 1 tab Omeprazole (Omeprazole 40 Mg Capsule.Dr) 40 mg PO DAILY@0630 [facility] Last Admin: 10/28/24 05:31 Dose: 40 mg Ondansetron HCl (Ondansetron Hcl 4 Mg/2 Ml Vial) 4 mg IVPUSH Q8H PRN PRN Reason: Nausea and Vomiting Pharmacy Consult (Consult Rx Vancomycin Dosing) 1 each MISCELLANE DAILY PRN PRN Reason: Consult order Potassium Chloride (Potassium Chloride Er 20 Meq Tab.Er.Prt) 20 meq PO DAILY [facility] Last Admin: 10/28/24 08:15 Dose: 20 meq Sodium Chloride (0.9 % Sodium Chloride Flush 3 Ml Syringe) 3 ml IVFLUSH QSHIFT [facility] Last Admin: 10/28/24 08:24 Dose: 3 ml Home Medications ?Medication ?Instructions ?Recorded ?Confirmed ?Last Taken ?Type lorazepam 0.5 mg tablet 0.5 mg PO DAILY PRN Anxiety 12/11/22 10/27/24 Unknown History multivitamin 1 tab PO DAILY 02/05/23 10/27/24 Unknown History lisinopril 10 mg tablet 20 mg PO DAILY 10/20/24 10/27/24 10/26/24 History fluticasone fur. 100 mcg-umeclid 1 ea inhalation DAILY 10/27/24 10/27/24 10/27/24 History 62.5 mcg-vilant 25 mcg inhalat.powder (Trelegy Ellipta) magnesium oxide 400 mg (241.3 mg 400 mg PO BEDTIME 10/27/24 10/27/24 Unknown History magnesium) tablet omeprazole 40 mg capsule,delayed 40 mg PO DAILY@0630 10/27/24 10/27/24 10/27/24 History release potassium chloride 20 mEq 20 meq PO DAILY 10/27/24 10/27/24 10/27/24 History tablet,extended release Physical Exam 2 Vital Signs: Vital Signs: Last Vital Signs Temp 98.5 F 10/28/24 07:21 Pulse 70 10/28/24 11:36 Resp 15 10/28/24 11:36 BP 137/63 10/28/24 07:21 Pulse Ox 94 10/28/24 07:21 O2 Del Method Room Air 10/28/24 07:21 BMI result Body Mass Index 17.3 Const: General: cooperative, comfortable, alert and awake Nutritional Appearance: thin Orientation/consciousness: patient oriented x3 Resp: Effort & Inspection: normal respiratory effort, able to speak in complete sentences, no respiratory distress and no use of accessory muscles Cardio: Rate: regular rate Neuro: General: patient oriented x3, moves all extremities and CN's II-XI intact bilaterally Results Laboratory Findings 10/28/24 05:12 10/28/24 05:12 ABG, PT/INR, D-dimer: PT/INR, D-dimer PT 11.6 SEC (10.9-12.4) 10/27/24 18:45 INR 1.0 (0.9-1.1) 10/27/24 18:45 Abnormal lab findings: Abnormal Labs 10/27/24 10/27/24 10/27/24 18:45 19:40 21:43 RBC 4.00 L Hgb Hct MCV 100.5 H MCH 35.3 H MCHC 35.1 H Plt Count Immature Gran % (Auto) 1.2 H Abs Immat Gran (auto) 0.10 H BUN 4 L Lactic Acid 3.0 H* 2.5 H* Lactic Acid F/U @ 2Hr Calcium AST 56 H ALT 34 H Alkaline Phosphatase 199 H Total Protein 6.4 L Albumin 10/28/24 10/28/24 00:10 05:12 RBC 3.46 L Hgb 11.9 L Hct 34.5 L MCV 99.7 H MCH 34.4 H MCHC Plt Count 127 L Immature Gran % (Auto) 0.9 H Abs Immat Gran (auto) 0.08 H BUN 6 L Lactic Acid Lactic Acid F/U @ 2Hr 3.9 H* Calcium 8.0 L D AST 48 H ALT Alkaline Phosphatase 159 H Total Protein 5.2 L Albumin 3.1 L Assessment and Plan (1) Cavitary pneumonia: Status: Acute (2) Pneumonia: Qualifiers: Pneumonia type: due to unspecified organism Laterality: right Lung location: upper lobe of lung Qualified Code(s): J18.9 - Pneumonia, unspecified organism Status: Acute (3) COPD (chronic obstructive pulmonary disease): Qualifiers: COPD type: chronic bronchitis Chronic bronchitis type: simple Q ualified Code(s): J41.0 - Simple chronic bronchitis Status: Acute Plan Continue broad-spectrum IV antibiotics specially covering anaerobes Start chlorhexidine mouthwash twice a day for 14 days to do with her poor dentition Serial imaging studies Sputum culture if able If the patient is no better bronchoscopy will be helpful specially if we need to rule out postobstructive pneumonia she has had history of lung cancer Oxygen supplementation to maintain a pulse ox above 90% Procedures Date of Service Date of Service: 10/28/24
--- NOTE | 2024-10-28 14:15 | MHC.CLN ---
PT IS MODERATELY MALNOURISHED PT WITH MILDLY DEPLETED SUBCUTANEOUS FAT AND MUSCLE MASS WITH BMI [address] PO INTAKE 50% X1 MEAL ENSURE BID IN PLACE PROVIDES 700KCALS, 40G PROTEIN MONITOR PO INTAKE AND ENCOURAGE SUPPLEMENTS SEE ALSO FULL CLINICAL NUTRITION ASSESSMENT
--- NOTE | 2024-10-28 14:42 | MHC.CM.PN ---
Pt lives with her (he has Dementia), she does not currently have home health services, and said her PCP has discussed this with her. For DME, she has home O2, uses mostly at night. PCP is confirmed: Elisa Clark. HCP is on file and confirmed: Alexandra. Pt is able to arrange a ride home at [place]. DCP: home with services. CM to follow for DC needs.
--- NOTE | 2024-10-28 14:49 | MHC.SL.SWA ---
Speech Pathologist Impression: Risk of Aspiration Due to: Medically Fragile History of Pneumonia Dysphasia Diet Status: Liquid Consistency and Strategies for Safe Swallow: Liquid Intake Recommendation: Thin Liquid Intake Strategies: Unrestricted Solid Food Consistency: Dietary Recommendations: Regular Additional Modifications to Solid Foods: Oral Medication Intake: Whole with Liquid Please contact the pharmacy regarding appropriate crushable or liquid drug formulations that are available whenever modified delivery is recommended. Compensatory Strategies and Precautions to be Taken for Safe Swallow: Sitting Upright (90 deg) Liquids from Cup Liquids from Straw Supervision While Eating and Drinking for Safe Swallow: None Needed Foods to Avoid: Swallowing Recommended Treatments: Recommendation for Speech: NA:Typical Evaluation Comment: Patient presented with all aspects of oral motor function and swallow WFL, with the exception of mild dental issues, which do not impede mastication or swallow. Recommend continue on Regular diet with thin liquids, pills whole with liquid. No further AS400 ADMINISTRATOR service recommended as patient is WFL and on least restrictive diet. LAZARO, RN, RD notified of recommendations by secure text. Frequency/Duration: Date Range for Service Req: Timeline to reassess: Carpet Renovator Clinican/Clinical Fellow: No Supervisory Statement: I have reviewed and agree with the student/clinical fellow's documentation: N/A Speech Language Pathologist: Lucia Donohue M.A., CCC-[id number] ADMINISTRATOR
[2024-10-28] MEDS: Acetaminophen 325 MG TABLET 650 MG PO (16:14)
[2024-10-28] MEDS: Ibuprofen 400 MG TABLET PO (18:05)
[2024-10-28 19:30] LABS: Vancomycin Random 11.5 mcg/mL (15-20)
[2024-10-28] MEDS: vancomycin HCL 1,000 MG in 0.9 % Sodium Chloride 250 ML 270 MG IV (21:12)
[2024-10-28] MEDS: Magnesium Oxide 400 MG TABLET PO (21:13)
[2024-10-29] VITALS (9 sets, daily range): BP systolic 137–168; BP diastolic 60–82; PULSE 72–104; RESP 16–20; TEMP 36.1–36.9; O2SAT 94–100
[2024-10-29] MEDS: Piperacillin Sodium/Tazobactam 4.5 GM in 0.9 % Sodium Chloride 100 ML IV ×5 (00:31→23:57)
[2024-10-29] MEDS: Omeprazole 40 MG CAPSULE.DR PO (07:00)
[2024-10-29 07:15] LABS: Hemoglobin 11.8 g/dl (12.0-16.0); Mean Corpuscular HGB Conc 34.7 g/dl (31.0-35.0); Mean Corpuscular Hemoglobin 35.3 pg (27.0-33.0); Mean Corpuscular Volume 101.8 fL (80.0-98.0); Mean Platelet Volume 10.6 fL (9.4-12.3); Platelet Count 121 X10*3/uL (160-400); Red Blood Count 3.34 X10*6/uL (4.20-5.50); Red Cell Distribution Width 12.7 % (11.0-16.0); White Blood Count 5.6 X10*3/uL (4.8-10.8)
[2024-10-29 07:35] LABS: Creatinine Clr Calc Pharmacy 74.3; Estimated Glomerular Filt Rate > 60
[2024-10-29] MEDS: Albuterol/Iprat 2.5/0.5MG 3 ML AMPUL.NEB INHALE ×3 (08:39→19:59)
[2024-10-29] MEDS: 0.9 % Sodium Chloride Flush 3 ML SYRINGE IVFLUSH ×3 (08:49→20:03)
[2024-10-29] MEDS: Potassium Chloride ER 20 MEQ TAB.ER.PRT PO (08:50)
[2024-10-29] MEDS: Chlorhexidine Gluc Oral Rinse 15 ML MOUTHWASH BUCCAL ×2 (08:50→20:17)
[2024-10-29] MEDS: Multivitamin TABLET 1 TAB PO (08:50)
[2024-10-29] MEDS: lisinopriL 20 MG TABLET PO (08:50)
[2024-10-29] MEDS: vancomycin HCL 1,000 MG in 0.9 % Sodium Chloride 250 ML 270 MG IV ×2 (08:50→20:03)
[2024-10-29] MEDS: traMADoL HCL 50 MG TABLET PO ×2 (11:32→20:16)
[2024-10-29] MEDS: Fluticasone/Umeclidinium/Vilanterol 100/62.5/25 BLST.W.DEV 1 PUFF INHALE (11:56)
[2024-10-29 14:38] LABS: MTB M. tuberculosis Complex NOT DETECTED (NOT DETECTED); Rifampin Resistance NOT TESTED (NOT DETECTED)
--- NOTE | 2024-10-29 16:20 | P.PNIM_ITS ---
Subjective Subjective Date of Service: 10/29/24 Interval History: seen and examined this morning follow up for pneumonia, probable aspiration no significant sob, minimal phlegm production no fever or night sweats Review of Systems Review of Systems: Yes all other systems are reviewed and are negative Constitutional Constitutional: Denies chills and Denies fever(s) Physical Exam 2 Vital Signs: Vital Signs: Last Vital Signs Temp 98.4 F 10/29/24 16:00 Pulse 102 H 10/29/24 16:00 Resp 18 10/29/24 16:00 BP 155/74 H 10/29/24 16:00 Pulse Ox 96 10/29/24 16:00 O2 Del Method Room Air 10/29/24 16:00 O2 Flow Rate 3 10/29/24 03:08 BMI result Body Mass Index 17.3 Const: General: cooperative, comfortable, alert and awake Nutritional Appearance: thin Orientation/consciousness: patient oriented x3 Resp: Effort & Inspection: normal respiratory effort, able to speak in complete sentences, no respiratory distress and no use of accessory muscles Cardio: Rate: regular rate Neuro: General: patient oriented x3, moves all extremities and CN's II-XI intact bilaterally Objective Data Active Medications Acetaminophen (Acetaminophen 325 Mg Tablet) 650 mg PO Q6H PRN PRN Reason: Pain, Mild 1-3,fever,headache Last Admin: 10/28/24 16:14 Dose: 650 mg Documented By: YENI Albuterol Sulfate (Albuterol Sulfate 90 Mcg 8 Gm Inhaler) 2 puff INHALE Q4H PRN PRN Reason: for dyspnea Albuterol/Ipratropium (Albuterol/Iprat 2.5/0.5mg 3 Ml Ampul.Neb) 3 ml INHALE Q4H PRN PRN Reason: Wheezing Albuterol/Ipratropium (Albuterol/Iprat 2.5/0.5mg 3 Ml Ampul.Neb) 3 ml INHALE RQ4H WHILE AWAKE [facility] Last Admin: 10/29/24 15:57 Dose: Not Given Documented By: ROXIE Non-Admin Reason: pt used MDI Calcium Carbonate (Calcium Carbonate 750 Mg Tab.Chew) 750 mg PO Q4H PRN PRN Reason: Heartburn Chlorhexidine Gluconate (Chlorhexidine Gluc Oral Rinse 15 Ml Mouthwash) 15 ml BUCCAL BID [facility] Last Admin: 10/29/24 08:50 Dose: 15 ml Documented By: FLOR Enoxaparin Sodium (Enoxaparin Sodium 40 Mg/0.4 Ml Syringe) 40 mg SUBCUT Q24H [facility] Last Admin: 10/28/24 22:49 Dose: 40 mg Documented By: JUAN Fluticasone/Umeclidinium/Vilanterol (Fluticasone/Umeclidinium/Vilanterol 100/62.5/25 Blst.W.Dev) 1 puff INHALE DAILY [facility] Last Admin: 10/29/24 11:56 Dose: 1 puff Documented By: KATIE Piperacillin Sod/Tazobactam (Sod 4.5 gm/ Sodium Chloride) 100 mls @ 200 mls/hr IV Q6H [facility] Last Infusion: 10/29/24 12:22 Dose: Infused Documented By: FLOR Vancomycin HCl 1,000 mg/ (Sodium Chloride) 270 mls @ 270 mls/hr IV Q12H [facility] Last Infusion: 10/29/24 09:55 Dose: Infused Documented By: FLOR Lisinopril (Lisinopril 20 Mg Tablet) 20 mg PO DAILY [facility]; Protocol Last Admin: 10/29/24 08:50 Dose: 20 mg Documented By: FLOR Lorazepam (Lorazepam 0.5 Mg Tablet) 0.5 mg PO DAILY PRN PRN Reason: Anxiety Magnesium Hydroxide (Milk Of Magnesia 30 Ml Oral.Susp) 30 ml PO DAILY PRN PRN Reason: Constipation Magnesium Oxide (Magnesium Oxide 400 Mg Tablet) 400 mg PO BEDTIME [facility] Last Admin: 10/28/24 21:13 Dose: 400 mg Documented By: JUAN Melatonin (Melatonin 3 Mg Tablet) 6 mg PO BEDTIME PRN PRN Reason: Insomnia Multivitamins/Vitamin C (Multivitamin Tablet) 1 tab PO DAILY [facility] Last Admin: 10/29/24 08:50 Dose: 1 tab Documented By: FLOR Omeprazole (Omeprazole 40 Mg Capsule.) 40 mg PO DAILY@0630 [facility] Last Admin: 10/29/24 07:00 Dose: 40 mg Documented By: JUAN Ondansetron HCl (Ondansetron Hcl 4 Mg/2 Ml Vial) 4 mg IVPUSH Q8H PRN PRN Reason: Nausea and Vomiting Pharmacy Consult (Consult Rx Vancomycin Dosing) 1 each MISCELLANE DAILY PRN PRN Reason: Consult order Potassium Chloride (Potassium Chloride Er 20 Meq Tab.Er.Prt) 20 meq PO DAILY [facility] Last Admin: 10/29/24 08:50 Dose: 20 meq Documented By: FLOR Sodium Chloride (0.9 % Sodium Chloride Flush 3 Ml Syringe) 3 ml IVFLUSH QSHIFT [facility] Last Admin: 10/29/24 08:49 Dose: 3 ml Documented By: FLOR Tramadol HCl (Tramadol Hcl 50 Mg Tablet) 50 mg PO Q6H PRN PRN Reason: Pain, Severe (Pain Scale 7-10) Last Admin: 10/29/24 11:32 Dose: 50 mg Documented By: FLOR Labs 10/29/24 06:31 10/29/24 06:31 Labs: Laboratory Results - last 24 hr 10/28/24 10/28/24 10/29/24 18:52 Unknown 06:31 MCV 101.8 H MCH 35.3 H MCHC 34.7 RDW 12.7 Plt Count 121 L MPV 10.6 Absolute Nucleated RBC 0.000 Nucleated RBC % (auto) 0.0 Estim Creat Clear Calc 74.3 Estimated GFR > 60 Random Vancomycin 11.5 L M.tuberculosis DNA (PCR) NOT DETECTED MTB Rifampin Resis PCR NOT TESTED Microbiology Microbiology Results: Microbiology 10/28/24 12:32 Gram Stain - Final Sputum - Expectorated Sputum Culture - Preliminary Culture in progress. 10/27/24 19:45 Blood Culture - Preliminary Blood - Venous No growth after 24 hours. 10/27/24 19:40 Blood Culture - Preliminary Blood - Venous No growth after 24 hours. Assessment and Plan (1) Cavitary pneumonia: Status: Acute Plan This is a 59-year-old female with pertinent history of lung cancer status post right upper lobectomy, tobacco use disorder, severe COPD not on home oxygen, hypertension, gastroesophageal reflux disease, mood disorder who was sent to the emergency department for IV antibiotics. Cavitary pneumonia: possibly due to aspiration; poor dentition no night sweats or fever, no h/o TB, no travel outside us, remote h/o incarceration continue IV vancomycin and IV Zosyn. Failed outpatient p.o. Levaquin. continue breathing treatments less likely TB, Sputum culture including AFB, T spot pending; TB PCR negative. seen by pulmonology, chlorhexidine mouthwash added speech evaluation no overt signs of aspiration blood cultures negative to date. no evidence of sepsis Lung adenocarcinoma follows with thoracic surgery at [facility]/Dr. Mazariegos acute lactic acidosis does not meet sirs criteria, not due to sepsis ?type 2 due to breathing treatments vs due to possible underlying liver dz given chronic transaminitis COPD: Continue home inhalers, no exacerbation during admission. Hypertension: Continue home lisinopril GERD: continue PPI Mood disorder: continue Ativan p.r.n. mild transaminitis appears chronically elevated trending down moderate protein calorie malnutrition bmi 17.3 DVT prophylaxis: Lovenox Full code Requires ongoing inpatient hospital stay for IV antibiotics (as above), which is not possible in a lesser acute setting. Pulmonology consult pending Quality Stroke Does the patient have a stroke diagnosis?: No VTE Prior VTE?: No VTE Risk Level:: Medical - moderate - high VTE Device Contraindication: Treatment Not Indicated VTE Drug Contraindication: N/A - Med Ordered
[2024-10-29] MEDS: Magnesium Sulfate/H2O 2 GM/50 ML PIGGYBACK IV (16:36)
[2024-10-29 19:21] LABS: Vancomycin Random 14.9 mcg/mL (15-20)
[2024-10-29] MEDS: Magnesium Oxide 400 MG TABLET PO (20:02)
[2024-10-29] MEDS: Enoxaparin Sodium 40 MG/0.4 ML SYRINGE SUBCUT (23:56)
[2024-10-30] VITALS (10 sets, daily range): BP systolic 125–169; BP diastolic 63–79; PULSE 75–99; RESP 17–22; TEMP 36.4–36.8; O2SAT 93–98
[2024-10-30] MEDS: Piperacillin Sodium/Tazobactam 4.5 GM in 0.9 % Sodium Chloride 100 ML IV ×4 (06:04→23:51)
[2024-10-30] MEDS: Omeprazole 40 MG CAPSULE.DR PO (06:04)
[2024-10-30 08:18] LABS: Creatinine Clr Calc Pharmacy 60.2; Estimated Glomerular Filt Rate > 60
[2024-10-30] MEDS: Fluticasone/Umeclidinium/Vilanterol 100/62.5/25 BLST.W.DEV 1 PUFF INHALE (08:52)
[2024-10-30] MEDS: Albuterol/Iprat 2.5/0.5MG 3 ML AMPUL.NEB INHALE ×4 (08:53→19:40)
--- NOTE | 2024-10-30 10:02 | PM.DS ---
DS: Providers Provider Date of Service: 10/30/24 Date of admission: 10/27/24 23:23 Date of discharge: 10/30/24 Primary care physician: Elisa Clark MD Consults: 10/27/24 23:25 Consult to Pulmonology Routine Consulting Provider: [facility] Reason for consultation: cavitating pneumonia Attending physician on discharge: Willard Jimenez Discharging clinician: Arabella Yip DS: Diagnosis Discharge Diagnosis (1) Cavitary pneumonia: Status: Acute DS: Summary Hospital Course Hospital Course: From H&P on the day of admission This is a 59-year-old female with pertinent history of lung cancer status post right upper lobectomy, tobacco use disorder, severe COPD not on home oxygen, hypertension, gastroesophageal reflux disease, mood disorder who was sent to the emergency department for IV antibiotics. Patient states she has had a cough all her life but it has worsened in the last 2 weeks. Patient also has been having sputum production that has changed over the last 2 weeks, sputum is clear. She had a CAT scan at [facility] on 10/20[facility]. Apparently there was right upper lobe consolidation with bronchiectatic changes and necrotizing disease. Patient was seen by pulmonology Dr. Roosevelt Manley on 10/21 and prescribed Levaquin. Patient states she saw her thoracic surgeon on the day of presentation and was advised to go to the ER for IV antibiotics as the symptoms were not improving with p.o. antibiotics. Patient took 5 days of p.o. Levaquin at home. No fever, chills, chest pain, palpitations, abdominal pain, changes in urinary or bowel habits. No wheezing In the emergency department, imaging with consolidation in the right upper lobe with suspicion for cavitating pneumonia. Patient was given IV vancomycin and IV Zosyn in the ER Cavitary pneumonia: possibly due to aspiration; poor dentition no night sweats or fever, no h/o TB, no travel outside us, remote h/o incarceration. Treated with IV vancomycin and IV Zosyn and breathing treatments. no hypoxia, elevated WBC count or fever. Less likely TB. TB PCR returned negative. Sputum culture including AFB and T spot are pending. seen by pulmonology, chlorhexidine mouthwash added due to poor dentition. Seen by speech evaluation no overt signs of aspiration. blood cultures negative to date. no evidence of sepsis Lung adenocarcinoma follows with thoracic surgery at [facility]/Dr. Mazariegos - will need close outpatient follow up acute lactic acidosis does not meet sirs criteria, not due to sepsis ?type 2 due to breathing treatments vs due to possible underlying liver dz given chronic transaminitis Time Attestation Discharge Coordination Time (in mins): 35 Quality: Safe Use of Opioids Does Pt have an Active Cancer Diagnosis on the Problem List?: No Quality: Stroke Does the patient have a stroke diagnosis?: No Physical Exam Vital Signs: Vital Signs: Last Vital Signs Temp 98.3 F 10/30/24 07:47 Pulse 75 10/30/24 08:53 Resp 18 10/30/24 08:53 BP 142/70 H 10/30/24 07:47 Pulse Ox 93 10/30/24 07:47 O2 Del Method Room Air 10/30/24 07:47 O2 Flow Rate 2 10/29/24 23:25 BMI result Body Mass Index 17.3 Const: General: cooperative, comfortable, alert and awake Nutritional Appearance: thin Orientation/consciousness: patient oriented x3 Resp: Effort & Inspection: normal respiratory effort, able to speak in complete sentences, no respiratory distress and no use of accessory muscles Cardio: Rate: regular rate Neuro: General: patient oriented x3, moves all extremities and CN's II-XI intact bilaterally DS: Data Data Completed and Pending Labs on day of discharge: Laboratory Results - last 24 hr 10/28/24 10/29/24 10/30/24 Unknown 19:02 07:28 Hold Purple Top SEE NOTE Creatinine 0.74 Estim Creat Clear Calc 60.2 Estimated GFR > 60 Random Vancomycin 14.9 L M.tuberculosis DNA (PCR) NOT DETECTED MTB Rifampin Resis PCR NOT TESTED Preliminary micro results at discharge 10/27/24 19:45 Blood Culture - Preliminary Blood - Venous No growth after 48 hours. 10/27/24 19:40 Blood Culture - Preliminary Blood - Venous No growth after 48 hours. 10/28/24 12:32 Sputum Culture - Preliminary Sputum - Expectorated Culture in progress. Discharge Plan Discharge Referrals: Elisa Clark MD [Primary Care Provider] - 1 Week Discharge Medications: No Action atorvastatin 20 mg tablet 20 mg PO DAILY Qty: 90 3RF albuterol sulfate [Ventolin HFA] 90 mcg/actuation HFA aerosol inhaler 2 puff inhalation Q4H PRN (Reason: for dyspnea) Qty: 18 5RF Trelegy Ellipta 100-62.5-25 mcg blister with device 1 ea inhalation DAILY potassium chloride 20 mEq tablet extended release 20 meq PO DAILY Rx Instructions: 1 bid for 1 week ,then 1 qd magnesium oxide 400 mg (241.3 mg magnesium) tablet 400 mg PO BEDTIME omeprazole 40 mg capsule,delayed release(DR/EC) 40 mg PO DAILY@0630 lorazepam 0.5 mg tablet 0.5 mg PO DAILY PRN (Reason: Anxiety) ipratropium-albuterol 0.5 mg-3 mg(2.5 mg base)/3 mL solution for nebulization 3 ml inhalation Q6-8H PRN (Reason: wheezing) Qty: 90 0RF levofloxacin 500 mg tablet 500 mg PO DAILY 14 Days Qty: 14 0RF multivitamin Tablet 1 tab PO DAILY lisinopril 10 mg tablet 20 mg PO DAILY Rx Instructions: TAKES IN THE EVENING Print Language: [place]
[2024-10-30] MEDS: 0.9 % Sodium Chloride Flush 3 ML SYRINGE IVFLUSH ×2 (10:11→17:10)
[2024-10-30] MEDS: Multivitamin TABLET 1 TAB PO (10:11)
[2024-10-30] MEDS: Chlorhexidine Gluc Oral Rinse 15 ML MOUTHWASH BUCCAL ×2 (10:11→20:33)
[2024-10-30] MEDS: Potassium Chloride ER 20 MEQ TAB.ER.PRT PO (10:11)
[2024-10-30] MEDS: lisinopriL 20 MG TABLET PO (10:11)
--- NOTE | 2024-10-30 11:42 | HO.PM.IMPN ---
Subjective Subjective Date of Service: 10/30/24 Interval History: seen and examined this morning follow up for pneumonia some phlegm production, some cough; no sob, has been ambulating in room no fever Review of Systems Review of Systems: Yes all other systems are reviewed and are negative Constitutional Constitutional: Denies chills and Denies fever(s) Physical Exam Vital Signs: Vital Signs: Last Vital Signs Temp 98.3 F 10/30/24 07:47 Pulse 75 10/30/24 08:53 Resp 18 10/30/24 08:53 BP 142/70 H 10/30/24 07:47 Pulse Ox 93 10/30/24 07:47 O2 Del Method Room Air 10/30/24 07:47 O2 Flow Rate 2 10/29/24 23:25 BMI result Body Mass Index 17.3 Const: General: cooperative, comfortable, alert and awake Nutritional Appearance: thin Orientation/consciousness: patient oriented x3 Resp: Effort & Inspection: normal respiratory effort, able to speak in complete sentences, no respiratory distress and no use of accessory muscles Cardio: Rate: regular rate Neuro: General: patient oriented x3, moves all extremities and CN's II-XI intact bilaterally Objective Data Active Medications Acetaminophen (Acetaminophen 325 Mg Tablet) 650 mg PO Q6H PRN PRN Reason: Pain, Mild 1-3,fever,headache Last Admin: 10/28/24 16:14 Dose: 650 mg Documented By: YENI Albuterol Sulfate (Albuterol Sulfate 90 Mcg 8 Gm Inhaler) 2 puff INHALE Q4H PRN PRN Reason: for dyspnea Albuterol/Ipratropium (Albuterol/Iprat 2.5/0.5mg 3 Ml Ampul.Neb) 3 ml INHALE Q4H PRN PRN Reason: Wheezing Albuterol/Ipratropium (Albuterol/Iprat 2.5/0.5mg 3 Ml Ampul.Neb) 3 ml INHALE RQ4H WHILE AWAKE COUNTS INCLUDE 234 BEDS AT THE [facility] Last Admin: 10/30/24 08:53 Dose: 3 ml Documented By: KATIE Calcium Carbonate (Calcium Carbonate 750 Mg Tab.Chew) 750 mg PO Q4H PRN PRN Reason: Heartburn Chlorhexidine Gluconate (Chlorhexidine Gluc Oral Rinse 15 Ml Mouthwash) 15 ml BUCCAL BID COUNTS INCLUDE 234 BEDS AT THE [facility] Last Admin: 10/30/24 10:11 Dose: 15 ml Documented By: NEETU Enoxaparin Sodium (Enoxaparin Sodium 40 Mg/0.4 Ml Syringe) 40 mg SUBCUT Q24H COUNTS INCLUDE 234 BEDS AT THE [facility] Last Admin: 10/29/24 23:56 Dose: 40 mg Documented By: JUAN Fluticasone/Umeclidinium/Vilanterol (Fluticasone/Umeclidinium/Vilanterol 100/62.5/25 Blst.W.Dev) 1 puff INHALE DAILY COUNTS INCLUDE 234 BEDS AT THE [facility] Last Admin: 10/30/24 08:52 Dose: 1 puff Documented By: KATIE Piperacillin Sod/Tazobactam (Sod 4.5 gm/ Sodium Chloride) 100 mls @ 200 mls/hr IV Q6H COUNTS INCLUDE 234 BEDS AT THE [facility] Last Infusion: 10/30/24 10:12 Dose: Infused Documented By: NEETU Vancomycin HCl 1,000 mg/ (Sodium Chloride) 270 mls @ 270 mls/hr IV Q12H COUNTS INCLUDE 234 BEDS AT THE [facility] Last Admin: 10/30/24 10:10 Dose: Not Given Documented By: NEETU Non-Admin Reason: No Access Lisinopril (Lisinopril 20 Mg Tablet) 20 mg PO DAILY COUNTS INCLUDE 234 BEDS AT THE [facility]; Protocol Last Admin: 10/30/24 10:11 Dose: 20 mg Documented By: NEETU Lorazepam (Lorazepam 0.5 Mg Tablet) 0.5 mg PO DAILY PRN PRN Reason: Anxiety Magnesium Hydroxide (Milk Of Magnesia 30 Ml Oral.Susp) 30 ml PO DAILY PRN PRN Reason: Constipation Magnesium Oxide (Magnesium Oxide 400 Mg Tablet) 400 mg PO BEDTIME COUNTS INCLUDE 234 BEDS AT THE [facility] Last Admin: 10/29/24 20:02 Dose: 400 mg Documented By: JUAN Melatonin (Melatonin 3 Mg Tablet) 6 mg PO BEDTIME PRN PRN Reason: Insomnia Multivitamins/Vitamin C (Multivitamin Tablet) 1 tab PO DAILY COUNTS INCLUDE 234 BEDS AT THE [facility] Last Admin: 10/30/24 10:11 Dose: 1 tab Documented By: NEETU Omeprazole (Omeprazole 40 Mg Capsule.Dr) 40 mg PO DAILY@0630 COUNTS INCLUDE 234 BEDS AT THE [facility] Last Admin: 10/30/24 06:04 Dose: 40 mg Documented By: JUAN Ondansetron HCl (Ondansetron Hcl 4 Mg/2 Ml Vial) 4 mg IVPUSH Q8H PRN PRN Reason: Nausea and Vomiting Pharmacy Consult (Consult Rx Vancomycin Dosing) 1 each MISCELLANE DAILY PRN PRN Reason: Consult order Potassium Chloride (Potassium Chloride Er 20 Meq Tab.Er.Prt) 20 meq PO DAILY COUNTS INCLUDE 234 BEDS AT THE [facility] Last Admin: 10/30/24 10:11 Dose: 20 meq Documented By: NEETU Sodium Chloride (0.9 % Sodium Chloride Flush 3 Ml Syringe) 3 ml IVFLUSH QSHIFT COUNTS INCLUDE 234 BEDS AT THE [facility] Last Admin: 10/30/24 10:11 Dose: 3 ml Documented By: NEETU Tramadol HCl (Tramadol Hcl 50 Mg Tablet) 50 mg PO Q6H PRN PRN Reason: Pain, Severe (Pain Scale 7-10) Last Admin: 10/29/24 20:16 Dose: 50 mg Documented By: JUAN Labs 10/29/24 06:31 10/30/24 07:28 Labs: Laboratory Results - last 24 hr 10/28/24 10/29/24 10/30/24 Unknown 19:02 07:28 Hold Purple Top SEE NOTE Estim Creat Clear Calc 60.2 Estimated GFR > 60 Random Vancomycin 14.9 L M.tuberculosis DNA (PCR) NOT DETECTED MTB Rifampin Resis PCR NOT TESTED Microbiology Microbiology Results: Microbiology 10/28/24 12:32 Gram Stain - Final Sputum - Expectorated Sputum Culture - Final 10/27/24 19:45 Blood Culture - Preliminary Blood - Venous No growth after 48 hours. 10/27/24 19:40 Blood Culture - Preliminary Blood - Venous No growth after 48 hours. Assessment and Plan (1) Cavitary pneumonia: Status: Acute Plan This is a 59-year-old female with pertinent history of lung cancer status post right upper lobectomy, tobacco use disorder, severe COPD not on home oxygen, hypertension, gastroesophageal reflux disease, mood disorder who was sent to the emergency department for IV antibiotics. Cavitary pneumonia: possibly due to aspiration; poor dentition no night sweats or fever, no h/o TB, no travel outside us, remote h/o incarceration continue IV vancomycin and IV Zosyn. Failed outpatient p.o. Levaquin. continue breathing treatments less likely TB, Sputum culture including AFB, T spot pending; TB PCR negative. seen by pulmonology, chlorhexidine mouthwash added, rec 14 days speech evaluation no overt signs of aspiration blood cultures negative to date. no evidence of sepsis Lung adenocarcinoma follows with thoracic surgery at [facility]/Dr. Mazariegos - will need outpatient follow up acute lactic acidosis does not meet sirs criteria, not due to sepsis ?type 2 due to breathing treatments vs due to possible underlying liver dz given chronic transaminitis COPD: Continue home inhalers, no exacerbation during admission. Hypertension: Continue home lisinopril GERD: continue PPI Mood disorder: continue Ativan p.r.n. mild transaminitis appears chronically elevated trending down moderate protein calorie malnutrition bmi 17.3 DVT prophylaxis: Lovenox Full code Requires ongoing inpatient hospital stay for IV antibiotics (as above), which is not possible in a lesser acute setting. Pulmonology consult pending Quality Stroke Does the patient have a stroke diagnosis?: No VTE Prior VTE?: No VTE Risk Level:: Medical - moderate - high VTE Device Contraindication: Treatment Not Indicated VTE Drug Contraindication: N/A - Med Ordered
[2024-10-30 19:17] LABS: Vancomycin Random 10.1 mcg/mL (15-20)
[2024-10-30] MEDS: Magnesium Oxide 400 MG TABLET PO (20:20)
[2024-10-30] MEDS: vancomycin HCL 1,000 MG in 0.9 % Sodium Chloride 250 ML 270 MG IV (20:21)
[2024-10-30] MEDS: traMADoL HCL 50 MG TABLET PO (20:28)
[2024-10-30] MEDS: Enoxaparin Sodium 40 MG/0.4 ML SYRINGE SUBCUT (23:51)
[2024-10-31] MEDS: Piperacillin Sodium/Tazobactam 4.5 GM in 0.9 % Sodium Chloride 100 ML IV ×2 (05:50→09:50)
[2024-10-31] MEDS: Omeprazole 40 MG CAPSULE.DR PO (06:00)
[2024-10-31] MEDS: 0.9 % Sodium Chloride Flush 3 ML SYRINGE IVFLUSH ×2 (06:02→09:50)
[2024-10-31 06:35] VITALS: BP 128/66; PULSE 80; RESP 18; TEMP 36.8; O2SAT 98
[2024-10-31 07:14] LABS: Creatinine Clr Calc Pharmacy 59.4; Estimated Glomerular Filt Rate > 60
[2024-10-31 08:00] VITALS: BP 144/72; RESP 14; TEMP 36.3; O2SAT 95
[2024-10-31] MEDS: Fluticasone/Umeclidinium/Vilanterol 100/62.5/25 BLST.W.DEV 1 PUFF INHALE (08:19)
[2024-10-31 08:20] VITALS: PULSE 73; RESP 18; O2SAT 93
[2024-10-31] MEDS: Albuterol/Iprat 2.5/0.5MG 3 ML AMPUL.NEB INHALE ×3 (08:20→15:03)
[2024-10-31] MEDS: Chlorhexidine Gluc Oral Rinse 15 ML MOUTHWASH BUCCAL (09:49)
[2024-10-31] MEDS: vancomycin HCL 1,000 MG in 0.9 % Sodium Chloride 250 ML 270 MG IV (09:50)
[2024-10-31] MEDS: lisinopriL 20 MG TABLET PO (09:50)
[2024-10-31] MEDS: Potassium Chloride ER 20 MEQ TAB.ER.PRT PO (09:50)
[2024-10-31] MEDS: Multivitamin TABLET 1 TAB PO (09:51)
[2024-10-31 10:48] VITALS: O2SAT 94
[2024-10-31 11:19] LABS: TS Negative Control Passed; TS Panel A 0; TS Panel B 0; TS Positive Control Passed; TSpotTB Negative (Negative)
[2024-10-31 11:33] VITALS: PULSE 86; RESP 18; O2SAT 96
--- NOTE | 2024-10-31 12:23 | MHC.CLN ---
F/U PT IS MODERATELY MALNOURISHED PO INTAKE 75-100% REGULAR DIET IN PLACE ENSURE BID IN PLACE PROVIDES 700KCALS, 40G PROTEIN MONITOR PO INTAKE AND ENCOURAGE SUPPLEMENTS
--- NOTE | 2024-10-31 14:19 | P.DS_ITS ---
DS: Providers Provider Date of Service: 10/31/24 Date of admission: 10/27/24 23:23 Date of discharge: 10/31/24 Primary care physician: Elisa Clark MD Consults: 10/27/24 23:25 Consult to Pulmonology Routine Consulting Provider: [facility] Reason for consultation: cavitating pneumonia 10/30/24 15:10 Consult to Infectious Diseases Routine Consulting Provider: [facility] Reason for consultation: cavitary pneumonia +AFB in sputum Has provider been notified: No DS: Diagnosis Discharge Diagnosis (1) Cavitary pneumonia: Status: Acute DS: Summary Hospital Course Hospital Course: From H&P on the day of admission This is a 59-year-old female with pertinent history of lung cancer status post right upper lobectomy, tobacco use disorder, severe COPD not on home oxygen, hypertension, gastroesophageal reflux disease, mood disorder who was sent to the emergency department for IV antibiotics. Patient states she has had a cough all her life but it has worsened in the last 2 weeks. Patient also has been having sputum production that has changed over the last 2 weeks, sputum is clear. She had a CAT scan at [facility] on 10/20/2024. Apparently there was right upper lobe consolidation with bronchiectatic changes and necrotizing disease. Patient was seen by pulmonology Dr. Roosevelt Manley on 10/21 and prescribed Levaquin. Patient states she saw her thoracic surgeon on the day of presentation and was advised to go to the ER for IV antibiotics as the symptoms were not improving with p.o. antibiotics. Patient took 5 days of p.o. Levaquin at home. No fever, chills, chest pain, palpitations, abdominal pain, changes in urinary or bowel habits. No wheezing In the emergency department, imaging with consolidation in the right upper lobe with suspicion for cavitating pneumonia. Patient was given IV vancomycin and IV Zosyn in the ER Cavitary pneumonia: possibly due to aspiration; poor dentition no night sweats or fever, no h/o TB, no travel outside us, remote h/o incarceration. Treated with IV vancomycin and IV Zosyn and breathing treatments. no hypoxia, elevated WBC count or fever. Less likely TB. TB PCR returned negative. Sputum culture including AFB and T spot are pending. seen by pulmonology, chlorhexidine mouthwash added due to poor dentition (continue 14 days). Seen by speech evaluation no overt signs of aspiration. blood cultures negative to date. no evidence of sepsis. continue levaquin for 14 days Lung adenocarcinoma follows with thoracic surgery at [facility]/Dr. Mazariegos - will need close outpatient follow up acute lactic acidosis does not meet sirs criteria, not due to sepsis ?type 2 due to breathing treatments vs due to possible underlying liver dz given chronic transaminitis Time Attestation Discharge Coordination Time (in mins): 42 Quality: Safe Use of Opioids Does Pt have an Active Cancer Diagnosis on the Problem List?: No Quality: Stroke Does the patient have a stroke diagnosis?: No Physical Exam Vital Signs: Vital Signs: Last Vital Signs Temp 97.3 F 10/31/24 08:00 Pulse 86 10/31/24 11:33 Resp 18 10/31/24 11:33 BP 144/72 H 10/31/24 08:00 Pulse Ox 94 10/31/24 10:48 O2 Del Method Room Air 10/31/24 08:00 O2 Flow Rate 2 10/31/24 06:35 BMI result Body Mass Index 17.3 Appearing in no acute distress head is normocephalic atraumatic eyes pupils are PERRLA sclera is anicteric mouth throat mucous membranes are intact and moist neck is supple no lymphadenopathy, no JVD noted lung sounds are clear to auscultation heart regular rate rhythm, clear S1, S2 positive bowel sounds, abdomen is soft, nontender neuro patient is alert x3, no focal deficits DS: Data Data Completed and Pending Labs on day of discharge: Laboratory Results - last 24 hr 10/28/24 10/30/24 10/31/24 05:12 18:36 06:37 Creatinine 0.75 Estim Creat Clear Calc 59.4 Estimated GFR > 60 Random Vancomycin 10.1 L TB Test (T-Spot) Com Negative TB Test Nil Control Passed TB Test Panel A 0 TB Test Panel B 0 TB Test Positive Cntrl Passed Preliminary micro results at discharge 10/27/24 19:45 Blood Culture - Preliminary Blood - Venous No growth after 48 hours. 10/27/24 19:40 Blood Culture - Preliminary Blood - Venous No growth after 48 hours. Discharge Plan Discharge Anticipated Discharge Date/Time: 10/31/24 12:08 Patient Disposition: Home, Self-Care Discharge Diagnosis: Cavitary lesion, pneumonia Lung adenocarcinoma Acute lactic acidosis Referrals: Elisa Clark MD [Primary Care Provider] - 1 Week Roosevelt Manley MD [Physician] - 1 Week Discharge Medications: New levofloxacin 500 mg tablet 500 mg PO DAILY Qty: 14 0RF benzonatate 100 mg capsule 100 mg PO TID PRN (Reason: cough) Qty: 12 0RF chlorhexidine gluconate 0.12 % Mouthwash 15 ml buccal BID 14 Days Qty: 600 0RF Continued atorvastatin 20 mg tablet 20 mg PO DAILY Qty: 90 3RF albuterol sulfate [Ventolin HFA] 90 mcg/actuation HFA aerosol inhaler 2 puff inhalation Q4H PRN (Reason: for dyspnea) Qty: 18 5RF Trelegy Ellipta 100-62.5-25 mcg blister with device 1 ea inhalation DAILY potassium chloride 20 mEq tablet extended release 20 meq PO DAILY Rx Instructions: 1 bid for 1 week ,then 1 qd magnesium oxide 400 mg (241.3 mg magnesium) tablet 400 mg PO BEDTIME omeprazole 40 mg capsule,delayed release(DR/EC) 40 mg PO DAILY@0630 lorazepam 0.5 mg tablet 0.5 mg PO DAILY PRN (Reason: Anxiety) ipratropium-albuterol 0.5 mg-3 mg(2.5 mg base)/3 mL solution for nebulization 3 ml inhalation Q6-8H PRN (Reason: wheezing) Qty: 90 0RF multivitamin Tablet 1 tab PO DAILY lisinopril 10 mg tablet 20 mg PO DAILY Rx Instructions: TAKES IN THE EVENING Discontinued levofloxacin 500 mg tablet 500 mg PO DAILY 14 Days Qty: 14 0RF Discharge Orders: Discharge Order (Routine); Ordered 10/31/24 Ordered By: Jazmin Manley Diet: Advance to usual diet Activity on Discharge: As tolerated Stand Alone Forms: Patient Portal Discharge page Print Language: Mongolian Care Plan Goals: Complete course of antibiotics and steroids Health Concerns: Cavitary lesion, pneumonia Lung adenocarcinoma Acute lactic acidosis Plan of Treatment: Follow up with primary care provider as needed Take all medications as prescribed Assessment: See discharge summary
--- NOTE | 2024-10-31 15:00 | MHC.CM.PN ---
Pt is medically cleared for discharge home self-care, pt has arranged their own transport home.
[2024-10-31 15:03] VITALS: PULSE 96; RESP 18; O2SAT 97
[2024-11-01 23:09] LABS: Quantiferon TB Gold Plus 1 NEGATIVE (NEGATIVE); TB Test (QFT) Mitogen -Nil 8.44 IU/mL; TB Test (QFT) Nil 0.14 IU/mL
== END 2024-10-31 15:26 | disposition home or self-care (01) | DRG 137 ==
LOC: HO.ED 22:38 → HO.EDOVER 23:31 → HO.IMC 23:48 → HO.S3 10-31 13:49 → HO.IMC 10-31 13:58
PROVIDERS: Physician Assistant Medical; Registered Nurse Emergency; Admitting Provider Student in an Organized Health Care Education/Training Program; Emergency Provider Emergency Medicine; PCP Internal Medicine; Visit Provider Nurse Practitioner Acute Care
DX: J69.0 Pneumonitis due to inhalation of food and vomit (principal); E44.0 Moderate protein-calorie malnutrition; E87.21 Acute metabolic acidosis; Z99.81 Dependence on supplemental oxygen; I10 Essential (primary) hypertension; K21.9 Gastro-esophageal reflux disease without esophagitis; F39 Unspecified mood [affective] disorder; J98.4 Other disorders of lung; Z68.1 Body mass index [BMI] 19.9 or less, adult; Z20.822 Contact with and (suspected) exposure to COVID-19; Z90.2 Acquired absence of lung [part of]; Z85.118 Personal history of other malignant neoplasm of bronchus and lung; Z79.899 Other long term (current) drug therapy
CPT/HCPCS: 0241U; 36415; 71045; 71260; 80053; 80202; 82565; 83605; 85025; 85027; 85610; 86480; 86481; 87040; 87070; 87116; 87205; 87206; 87564; 92610; 94640; 99285; J1650; J2270; J2543; J3370; J3371; J3475; Q9967

== ENCOUNTER → 2024-10-27 19:28 | Outpatient (BNV) | payer OTHER, SELFPAY | PROVIDERS: Emergency Provider Emergency Medicine; PCP Internal Medicine; Visit Provider Radiology Diagnostic Radiology | DX: R91.1 Solitary pulmonary nodule (principal) | CPT/HCPCS: 71260 ==

== ENCOUNTER 2024-10-27 23:23 | Outpatient (BNV) | payer OTHER, SELFPAY | END 2024-10-31 08:59 | PROVIDERS: Admitting Provider Student in an Organized Health Care Education/Training Program; Emergency Provider Emergency Medicine; PCP Internal Medicine; Visit Provider Radiology Vascular & Interventional Radiology | DX: R91.1 Solitary pulmonary nodule (principal); J18.8 Other pneumonia, unspecified organism | CPT/HCPCS: 71045 ==

== ENCOUNTER → 2024-10-27 23:23 | Outpatient (BNV) | payer OTHER, SELFPAY | PROVIDERS: Admitting Provider Student in an Organized Health Care Education/Training Program; Emergency Provider Emergency Medicine; PCP Internal Medicine; Visit Provider Student in an Organized Health Care Education/Training Program | DX: J18.9 Pneumonia, unspecified organism (principal); J98.4 Other disorders of lung | CPT/HCPCS: 99223; 99232; 99239 ==

== ENCOUNTER → 2024-10-27 23:23 | Outpatient (BNV) | payer OTHER, SELFPAY | PROVIDERS: Admitting Provider Student in an Organized Health Care Education/Training Program; Emergency Provider Emergency Medicine; PCP Internal Medicine; Visit Provider Hospitalist | DX: J18.9 Pneumonia, unspecified organism (principal); J98.4 Other disorders of lung; J41.0 Simple chronic bronchitis | CPT/HCPCS: 99223 ==

== ENCOUNTER 2024-11-10 09:43 | Outpatient (AMB) | payer OTHER, SELFPAY ==
--- NOTE | 2024-11-10 09:52 | MHC.PC.OV ---
Vital Signs 11/10/24 09:54 Height 5 ft 5 in Weight 105 lb BMI 17.5 BP 126/72 Blood Pressure Location Lt brachial Position Sitting Respiration 18 Pulse 76 Pulse Source Pulse Oximeter Temp 98.2 F Temp Source Oral Pulse Oximetry (%) 98 Oxygen Delivery Method Room Air Intake Visit Reasons: Hospital follow up visit Intake Note: Pt is here today for Hospital follow up visit. Allergies apple [Apple] Allergy (Severe, Verified 11/10/24 09:59) TONGUE SWELLS penicillin V Allergy (Unknown, Verified 11/10/24 09:59) unknown - childhood Penicillins [PENICILLINS] Allergy (Unknown, Verified 11/10/24 09:59) UNKNOWN-CHILDHOOD ALLERGY Medication List - Last Reconciled 11/10/24 by Elisa Clark MD albuterol sulfate 90 mcg/actuation (Ventolin HFA) 2 puffs inhalation Q4H PRN atorvastatin 20 mg PO DAILY benzonatate 100 mg PO TID PRN chlorhexidine gluconate 0.12% 15 mL buccal BID 2 weeks efvdynnjgcg-rlunnwagp-simfdewm 100-62.5-25 mcg (Trelegy Ellipta) 1 ea inhalation DAILY ipratropium-albuterol 0.5 mg-3 mg(2.5 mg base)/3 mL 3 mL inhalation Q6-8H PRN levofloxacin 500 mg PO DAILY lisinopril 20 mg PO DAILY lorazepam 0.5 mg PO DAILY PRN magnesium oxide 400 mg PO BEDTIME multivitamin 1 tab PO DAILY omeprazole 40 mg PO DAILY@0630 potassium chloride ER 20 mEq PO DAILY Tobacco use date assessed: 11/10/24 Dental Screening Dental Screen Date: 09/16/24 [facility] Hospital follow up visit HPI Details Patient presents for the follow-up of hospitalization at [facility] for 4 days discharge October 31 for a right upper lobe necrotizing pneumonia. Patient was treated with vanco and Zosyn for 4 days discharged home on Levaquin for 14 days. She continues to complain of chronic cough with small amount of sputum denies hemoptysis fever chills night sweats. Patient's sputum was 3+ positive for AFB but identification is pending. Patient has a follow-up appointment with wax pattern repairer Dr. Manley next week and and follows up thoracic surgeon at [facility] for increasing in size spiculated mass in left lower lobe at 1.6 cm. Patient continues to use Trelegy albuterol updraft and supplemental O2 at night. [facility] Medical History (Updated 11/10/24 @ 10:32 by Elisa Clark MD) COPD (chronic obstructive pulmonary disease) Cavitary pneumonia Lower back pain Neck pain Restless leg syndrome History of seizure On home O2 Osteopenia Malignant neoplasm of right upper lobe of lung (~2017) Tobacco dependence Depression Anxiety Hyperlipemia Surgical History History of colonoscopy (~03/2017) History of bronchoscopy (~06/2018) History of lung surgery (~07/2018) History of tonsillectomy Family History Father Alcohol abuse Maternal Aunt Breast cancer Sister Breast cancer Brother Skin cancer Other Mental health disorder Substance use disorder Social History Household Members: Spouse Housing: House Do you presently have visiting nurse or other home services: No Alcohol intake: current Alcohol intake frequency: a few times a week Patient Tobacco Use Status: Current everyday Tobacco user Tobacco use type: Cigarette Cigarettes Per Day: 1 Years Smoked: 43 (onset 12yo) Packs per year/per ci.00 e-Cigarette/Vaping Use: Currently Using Second Hand Smoke Exposure: No Substance Use Type: Marijuana Advance Directives Date on File: 01/29/22 service: No Current occupational status: unemployed Cognitive needs: No Hearing needs: No Vision needs: Yes Questionnaire PHQ-9 Over the last 2 weeks, how often have you been bothered by any of the following problems? 1. Little interest or pleasure in doing things: more than half the days 2. Feeling down, depressed, or hopeless: several days 3. Trouble falling or staying asleep, or sleeping too much: several days 4. Feeling tired or having little energy: more than half the days 5. Poor appetite or overeating: several days 6. Feeling bad about yourself - or that you are a failure or have let yourself or your family down: several days 7. Trouble concentrating on things, such as reading the newspaper or watching television: several days 8. Moving or speaking so slowly that other people could have noticed. Or the opposite - being so fidgety or restless that you have been moving around a lot more than usual: not at all 9. Thoughts that you would be better off or of hurting yourself in some way: not at all Total score: 9 Depression Screening Interpretation: Negative (Patient is established with a therapist she declined medications) Depression Screening Done: Yes 87665 - PHQ-9 Billing: Yes Source: Developed by Drs. Luis Juarez, Lelo Churchill, Alf Yusuf and colleagues, with an educational edgar from [employer]. Thrive Questionnaire Date Thrive assessed: 09/09/24 I am a: Patient What is your living situation today?: I have a place to live, but I am worried about losing it in the future Within the past 12 months, did the food you bought not last and you didn't have the money to get more?: Often true Within the past 12 months, did you worry whether your food would run out before you got money to buy more?: Never true Do you have trouble paying for medicines?: No Do you have trouble getting transportation to medical appointments?: No Do you have trouble paying your heating and electricity bill?: I choose not to answer this question Do you have trouble taking care of your child, family member or friend?: No Do you have trouble with day-to-day activities such as bathing, preparing meals, shopping, managing finances, etc.?: No Are you currently unemployed and looking for a job?: No Are you interested in more education?: Yes Currently or been in a relationship where the following occur: I choose not to answer THRIVE Score: 2 ARTEM-7 AMB Questionnaire ARTEM-7 Date ARTEM - 7 assessed: 09/16/24 Source: Developed by Drs. Luis Juarez, Lelo Churchill, Alf Yusuf and colleagues, with an educational edgar from [employer]. Review of Systems Const All systems reviewed & are unremarkable except as noted in HPI and below Eyes Reports no additional complaints ENT Reports no additional complaints Card Reports no additional complaints Resp Reports no additional complaints GI Reports no additional complaints Reports no additional complaints Physical exam (Primary Care) Vital Signs: Last Vital Signs Temp 98.2 F 11/10/24 09:54 Pulse 76 11/10/24 09:54 Resp 18 11/10/24 09:54 BP 126/72 11/10/24 09:54 Pulse Ox 98 11/10/24 09:54 Oxygen Delivery Method Room Air 11/10/24 09:54 BMI result Body Mass Index 17.5 Tobacco/Smoking Status: Tobacco use Status Tobacco use date assessed 11/10/24 11/10/24 10:02 Patient Tobacco Use Status Current everyday Tobacco 11/10/24 09:53 Tobacco use type Cigarette 11/10/24 09:53 e-Cigarette/Vaping Use Currently Using 11/10/24 09:53 PHQ-9: PHQ-9 Score PHQ-9: Total score 9 11/10/24 10:02 Depression Screening Interpretation: Negative (Patient is established with a therapist she declined medications) Thrive Assessment: Date of Thrive Assessment Date Thrive assessed 09/09/24 11/10/24 09:53 Currently or been in a relationship where the following occur: I choose not to answer Const General: no acute distress HENMT Head: Yes normal to inspection Face and sinus: Yes normal facial exam Eyes General: appearance normal, both eyes and all related structures Resp Effort & Inspection: normal respiratory effort Auscultation: diminished lung sounds Cardio Rhythm: regular rhythm Heart sounds: S1 normal heart sound present and S2 normal heart sound present Coding Level of Care Code Est Pt Level 4 (78798) Diagnoses Cavitary pneumonia J18.9; J98.4 Simple chronic bronchitis J41.0 COPD type: chronic bronchitis Chronic bronchitis type: simple Malignant neoplasm of right upper lobe of lung C34.11 Additional Codes PHQ-9 - 80259 - PHQ-9 Billing: Yes ([id number]) Assessment & Plan Assessment & Plan (1) Cavitary pneumonia: Comment: RUL on CT/CXR, [place] [facility] [place], discharged on 2 weeks of Levaquin, 10/30 AFB 3+ ID pending Code(s): J18.9 - Pneumonia, unspecified organism; J98.4 - Other disorders of lung Category: Medical Plan: Continue Levaquin follow-up with pulmonology and thoracic surgery (2) COPD (chronic obstructive pulmonary disease): Comment: Severe or on supplemental O2 Code(s): J44.9 - Chronic obstructive pulmonary disease, unspecified Category: Medical Qualifiers: COPD type: chronic bronchitis Chronic bronchitis type: simple Qualified Code(s): J41.0 - Simple chronic bronchitis Plan: Continue Trulicity supplemental O2 and albuterol p.r.n. (3) Malignant neoplasm of right upper lobe of lung: Onset Date: ~2017 Comment: (RUL Invasive Adenocarcinoma, Acinar type, 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), f/u thoracic surgeon Sweta, CT 10/2024 new fairly large area of consolidation with bronchiectasis and bronchiolectasis including posterolateral remaining right upper lobe and superior segment of the right lower lobe as well as small abnormalities in left lung, severe underlying emphysema Code(s): C34.11 - Malignant neoplasm of upper lobe, right bronchus or lung Category: Medical Plan: f/u with thoracic surgeon at [facility] Medications: Refilled benzonatate 100 mg PO TID PRN 12 caps 0RF cough
[2024-11-10 09:54] VITALS: BP 126/72; PULSE 76; RESP 18; TEMP 36.8; O2SAT 98; BMI 17.5
--- OUTSIDE RECORDS SUMMARY | 2024-11-10 10:49 | XMS_ITS ---
Author Organization [facility] Address [address] [place] [id number] Care Team Providers Care Gyroscopic Engineering Technician Name Role Phone Elisa Clark MD Primary Care Provider Elvira Betancourt [phone] Encounters Encounter Location Date Provider Diagnosis [address] [id number] 08/11/2023 Elvira Mart Plan Of Treatment No Information Progress Notes * Sully RAO MDOB:[birth year] (59 yo F)Acc No.[id number]:08/11/2023 Progress Note Patient:?Sully RAO Provider:?Elvira Mart DPM :1965???Age:57 Y???Sex:Female D ate:08/11/2023 Address:[address] [place], [place] [id number] Pcp:Elisa Clark MD Subjective: * Chief Complaints: [...] Mart DPM Date:? Generated for Russell rosado/Samanta/eTransmitting on:?11/10/2024 10:49 AM EDT
--- OUTSIDE RECORDS SUMMARY | 2024-11-10 10:49 | XMS_ITS ---
Author Organization [facility] Address [address] [place] [address] Care Team Providers Care Cooler Man Name Role Phone Elisa Clark MD Primary Care Provider UnavailElvira Mcdonald [phone] REASON FOR VISIT 08/11/23 appt Encounters Encounter Location Date Provider Diagnosis [facility] [address] [facility] [address] [place] [phone] 07/20/2023 Elvira Mart Plan Of Treatment No Information Progress Notes * Sully RAO MDOB:[birth year] (57 yo F)Acc No.[id number]:07/20/2023 Patient:?Sully Rao :1965???Age:57 Y???Sex:Female Address:[address] [place] [address], [address] * true * Date:? Generated for Russell rosado/Samanta/eTransmitting on:?11/10/2024 10:49 AM EDT
--- OUTSIDE RECORDS SUMMARY | 2024-11-10 10:49 | XMS_ITS | Clinical Summary ---
Author Organization [facility] Address [address] [place] [address] Phone Care Team Providers Care Retail Agent Name Role Phone Elisa Clark MD Primary Care Provider [phone] Allergies Active Allergy Reactions Criticality Noted Date [...] needed. 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 Is requesting referral to [place] as this is closer to her. Referral placed. Oxygen dependent. History of lung cancer 07/20/2024 Assessment & Plan (11/01/2024 1:18 PM EDT): Ms. Berry is a 59-year-old female who had a robotic right upper lobe wedge resection in 2019 for stage I lung cancer. She has had waxing and waning pulmonary nodules on her subsequent surveillance CT scans. The patient's recent CT scan done in October 2024 shows new fairly large areas of consolidation with bronchiectasis and bronchiolectasis involving the right upper and lower lobes, as well as left lung, possibly related to acute necrotizing pneumonia. There are no enlarged mediastinal lymph nodes. The patient does admit to feeling more rundown and having a congested cough recently. She has been on Levaquin for almost a week at this point. Repeat chest x-ray was done today that shows no significant improvement in her infiltrates when compared to her previous CT. I called and spoke with Dr. Manley from her pulmonology office who recommended that if her chest x-ray did not show improvement in her infiltrates that she should be admitted for bronchoscopy and IV antibiotics. I called and spoke with the patient after her chest x-ray was done letting her know the recommendation would be to go to the emergency department for evaluation, bronchoscopy, and IV antibiotics. Patient states that she was going to call and try to arrange care for her who has dementia and that she would let us know which hospital she was going to. Assessment & Plan (07/20/2024 12:55 PM EST): [...] how their size, shape, and change management manager time affect her level of suspicion [...] Encounters Date Type Department Care Team Description 10/27/2024 9:20 AM EDT - 10/27/2024 11:59 PM EDT Hospital Encounter [facility] Xray [address] [place] [phone] Pneumonia of both lungs due to infectious organism, unspecified part of lung Discharge Disposition: Home or Self Care 10/27/2024 9:00 AM EDT Office Visit Thoracic Surgery - [place] [address] [facility] [address] [place] [phone] Shannan Crocker PA History of lung cancer (Primary Dx); Multiple pulmonary nodules; Pneumonia of both lungs due to infectious organism, unspecified part of lung 10/18/2024 8:14 AM EDT - 10/18/2024 11:59 PM EDT Hospital Encounter [facility] CT Scan [address] [place] [address] Multiple pulmonary nodules; History of lung cancer Discharge Disposition: Home or Self Care from Last 3 Months Surgical History Surgery Date Site/Laterality Comments OTHER SURGICAL HISTORY 06/2018 N/A PROCEDURE: PULMONOLOGY BRONCHOSCOPY COLONOSCOPY 03/2017 N/A PROCEDURE: HISTORICAL COLONOSCOPY TONSILLECTOMY N/A PROCEDURE: HISTORICAL TONSILLECTOMY OTHER SURGICAL HISTORY 08/12/2018 PROCEDURE: OR THORACOSCOPY W/THERA WEDGE RESEXN INITIAL UNILAT; COMMENT: RUL Wedge - Invasive Adenocarcinoma (pT1bN0) Medical History Medical History Date Comments Anxiety disorder DX:Anxiety diso rder COPD (chronic obstructive pu lmonary disease) ([facility] V24, [facility] V28) DX:COPD (chronic o bstructive pulmonary disease) ([facility]) Depression DX:Depression History of seizure DX:History of seizure Hyperlipidemia DX:Hyperlipidemi a Low back pain DX:Low back pain Malignant neoplasm of right upper lobe of lung ([facility]/HCC V24, [facility] V28) DX:Malignant neopla sm of right upper lobe of lung ([facility]) Neck pain DX:Neck pain On home O2 [...] Mass Index 17.86 10/27/2024 8:56 AM EDT Plan of Treatment Health Maintenance Due Date Last Done Comments [...] to infectious organism, unspecified part of lung CT CHEST WO CONTRAST Routine 10/18/2024 8:21 AM EDT Multiple pulmonary nodules History of lung cancer from Last 3 Months Results * XR Chest 2 Views (10/27/2024 9:32 AM EDT) Anatomical Region Laterality Modality Body Radiographic Leah ging 10/27/2024 12:0 5 PM EDT Impressions 10/27/2024 12:07 PM EDT Right posterior midlung infiltrate consistent with pneumonia, without significant change since the CT scan performed 10/18/2024. ??Findings as above consistent with COPD. Code 38518 -------- FINAL REPORT -------- Dictated By: Yoshi Brock Dictated Date: 10/27/2024 12:05 ET Assigned Physician: Yoshi Brock Reviewed and Electronically Signed By: Yoshi Brock Signed Date: 10/27/2024 12:07 ET Workstation ID: [id number] Transcribed By: Self Edit Transcribed Date: 10/27/2024 [...] right midlung, similar in appearance to the dredge hand radiograph graft from the CT scan performed [...] the right midlung, similar in appearance tothe dredge hand radiograph graft from the CT scan performed [...] 10/18/2024. Findings asabove consistent with COPD. Code 87369 -------- FINAL REPORT -------- Dictated By: Yoshi Brock Dictated Date: 10/27/2024 12:05 ET Assigned Physician: Yoshi Brock Reviewed and Electronically Signed By: Yoshi Brock Signed Date: 10/27/2024 12:07 ET Workstation ID: [id number] Transcribed By: Self Edit Transcribed Date: 10/27/2024 12:05 ET Shannan WILLIS IMG XR PROCEDURES Final Resul t * CT Chest wo Contrast (10/18/2024 8:21 [...] Signed Date: 10/20/2024 08:23 ET Workstation ID: [id number] Transcribed By: Self Edit Transcribed Date: 10/20/2024 [...] Signed Date: 10/20/2024 08:23 ET Workstation ID: [id number] Transcribed By: Self Edit Transcribed Date: 10/20/2024 08:07 ET Shannan WILLIS IM CT PROCEDURES Final Resul t from Last 3 Months Insurance [facility] [place] [address] Care Teams Retail Agent Relationship Specialty Start Date End Date Elisa Clark [facility] [address] [facility] [address] PCP - General Internal Medicine 10/18/24
--- OUTSIDE RECORDS SUMMARY | 2024-11-10 10:49 | XMS_ITS | Patient Health Record ---
[facility] Address [address] [facility] [place] [address] Care Team Providers Care Furnace Roaster Name Role Phone Elisa Clark MD Primary Care Provider Unavaila Elvira Hill Unavailable [phone] Allergies Allergen (clinical drug ingredient) Drug/Non Drug [...] days Active Ciclopirox 0.77 % 1 application Glycerine Plant Operator ally Twice a day for [...] Problem Status W/U Status Risk Notes Problem [id number] Atherosclerosi s of artery of both lower extremities (I70.203) Active confirmed Plan Of Treatment Pending Test Test Name Order Date *Liver Function Test (LFT) 05/12/2023 Insurance Providers Payer Name Payer Address Payer Phone Subscriber Number Group Number Insured Name Patient Relationship to Insured Coverage Start Date Coverage End Date [employer] [address] [place] [phone] [id number] Yoshi Berry Spouse - patient is the spouse of the insured 3 Medical (General) History Medical History History ICD Code Arthritis asthma Back,Hip,and Knee pain Cancer High blood pressure Lung disease Numbness Reflux ( GERD) Chicken pox Anxiety Surgical History Surgery Date(Month/Year) Lung 2019
== END 2024-11-10 10:42 | disposition home or self-care (01) ==
LOC: HO.HMCC 09:44
PROVIDERS: PCP Internal Medicine; Visit Provider Internal Medicine
DX: J18.9 Pneumonia, unspecified organism (principal); J98.4 Other disorders of lung; J41.0 Simple chronic bronchitis; C34.11 Malignant neoplasm of upper lobe, right bronchus or lung

== ENCOUNTER → 2024-11-10 09:43 | Outpatient (BNVA) | payer OTHER, SELFPAY | PROVIDERS: PCP Internal Medicine; Visit Provider Internal Medicine | DX: J18.9 Pneumonia, unspecified organism (principal); J98.4 Other disorders of lung; J41.0 Simple chronic bronchitis; C34.11 Malignant neoplasm of upper lobe, right bronchus or lung; Z99.81 Dependence on supplemental oxygen | CPT/HCPCS: 96127; 99212 ==

== ENCOUNTER 2024-11-17 09:05 | Outpatient (AMB) | payer OTHER, SELFPAY ==
[2024-11-17 09:09] VITALS: BP 164/70; PULSE 76; O2SAT 98; BMI 18.3
--- NOTE | 2024-11-17 09:09 | MHC.OFFVIS ---
Vital Signs 11/17/24 09:09 Height 5 ft 5 in Weight 110 lb 3.698 oz BMI 18.3 BP 164/70 H Blood Pressure Location Lt brachial Position Sitting Pulse 76 Pulse Source Pulse Oximeter Pulse Oximetry (%) 98 Oxygen Delivery Method Room Air Intake Visit Reasons: Cavitating Pneumonia Shipping Weigher Required: No Allergies apple [Apple] Allergy (Severe, Verified 11/17/24 09:13) TONGUE SWELLS penicillin V Allergy (Unknown, Verified 11/17/24 09:13) unknown - childhood Penicillins [PENICILLINS] Allergy (Unknown, Verified 11/17/24 09:13) UNKNOWN-CHILDHOOD ALLERGY HPI Comments Details: The patient is a 59 year woman with a known history of tobacco dependency, COPD and history of lung cancer. She did undergo a right upper lobectomy many years ago with curative intent. Now she has some pulmonary nodules on the left lower lobe that are being monitored. She is followed closely by thoracic surgery at [facility]. Unfortunately she does have severe COPD. And also has significantly decreased diffusing capacity. She does use oxygen at nighttime. She does get shortness of breath with activity. Especially going up a flight of stairs. Moderate severity. We did go for brief walking oximetry and she actually did great maintaining a pulse ox of 95% throughout the ambulation speaking in full sentences without any shortness of breath. Therefore, the patient does not require supplemental oxygen at this time. She is going to follow up with a repeat CT scan in October at [facility] to figure out what to do with the irregular left lower lobe pulmonary nodule. She is currently on Trelegy which is perfectly fine. She has to quit smoking altogether she is aware that. Will follow-up in 4-6 months. If she has any issues prior to that she will call for an earlier assessment. 10/21/2024 the patient is here for a urgent follow-up visit. Apparently the patient with the usual state health until recently started developing increased nausea and fatigue. She also has productive phlegm usually clear in color. Significant amount. She is coughing the whole day. Sometimes she chokes help with her saliva. The patient is following closely with thoracic surgery since her history of lung cancer. The patient did have a CT scan order at [facility] which was done 10/20/2024. Apparently was rather does consolidation the right upper lobe area along with bronchiectatic changes bronchiectatic changes in addition to areas of necrotizing disease. I do not have the images I did request a Kim. She does have an appointment with thoracic surgery in a week. In the office her lung exam is fairly diminished. No significant crackles appreciated. We did provide him a P present nebulized solution and did provide her sputum culture for both AFB and Gram stain and culture. The patient will start Levaquin for now. She will follow-up next week with thoracic surgery. I did send a message to them as well to be aware of the abnormal findings. The patient may indeed need a bronchoscopy. She can either have that there or here. 11/17/2024 the patient is here for a pulmonary follow-up visit. She was in a hospital with IV antibiotics for what appears to be necrotizing pneumonia. Likely aspiration related with poor dentition. The patient also drinks alcohol bring it little bit increased risk. It is not clear she has a concomitant malignant process. She has completed the antibiotics. Will have her get blood work today in addition to another chest x-ray. If she continues to show improvement will continue with the chlorhexidine mouthwash and she can follow-up after her CAT scan. If the areas unchanged then will plan for bronchoscopy. She can have it done here or she can have it done at [facility] where her thoracic surgeon is located. She continues to use the respiratory therapy. She has been more tired lately. Will go ahead and check blood work including a blood gas to make sure that his CO2 is not significantly elevated. The patient follow-up in 3-4 weeks. I will let her know the results of the x-ray in the blood work once available. [facility] Medical History (Updated 11/10/24 @ 10:32 by Elisa Clark MD) COPD (chronic obstructive pulmonary disease) Cavitary pneumonia Lower back pain Neck pain Restless leg syndrome History of seizure On home O2 Osteopenia Malignant neoplasm of right upper lobe of lung (~2017) Tobacco dependence Depression Anxiety Hyperlipemia Surgical History History of colonoscopy (~03/2017) History of bronchoscopy (~06/2018) History of lung surgery (~07/2018) History of tonsillectomy Family History Father Alcohol abuse Maternal Aunt Breast cancer Sister Breast cancer Brother Skin cancer Other Mental health disorder Substance use disorder Social History Household Members: Spouse Housing: House Do you presently have visiting nurse or other home services: No Alcohol intake: current Alcohol intake frequency: a few times a week Patient Tobacco Use Status: Current everyday Tobacco user Tobacco use type: Cigarette Cigarettes Per Day: 1 Years Smoked: 43 (onset 12yo) e-Cigarette/Vaping Use: Currently Using Second Hand Smoke Exposure: No Substance Use Type: Marijuana Advance Directives Date on File: 01/29/22 service: No Current occupational status: unemployed Cognitive needs: No Hearing needs: No Vision needs: Yes Review of Systems Const All systems reviewed & are unremarkable except as noted in HPI and below Denies chills, Denies fatigue, Denies fever(s), Denies weight gain and Denies weight loss Eyes Reports no additional complaints ENT Denies dizziness Card Denies chest pain, Denies leg edema, Denies lightheadedness, Denies palpitations, Denies dyspnea on exertion, Denies orthopnea and Denies other Resp Denies cough and Denies dyspnea on exertion GI Denies hematochezia and Denies change in stool character Musc Denies abnormal gait, Denies muscle weakness, Denies numbness, Denies radiating pain into limb and Denies tingling Skin/Breast Denies rash Neuro Denies abnormal gait, Denies dizziness, Denies numbness and Denies tingling Endo Denies fatigue and Denies palpitations Fam/Lymph Denies easy bleeding Physical Exam Vital Signs: Last Vital Signs Pulse 76 11/17/24 09:09 BP 164/70 H 11/17/24 09:09 Pulse Ox 98 11/17/24 09:09 Oxygen Delivery Method Room Air 11/17/24 09:09 BMI result Body Mass Index 18.3 Last Vital Signs Temp 98.5 F 10/28/24 07:21 Pulse 70 10/28/24 11:36 Resp 15 10/28/24 11:36 BP 137/63 10/28/24 07:21 Pulse Ox 94 10/28/24 07:21 O2 Del Method Room Air 10/28/24 07:21 BMI result Body Mass Index 17.3 Const General: cooperative, comfortable, alert and awake Nutritional Appearance: thin Orientation/consciousness: patient oriented x3 Chest Chest palpation & inspection: normal inspection of the chest Resp Effort & Inspection: normal respiratory effort, able to speak in complete sentences, no respiratory distress and no use of accessory muscles Auscultation: diminished lung sounds Cardio Rate: regular rate Neuro General: patient oriented x3, moves all extremities and CN's II-XI intact bilaterally Results Reviewed Results Reviewed: personally reviewed previous CT chest 10/2024 with cavitary consolidations and reviewed recent CT chest report Assessment & Plan Assessment & Plan (1) Malignant neoplasm of right upper lobe of lung: Onset Date: ~2017 Comment: (RUL Invasive Adenocarcinoma, Acinar type, 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), f/u thoracic surgeon [place], CT 10/2024 new fairly large area of consolidation with bronchiectasis and bronchiolectasis including posterolateral remaining right upper lobe and superior segment of the right lower lobe as well as small abnormalities in left lung, severe underlying emphysema Code(s): C34.11 - Malignant neoplasm of upper lobe, right bronchus or lung Category: Medical Plan: Follow-up with oncology and thoracic surgeon at [place] (2) COPD (chronic obstructive pulmonary disease): Comment: Severe or on supplemental O2 Code(s): J44.9 - Chronic obstructive pulmonary disease, unspecified Category: Medical Qualifiers: COPD type: chronic bronchitis Chronic bronchitis type: simple Qualified Code(s): J41.0 - Simple chronic bronchitis Plan: Continue Trelegy tobacco quitting discussed with the patient (3) Tobacco dependence: Comment: (Current smoker, onset 12yo, 1/2-1ppd x 43yrs, 30+PYH), quit 01/2024 Code(s): F17.200 - Nicotine dependence, unspecified, uncomplicated Category: Medical (4) Pulmonary nodule: Code(s): R91.1 - Solitary pulmonary nodule Category: Medical (5) Pneumonia: Code(s): J18.9 - Pneumonia, unspecified organism Category: Medical Qualifiers: Laterality: right Lung location: upper lobe of lung Pneumonia type: due to unspecified organism Qualified Code(s): J18.9 - Pneumonia, unspecified organism (6) Cavitary pneumonia: Comment: RUL on CT/CXR, [place] [facility], discharged on 2 weeks of Levaquin, 10/30 AFB 3+ ID pending Code(s): J18.9 - Pneumonia, unspecified organism; J98.4 - Other disorders of lung Category: Medical (7) Lower respiratory infection (e.g., bronchitis, pneumonia, pneumonitis, pulmonitis): Code(s): J22 - Unspecified acute lower respiratory infection Category: Medical Plan Continue Trelegy ELIZABETH as needed Repeat CXR, if still abnormal will schedule bronchoscopy Chlorhexadine MW daily (poor dentitian) Bloodwork F/U 6-8 weeks Orders: Orders XR chest 2V Today J18.9 - Pneumonia, unspecified organism, J22 - Unspecified acute lower respiratory infection, J41.0 - Simple chronic bronchitis, J98.4 - Other disorders of lung Basic Metabolic Panel Today J18.9 - Pneumonia, unspecified organism, J22 - Unspecified acute lower respiratory infection, J41.0 - Simple chronic bronchitis, J98.4 - Other disorders of lung Immunoglobulins,IgG IgA IgM Today J18.9 - Pneumonia, unspecified organism, J22 - Unspecified acute lower respiratory infection, J41.0 - Simple chronic bronchitis, J98.4 - Other disorders of lung Immunoglobulin E Today J18.9 - Pneumonia, unspecified organism, J22 - Unspecified acute lower respiratory infection, J41.0 - Simple chronic bronchitis, J98.4 - Other disorders of lung Erythrocyte Sedimentation Rate Today J18.9 - Pneumonia, unspecified organism, J22 - Unspecified acute lower respiratory infection, J41.0 - Simple chronic bronchitis, J98.4 - Other disorders of lung Venous Blood Gas Today J18.9 - Pneumonia, unspecified organism, J22 - Unspecified acute lower respiratory infection, J41.0 - Simple chronic bronchitis, J98.4 - Other disorders of lung Complete Blood Count Auto Diff Today J18.9 - Pneumonia, unspecified organism, J22 - Unspecified acute lower respiratory infection, J41.0 - Simple chronic bronchitis, J98.4 - Other disorders of lung Liver Panel Today J18.9 - Pneumonia, unspecified organism, J22 - Unspecified acute lower respiratory infection, J41.0 - Simple chronic bronchitis, J98.4 - Other disorders of lung Medications: Changed From chlorhexidine gluconate 0.12% 15 mL buccal BID 2 weeks 600 mL 0RF To chlorhexidine gluconate 0.12% 15 mL buccal DAILY 28 days 473 mL 3RF Coding Level of Care Code Est Pt Level 5 (43985) Complex EM visit Add On G2211 Diagnoses Malignant neoplasm of right upper lobe of lung C34.11 Simple chronic bronchitis J41.0 COPD type: chronic bronchitis Chronic bronchitis type: simple Tobacco dependence F17.200 Pulmonary nodule R91.1 Pneumonia of right upper lobe due to infectious organism J18.9 Laterality: right Lung location: upper lobe of lung Pneumonia type: due to unspecified organism Cavitary pneumonia J18.9; J98.4 Lower respiratory infection (e.g., bronchitis, pneumonia, pneumonitis, pulmonitis) J22 Time Spent (min) 40
--- OUTSIDE RECORDS SUMMARY | 2024-11-17 09:34 | XMS_ITS | Clinical Summary ---
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 Is requesting referral to [place] as this is closer to her. Referral [...] general and how their size, shape, and globe changer time affect her level of suspicion [...] - 10/27/2024 11:59 PM EDT Hospital Encounter [facility] Xray [address] [place] [phone] Pneumonia of both lungs due to infectious organism, unspecified part of lung Discharge Disposition: Home or Self Care 10/27/2024 9:00 AM EDT Office Visit Thoracic Surgery - [place] [address] [facility] [address] [place] [phone] Shannan Crocker PA History of lung cancer (Primary Dx); Multiple pulmonary nodules; Pneumonia of both lungs due to infectious organism, unspecified part of lung 10/18/2024 8:14 AM EDT - 10/18/2024 11:59 PM EDT Hospital Encounter [facility] CT Scan [address] [place] [address] Multiple pulmonary nodules; History of lung cancer Discharge Disposition: Home or Self Care from Last 3 Months Surgical History Surgery Date Site/Laterality Comments OTHER SURGICAL HISTORY 06/2018 N/A PROCEDURE: PULMONOLOGY BRONCHOSCOPY COLONOSCOPY 03/2017 N/A PROCEDURE: HISTORICAL COLONOSCOPY TONSILLECTOMY N/A PROCEDURE: HISTORICAL TONSILLECTOMY OTHER SURGICAL HISTORY 08/12/2018 PROCEDURE: ID THORACOSCOPY W/THERA WEDGE RESEXN INITIAL UNILAT; COMMENT: RUL Wedge - Invasive Adenocarcinoma (pT1bN0) Medical History Medical History Date Comments Anxiety disorder DX:Anxiety diso rder COPD (chronic obstructive pu lmonary disease) ([facility] V24, [facility] V28) DX:COPD (chronic o bstructive pulmonary disease) ([facility]) Depression DX:Depression History of seizure DX:History of seizure Hyperlipidemia DX:Hyperlipidemi a Low back pain DX:Low back pain Malignant neoplasm of right upper lobe of lung ([facility] V24, [facility] V28) DX:Malignant neopla sm of right upper lobe of lung ([facility]) Neck pain DX:Neck pain On [...] ??Findings as above consistent with COPD. Code 49363 -------- FINAL REPORT -------- Dictated By: Yoshi Brock Dictated Date: 10/27/2024 12:05 ET Assigned Physician: Yoshi Brock Reviewed and Electronically Signed By: Yoshi Brock Signed Date: 10/27/2024 12:07 ET Workstation ID: [id number] Transcribed By: Self Edit Transcribed Date: 10/27/2024 [...] right midlung, similar in appearance to the irrigation tax assessor collector radiograph graft from the CT scan performed [...] the right midlung, similar in appearance tothe irrigation tax assessor collector radiograph graft from the CT scan performed [...] 10/18/2024. Findings asabove consistent with COPD. Code 08117 -------- FINAL REPORT -------- Dictated By: Yoshi Brock Dictated Date: 10/27/2024 12:05 ET Assigned Physician: Yoshi Brock Reviewed and Electronically Signed By: Ysohi Brock Signed Date: 10/27/2024 12:07 ET Workstation ID: [id number] Transcribed By: Self Edit Transcribed Date: 10/27/2024 [...] Signed Date: 10/20/2024 08:23 ET Workstation ID: [id number] Transcribed By: Self Edit Transcribed Date: 10/20/2024 [...] Signed Date: 10/20/2024 08:23 ET Workstation ID: [id number] Transcribed By: Self Edit Transcribed Date: 10/20/2024 08:07 ET Shannan WILLIS IM CT PROCEDURES Final Resul t from Last 3 Months Insurance [facility] Care Teams Upsetter Helper Relationship Specialty Start Date End Date [facility]isa [facility] [address] [facility] [address] PCP - General Internal Medicine 10/18/24
== END 2024-11-17 09:43 | disposition home or self-care (01) ==
LOC: HO.HPS 09:06
PROVIDERS: PCP Internal Medicine; Visit Provider Hospitalist
DX: J18.9 Pneumonia, unspecified organism (principal); C34.11 Malignant neoplasm of upper lobe, right bronchus or lung; J41.0 Simple chronic bronchitis; R91.1 Solitary pulmonary nodule; J98.4 Other disorders of lung; J22 Unspecified acute lower respiratory infection
CPT/HCPCS: 99215; G2211

== ENCOUNTER 2024-11-17 09:05 | Outpatient (REF) | payer OTHER, SELFPAY ==
--- NOTE | ~2024-11-17 | XR_ITS ---
EXAMINATION: XR CHEST CLINICAL INFORMATION: J41.0 - Simple chronic bronchitis COMPARISON: October 31, 2024. TECHNIQUE: 2 views of the chest were obtained. FINDINGS: Multifocal patchy opacities extending from the right pulmonary hilum to the periphery of the mid upper right hemithorax. No pneumothorax. No pleural effusion. Cardiomediastinal silhouette size is normal in Mild multilevel thoracic spondylosis Hyperinflated lungs. Increased AP diameter of the thorax.. XR/XR chest 2V IMPRESSION: Persistent airspace disease right lung with improved aeration and resolution of the right-sided pleural effusion. Recommend follow-up seems underlying neoplasm cannot be excluded. Consider COPD emphysematous type changes. Electronically signed by: Eusebio Buchanan MD 11/17/2024 10:27 AM EDT
[2024-11-17 10:00] LABS: MANUAL DIFF FLAG NO
[2024-11-17 10:04] LABS: Venous Blood Gas Refer to POC result
[2024-11-17 10:05] LABS: VBG Base Excess 2.7 mmol/L; VBG HCO3 29 mmol/L (22-26); VBG O2 % Saturation < 30.0 %; VBG pCO2 53 mmHg; VBG pH 7.34 (7.32-7.43); VBG pO2 25 mmHg
--- OUTSIDE RECORDS SUMMARY | 2024-11-17 10:30 | XMS_ITS | Clinical Summary ---
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 Is requesting referral to [place] as this is closer to her. Referral [...] 10/27/2024 11:59 PM EDT Hospital Encounter [facility] Xray [address] [place] [phone] Pneumonia of both lungs due to infectious organism, unspecified part of lung Discharge Disposition: Home or Self Care 10/27/2024 9:00 AM EDT Office Visit Thoracic Surgery - [place] [address] [facility] [address] [place] [phone] Shannan Crocker PA History of lung cancer (Primary Dx); Multiple pulmonary nodules; Pneumonia of both lungs due to infectious organism, unspecified part of lung 10/18/2024 8:14 AM EDT - 10/18/2024 11:59 PM EDT Hospital Encounter [facility] CT Scan [address] [place] [address] Multiple pulmonary nodules; History of lung cancer Discharge Disposition: Home or Self Care from Last 3 Months Surgical History Surgery Date Site/Laterality Comments OTHER SURGICAL HISTORY 06/2018 N/A PROCEDURE: PULMONOLOGY BRONCHOSCOPY COLONOSCOPY 03/2017 N/A PROCEDURE: HISTORICAL COLONOSCOPY TONSILLECTOMY N/A PROCEDURE: HISTORICAL TONSILLECTOMY OTHER SURGICAL HISTORY 08/12/2018 PROCEDURE: DE THORACOSCOPY W/THERA WEDGE RESEXN INITIAL UNILAT; COMMENT: RUL Wedge - Invasive Adenocarcinoma (pT1bN0) Medical History Medical History Date Comments Anxiety disorder DX:Anxiety diso rder COPD (chronic obstructive pu lmonary disease) ([facility] V24, [facility] V28) DX:COPD (chronic o bstructive pulmonary disease) ([facility]) Depression DX:Depression History of seizure DX:History of seizure Hyperlipidemia DX:Hyperlipidemi a Low back pain DX:Low back pain Malignant neoplasm of right upper lobe of lung ([facility] V24, [facility] V28) DX:Malignant neopla sm of right upper lobe of lung ([facility]) Neck pain DX:Neck pain On [...] ??Findings as above consistent with COPD. Code 46463 -------- FINAL REPORT -------- Dictated By: Yoshi Brock Dictated Date: 10/27/2024 12:05 ET Assigned Physician: Yoshi Brock Reviewed and Electronically Signed By: Yoshi Brock Signed Date: 10/27/2024 12:07 ET Workstation ID: [id number] Transcribed By: Self Edit Transcribed Date: 10/27/2024 [...] right midlung, similar in appearance to the medical or surgical instrument maker radiograph graft from the CT scan performed [...] the right midlung, similar in appearance tothe medical or surgical instrument maker radiograph graft from the CT scan performed [...] 10/18/2024. Findings asabove consistent with COPD. Code 86030 -------- FINAL REPORT -------- Dictated By: Yoshi Brock Dictated Date: 10/27/2024 12:05 ET Assigned Physician: Yoshi Brock Reviewed and Electronically Signed By: Yoshi Brock Signed Date: 10/27/2024 12:07 ET Workstation ID: [id number] Transcribed By: Self Edit Transcribed Date: 10/27/2024 [...] Signed Date: 10/20/2024 08:23 ET Workstation ID: [id number] Transcribed By: Self Edit Transcribed Date: 10/20/2024 [...] -------- FINAL REPORT -------- Dictated By: Tom Claduio Dictated Date: 10/20/2024 08:07 ET Assigned Physician: Tom Claudio Reviewed and Electronically Signed By: Tom Claudio Signed Date: 10/20/2024 08:23 ET Workstation ID: [id number] Transcribed By: Self Edit Transcribed Date: 10/20/2024 08:07 ET Shannan WILLIS IM CT PROCEDURES Final Resul t from Last 3 Months Insurance [employer] Care Teams Stitcher Around Relationship Specialty Start Date End Date Elisa Clark MD [address] [facility] [address] PCP - General Internal Medicine 10/18/24
--- OUTSIDE RECORDS SUMMARY | 2024-11-17 10:30 | XMS_ITS ---
Author Organization [facility] Address [address] [place] [address] Care Team Providers Care Soil Surveyor Name Role Phone Elisa Clark MD Primary Care Provider Elvira Betancourt [phone] Encounters Encounter Location Date Provider Diagnosis [address] [address] 08/11/2023 Elvira Mart Plan Of Treatment No Information Progress Notes * Sully RAO MDOB:[birth year] (59 yo F)Acc No.[id number]:08/11/2023 Progress Note Patient:?Sully RAO Provider:?Elvira Mart DPM :1965???Age:57 Y???Sex:Female D ate:08/11/2023 Address:[address] [place], [place] [phone] Pcp:Elisa Clark MD Subjective: * Chief Complaints: [...] Mart DPM Date:? Generated for Russell rosado/Samanta/eTransmitting on:?11/17/2024 10:29 AM EDT
--- OUTSIDE RECORDS SUMMARY | 2024-11-17 10:30 | XMS_ITS | Patient Health Record ---
Author Organization [facility] Address [address] [facility] [place] [address] Care Team Providers Care Telecommunications Equipment Installer Name Role Phone Elisa Clark MD Primary Care Provider Unavaila Elvira Hill Unavailable [phone] Allergies Allergen (clinical drug ingredient) Drug/Non Drug [...] days Active Ciclopirox 0.77 % 1 application Telephone Answerer ally Twice a day for 365 days [...] Problem Status W/U Status Risk Notes Problem [id number] Atherosclerosi s of artery of both lower extremities (I70.203) Active confirmed Plan Of Treatment Pending Test Test Name Order Date *Liver Function Test (LFT) 05/12/2023 Insurance Providers Payer Name Payer Address Payer Phone Subscriber Number Group Number Insured Name Patient Relationship to Insured Coverage Start Date Coverage End Date [place] [address] [place] [phone] [id number] Yoshi Berry Spouse - patient is the spouse of the insured 3 Medical (General) History Medical History History ICD Code Arthritis asthma Back,Hip,and Knee pain Cancer High blood pressure Lung disease Numbness Reflux ( GERD) Chicken pox Anxiety Surgical History Surgery Date(Month/Year) Lung 2019
--- OUTSIDE RECORDS SUMMARY | 2024-11-17 10:30 | XMS_ITS ---
Author Organization [facility] Address [address] [place] [address] Care Team Providers Care Family Practice Medical Doctor Name Role Phone Elisa Clark MD Primary Care Provider UnavailElvira Mcdonald [phone] REASON FOR VISIT 08/11/23 appt Encounters Encounter Location Date Provider Diagnosis [facility] [address] [facility] [address] [place] [address] 07/20/2023 Elvira Mart Plan Of Treatment No Information Progress Notes * Sully RAO MDOB:[birth year] (57 yo F)Acc No.[id number]:07/20/2023 Patient:?Sully Rao :1965???Age:57 Y???Sex:Female Address:[address] [place] [address], [address] * true * Date:? Generated for Russell rosado/Samanta/eTransmitting on:?11/17/2024 10:30 AM EDT
[2024-11-17 10:56] LABS: Basophils Absolute Auto 0.1 X10*3/uL (0.0-0.2); Basophils Percent Auto 0.5 % (0-2); Eosinophils Absolute Auto 0.1 X10*3/uL (0.0-0.4); Hematocrit 37.6 % (37.0-47.0); Imm Gran Abs Auto 0.13 X10*3/uL (0.00-0.03); Imm Gran Pct Auto 1.2 % (0.0-0.4); Lymphocytes Absolute Auto 1.7 X10*3/uL (1.2-4.9); Lymphocytes Percent Auto 15.7 % (20-40); Mean Corpuscular HGB Conc 34.6 g/dl (31.0-35.0); Mean Corpuscular Hemoglobin 34.4 pg (27.0-33.0); Mean Corpuscular Volume 99.5 fL (80.0-98.0); Mean Platelet Volume 10.5 fL (9.4-12.3); Monocytes Absolute Auto 0.7 X10*3/uL (0.1-1.2); Neutrophils Absolute Auto 8.3 x10*3/uL (2.0-8.3); Neutrophils Percent Auto 75.6 % (45-73); Platelet Count 177 X10*3/uL (160-400); Red Blood Count 3.78 X10*6/uL (4.20-5.50); Red Cell Distribution Width 12.6 % (11.0-16.0)
[2024-11-17 11:34] LABS: Alanine Aminotransferase 72 U/L (0-31); Albumin Level 3.9 g/dL (3.5-5.0); Alkaline Phosphatase 130 U/L (39-117); Anion Gap 14 (12-20); Aspartate Amino Transferase 161 U/L (5-31); Bilirubin Direct 0.2 mg/dL (0.0-0.5); Bilirubin Total 0.4 mg/dL (0.0-1.0); Blood Urea Nitrogen 10 mg/dL (9-16); Calcium 9.3 mg/dL (8.4-10.2); Carbon Dioxide 25 mmol/L (22-29); Chloride 105 mmol/L (96-108); Erythrocyte Sedimentation Rate 7 MM/HR (0-20); Estimated Glomerular Filt Rate > 60; Glucose Random 107 mg/dL (60-115); Potassium 4.5 mmol/L (3.3-5.1); Sodium 139 mmol/L (135-145); Total Protein 6.4 g/dL (6.5-8.0)
[2024-11-18 14:08] LABS: IgA 268 mg/dL (47-310); IgG 598 mg/dL (600-1640); IgM 159 mg/dL (50-300)
== END 2024-11-17 09:06 | disposition home or self-care (01) ==
LOC: HO.XRAY 09:05
PROVIDERS: PCP Internal Medicine; Visit Provider Hospitalist
DX: C34.11 Malignant neoplasm of upper lobe, right bronchus or lung (principal); J41.0 Simple chronic bronchitis; J18.9 Pneumonia, unspecified organism; J98.4 Other disorders of lung; J22 Unspecified acute lower respiratory infection; R91.1 Solitary pulmonary nodule; F17.210 Nicotine dependence, cigarettes, uncomplicated
CPT/HCPCS: 36415; 71046; 80048; 80076; 82784; 82803; 85025; 85652; 99212

== ENCOUNTER → 2024-11-17 10:00 | Outpatient (BNV) | payer OTHER, SELFPAY | PROVIDERS: PCP Internal Medicine; Visit Provider Radiology Diagnostic Radiology | DX: J90 Pleural effusion, not elsewhere classified (principal); J84.89 Other specified interstitial pulmonary diseases | CPT/HCPCS: 71046 ==

== ENCOUNTER 2025-01-03 12:11 | Outpatient (AMB) | payer OTHER, SELFPAY ==
--- NOTE | 2025-01-03 12:35 | A.OFFPC_ITS ---
Vital Signs 01/03/25 12:36 Height 5 ft 5 in Weight 102 lb BMI 17.0 BP 130/66 Blood Pressure Location Lt brachial Position Sitting Pulse 89 Pulse Source Pulse Oximeter Pulse Oximetry (%) 97 Oxygen Delivery Method Room Air Intake Visit Reasons: 2m follow up Allergies apple (Apple) Allergy (Severe, Verified 01/03/25 12:37) TONGUE SWELLS penicillin V Allergy (Unknown, Verified 01/03/25 12:37) unknown - childhood Penicillins (PENICILLINS) Allergy (Unknown, Verified 01/03/25 12:37) UNKNOWN-CHILDHOOD ALLERGY Medication List - Last Reconciled 01/03/25 by Elisa Clark MD albuterol sulfate 90 mcg/actuation (Ventolin HFA) 2 puffs inhalation Q4H PRN atorvastatin 20 mg PO DAILY chlorhexidine gluconate 0.12% 15 mL buccal DAILY 28 days colchicine 0.6 mg PO BID qpuxqcptaes-kozarqutv-xmonbele 100-62.5-25 mcg (Trelegy Ellipta) 1 ea inhalation DAILY ipratropium-albuterol 0.5 mg-3 mg(2.5 mg base)/3 mL 3 mL inhalation Q6-8H PRN lisinopril 20 mg PO DAILY lorazepam 0.5 mg PO DAILY PRN magnesium oxide 400 mg PO BEDTIME multivitamin 1 tab PO DAILY omeprazole 40 mg PO DAILY@0630 potassium chloride ER 20 mEq PO DAILY vortioxetine (Trintellix) 10 mg PO DAILY Tobacco use date assessed: 11/10/24 Dental Screening Dental Screen Date: 09/16/24 HPI 2m follow up HPI Details Patient presents for the follow-up on hypertension hyperlipidemia COPD stable on current medications. Patient complains of recurrent gout in her both big toes. She has been taking ibuprofen prn. [facility] Medical History COPD (chronic obstructive pulmonary disease) Cavitary pneumonia Lower back pain Neck pain Restless leg syndrome History of seizure On home O2 Osteopenia Malignant neoplasm of right upper lobe of lung (~2017) Tobacco dependence Depression Anxiety Hyperlipemia Surgical History History of colonoscopy (~03/2017) History of bronchoscopy (~06/2018) History of lung surgery (~07/2018) History of tonsillectomy Family History Father Alcohol abuse Maternal Aunt Breast cancer Sister Breast cancer Brother Skin cancer Other Mental health disorder Substance use disorder Social History Household Members: Spouse Housing: House Do you presently have visiting nurse or other home services: No Alcohol intake: current Alcohol intake frequency: a few times a week Patient Tobacco Use Status: Current everyday Tobacco user Tobacco use type: Cigarette Cigarettes Per Day: 1 Years Smoked: 43 (onset 12yo) e-Cigarette/Vaping Use: Currently Using Second Hand Smoke Exposure: No Substance Use Type: Marijuana Advance Directives Date on File: 01/29/22 service: No Current occupational status: unemployed Cognitive needs: No Hearing needs: No Vision needs: Yes Questionnaire Thrive Questionnaire Date Thrive assessed: 09/09/24 I am a: Patient What is your living situation today?: I have a place to live, but I am worried about losing it in the future Within the past 12 months, did the food you bought not last and you didn't have the money to get more?: Often true Within the past 12 months, did you worry whether your food would run out before you got money to buy more?: Never true Do you have trouble paying for medicines?: No Do you have trouble getting transportation to medical appointments?: No Do you have trouble paying your heating and electricity bill?: I choose not to answer this question Do you have trouble taking care of your child, family member or friend?: No Do you have trouble with day-to-day activities such as bathing, preparing meals, shopping, managing finances, etc.?: No Are you currently unemployed and looking for a job?: No Are you interested in more education?: Yes Currently or been in a relationship where the following occur: I choose not to answer THRIVE Score: 2 ARTEM-7 AMB Questionnaire ARTEM-7 Date ARTEM - 7 assessed: 09/16/24 Source: Developed by Drs. Luis Juarez, Lelo Churchill, Alf Yusuf and colleagues, with an educational edgar from [employer] Review of Systems Const All systems reviewed & are unremarkable except as noted in HPI and below ENT Reports no additional complaints Card Reports no additional complaints Resp Reports no additional complaints GI Reports no additional complaints Reports no additional complaints Physical exam (Primary Care) Vital Signs: Last Vital Signs Pulse 89 01/03/25 12:36 BP 130/66 01/03/25 12:36 Pulse Ox 97 01/03/25 12:36 Oxygen Delivery Method Room Air 01/03/25 12:36 BMI result Body Mass Index 17.0 Tobacco/Smoking Status: Tobacco use Status Tobacco use date assessed 11/10/24 01/03/25 12:38 Patient Tobacco Use Status Current everyday Tobacco 01/03/25 12:38 Tobacco use type Cigarette 01/03/25 12:38 e-Cigarette/Vaping Use Currently Using 01/03/25 12:38 Thrive Assessment: Date of Thrive Assessment Date Thrive assessed 09/09/24 01/03/25 12:38 Currently or been in a relationship where the following occur: I choose not to a nswer Const General: no acute distress HENMT Ears: hearing grossly normal bilaterally Face and sinus: Yes normal facial exam Eyes General: appearance normal, both eyes and all related structures Resp Effort & Inspection: normal respiratory effort Auscultation: clear to auscultation bilaterally Cardio Rhythm: regular rhythm Heart sounds: S1 normal heart sound present and S2 normal heart sound present GI Inspection: Yes normal to inspection Palpation (GI): Soft to palpation Percussion: Yes normal to percussion Auscultation: normal bowel sounds Coding Level of Care Code Est Pt Level 4 (03659) Complex EM visit Add On G2211 Diagnoses Elevated LFTs R79.89 Hypomagnesemia E83.42 Essential hypertension I10 Gout of big toe M10.9 Malignant neoplasm of right upper lobe of lung C34.11 Simple chronic bronchitis J41.0 COPD type: chronic bronchitis Chronic bronchitis type: simple Assessment & Plan Assessment & Plan (1) Elevated LFTs: Comment: US abd 09/05 ? sludge in common biliary duct Code(s): R79.89 - Other specified abnormal findings of blood chemistry Category: Medical Plan: Patient was advised to abstain from drinking taking NSAIDs. Monitor liver function (2) Hypomagnesemia: Code(s): E83.42 - Hypomagnesemia Category: Medical Plan: Continue magnesium supplement check the level (3) Essential hypertension: Code(s): I10 - Essential (primary) hypertension Category: Medical Plan: Continue Lisinopril (4) Gout of big toe: Code(s): M10.9 - Gout, unspecified Category: Medical Plan: Check uric acid level start colchicine as needed (5) Malignant neoplasm of right upper lobe of lung: Onset Date: ~2017 Comment: (RUL Invasive Adenocarcinoma, Acinar type, 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), f/u thoracic surgeon Sweta, CT 10/2024 new fairly large area of consolidation with bronchiectasis and bronchiolectasis including posterolateral remaining right upper lobe and superior segment of the right lower lobe as well as small abnormalities in left lung, severe underlying emphysema Code(s): C34.11 - Malignant neoplasm of upper lobe, right bronchus or lung Category: Medical Plan: Follow-up with oncology patient will have a repeat CT of the chest (6) COPD (chronic obstructive pulmonary disease): Comment: Severe or on supplemental O2 Code(s): J44.9 - Chronic obstructive pulmonary disease, unspecified Category: Medical Qualifiers: COPD type: chronic bronchitis Chronic bronchitis type: simple Qualified Code(s): J41.0 - Simple chronic bronchitis Plan: Continue Trelegy supplemental O2 tobacco quitting discussed with the patient Orders: Orders Magnesium Today E83.42 - Hypomagnesemia, I10 - Essential (primary) hypertension, R79.89 - Other specified abnormal findings of blood chemistry TSH reflex Free T4 Today I10 - Essential (primary) hypertension Comprehensive [place]. Panel Fast 3 Months E78.5 - Hyperlipidemia, unspecified, I10 - Essential (primary) hypertension, M10.9 - Gout, unspecified Complete Blood Count Auto Diff 3 Months E78.5 - Hyperlipidemia, unspecified, I10 - Essential (primary) hypertension, M10.9 - Gout, unspecified Lipid Panel 3 Months E78.5 - Hyperlipidemia, unspecified, I10 - Essential (primary) hypertension, M10.9 - Gout, unspecified Uric Acid Today E83.42 - Hypomagnesemia, I10 - Essential (primary) hypertension, R79.89 - Other specified abnormal findings of blood chemistry Comprehensive Met. Panel Today E83.42 - Hypomagnesemia, I10 - Essential (primary) hypertension, R79.89 - Other specified abnormal findings of blood chemistry Complete Blood Count Auto Diff Today E83.42 - Hypomagnesemia, I10 - Essential (primary) hypertension, R79.89 - Other specified abnormal findings of blood chemistry Uric Acid 3 Months E78.5 - Hyperlipidemia, unspecified, I10 - Essential (primary) hypertension, M10.9 - Gout, unspecified Medications: New colchicine 0.6 mg PO BID 60 tabs 1RF Discontinued clindamycin HCl Discontinued Reason: Doctor's Order 300 mg PO TID 10 days 30 caps 0RF
[2025-01-03 12:36] VITALS: BP 130/66; PULSE 89; O2SAT 97; BMI 17.0
--- OUTSIDE RECORDS SUMMARY | 2025-01-03 13:46 | XMS_ITS | Clinical Summary ---
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 Is requesting referral to [facility] as this is closer to her. Referral [...] general and how their size, shape, and chart changer time affect her level of suspicion [...] - 10/27/2024 11:59 PM EDT Hospital Encounter Xray [address] [place] [phone] Pneumonia of both lungs due to infectious organism, unspecified part of lung Discharge Disposition: Home or Self Care 10/27/2024 9:00 AM EDT Office Visit Thoracic Surgery - [place] [address] [facility] [address] [place] [phone] Shannan Crocker PA History of lung cancer (Primary Dx); Multiple pulmonary nodules; Pneumonia of both lungs due to infectious organism, unspecified part of lung 10/18/2024 8:14 AM EDT - 10/18/2024 11:59 PM EDT Hospital Encounter CT Scan [address] [place] [address] Multiple pulmonary nodules; History of [...] rder COPD (chronic obstructive pu lmonary disease) ([facility] V24, [facility] V28) DX:COPD (chronic o bstructive pulmonary disease) ([facility]) Depression DX:Depression History of seizure DX:History of seizure Hyperlipidemia DX:Hyperlipidemi a Low back pain DX:Low back pain Malignant neoplasm of right upper lobe of lung ([facility] V24, [facility] V28) DX:Malignant neopla sm of right upper lobe of lung ([facility]) Neck pain DX:Neck pain [...] Date Smoking Tobacco: Every Day Cigarettes 1 46.5 Started: 07/13/1978 Cigars Smokeless Tobacco: Never Tobacco [...] 92 10/27/2024 8:56 AM EDT Temperature 37.3 C (99.1 F) 10/27/2024 8:56 AM EDT Respiratory Rate 14 10/27/2024 8:56 AM EDT [...] since the CT scan performed 10/18/2024. Findings as above consistent with COPD. Code 55880 -------- FINAL REPORT -------- Dictated By: Yoshi Brock Dictated Date: 10/27/2024 12:05 ET Assigned Physician: Yoshi Brock Reviewed and Electronically Signed By: Yoshi Brock Signed Date: 10/27/2024 12:07 ET Workstation ID: [id number] Transcribed By: Self Edit Transcribed Date: 10/27/2024 12:05 ET Narrative 10/27/2024 12:07 PM EDT HISTORY: The patient is a 59-year-old female for follow-up of pneumonia. Information provided with prior studies indicates that the patient has undergone right upper lobe wedge resection for lung carcinoma in July 2018. FINDINGS: PA and lateral radiographs of the chest demonstrate normal appearance of the bony structures. The cardiac and silhouette is within normal limits. The aortic knob is calcified. An ill-defined infiltrate is again seen posteriorly in the right midlung, similar in appearance to the director teen post radiograph graft from the CT scan performed 10/18/2024. The left lung remains clear. The lungs are again seen to be hyperinflated with flattening of the diaphragm consistent with chronic obstructive pulmonary disease. Emphysematous changes are particularly notable in the right [...] the right midlung, similar in appearance tothe director teen post radiograph graft from the CT scan performed [...] 10/18/2024. Findings asabove consistent with COPD. Code 98574 -------- FINAL REPORT -------- Dictated By: Yoshi Brock Dictated Date: 10/27/2024 12:05 ET Assigned Physician: Yoshi Brock Reviewed and Electronically Signed By: Yoshi Brock Signed Date: 10/27/2024 12:07 ET Workstation ID: [id number] Transcribed By: Self Edit Transcribed Date: 10/27/2024 12:05 ET Shannan Crocker [facility] IMG XR PROCEDURES Final Resul t * CT Chest wo Contrast (10/18/2024 8:21 AM EDT) Anatomical Region Laterality Modality Body Computed Tomogra phy 10/20/2024 8:07 AM EDT Impressions 10/20/2024 8:23 AM EDT The study is limited by motion. There is marked interval worsening. There is severe underlying emphysema. There are new fairly large areas of consolidation with bronchiectasis and bronchiolectasis including the posterolateral remaining right upper lung and the superior segment of the right lower lobe as well as smaller abnormalities in the left lung. There is airway thickening. There is underlying bronchiectasis. Possibilities include acute necrotizing pneumonia. Underlying atypical infectious causes should be considered. -------- FINAL REPORT -------- Dictated By: Tom Claudio Dictated Date: 10/20/2024 08:07 ET Assigned Physician: Tom Claudio Reviewed and Electronically Signed By: Tom Claudio Signed Date: 10/20/2024 08:23 ET Workstation ID: [id number] Transcribed By: Self Edit Transcribed Date: 10/20/2024 08:07 ET Narrative 10/20/2024 8:23 AM EDT EXAMINATION: CT CHEST WITHOUT CONTRAST CLINICAL INFORMATION: History of lung cancer. Multiple new pulmonary nodules. Current smoker with severe COPD, who had a robotic RUL wedge resection for stage I lung cancer in July 2018. On subsequent surveillance CT scans she was noted [...] the remaining right upper lobe laterally. This is essentially new. There is a large area of consolidation with scattered internal gas lucencies likely dilated airways in the superior segment of the right lower lobe. This is a new finding. There are localized abnormality surrounding dilated airways in the right perihilar region of the right upper lobe anteriorly. There are scattered peripheral opacities with distorted airways [...] underlying centrilobular emphysema. No large fluid levels. MEDIASTINUM: Nonenlarged lymph nodes at the base of the neck. There are some prevascular lymph nodes which appear similar. The right hilum is not optimally evaluated but grossly within normal limits. CARDIAC: The heart is not enlarged. No pericardial fluid or thickening CORONARY CALCIFICATION: There are moderate coronary calcifications. VASCULAR: There is no thoracic aortic aneurysm. The central pulmonary arteries are top normal. PLEURA: There is no pleural fluid or pneumothorax. As described some of the areas of consolidation and airways disease extends the pleural reflection. AXILLA/CHEST WALL: There are no enlarged axillary lymph nodes. No chest wall mass demonstrated VISUALIZED UPPER ABDOMEN: No suspicious abnormality on limited assessment of the visualized upper abdomen. No change in trace thickening at the apex of the left adrenal gland. MUSCULOSKELETAL: No suspicious focal bony lesion. Probable hemangioma right side L1. Unchanged nonspecific small area of sclerosis spinous process [...] Signed Date: 10/20/2024 08:23 ET Workstation ID: [id number] Transcribed By: Self Edit Transcribed Date: 10/20/2024 08:07 ET Shannan WILLIS IMG CT PROCEDURES Final Resul t from Last 3 Months Insurance [facility] PLAN Care Teams Vocational School Teacher Relationship Specialty Start Date End Date Elisa Clark MD [address] [place] [phone] PCP - General Internal Medicine 10/18/24
== END 2025-01-03 12:56 | disposition home or self-care (01) ==
LOC: HO.HMCC 12:12
PROVIDERS: PCP Internal Medicine; Visit Provider Internal Medicine
DX: R79.89 Other specified abnormal findings of blood chemistry (principal); C34.11 Malignant neoplasm of upper lobe, right bronchus or lung; J41.0 Simple chronic bronchitis; E83.42 Hypomagnesemia; I10 Essential (primary) hypertension; M10.9 Gout, unspecified

== ENCOUNTER 2025-01-03 12:11 | Outpatient (REF) | payer OTHER, SELFPAY ==
[2025-01-03 16:10] LABS: MANUAL DIFF FLAG NO
[2025-01-03 16:19] LABS: Basophils Absolute Auto 0.1 X10*3/uL (0.0-0.2); Basophils Percent Auto 0.6 % (0-2); Eosinophils Absolute Auto 0.1 X10*3/uL (0.0-0.4); Eosinophils Percent Auto 0.6 % (0-4); Hematocrit 41.5 % (37.0-47.0); Hemoglobin 14.3 g/dl (12.0-16.0); Imm Gran Abs Auto 0.05 X10*3/uL (0.00-0.03); Imm Gran Pct Auto 0.4 % (0.0-0.4); Lymphocytes Absolute Auto 2.4 X10*3/uL (1.2-4.9); Mean Corpuscular HGB Conc 34.5 g/dl (31.0-35.0); Mean Corpuscular Hemoglobin 33.7 pg (27.0-33.0); Mean Corpuscular Volume 97.9 fL (80.0-98.0); Mean Platelet Volume 11.1 fL (9.4-12.3); Monocytes Absolute Auto 0.8 X10*3/uL (0.1-1.2); Monocytes Percent Auto 6.9 % (2-11); Neutrophils Absolute Auto 8.5 x10*3/uL (2.0-8.3); Neutrophils Percent Auto 71.5 % (45-73); Platelet Count 241 X10*3/uL (160-400); Red Blood Count 4.24 X10*6/uL (4.20-5.50); Red Cell Distribution Width 12.3 % (11.0-16.0); White Blood Count 11.8 X10*3/uL (4.8-10.8)
[2025-01-03 16:42] LABS: Alanine Aminotransferase 37 U/L (0-31); Albumin Level 4.3 g/dL (3.5-5.0); Alkaline Phosphatase 136 U/L (39-117); Anion Gap 15 (12-20); Aspartate Amino Transferase 68 U/L (5-31); Bilirubin Total 0.7 mg/dL (0.0-1.0); Blood Urea Nitrogen 10 mg/dL (9-16); Calcium 9.3 mg/dL (8.4-10.2); Carbon Dioxide 29 mmol/L (22-29); Chloride 96 mmol/L (96-108); Estimated Glomerular Filt Rate > 60; Glucose Random 107 mg/dL (60-115); Magnesium 1.2 mg/dL (1.6-2.6); Potassium 3.3 mmol/L (3.3-5.1); Sodium 137 mmol/L (135-145); Total Protein 6.8 g/dL (6.5-8.0); Uric Acid 11.2 mg/dL (2.4-5.7)
== END 2025-01-03 12:12 | disposition home or self-care (01) ==
LOC: HO.HMGCLDS 12:11
PROVIDERS: PCP Internal Medicine; Visit Provider Internal Medicine
DX: I10 Essential (primary) hypertension (principal); E78.5 Hyperlipidemia, unspecified; R79.89 Other specified abnormal findings of blood chemistry; E83.42 Hypomagnesemia; M10.9 Gout, unspecified; C34.11 Malignant neoplasm of upper lobe, right bronchus or lung; J41.0 Simple chronic bronchitis; Z79.899 Other long term (current) drug therapy
CPT/HCPCS: 36415; 80053; 83735; 84550; 85025; 99212

== ENCOUNTER 2025-01-05 12:22 | Outpatient (AMB) | payer OTHER, SELFPAY ==
[2025-01-05 12:53] VITALS: BP 128/68; PULSE 90; O2SAT 97; BMI 16.9
--- NOTE | 2025-01-05 12:53 | A.OFFVIS_ITS ---
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 She did undergo a right upper lobectomy many years ago with curative intent. Now she has some pulmonary nodules on the left lower lobe that are being monitored. She is followed closely by thoracic surgery at [facility]. Unfortunately she does have severe COPD. And also has significantly decreased diffusing capacity. She does use oxygen at nighttime. She does get shortness of breath with activity. Especially going up a flight of stairs. Moderate severity. We did go for brief walking oximetry and she actually did great maintaining a pulse ox of 95% throughout the ambulation speaking in full sentences without any shortness of breath. Therefore, the patient does not require supplemental oxygen at this time. She is going to follow up with a repeat CT scan in October at [facility] to figure out what to do with the irregular left lower lobe pulmonary nodule. She is currently on Trelegy which is perfectly fine. She has to quit smoking altogether she is aware that. Will follow-up in 4-6 months. If she has any issues prior to that she will call for an earlier assessment. 10/21/2024 the patient is here for a urgent follow-up visit. Apparently the patient with the usual state health until recently started developing increased nausea and fatigue. She also has productive phlegm usually clear in color. Significant amount. She is coughing the whole day. Sometimes she chokes help with her saliva. The patient is following closely with thoracic surgery since her history of lung cancer. The patient did have a CT scan order at [facility] which was done 10/20/2024. Apparently was rather does consolidation the right upper lobe area along with bronchiectatic changes bronchiectatic changes in addition to areas of necrotizing disease. I do not have the images I did request a Kim. She does have an appointment with thoracic surgery in a week. In the office her lung exam is fairly diminished. No significant crackles appreciated. We did provide him a P present nebulized solution and did provide her sputum culture for both AFB and Gram stain and culture. The patient will start Levaquin for now. She will follow-up next week with thoracic surgery. I did send a message to them as well to be aware of the abnormal findings. The patient may indeed need a bronchoscopy. She can either have that there or here. 11/17/2024 the patient is here for a pulmonary follow-up visit. She was in a hospital with IV antibiotics for what appears to be necrotizing pneumonia. Likely aspiration related with poor dentition. The patient also drinks alcohol bring it little bit increased risk. It is not clear she has a concomitant malignant process. She has completed the antibiotics. Will have her get blood work today in addition to another chest x-ray. If she continues to show improvement will continue with the chlorhexidine mouthwash and she can follow-up after her CAT scan. If the areas unchanged then will plan for bronchoscopy. She can have it done here or she can have it done at [facility] where her thoracic surgeon is located. She continues to use the respiratory therapy. She has been more tired lately. Will go ahead and check blood work including a blood gas to make sure that his CO2 is not significantly elevated. The patient follow-up in 3-4 weeks. I will let her know the results of the x-ray in the blood work once available. 01/05/2025 the patient is here for a pulmonary follow-up visit. He completed the antibiotics. Overall the patient has been doing well. Unfortunately has she has not been able to get her dental issues resolved. She is taking the chlorhexidine mouthwash with good effect. Continuously lose weight. She does have nutritional shakes that she uses at times although she does not like the boost and therefore she has not been using almost regularly. She does have a CAT scan scheduled coming up next week. If the CAT scan is stable then we can continue treating her for an infectious process. However, if there is any concerns of persistent disease then we will go ahead and perform a bronchoscopy. We will be talking after the CAT scans completed. Otherwise patient is doing okay with follow-up in 2-3 months. [facility] Medical History COPD (chronic obstructive pulmonary disease) Cavitary pneumonia Lower back pain Neck pain Restless leg syndrome History of seizure On home O2 Osteopenia Malignant neoplasm of right upper lobe of lung (~2017) Tobacco dependence Depression Anxiety Hyperlipemia Surgical History History of colonoscopy (~03/2017) History of bronchoscopy (~06/2018) History of lung surgery (~07/2018) History of tonsillectomy Family History Father Alcohol abuse Maternal Aunt Breast cancer Sister Breast cancer Brother Skin cancer Other Mental health disorder Substance use disorder Social History Household Members: Spouse Housing: House Do you presently have visiting nurse or other home services: No Alcohol intake: current Alcohol intake frequency: a few times a week Patient Tobacco Use Status: Current everyday Tobacco user Tobacco use type: Cigarette Cigarettes Per Day: 1 Years Smoked: 43 (onset 12yo) e-Cigarette/Vaping Use: Currently Using Second Hand Smoke Exposure: No Substance Use Type: Marijuana Advance Directives Date on File: 01/29/22 service: No Current occupational status: unemployed Cognitive needs: No Hearing needs: No Vision needs: Yes Review of Systems Const All systems reviewed & are unremarkable except as noted in HPI and below Denies fatigue and Denies fever(s) Eyes Reports no additional complaints ENT Denies dizziness and Reports nasal congestion Card Denies chest pain, Denies palpitations and Reports dyspnea on exertion Resp Reports change in phlegm color, Reports chest congestion, Reports cough, Denies hemoptysis, Reports excessive phlegm production and Reports dyspnea on exertion GI Denies abdominal pain Musc Denies abnormal gait, Reports back pain, Denies numbness and Denies tingling Skin/Breast Denies rash Neuro Denies abnormal gait, Denies dizziness, Denies numbness and Denies tingling Endo Denies fatigue and Denies palpitations Fam/Lymph Denies easy bleeding Physical Exam Vital Signs: Last Vital Signs Pulse 90 01/05/25 12:53 BP 128/68 01/05/25 12:53 Pulse Ox 97 01/05/25 12:53 Oxygen Delivery Method Room Air 01/05/25 12:53 BMI result Body Mass Index 16.9 Last Vital Signs Temp 98.5 F 10/28/24 07:21 Pulse 70 10/28/24 11:36 Resp 15 10/28/24 11:36 BP 137/63 10/28/24 07:21 Pulse Ox 94 10/28/24 07:21 O2 Del Method Room Air 10/28/24 07:21 BMI result Body Mass Index 17.3 Const General: cooperative, comfortable, alert and awake Nutritional Appearance: thin Orientation/consciousness: patient oriented x3 Chest Chest palpation & inspection: normal inspection of the chest Resp Effort & Inspection: normal respiratory effort, able to speak in complete sentences, no respiratory distress and no use of accessory muscles Auscultation: diminished lung sounds Cardio Rate: regular rate Neuro General: patient oriented x3, moves all extremities and CN's II-XI intact bilaterally Assessment & Plan Assessment & Plan (1) Malignant neoplasm of right upper lobe of lung: Onset Date: ~2017 Comment: (RUL Invasive Adenocarcinoma, Acinar type, 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), f/u thoracic surgeon [facility], CT 10/2024 new fairly large area of consolidation with bronchiectasis and bronchiolectasis including posterolateral remaining right upper lobe and superior segment of the right lower lobe as well as small abnormalities in left lung, severe underlying emphysema Code(s): C34.11 - Malignant neoplasm of upper lobe, right bronchus or lung Category: Medical Plan: Follow-up with oncology and thoracic surgeon at [facility] (2) COPD (chronic obstructive pulmonary disease): Comment: Severe or on supplemental O2 Code(s): J44.9 - Chronic obstructive pulmonary disease, unspecified Category: Medical Qualifiers: COPD type: chronic bronchitis Chronic bronchitis type: simple Qualified Code(s): J41.0 - Simple chronic bronchitis Plan: Continue Trelegy tobacco quitting discussed with the patient (3) Tobacco dependence: Comment: (Current smoker, onset 12yo, 1/2-1ppd x 43yrs, 30+PYH), quit 01/2024 Code(s): F17.200 - Nicotine dependence, unspecified, uncomplicated Category: Medical (4) Pulmonary nodule: Code(s): R91.1 - Solitary pulmonary nodule Category: Medical (5) Pneumonia: Code(s): J18.9 - Pneumonia, unspecified organism Category: Medical Qualifiers: Laterality: right Lung location: upper lobe of lung Pneumonia type: due to unspecified organism Qualified Code(s): J18.9 - Pneumonia, unspecified organism (6) Cavitary pneumonia: Comment: RUL on CT/CXR, Hospitalization at [facility] 10/27-10/31, discharged on 2 weeks of Levaquin, 10/30 AFB 3+ ID pending Code(s): J18.9 - Pneumonia, unspecified organism; J98.4 - Other disorders of lung Category: Medical (7) Lower respiratory infection (e.g., bronchitis, pneumonia, pneumonitis, pulmonitis): Code(s): J22 - Unspecified acute lower respiratory infection Category: Medical Plan Continue Trelegy [facility] as needed Repeat CT chest, if still abnormal will schedule bronchoscopy Chlorhexadine MW daily (poor dentitian) F/U 6-8 weeks Coding Level of Care Code Est Pt Level 4 (35458) Complex EM visit Add On G2211 Diagnoses Malignant neoplasm of right upper lobe of lung C34.11 Simple chronic bronchitis J41.0 COPD type: chronic bronchitis Chronic bronchitis type: simple Tobacco dependence F17.200 Pulmonary nodule R91.1 Pneumonia of right upper lobe due to infectious organism J18.9 Laterality: right Lung location: upper lobe of lung Pneumonia type: due to unspecified organism Cavitary pneumonia J18.9; J98.4 Lower respiratory infection (e.g., bronchitis, pneumonia, pneumonitis, pulmonitis) J22
--- OUTSIDE RECORDS SUMMARY | 2025-01-05 14:41 | XMS_ITS | Clinical Summary ---
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 Is requesting referral to [facility] as this is closer to her. Referral [...] general and how their size, shape, and supervisor records change time affect her level of suspicion for [...] - 10/27/2024 11:59 PM EDT Hospital Encounter [facility] Xray [address] [place] [phone] Pneumonia of both lungs due to infectious organism, unspecified part of lung Discharge Disposition: Home or Self Care 10/27/2024 9:00 AM EDT Office Visit Thoracic Surgery - [place] [address] [facility] [address] [place] [phone] Shannan Crocker PA History of lung cancer (Primary Dx); Multiple pulmonary nodules; Pneumonia of both lungs due to infectious organism, unspecified part of lung 10/18/2024 8:14 AM EDT - 10/18/2024 11:59 PM EDT Hospital Encounter [facility] CT Scan [address] [place] [address] Multiple pulmonary nodules; History of lung cancer Discharge Disposition: Home or Self Care from Last 3 Months Surgical History Surgery Date Site/Laterality Comments OTHER SURGICAL HISTORY 06/2018 N/A PROCEDURE: PULMONOLOGY BRONCHOSCOPY COLONOSCOPY 03/2017 N/A PROCEDURE: HISTORICAL COLONOSCOPY TONSILLECTOMY N/A PROCEDURE: HISTORICAL TONSILLECTOMY OTHER SURGICAL HISTORY 08/12/2018 PROCEDURE: [place] THORACOSCOPY W/THERA WEDGE RESEXN INITIAL UNILAT; COMMENT: RUL Wedge - Invasive Adenocarcinoma (pT1bN0) Medical History Medical History Date Comments Anxiety disorder DX:Anxiety diso rder COPD (chronic obstructive pu lmonary disease) ([facility] V24, [facility] V28) DX:COPD (chronic o bstructive pulmonary disease) ([facility]) Depression DX:Depression History of seizure DX:History of seizure Hyperlipidemia DX:Hyperlipidemi a Low back pain DX:Low back pain Malignant neoplasm of right upper lobe of lung ([facility] V24, [facility] V28) DX:Malignant neopla sm of right upper lobe of lung ([facility]) Neck pain DX:Neck pain On [...] Findings as above consistent with COPD. Code 35586 -------- FINAL REPORT -------- Dictated By: Yoshi Brock Dictated Date: 10/27/2024 12:05 ET Assigned Physician: Yoshi Brock Reviewed and Electronically Signed By: Yoshi Brock Signed Date: 10/27/2024 12:07 ET Workstation ID: [id number] Transcribed By: Self Edit Transcribed Date: 10/27/2024 [...] right midlung, similar in appearance to the sack cleaner radiograph graft from the CT scan performed [...] the right midlung, similar in appearance tothe sack cleaner radiograph graft from the CT scan performed [...] 10/18/2024. Findings asabove consistent with COPD. Code 60863 -------- FINAL REPORT -------- Dictated By: Yoshi Brock Dictated Date: 10/27/2024 12:05 ET Assigned Physician: Yoshi Brock Reviewed and Electronically Signed By: Yoshi Brock Signed Date: 10/27/2024 12:07 ET Workstation ID: [id number] Transcribed By: Self Edit Transcribed Date: 10/27/2024 [...] Signed Date: 10/20/2024 08:23 ET Workstation ID: [id number] Transcribed By: Self Edit Transcribed Date: 10/20/2024 [...] Signed Date: 10/20/2024 08:23 ET Workstation ID: [id number] Transcribed By: Self Edit Transcribed Date: 10/20/2024 08:07 ET Shannan WILLIS IMG CT PROCEDURES Final Resul t from Last 3 Months Insurance [facility] PLAN Care Teams Validation Engineer Relationship Specialty Start Date End Date Elisa Clark MD [address] [place] [phone] PCP - General Internal Medicine 10/18/24
== END 2025-01-05 13:16 | disposition home or self-care (01) ==
LOC: HO.HPS 12:23
PROVIDERS: PCP Internal Medicine; Visit Provider Hospitalist
DX: C34.11 Malignant neoplasm of upper lobe, right bronchus or lung (principal); J41.0 Simple chronic bronchitis; F17.200 Nicotine dependence, unspecified, uncomplicated; R91.1 Solitary pulmonary nodule; J18.9 Pneumonia, unspecified organism; J98.4 Other disorders of lung; J22 Unspecified acute lower respiratory infection
CPT/HCPCS: 99214; G2211

== ENCOUNTER → 2025-01-05 12:22 | Outpatient (BNVA) | payer OTHER, SELFPAY | PROVIDERS: PCP Internal Medicine; Visit Provider Hospitalist | DX: C34.11 Malignant neoplasm of upper lobe, right bronchus or lung (principal); J41.0 Simple chronic bronchitis; F17.200 Nicotine dependence, unspecified, uncomplicated; R91.1 Solitary pulmonary nodule; J18.9 Pneumonia, unspecified organism; J98.4 Other disorders of lung | CPT/HCPCS: 99212 ==

== ENCOUNTER 2025-01-11 12:58 | Outpatient (REF) | payer OTHER, SELFPAY ==
--- OUTSIDE RECORDS SUMMARY | 2023-08-11 05:00 | XMS_ITS ---
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 Role Phone Elisa Clark MD Primary Care Provider Elvira Betancourt Unavailable [phone] Encounters Encounter Location Date Provider Diagnosis [address] [id number] 08/11/2023 Elvira Mart Plan Of Treatment No Information Progress Notes * Sully RAO MDOB:[birth year] (59 yo F)Acc No.[id number]:08/11/2023 Progress Note Patient: Eugenia ARORAan Maegan Provider: David Mart DPM :1965 A ge:57 Y S ex:Female Date:08/11/2023 Address:[address] [place], [place] [id number] Pcp:Elisa Clark MD Subjective: * Chief Complaints: * * Medical History: Objective: * Vitals: Assessment: Plan: * Treatment: * Images: * The named appointment provid er may or may not be the originator of this progress note, and it is not deemed complete until electronically signed by the appointment provider. Sign off status: Pending * Provider: David Mart DPM Date: 08/11/2023 Generated for Beenai ng/Faazulg/eTransmitting on: 0 01/11/2025 01:29 PM EDT
--- NOTE | ~2025-01-11 | CT_ITS ---
CLINICAL HISTORY: J18.9 - Pneumonia, unspecified organism CT chest without contrast Comparison: 10/27/2024 07:46 PM EDT: CT 10/15/2022 08:06 AM EDT: CTSR: CT CHEST WO IV CON Findings: The heart is normal size. The visualized thyroid and mediastinum are unremarkable. There are changes of pulmonary bullous disease. There are 2 adjacent cavitary lesions measuring 6.5 x 2.5 cm and 4.3 x 2.1 cm in the right lower lobe. There is a pleural-based left lower lobe 0.7 x 0.6 cm lesion. Differential considerations would include neoplastic disease versus aggressive infectious or inflammatory process. There is scarring in the right apex, unchanged. The upper abdomen is unremarkable. The bones are intact. IMPRESSION: 1. Cavitary right lower lobe and pleural-based left lower lobe pulmonary lesions, differential considerations noted. Appropriate further evaluation possibly beginning with PET-CT, recommended. This document has been electronically signed by: Yoshi Bill MD on 01/12/2025 10:31:06
--- OUTSIDE RECORDS SUMMARY | 2025-01-11 13:30 | XMS_ITS | Clinical Summary ---
Author Organization [facility] Address [address] [place] [address] Phone Care Team Providers Care Option Trader Name Role Phone Elisa Clark MD Primary Care Provider [phone] Allergies Active Allergy Reactions Criticality Noted Date [...] 11/01/2024 COPD (chronic obstructive pu lmonary disease) ([facility] V24, [facility] V28) 07/22/2024 Assessment & Plan (07/22/2024 2:18 PM EST): Patient states that her rehabilitation specialist has retired and is looking for a new rehabilitation specialist. Is requesting referral to [place] as this is closer to her. Referral [...] general and how their size, shape, and sales and service change leader time affect her level of suspicion for [...] - 10/27/2024 11:59 PM EDT Hospital Encounter [facility] Xray [address] [place] [phone] Pneumonia of both lungs due to infectious organism, unspecified part of lung Discharge Disposition: Home or Self Care 10/27/2024 9:00 AM EDT Office Visit Thoracic Surgery - [place] [address] [place] [phone] Shannan Crocker PA History of lung cancer (Primary Dx); Multiple pulmonary nodules; Pneumonia of both lungs due to infectious organism, unspecified part of lung 10/18/2024 8:14 AM EDT - 10/18/2024 11:59 PM EDT Hospital Encounter [facility] CT Scan [address] [place] [address] Multiple pulmonary nodules; History of lung cancer Discharge Disposition: Home or Self Care from Last 3 Months Surgical History Surgery Date Site/Laterality Comments OTHER SURGICAL HISTORY 06/2018 N/A PROCEDURE: PULMONOLOGY BRONCHOSCOPY COLONOSCOPY 03/2017 N/A PROCEDURE: HISTORICAL COLONOSCOPY TONSILLECTOMY N/A PROCEDURE: HISTORICAL TONSILLECTOMY OTHER SURGICAL HISTORY 08/12/2018 PROCEDURE: [place] THORACOSCOPY W/THERA WEDGE RESEXN INITIAL UNILAT; COMMENT: RUL Wedge - Invasive Adenocarcinoma (pT1bN0) Medical History Medical History Date Comments Anxiety disorder DX:Anxiety diso rder COPD (chronic obstructive pu lmonary disease) ([facility] V24, [facility] V28) DX:COPD (chronic o bstructive pulmonary disease) ([facility]) Depression DX:Depression History of seizure DX:History of seizure Hyperlipidemia DX:Hyperlipidemi a Low back pain DX:Low back pain Malignant neoplasm of right upper lobe of lung ([facility]/HCC V24, [facility] V28) DX:Malignant neopla sm of right upper lobe of lung ([facility]) Neck pain DX:Neck pain On home [...] Findings as above consistent with COPD. Code 19134 -------- FINAL REPORT -------- Dictated By: Yoshi Brock Dictated Date: 10/27/2024 12:05 ET Assigned Physician: Yoshi Brock Reviewed and Electronically Signed By: Yoshi Brock Signed Date: 10/27/2024 12:07 ET Workstation ID: [id number] Transcribed By: Self Edit Transcribed Date: 10/27/2024 [...] right midlung, similar in appearance to the semiconductor bonder radiograph graft from the CT scan performed [...] the right midlung, similar in appearance tothe semiconductor bonder radiograph graft from the CT scan performed [...] 10/18/2024. Findings asabove consistent with COPD. Code 94708 -------- FINAL REPORT -------- Dictated By: Yoshi Brock Dictated Date: 10/27/2024 12:05 ET Assigned Physician: Yoshi Brock Reviewed and Electronically Signed By: Yoshi Brock Signed Date: 10/27/2024 12:07 ET Workstation ID: [id number] Transcribed By: Self Edit Transcribed Date: 10/27/2024 [...] Signed Date: 10/20/2024 08:23 ET Workstation ID: [id number] Transcribed By: Self Edit Transcribed Date: 10/20/2024 [...] Signed Date: 10/20/2024 08:23 ET Workstation ID: [id number] Transcribed By: Self Edit Transcribed Date: 10/20/2024 08:07 ET Shannan WILLIS IMG CT PROCEDURES Final Resul t from Last 3 Months Insurance [facility] Care Teams Option Trader Relationship Specialty Start Date End Date Elisa Clark MD [address] [place] [id number] PCP - General Internal Medicine 10/18/24
== END 2025-01-11 12:59 | disposition home or self-care (01) ==
LOC: HO.CT 12:58
PROVIDERS: PCP Internal Medicine; Visit Provider Hospitalist
DX: J18.9 Pneumonia, unspecified organism (principal); J98.4 Other disorders of lung; J22 Unspecified acute lower respiratory infection; C34.11 Malignant neoplasm of upper lobe, right bronchus or lung
CPT/HCPCS: 71250

== ENCOUNTER → 2025-01-11 13:00 | Outpatient (BNV) | payer OTHER, SELFPAY | PROVIDERS: PCP Internal Medicine; Visit Provider Specialist | DX: J98.4 Other disorders of lung (principal); R91.8 Other nonspecific abnormal finding of lung field | CPT/HCPCS: 71250 ==

== ENCOUNTER 2025-04-05 08:31 | Outpatient (REF) | payer OTHER, SELFPAY ==
--- OUTSIDE RECORDS SUMMARY | 2025-04-05 09:28 | XMS_ITS | Clinical Summary ---
Author Organization [facility] Address [address] [place] [address] Phone Care Team Providers Care Acid Washer Operator Name Role Phone Elisa Clark MD Primary Care Provider [phone] Allergies Active Allergy Reactions Criticality Noted Date [...] 11/01/2024 COPD (chronic obstructive pu lmonary disease) ([facility], [facility]) 07/22/2024 Assessment & Plan (07/22/2024 2:18 PM EST): Patient states that her display maker has retired and is looking for a new display maker. Is requesting referral to [place] as this is closer to her. Referral [...] general and how their size, shape, and address change clerk time affect her level of suspicion for [...] Encounters Date Type Department Care Team Description 03/22/2025 Telephone Thoracic Surgery - [address] [address] Hannah Carlisle MA from Last 3 Months Surgical History Surgery Date Site/Laterality Comments OTHER SURGICAL HISTORY 06/2018 N/A PROCEDURE: PULMONOLOGY BRONCHOSCOPY COLONOSCOPY 03/2017 N/A PROCEDURE: HISTORICAL COLONOSCOPY TONSILLECTOMY N/A PROCEDURE: HISTORICAL TONSILLECTOMY OTHER SURGICAL HISTORY 08/12/2018 PROCEDURE: [place] THORACOSCOPY W/THERA WEDGE RESEXN INITIAL UNILAT; COMMENT: RUL Wedge - Invasive Adenocarcinoma (pT1bN0) Medical History Medical History Date Comments Anxiety disorder DX:Anxiety diso rder COPD (chronic obstructive pu lmonary disease) ([facility] V24, [facility] V28) DX:COPD (chronic o bstructive pulmonary disease) ([facility]) Depression DX:Depression History of seizure DX:History of seizure Hyperlipidemia DX:Hyperlipidemi a Low back pain DX:Low back pain Malignant neoplasm of right upper lobe of lung ([facility]/HCC V24, [facility]/HCC V28) DX:Malignant neopla sm of right upper lobe of lung (HCC) Neck pain [...] Date Smoking Tobacco: Every Day Cigarettes 1 46.7 Started: 07/13/1978 Cigars Smokeless Tobacco: Never Tobacco [...] Panel) 06/15/2022 Colorectal Cancer Screening: Colonoscopy 06/15/2022 HIV Screening 06/15/2022 Hepatitis C Screening 06/15/2022 Lung Cancer Screening (Low Dose CT) 06/15/2022 Social Influencers of Health Screening 06/15/2022 Depression Screening 07/13/2024 RSV Immunization Adult Patients (1 - Risk 60-74 years 1-dose series) 2024 COVID-19 Vaccine (7 - Moderna risk season) 2025 04/12/2024, 04/17/2022, 11/12/2021, Additional history exists Influenza Vaccine (#1) 2025 , 03/24/2022, 04/06/2021, Additional history exists DTaP,Tdap,and Td Vaccines (2 - Td or Tdap) 12/17/2027 12/16/2017 Pneumococcal Vaccine: 50+ Years Completed 09/30/2024, 05/20/2018 HIB Vaccines Aged Out [...] patient's age to complete this topic Insurance [facility] [employer] Care Teams Acid Washer Operator Relationship Specialty Start Date End Date Elisa Clark MD [address] [facility] [place] [address] PCP - General Internal Medicine 10/18/24
--- OUTSIDE RECORDS SUMMARY | 2025-04-05 09:30 | XMS_ITS | Encounter Summary ---
Author Organization [facility] Address [address] [place] [address] Phone Care Team Providers Care Asphalt Tile Floor Layer Name Role Phone Elisa Clark MD Primary Care Provider [phone] Reason for Visit * Reason Comments Medication Refill Encounter Details Date Type Department Care Team ([facility] Contact Info) Description 02/19/2023 Refill [facility] [address], [address] [place] [address] Luis Erazo MD, [place] [address], [address] [place] [address] [email or web address] Medication Refill Social History Tobacco Use Types Packs/Day Years Used Date Smoking Tobacco: Every Day Cigars Smokeless Tobacco: Never Comments:2-3 small cigars/d Alcohol Use Standard Drinks/Week Comments Yes 0 (1 standard drink = 0.6 oz pur e alcohol) 2-3/wk Education Answer Date Recorded Are you interested in more education? Not on joana e 11/07/2022 Are you concerned about learning? Not on file 11/07/2022 No 11/07/2022 No 11/07/2022 Digital Access Answer Date Recorded No 12/09/2022 No 12/09/2022 Reliable internet access at home? Not on file 12/09/2022 Device with a working camera? Not on file Comments Unknown Sex and Gender Information Value Date Recorded Sex Assigned at Not on file Legal Sex Female 1:52 PM EDT Gender Identity Not on file Sexual Orientation Not on file documented as of this encounter Progress Notes * Dave Oliveira MA - 02/20/2023 1:14 PM EDT rx reviewed documented in this encounter Plan of Treatment Not on file documented as of this encounter Visit Diagnoses Not on filedocumented in this encounter Care Teams Asphalt Tile Floor Layer Relationship Specialty Start Date End Date Elisa Clark MD [address] [place] [address] PCP - General 03/05/20 documented as of this encounter Additional Source Comments The information contained in this document represents components of the legal health record. It is not the complete legal health record.[facility]
--- OUTSIDE RECORDS SUMMARY | 2025-04-05 09:30 | XMS_ITS | Patient Health Record ---
[facility] Address [address] [address] Care Team Providers Care Thread Machine Operator Name Role Phone Elisa Clark MD Primary Care Provider Unavaila Elvira Hill Unavailable [phone] Allergies Allergen (clinical drug ingredient) Drug/Non Drug Allergy documented on EMR Reaction Allergy Type Onset Date Status Penicillin Childhood unsure Drug Allergy Active Reason For Referral No Information Medications Medication SIG (Take, Route, Frequency, Duration) Notes Start Date End Date Status Trelegy Ellipta 100-62.5-25 MCG/ACT Inhalation; Duration: 30 Act sosa Multivitamin Active Atorvastatin Calcium 20 MG Oral; Duration: 30 Active Omeprazole 40 MG Oral; Duration: 30 Active Lisinopril 5 MG Oral; Duration: 30 Active Lamisil 250mg 1 tablet orally Once daily; Duration: 30 days Active Ciclopirox 0.77 % 1 application [employer] ally Twice a day; Duration: 365 days Active Albuterol Sulfate HFA 108 (90 Base) MCG/ACT INHALE 2 PUFFS BY MOUTH INTO THE LUNGS EVERY 4 HOURS NEEDED Inhalation; Duration: 17 Active Social History Tobacco Use: Social [...] Problem Status W/U Status Risk Notes Problem Bilateral atherosclerosis of arteries of lower limbs (disorder) ([id number] ) Atherosclerosis of artery of both lower extremities (I70.203) Active confirmed Plan Of Treatment Pending Test Test Name Order Date *Liver Function Test (LFT) 05/12/2023 Insurance Providers Payer Name Payer Address Payer Phone Subscriber Number Group Number Insured Name Patient Relationship to Insured Coverage Start Date Coverage End Date [place] [address] [place] [phone] [id number] Yoshi Berry Spouse - patient is the spouse of the insured 3 Medical (General) History Medical History History ICD Code Arthritis asthma Back,Hip,and Knee pain Cancer High blood pressure Lung disease Numbness Reflux ( GERD) Chicken pox Anxiety Surgical History Surgery Date(Month/Year) Lung 2019
--- OUTSIDE RECORDS SUMMARY | 2025-04-05 09:30 | XMS_ITS | Encounter Summary ---
Author Organization [facility] Address [address] [place] [address] Care Team Providers Care Toddler Guide Name Role Phone Elisa Clark MD Primary Care Provider [phone] Encounter Details Date Type Department Care Team ([facility] st Contact Info) Description 03/22/2025 Telephone Thoracic Surgery - [address] [address] Hannah Carlisle [place] Social History Tobacco Use Types Packs/Day Years Used Date Smoking Tobacco: Every Day Cigarettes 1 46.7 Started: 07/13/1978 Cigars Smokeless Tobacco: Never Alcohol [...] PM EST documented as of this encounter Progress Notes * Hannah Carlisle MA - 03/22/2025 9:07 AM EDT I reached out to [facility] to follow up on patients last CT done on 01/11/25 at [facility] , impression states PET ,, Milena will ask Dr Manley if he will be ordering PET and the office will get back to me documented in this encounter Plan of Treatment Not on file documented as of this encounter Visit Diagnoses Not on filedocumented in this encounter Care Teams Toddler Guide Relationship Specialty Start Date End Date Elisa Clark MD [address] [place] [address] PCP - General Internal Medicine 10/18/24 documented as of this encounter
--- OUTSIDE RECORDS SUMMARY | 2025-04-05 09:30 | XMS_ITS | Encounter Summary ---
Author Organization [facility] Address [address] [place] [address] Phone Care Team Providers Care Test Rack Operator Name Role Phone Elisa Clark MD Primary Care Provider [phone] Reason for Visit * Reason Comments Medication Refill Encounter Details Date Type Department Care Team ([facility] Contact Info) Description 02/20/2023 Refill [facility] [address] 3[address], [address] [place] [address] Luis Erazo MD, MS [address], [address] [place] [address] [email or web address] Medication Refill Social History Tobacco Use Types [...] as of this encounter Progress Notes * Candi Morocho MA - 02/23/2023 9:45 AM EDT rx verified documented in this encounter Plan of Treatment Not on file documented as of this encounter Visit Diagnoses Diagnosis COPD (chronic obstructive pulmonary disease)- Primary Chronic airway obstruction, not elsewhere classified documented in this encounter Care Teams Test Rack Operator Relationship Specialty Start Date End Date Elisa Clark MD [address] [place] [address] PCP - General 03/05/20 documented as of this encounter Additional Source Comments The information contained in this document represents components of the legal health record. It is not the complete legal health record.[facility]
--- OUTSIDE RECORDS SUMMARY | 2025-04-05 09:30 | XMS_ITS | Clinical Summary ---
Author Organization [facility] Address [address] [place] [address] Phone Care Team Providers Care It Investment/Portfolio Manager Name Role Phone Elisa Clark MD Primary Care Provider [phone] Allergies Active Allergy Reactions Criticality Noted Date Comments Penicillins 03/09/2020 Medications atorvastatin (LIPITOR) 20 MG tablet Take 20 mg by mouth daily. Active risperiDONE (RISPERDAL) 1 MG tablet Take 1 mg by mouth 2 (two) times a day. Active risperiDONE (RISPERDAL) 2 MG tablet Take 2 mg by mouth 2 (two) times a day. Active traZODone (DESYREL) 50 MG tablet Take 50 mg by mouth nightly at bedtime. Active omeprazole (PRILOSEC) 40 MG capsule 1 Active nicotine 21-14-7 mg/24 hr PTDS 2 Active multivitamin Liqd Take 5 mL by mouth daily. Active ipratropium-albu teroL (DUONEB) 0.5-3 mg (2.5 mg base)/3 mL nebulizer solution INHALE ONE VIAL VIA NEBULIZER EVERY 4 HOURS 360 mL 11 2 Active albuterol 90 mcg/actuation inhaler INHALE 2 PUFFS BY MOUTH INTO THE LUNGS EVERY 4 HOURS NEEDED 18 g 1 3 Active TRELEGY ELLIPTA 100-62.5-25 mcg inhalation powderIndication s:COPD (chronic obstructive pulmonary disease),Asthma INHALE ONE PUFF INTO LUNGS DAILY 60 each 11 3 Active LORazepam (ATIVAN) 0.5 MG tablet 3 Active Active Problems Problem Noted Date Diagnosed Date Malignant neoplasm of upper lobe of right lung 1 07/20/2021 COPD (chronic obstructive pulmonary disease) Asthma 11/05/2020 Family History Medical History Relation Comments COPD Maternal Grandmother Lung cancer Maternal Grandmother Heart failure Mother Relation Status Comments Maternal Grandmother Mother Social History Tobacco Use Types Packs/Day Years Used Date Smoking Tobacco: Every Day Cigars Smokeless Tobacco: Never Tobacco Cessation:Ready to Q uit: Not Asked; Counseling Given: Not Answered Comments:2-3 small cigars/d Alcohol Use Standard Drinks/Week [...] on file Sexual Orientation Not on file Last Filed Vital Signs Vital Sign Reading Time Taken Comments Blood Pressure 142/98 01/12/2023 10:02 AM EDT Pulse 67 01/12/2023 10:02 AM EDT Temperature - - Respiratory Rate - - Oxygen Saturation 96% 01/12/2023 10:02 AM EDT Inhaled Oxygen Concentration - - Weight 54.9 kg (121 lb) 01/12/2023 10:02 AM EDT Height 165.1 cm (5' 5 ) 05/19/2022 1:55 PM EST Body Mass Index 20.14 05/19/2022 1:55 PM EST Plan of Treatment Health Maintenance Due Date Last Done Comments LIPID PANEL 1964 DEPRESSION SCREENING 1976 SMOKING Hx and SMOKELESS TOBACCO SCREENING 1977 HEPATITIS C SCREENING 1982 HIV ONE-TIME SCREENING (18-65 YEARS) 1982 ZOSTER VACCINES (1 of 2) 1983 PAP SMEAR 1985 MAMMOGRAM 2004 COLOGUARD 2009 COLONOSCOPY 2009 COLORECTAL CANCER SCREENING 2009 FIT TEST 2009 FOBT 2009 SIGMOIDOSCOPY 2009 VIRTUAL COLONOSCOPY 2009 PNEUMOCOCCAL VACCINES (50+ years) (2 of 2 - PCV) 05/20/2019 05/20/2018 RSV VACCINE (1 - Risk 60-74 years 1-dose series) 2024 INFLUENZA VACCINE (#1) 2025 , 04/19/2019, 05/13/2018, Additional history exists COVID-19 VACCINE (3 - season) 2025 09/17/2020, 08/20/2020 Adult Td,Tdap Booster 12/17/2027 12/16/2017 HEPATITIS A VACCINES Aged Out No long er eligible based on patient's age to complete this topic HIB VACCINES Aged Out No longer eligi ble based on patient's age to complete this topic MENINGOCOCCAL VACCINES (ACWY) Aged Out No longer eligible based on patient's age to complete this topic MENINGOCOCCAL VACCINES (B) Aged Out N o longer eligible based on patient's age to complete this topic Medical Devices Not on file Insurance [place] [address] [place] [address] ACO [facility] [place] [address] [place] [address] [facility] ACO Care Teams It Investment/Portfolio Manager Relationship Specialty Start Date End Date Elisa Clark MD [address] [place] [address] PCP - General 03/05/20 Additional Source Comments The information contained in this document represents components of the legal health record. It is not the complete legal health record.[facility]
[2025-04-05 10:28] LABS: MANUAL DIFF FLAG NO
[2025-04-05 10:42] LABS: Hematocrit 38.3 % (37.0-47.0); Hemoglobin 13.5 g/dl (12.0-16.0); Imm Gran Abs Auto 0.05 X10*3/uL (0.00-0.03); Imm Gran Pct Auto 0.5 % (0.0-0.4); Lymphocytes Absolute Auto 1.4 X10*3/uL (1.2-4.9); Mean Corpuscular HGB Conc 35.2 g/dl (31.0-35.0); Mean Corpuscular Hemoglobin 36.1 pg (27.0-33.0); Mean Corpuscular Volume 102.4 fL (80.0-98.0); NRBC Abs Auto 0.000 X10*3/uL (0.0-0.012); NRBC Pct Auto 0.0 /100WBC (0.0-0.2); Platelet Count 164 X10*3/uL (160-400); Red Blood Count 3.74 X10*6/uL (4.20-5.50); White Blood Count 9.8 X10*3/uL (4.8-10.8)
[2025-04-05 13:58] LABS: Alanine Aminotransferase 17 U/L (0-31); Albumin Level 3.7 g/dL (3.5-5.0); Alkaline Phosphatase 134 U/L (39-117); Anion Gap 14 (12-20); Aspartate Amino Transferase 47 U/L (5-31); Blood Urea Nitrogen 7 mg/dL (9-16); Calcium 8.8 mg/dL (8.4-10.2); Carbon Dioxide 29 mmol/L (22-29); Chloride 100 mmol/L (96-108); Cholesterol 124 mg/dL (<200); Estimated Glomerular Filt Rate > 60; HDL Cholesterol 61 mg/dL (>40); Potassium 3.8 mmol/L (3.3-5.1); Sodium 139 mmol/L (135-145); Total Protein 6.2 g/dL (6.5-8.0); Triglycerides 137 mg/dL (<150); Uric Acid 9.9 mg/dL (2.4-5.7)
== END 2025-04-05 08:32 | disposition home or self-care (01) ==
LOC: HO.HMGCLDS 08:31
PROVIDERS: PCP Internal Medicine; Visit Provider Internal Medicine
DX: I10 Essential (primary) hypertension (principal); E78.5 Hyperlipidemia, unspecified; M10.9 Gout, unspecified
CPT/HCPCS: 36415; 80053; 80061; 84550; 85025

== ENCOUNTER 2025-04-06 08:46 | Outpatient (AMB) | payer OTHER, SELFPAY ==
--- NOTE | 2025-04-06 08:48 | A.OFFPC_ITS ---
Vital Signs 04/06/25 08:57 Height 5 ft 5 in Weight 99 lb BMI 16.5 BP 114/66 Blood Pressure Location Lt brachial Position Sitting Pulse 91 Pulse Source Pulse Oximeter Temp 98.5 F Temp Source Oral Pulse Oximetry (%) 95 Oxygen Delivery Method Room Air Intake Visit Reasons: 3 months f/up Intake Note: Pt is here today for 3 months follow up visit. Allergies apple (Apple) Allergy (Severe, Verified 04/06/25 08:58) TONGUE SWELLS penicillin V Allergy (Unknown, Verified 04/06/25 08:58) unknown - childhood Penicillins (PENICILLINS) Allergy (Unknown, Verified 04/06/25 08:58) UNKNOWN-CHILDHOOD ALLERGY Medication List - Last Reconciled 04/06/25 by Elisa Clark MD albuterol sulfate 90 mcg/actuation (Ventolin HFA) 2 puffs inhalation Q4H PRN atorvastatin 20 mg PO DAILY chlorhexidine gluconate 0.12% 15 mL buccal DAILY 28 days colchicine 0.6 mg PO BID lvhqkwdzvrr-mzqetesjc-ltfuzsrc 100-62.5-25 mcg (Trelegy Ellipta) 1 ea inhalation DAILY ipratropium-albuterol 0.5 mg-3 mg(2.5 mg base)/3 mL 3 mL inhalation Q6-8H PRN lisinopril 10 mg PO BID lorazepam 0.5 mg PO DAILY PRN magnesium oxide 400 mg PO DAILY multivitamin 1 tab PO DAILY omeprazole 40 mg PO DAILY@0630 potassium chloride ER 20 mEq PO DAILY vortioxetine (Trintellix) 10 mg PO DAILY Tobacco use date assessed: 04/06/25 Dental Screening Dental Screen Date: 09/16/24 HPI 3 months f/up HPI Details Patient presents for the follow-up hyperlipidemia COPD hypertension chronic depression stable on current medications. She has been sober for a few weeks. 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 and will have a PET scan for lung mass tomorrow PFSH Medical History Cavitary lesion of lung COPD (chronic obstructive pulmonary disease) Cavitary pneumonia Lower back pain Neck pain Restless leg syndrome History of seizure On home O2 Osteopenia Malignant neoplasm of right upper lobe of lung (~2017) Tobacco dependence Depression Anxiety Hyperlipemia Surgical History History of colonoscopy (~03/2017) History of bronchoscopy (~06/2018) History of lung surgery (~07/2018) History of tonsillectomy Family History Father Alcohol abuse Maternal Aunt Breast cancer Sister Breast cancer Brother Skin cancer Other Mental health disorder Substance use disorder Social History Household Members: Spouse Housing: House Do you presently have visiting nurse or other home services: No Alcohol intake: current Alcohol intake frequency: a few times a week Patient Tobacco Use Status: Current everyday Tobacco user Tobacco use type: Cigarette Cigarettes Per Day: 1 Years Smoked: 43 (onset 12yo) e-Cigarette/Vaping Use: Currently Using Second Hand Smoke Exposure: No Substance Use Type: Marijuana Advance Directives Date on File: 01/29/22 service: No Current occupational status: unemployed Cognitive needs: No Hearing needs: No Vision needs: Yes Questionnaire Thrive Questionnaire Date Thrive assessed: 09/09/24 I am a: Patient What is your living situation today?: I have a place to live, but I am worried about losing it in the future Within the past 12 months, did the food you bought not last and you didn't have the money to get more?: Often true Within the past 12 months, did you worry whether your food would run out before you got money to buy more?: Never true Do you have trouble paying for medicines?: No Do you have trouble getting transportation to medical appointments?: No Do you have trouble paying your heating and electricity bill?: I choose not to answer this question Do you have trouble taking care of your child, family member or friend?: No Do you have trouble with day-to-day activities such as bathing, preparing meals, shopping, managing finances, etc.?: No Are you currently unemployed and looking for a job?: No Are you interested in more education?: Yes Currently or been in a relationship where the following occur: I choose not to answer THRIVE Score: 2 ARTEM-7 AMB Questionnaire ARTEM-7 Date ARTEM - 7 assessed: 09/16/24 Source: Developed by Drs. Luis Juarez, LeloAlf Williamson and colleagues, with an educational edgar from [employer]. Review of Systems Const All systems reviewed & are unremarkable except as noted in HPI and below ENT Reports no additional complaints Card Reports no additional complaints Resp Reports no additional complaints GI Reports no additional complaints Reports no additional complaints Physical exam (Primary Care) Vital Signs: Last Vital Signs Temp 98.5 F 04/06/25 08:57 Pulse 91 04/06/25 08:57 BP 114/66 04/06/25 08:57 Pulse Ox 95 04/06/25 08:57 Oxygen Delivery Method Room Air 04/06/25 08:57 BMI result Body Mass Index 16.5 Tobacco/Smoking Status: Tobacco use Status Tobacco use date assessed 04/06/25 04/06/25 08:58 Patient Tobacco Use Status Current everyday Tobacco 04/06/25 08:48 Tobacco use type Cigarette 04/06/25 08:48 e-Cigarette/Vaping Use Currently Using 04/06/25 08:48 Thrive Assessment: Date of Thrive Assessment Date Thrive assessed 09/09/24 04/06/25 08:48 Currently or been in a relationship where the following occur: I choose not to answer Const General: no acute distress HENMT Head: Yes normal to inspection Mouth: Normal oral and palatal mucosa present Neck Neck: Yes supple Resp Effort & Inspection: normal respiratory effort Auscultation: diminished lung sounds Cardio Rhythm: regular rhythm Heart sounds: S1 normal heart sound present and S2 normal heart sound present Coding Level of Care Code Est Pt Level 4 (73145) Diagnoses Depression F32.9 Essential hypertension I10 Hyperlipemia E78.5 Malignant neoplasm of right upper lobe of lung C34.11 Simple chronic bronchitis J41.0 COPD type: chronic bronchitis Chronic bronchitis type: simple Assessment & Plan Assessment & Plan (1) Depression: Comment: Established with Psychiatry Code(s): F32.9 - Major depressive disorder, single episode, unspecified Category: Medical Plan: Controlled on current medications (2) Essential hypertension: Code(s): I10 - Essential (primary) hypertension Category: Medical Plan: Continue Lisinopril (3) Hyperlipemia: Code(s): E78.5 - Hyperlipidemia, unspecified Category: Medical Plan: Continue statin (4) Malignant neoplasm of right upper lobe of lung: Onset Date: ~2017 Comment: (RUL Invasive Adenocarcinoma, Acinar type, 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), f/u thoracic surgeon Sweta, CT 10/2024 new fairly large area of consolidation with bronchiectasis and bronchiolectasis including posterolateral remaining right upper lobe and superior segment of the right lower lobe as well as small abnormalities in left lung, severe underlying emphysema Code(s): C34.11 - Malignant neoplasm of upper lobe, right bronchus or lung Category: Medical Plan: Follow-up with pulmonology (5) COPD (chronic obstructive pulmonary disease): Comment: Severe or on supplemental O2 Code(s): J44.9 - Chronic obstructive pulmonary disease, unspecified Category: Medical Qualifiers: COPD type: chronic bronchitis Chronic bronchitis type: simple Qualified Code(s): J41.0 - Simple chronic bronchitis Plan: Continue Trelegy and albuterol as needed Medications: New benzonatate 100 mg PO BID 60 caps 0RF
[2025-04-06 08:57] VITALS: BP 114/66; PULSE 91; TEMP 36.9; O2SAT 95; BMI 16.5
--- OUTSIDE RECORDS SUMMARY | 2025-04-06 09:23 | XMS_ITS | Patient Health Record ---
Author Organization [facility] Address [address] [place] [address] Care Team Providers Care Motion Pictures Cartoonist Name Role Phone Elisa Clark MD Primary Care Provider Unavaila Elvira Hill Unavailable [phone] Allergies Allergen (clinical drug ingredient) Drug/Non Drug [...] days Active Ciclopirox 0.77 % 1 application Cash Surrender Calculator ally Twice a day; Duration: 365 days [...] atherosclerosis of arteries of lower limbs (disorder) ([id number] ) Atherosclerosis of artery of both lower extremities (I70.203) Active confirmed Plan Of Treatment Pending Test Test Name Order Date *Liver Function Test (LFT) 05/12/2023 Insurance Providers Payer Name Payer Address Payer Phone Subscriber Number Group Number Insured Name Patient Relationship to Insured Coverage Start Date Coverage End Date [employer] [employer] [address] [place] [phone] [id number] Yoshi Berry Spouse - patient is the spouse of the insured 3 Medical (General) History Medical History History ICD Code Arthritis asthma Back,Hip,and Knee pain Cancer High blood pressure Lung disease Numbness Reflux ( GERD) Chicken pox Anxiety Surgical History Surgery Date(Month/Year) Lung 2019
--- OUTSIDE RECORDS SUMMARY | 2025-04-06 09:23 | XMS_ITS | Clinical Summary ---
Author Organization [facility] Address [address] [place] [phone] Phone Care Team Providers Care Hvac Mechanical Engineer Name Role Phone Elisa Clark MD Primary Care Provider [phone] Allergies Active Allergy Reactions Criticality Noted Date [...] Devices Not on file Insurance [place] [address] [place] [address] ACO [facility] [place] [address] [place] [address] ACO [facility] ACO Care Teams Hvac Mechanical Engineer Relationship Specialty Start Date End Date Elisa Clark MD [address] [place] [address] PCP - General 03/05/20 Additional Source Comments The information contained in this document represents components of the legal health record. It is not the complete legal health record.[facility]
--- OUTSIDE RECORDS SUMMARY | 2025-04-06 09:23 | XMS_ITS | Encounter Summary ---
Author Organization [facility] Address [address] [place] [address] Phone Care Team Providers Care Mobile Paint Specialist Name Role Phone Elisa Clark MD Primary Care Provider Reason for Visit * Reason Comments Medication Refill Encounter Details Date Type Department Care Team ([facility] Contact Info) Description 02/19/2023 Refill [facility] [address]rd [address], [address] [place] [address] Luis Erazo MD, [place] [address], [address] [place] [address] [email or web address] Medication Refill Social History Tobacco Use Types [...] on filedocumented in this encounter Care Teams Mobile Paint Specialist Relationship Specialty Start Date End Date Elisa Clark MD [address] [place] [address] PCP - General 03/05/20 documented as of this encounter Additional Source Comments The information contained in this document represents components of the legal health record. It is not the complete legal health record.[facility]
--- OUTSIDE RECORDS SUMMARY | 2025-04-06 09:23 | XMS_ITS | Encounter Summary ---
Author Organization [facility] Address [address] [place] [address] Phone Care Team Providers Care Petroleum Engineering Teacher Name Role Phone Elisa Clark MD Primary Care Provider [phone] Reason for Visit * Reason Comments Medication Refill Encounter Details Date Type Department Care Team ([facility] Contact Info) Description 02/20/2023 Refill [facility] [address] 3rd [address], [address] [place] [address] Luis Erazo MD, [place] [address], [address] [place] [address] [email or web address] Medication Refill Social History Tobacco Use Types [...] classified documented in this encounter Care Teams Petroleum Engineering Teacher Relationship Specialty Start Date End Date Elisa Clark MD [address] [place] [address] PCP - General 03/05/20 documented as of this encounter Additional Source Comments The information contained in this document represents components of the legal health record. It is not the complete legal health record.[facility]
--- OUTSIDE RECORDS SUMMARY | 2025-04-06 09:23 | XMS_ITS | Clinical Summary ---
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 Is requesting referral to [facility] as this is closer to her. Referral [...] how their size, shape, and change management coordinator time affect her level of suspicion for [...] Team Description 03/22/2025 Telephone Thoracic Surgery - [address] [address] Hannah Carlisle MA from Last [...] rder COPD (chronic obstructive pu lmonary disease) ([facility] V24, [facility] V28) DX:COPD (chronic o bstructive pulmonary disease) ([facility]) Depression DX:Depression History of seizure DX:History of seizure Hyperlipidemia DX:Hyperlipidemi a Low back pain DX:Low back pain Malignant neoplasm of right upper lobe of lung ([facility] V24, [facility]/HCC V28) DX:Malignant neopla sm of [...] patient's age to complete this topic Insurance [facility] Care Teams Floor Covering Contractor Relationship Specialty Start Date End Date Elisa Clark MD [address] [place] [address] PCP - General Internal Medicine 10/18/24
--- OUTSIDE RECORDS SUMMARY | 2025-04-06 09:23 | XMS_ITS | Encounter Summary ---
Author Organization [facility] Address [address] [place] [address] Care Team Providers Care Helpdesk Specialist Name Role Phone Elisa Clark MD Primary Care Provider [phone] Encounter Details Date Type Department Care Team ([facility] st Contact Info) Description 03/22/2025 Telephone Thoracic Surgery - [address] [address] Hannah Carlisle [place] Social History [...] EDT I reached out to [facility] to follow up on patients last CT done on 01/11/25 at [facility] , impression states PET ,, Milena will ask Dr Manley if he will be ordering PET and the office will get back to me documented in this encounter Plan of Treatment Not on file documented as of this encounter Visit Diagnoses Not on filedocumented in this encounter Care Teams Helpdesk Specialist Relationship Specialty Start Date End Date Elisa Clark MD [address] [place] [address] PCP - General Internal Medicine 10/18/24 documented as of this encounter
== END 2025-04-06 09:32 | disposition home or self-care (01) ==
LOC: HO.HMCC 08:47
PROVIDERS: PCP Internal Medicine; Visit Provider Internal Medicine
DX: C34.11 Malignant neoplasm of upper lobe, right bronchus or lung (principal); J41.0 Simple chronic bronchitis; F32.9 Major depressive disorder, single episode, unspecified; I10 Essential (primary) hypertension; E78.5 Hyperlipidemia, unspecified

== ENCOUNTER → 2025-04-06 08:46 | Outpatient (BNVA) | payer OTHER, SELFPAY | PROVIDERS: PCP Internal Medicine; Visit Provider Internal Medicine | DX: F32.9 Major depressive disorder, single episode, unspecified (principal); I10 Essential (primary) hypertension; E78.5 Hyperlipidemia, unspecified; C34.11 Malignant neoplasm of upper lobe, right bronchus or lung; J41.0 Simple chronic bronchitis; Z79.899 Other long term (current) drug therapy | CPT/HCPCS: 99212 ==

== ENCOUNTER 2025-04-11 10:36 | Outpatient (AMB) | payer OTHER, SELFPAY ==
--- OUTSIDE RECORDS SUMMARY | 2025-04-07 13:38 | XMS_ITS | Encounter Summary ---
Author Organization [facility] Address [address] [place] [address] Care Team Providers Care Gold Layer Name Role Phone Elisa Clark MD Primary Care Provider [phone] Reason for Referral * Imaging (Routine) - Pending Review Specialty Diagnoses / Procedures Referred By Contac t Referred To Contact Radiology Diagnoses Abnormal radiologic finding of lung field Procedures PET CT Skull to Mid Thigh Initial Roosevelt Manley MD [address] [place] [address] Phone: tel: [facility] Referral ID Status Reason Start Date Expiration Date V isits Requested Visits Authorized [id number] Pending Review 04/06/2025 04/06/2026 1 1 Reason for Visit * Imaging (Routine) - Pending Review Specialty Diagnoses / Procedures Referred By Contac t Referred To Contact Radiology Diagnoses Abnormal radiologic finding of lung field Procedures PET CT Skull to Mid Thigh Initial Roosevelt Manley MD [address] [place] [address] Phone: tel: [facility] Referral ID Status Reason Start Date Expiration Date V isits Requested Visits Authorized [id number] Pending Review 04/06/2025 04/06/2026 1 1 Encounter Details Date Type Department Care Team (Latest Contact Info) Description 04/07/2025 1:38 PM EDT Hospital Encounter [facility] PET Scan [address] [place] [address] Abnormal radiologic finding of lung field Social History Tobacco Use Types Packs/Day Years [...] Procedure Name Priority Date/Time Associated Diagnosis Comments PET CT SKULL TO MID THIGH INITIAL Routine 04/07/2025 4:15 PM EDT Abnormal radiologic finding of lung field documented in this encounter Results * PET CT Skull to Mid Thigh Initial (04/07/2025 4:15 PM EDT) Anatomical Region Laterality Modality Body Radiographic Leah ging 04/10/2025 4:57 AM EDT Impressions 04/10/2025 10:55 AM EDT 1. Multifocal FDG avid pulmonary opacities/nodules, new from prior PET/CT from September 2023. Differential considerations include multifocal pneumonia or recurrent neoplasm. Short-term follow-up chest CT is recommended after treatment to evaluate for resolution. 2. Nonspecific right hilar and prevascular stephie activity either representing reactive etiology or metastatic disease. Please note: The CT was acquired at a low radiation dose settings. The images are of nondiagnostic quality and used solely for purposes of attenuation correction and slice localization for the PET scan. If a diagnostic CT study is desired it must be ordered separately. -------- FINAL REPORT -------- Dictated By: Gloria Car Dictated Date: 04/10/2025 04:57 ET Assigned Physician: Gloria Car Reviewed and Electronically Signed By: Gloria Car Signed Date: 04/10/2025 10:55 ET Workstation ID: [id number] Transcribed By: Self Edit Transcribed Date: 04/10/2025 05:51 ET Narrative 04/10/2025 10:55 AM EDT INDICATION: ABNORMAL FINDING OF LUNG ON CT SCAN. 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 TECHNIQUE: FDG PET-CT imaging was performed from the skull bases through the thighs in a single acquisition with data set reconstructed in axial, coronal, and sagittal planes at the computer workstation with fused data from both the PET imaging study and attenuation correction CT. The CT portion of the examination was done strictly for attenuation correction and is not a true diagnostic CT examination. DLP: 249 mGy-cm Radiopharmaceutical: 11.0 mCi of F-18 FDG IV. Blood glucose: 115 mg/dl. COMPARISON: Correlation is made with prior chest CTs, the most recent dated 10/2024 and outside PET/CT September 2023 FINDINGS: HEAD AND NECK: No abnormal FDG activity. Mucosal thickening of both maxillary sinuses without significant FDG activity. Nonenlarged left supraclavicular lymph node SUV max 1.2. THORAX: Right upper lobe opacity/nodule with cavitation/lucencies SUV max 6.0. Consolidation with lucencies in the superior segment of the right lower lobe SUV max 5.7. Other scattered opacities demonstrating FDG activity. For example in the left lower lobe SUV max 2.8 and lingula SUV max 4.6. Smaller tree-in-bud/solid opacities for example in the right lower lobe SUV max 3.9. These findings are new from prior PET/CT from September 2023. Right hilar activity SUV max 2.5 and nonenlarged 4 mm prevascular lymph node SUV max 2.5 (mediastinal blood pool SUV Max 2.0). Subcarinal activity SUV max 2.0. Left hilar activity SUV max 1.9. Postsurgical appearance of the right upper lobe. Nonspecific activity within the esophagus SUV max 3.0. ABDOMEN/PELVIS: Nonspecific bowel activity. No FDG avid abdominal or pelvic lymphadenopathy. MUSCULOSKELETAL: No abnormal FDG activity. Procedure Note Gloria Car MD - 04/10/2025 INDICATION: ABNORMAL FINDING OF LUNG ON CT SCAN. History of right upperlobe invasive adenocarcinoma status post wedge resection in 2019. TECHNIQUE: FDG PET-CT imaging was performed from the skull bases throughthe thighs in a single acquisition with data set reconstructed in axial,coronal, and sagittal planes at the computer workstation with fused datafrom both the PET imaging study and attenuation correction CT. The CTportion of the examination was done strictly for attenuation correctionand is not a true diagnostic CT examination. DLP: 249 mGy-cm Radiopharmaceutical: 11.0 mCi of F-18 FDG IV. Blood glucose: 115 mg/dl. COMPARISON: Correlation is made with prior chest CTs, the most recentdated 10/2024 and outside PET/CT September 2023 FINDINGS: HEAD AND NECK: No abnormal FDG activity. Mucosal thickening of bothmaxillary sinuses without significant FDG activity. Nonenlarged leftsupraclavicular lymph node SUV max 1.2. THORAX: Right upper lobe opacity/nodule with cavitation/lucencies SUV max6.0. Consolidation with lucencies in the superior segment of the rightlower lobe SUV max 5.7. Other scattered opacities demonstrating FDGactivity. For example in the left lower lobe SUV max 2.8 and lingula SUVmax 4.6. Smaller tree-in-bud/solid opacities for example in the rightlower lobe SUV max 3.9. These findings are new from prior PET/CT fromSeptember 2023. Right hilar activity SUV max 2.5 and nonenlarged 4 mm prevascular lymphnode SUV max 2.5 (mediastinal blood pool SUV Max 2.0). Subcarinalactivity SUV max 2.0. Left hilar activity SUV max 1.9. Postsurgical appearance of the right upper lobe. Nonspecific activity within the esophagus SUV max 3.0. ABDOMEN/PELVIS: Nonspecific bowel activity. No FDG avid abdominal orpelvic lymphadenopathy. MUSCULOSKELETAL: No abnormal FDG activity. IMPRESSION: 1. Multifocal FDG avid pulmonary opacities/nodules, new from prior PET/CTfrom September 2023. Differential considerations include multifocal pneumoniaor recurrent neoplasm. Short-term follow-up chest CT is recommended aftertreatment to evaluate for resolution. 2. Nonspecific right hilar and prevascular stephie activity eitherrepresenting reactive etiology or metastatic disease. Please note: The CT was acquired at a low radiation dose settings. The images are ofnondiagnostic quality and used solely for purposes of attenuationcorrection and slice localization for the PET scan. If a diagnostic CTstudy is desired it must be ordered separately. -------- FINAL REPORT -------- Dictated By: Gloria Car Dictated Date: 04/10/2025 04:57 ET Assigned Physician: Gloria Car Reviewed and Electronically Signed By: Gloria Car Signed Date: 04/10/2025 10:55 ET Workstation ID: [id number] Transcribed By: Self Edit Transcribed Date: 04/10/2025 05:51 ET us Roosevelt Manley MD IMG NM PROCEDURES Final Re sult documented in this encounter Visit Diagnoses Diagnosis Abnormal radiologic finding of lung field documented in this encounter Administered Medications Inactive Administered Medications - up to 3 most recent administrations Medication Order MAR Action Action Date Dose Rate Site F-18 FDG pet diag radio-isotope injection 11 millicurie 11 millicurie, intravenous, Once in imaging, Starting on Thu04/07/25 at 1430, For 1 dose Given 04/07/2025 2:30 PM EDT 11 millicuries Left Forearm documented in this encounter Orders Medications Ordered That Vladimir ht Not Have Been Administered Count Last Ordered Date First Ordered Date F-18 FDG pet diag radio-isot ope injection 11 millicurie 1 04/07/2025 documented in this encounter Care Teams Gold Layer Relationship Specialty Start Date End Date Elisa Clark MD [address] [place] [address] PCP - General Internal Medicine 10/18/24 documented as of this encounter
[2025-04-11 11:09] VITALS: BP 150/74; PULSE 81; O2SAT 97; BMI 16.9
--- NOTE | 2025-04-11 11:09 | A.OFFVIS_ITS ---
Vital Signs 3 04/11/25 11:09 Height 5 ft 5 in Weight 101 lb 6.602 oz BMI 16.9 BP 150/74 H Blood Pressure Location Lt brachial Position Sitting Pulse 81 Pulse Source Pulse Oximeter Pulse Oximetry (%) 97 Oxygen Delivery Method Room Air Intake Visit Reasons: COPD Black Pickler Required: No Allergies apple (Apple) Allergy (Severe, Verified 04/11/25 11:13) TONGUE SWELLS penicillin V Allergy (Unknown, Verified 04/11/25 11:13) unknown - childhood Penicillins (PENICILLINS) Allergy (Unknown, Verified 04/11/25 11:13) UNKNOWN-CHILDHOOD ALLERGY HPI Comments Details: The patient is a 59 year woman with a known history of tobacco dependency, COPD and history of lung cancer. She did undergo a right upper lobectomy many years ago with curative intent. Now she has some pulmonary nodules on the left lower lobe that are being monitored. She is followed closely by thoracic surgery at [facility]. Unfortunately she does have severe COPD. And also has significantly decreased diffusing capacity. She does use oxygen at nighttime. She does get shortness of breath with activity. Especially going up a flight of stairs. Moderate severity. We did go for brief walking oximetry and she actually did great maintaining a pulse ox of 95% throughout the ambulation speaking in full sentences without any shortness of breath. Therefore, the patient does not require supplemental oxygen at this time. She is going to follow up with a repeat CT scan in October at [facility] to figure out what to do with the irregular left lower lobe pulmonary nodule. She is currently on Trelegy which is perfectly fine. She has to quit smoking altogether she is aware that. Will follow-up in 4-6 months. If she has any issues prior to that she will call for an earlier assessment. 10/21/2024 the patient is here for a urgent follow-up visit. Apparently the patient with the usual state health until recently started developing increased nausea and fatigue. She also has productive phlegm usually clear in color. Significant amount. She is coughing the whole day. Sometimes she chokes help with her saliva. The patient is following closely with thoracic surgery since her history of lung cancer. The patient did have a CT scan order at [facility] which was done 10/20/2024. Apparently was rather does consolidation the right upper lobe area along with bronchiectatic changes bronchiectatic changes in addition to areas of necrotizing disease. I do not have the images I did request a Kim. She does have an appointment with thoracic surgery in a week. In the office her lung exam is fairly diminished. No significant crackles appreciated. We did provide him a P present nebulized solution and did provide her sputum culture for both AFB and Gram stain and culture. The patient will start Levaquin for now. She will follow-up next week with thoracic surgery. I did send a message to them as well to be aware of the abnormal findings. The patient may indeed need a bronchoscopy. She can either have that there or here. 11/17/2024 the patient is here for a pulmonary follow-up visit. She was in a hospital with IV antibiotics for what appears to be necrotizing pneumonia. Likely aspiration related with poor dentition. The patient also drinks alcohol bring it little bit increased risk. It is not clear she has a concomitant malignant process. She has completed the antibiotics. Will have her get blood work today in addition to another chest x-ray. If she continues to show improvement will continue with the chlorhexidine mouthwash and she can follow-up after her CAT scan. If the areas unchanged then will plan for bronchoscopy. She can have it done here or she can have it done at [facility] where her thoracic surgeon is located. She continues to use the respiratory therapy. She has been more tired lately. Will go ahead and check blood work including a blood gas to make sure that his CO2 is not significantly elevated. The patient follow-up in 3-4 weeks. I will let her know the results of the x-ray in the blood work once available. 01/05/2025 the patient is here for a pulmonary follow-up visit. He completed the antibiotics. Overall the patient has been doing well. Unfortunately has she has not been able to get her dental issues resolved. She is taking the chlorhexidine mouthwash with good effect. Continuously lose weight. She does have nutritional shakes that she uses at times although she does not like the boost and therefore she has not been using almost regularly. She does have a CAT scan scheduled coming up next week. If the CAT scan is stable then we can continue treating her for an infectious process. However, if there is any concerns of persistent disease then we will go ahead and perform a bronchoscopy. We will be talking after the CAT scans completed. Otherwise patient is doing okay with follow-up in 2-3 months. 04/11/2025 the patient is here for a pulmonary follow-up visit. The patient overall has been okay. She has not been able to gain weight. She is also having issues with her dentition. She has not been able to get them removed and she had a fall when she is having hard time with certain foods because she hurt her jaw when she fell. She still uses the chlorhexidine mouthwash. The patient did have a repeat PET scan and I did look at the report. We are still waiting for the images. There is increased FDG activity some cavitary lesions. On top of the though her cultures did come back positive for mycobacterium interested Dulera. Therefore the patient may either have a smoldering non tuberculosis mycobacterial disease or she could have a concomitant condition with both recurrent lung cancer and mycobacterial disease. Therefore will started on the triple therapy with azithromycin ethambutol and rifampin. Will have her get blood work again in several weeks to make sure that her kidneys and liver functions are stable. She did have a slight elevations in her liver function recently. Although appeared to be getting better. Likely repeat a CAT scan in a couple months to make sure to see stability of disease. Once I can visualize the images that can further address if she has any further diagnostic interventions. She does follow closely with thoracic surgery so we can also discuss further diagnostic interventions with them as well. But for now will start her on azithromycin ethambutol and rifampin with the hopes to see improvement in her cavitary lung disease by the next visit. She is still have flustered by the dentist as she still has not been able to get her teeth removed. Will follow-up in 2 month to follow-up her repeat CAT scan. [facility] Medical History (Updated 04/11/25 @ 21:57 by Roosevelt Manley MD) Mycobacterial infection, atypical Cavitary lesion of lung COPD (chronic obstructive pulmonary disease) Cavitary pneumonia Lower back pain Neck pain Restless leg syndrome History of seizure On home O2 Osteopenia Malignant neoplasm of right upper lobe of lung (~2017) Tobacco dependence Depression Anxiety Hyperlipemia Surgical History History of colonoscopy (~03/2017) History of bronchoscopy (~06/2018) History of lung surgery (~07/2018) History of tonsillectomy Family History Father Alcohol abuse Maternal Aunt Breast cancer Sister Breast cancer Brother Skin cancer Other Mental health disorder Substance use disorder Social History Household Members: Spouse Housing: House Do you presently have visiting nurse or other home services: No Alcohol intake: current Alcohol intake frequency: a few times a week Patient Tobacco Use Status: Current everyday Tobacco user Tobacco use type: Cigarette Cigarettes Per Day: 1 Years Smoked: 43 (onset 12yo) e-Cigarette/Vaping Use: Currently Using Second Hand Smoke Exposure: No Substance Use Type: Marijuana Advance Directives Date on File: 01/29/22 service: No Current occupational status: unemployed Cognitive needs: No Hearing needs: No Vision needs: Yes Review of Systems Const All systems reviewed & are unremarkable except as noted in HPI and below Reports fatigue, Denies fever(s) and Reports weight loss Eyes Reports no additional complaints ENT Denies dizziness and Reports nasal congestion Card Denies chest pain, Denies palpitations and Reports dyspnea on exertion Resp Reports change in phlegm color, Reports chest congestion, Reports cough, Denies hemoptysis, Reports excessive phlegm production and Reports dyspnea on exertion GI Denies abdominal pain Musc Denies abnormal gait, Reports back pain, Denies numbness and Denies tingling Skin/Breast Denies rash Neuro Denies abnormal gait, Denies dizziness, Denies numbness and Denies tingling Endo Reports fatigue and Denies palpitations Fam/Lymph Denies easy bleeding Physical Exam Vital Signs: Last Vital Signs Pulse 81 04/11/25 11:09 BP 150/74 H 04/11/25 11:09 Pulse Ox 97 04/11/25 11:09 Oxygen Delivery Method Room Air 04/11/25 11:09 BMI result Body Mass Index 16.9 Last Vital Signs Temp 98.5 F 10/28/24 07:21 Pulse 70 10/28/24 11:36 Resp 15 10/28/24 11:36 BP 137/63 10/28/24 07:21 Pulse Ox 94 10/28/24 07:21 O2 Del Method Room Air 10/28/24 07:21 BMI result Body Mass Index 17.3 Const General: cooperative, comfortable, alert and awake Nutritional Appearance: thin Orientation/consciousness: patient oriented x3 Chest Chest palpation & inspection: normal inspection of the chest Resp Effort & Inspection: normal respiratory effort, able to speak in complete sentences, no respiratory distress and no use of accessory muscles Auscultation: diminished lung sounds Cardio Rate: regular rate Neuro General: patient oriented x3, moves all extremities and CN's II-XI intact bilaterally Results Reviewed Results Reviewed: Assessment & Plan Assessment & Plan (1) Malignant neoplasm of right upper lobe of lung: Onset Date: ~2017 Comment: (RUL Invasive Adenocarcinoma, Acinar type, 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), f/u thoracic surgeon [place], CT 10/2024 new fairly large area of consolidation with bronchiectasis and bronchiolectasis including posterolateral remaining right upper lobe and superior segment of the right lower lobe as well as small abnormalities in left lung, severe underlying emphysema Code(s): C34.11 - Malignant neoplasm of upper lobe, right bronchus or lung Category: Medical Plan: Follow-up with oncology and thoracic surgeon at [place] (2) COPD (chronic obstructive pulmonary disease): Comment: Severe or on supplemental O2 Code(s): J44.9 - Chronic obstructive pulmonary disease, unspecified Category: Medical Qualifiers: COPD type: chronic bronchitis Chronic bronchitis type: simple Q ualified Code(s): J41.0 - Simple chronic bronchitis Plan: Continue Trelegy tobacco quitting discussed with the patient (3) Tobacco dependence: Comment: (Current smoker, onset 12yo, 1/2-1ppd x 43yrs, 30+PYH), quit 01/2024 Code(s): F17.200 - Nicotine dependence, unspecified, uncomplicated Category: Medical (4) Pulmonary nodule: Code(s): R91.1 - Solitary pulmonary nodule Category: Medical (5) Pneumonia: Code(s): J18.9 - Pneumonia, unspecified organism Category: Medical Qualifiers: Pneumonia type: due to unspecified organism Laterality: right Lung location: upper lobe of lung Qualified Code(s): J18.9 - Pneumonia, unspecified organism (6) Cavitary pneumonia: Comment: RUL on CT/CXR, Hospitalization at [facility] 10/27-10/31, discharged on 2 weeks of Levaquin, 10/30 AFB 3+ ID pending Code(s): J18.9 - Pneumonia, unspecified organism; J98.4 - Other disorders of lung Category: Medical (7) Lower respiratory infection (e.g., bronchitis, pneumonia, pneumonitis, pulmonitis): Code(s): J22 - Unspecified acute lower respiratory infection Category: Medical (8) Mycobacterial infection, atypical: Code(s): A31.9 - Mycobacterial infection, unspecified Category: Medical Plan Continue Trelegy ELIZABETH as needed start Azithromycin/Ethambutol/Rifampin daily for SAMSON bloodwork in 2-[address] chest in 6-8 weeks Chlorhexadine MW daily (poor dentitian) F/U with Thoracic surgery F/U 6-8 weeks Orders: Orders 2 Complete Blood Count Auto Diff Today J98.4 - Other disorders of lung CT chest wo IV con 6 Weeks J98.4 - Other disorders of lung Basic Metabolic Panel Today J98.4 - Other disorders of lung Liver Panel Today J98.4 - Other disorders of lung Medications: New 2 rifampin 300 mg PO DAILY 30 caps 7RF ethambutol 400 mg PO DAILY 30 tabs 6RF 30 days azithromycin 500 mg PO DAILY 30 tabs 5RF 30 days megestrol 100 mg (2.5 mL) PO BID 150 mL 3RF 30 days Coding Level of Care Code Est Pt Level 5 (97739) Complex EM visit Add On G2211 Diagnoses Malignant neoplasm of right upper lobe of lung C34.11 Simple chronic bronchitis J41.0 COPD type: chronic bronchitis Chronic bronchitis type: simple Tobacco dependence F17.200 Pulmonary nodule R91.1 Pneumonia of right upper lobe due to infectious organism J18.9 Pneumonia type: due to unspecified organism Laterality: right Lung location: upper lobe of lung Cavitary pneumonia J18.9; J98.4 Lower respiratory infection (e.g., bronchitis, pneumonia, pneumonitis, pulmonitis) J22 Mycobacterial infection, atypical A31.9 Time Spent (min) 45
--- OUTSIDE RECORDS SUMMARY | 2025-04-11 11:52 | XMS_ITS | Clinical Summary ---
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 Is requesting referral to [place] as this is closer to her. Referral [...] general and how their size, shape, and exchange trouble shooter time affect her level of suspicion for [...] Encounters Date Type Department Care Team Description 04/07/2025 1:38 PM EDT Hospital Encounter [facility] PET Scan [address] [place] [address] Abnormal radiologic finding of lung field 03/22/2025 Telephone Thoracic Surgery - [place] [address] [facility] [address] [place] [address] Hannah Carlisle MA from Last 3 Months Surgical History Surgery Date Site/Laterality Comments OTHER SURGICAL HISTORY 06/2018 N/A PROCEDURE: PULMONOLOGY BRONCHOSCOPY COLONOSCOPY 03/2017 N/A PROCEDURE: HISTORICAL COLONOSCOPY TONSILLECTOMY N/A PROCEDURE: HISTORICAL TONSILLECTOMY OTHER SURGICAL HISTORY 08/12/2018 PROCEDURE: [place] THORACOSCOPY W/THERA WEDGE RESEXN INITIAL UNILAT; COMMENT: RUL Wedge - Invasive Adenocarcinoma (pT1bN0) Medical History Medical History Date Comments Anxiety disorder DX:Anxiety diso rder COPD (chronic obstructive pu lmonary disease) (CMS/HCC V24, CMS/HCC V28) DX:COPD (chronic o bstructive pulmonary disease) ([facility]) Depression DX:Depression History of seizure DX:History of seizure Hyperlipidemia DX:Hyperlipidemi a Low back pain DX:Low back pain Malignant neoplasm of right upper lobe of lung (CMS/HCC V24, CMS/HCC V28) DX:Malignant neopla sm of [...] Last Done Comments Breast Cancer Screening 1964 Colorectal Cancer Screening: Colonoscopy 1964 Zoster Vaccines (1 of 2) 1983 Cervical Cancer Screening: Pap Smear 1985 Cholesterol Screening (Lipid Panel) 06/15/2022 HIV Screening 06/15/2022 Hepatitis C Screening [...] EDT Abnormal radiologic finding of lung field from Last 3 Months Results * PET CT Skull to Mid [...] Signed Date: 04/10/2025 10:55 ET Workstation ID: [id number] Transcribed By: Self Edit Transcribed Date: 04/10/2025 [...] Signed Date: 04/10/2025 10:55 ET Workstation ID: [id number] Transcribed By: Self Edit Transcribed Date: 04/10/2025 05:51 ET us Roosevelt Manley MD IMG NM PROCEDURES Final Re sult from Last 3 Months Insurance [facility] Care Teams Parts Technician Relationship Specialty Start Date End Date Elisa Clark MD [address] [place] [id number] PCP - General Internal Medicine 10/18/24
--- OUTSIDE RECORDS SUMMARY | 2025-04-11 11:52 | XMS_ITS | Clinical Summary ---
Author Organization [facility] Address [address] [place] [address] Phone Care Team Providers Care Mechanical Applications Engineer Name Role Phone Elisa Clark MD Primary Care Provider [phone] Allergies Active Allergy Reactions Criticality Noted Date [...] Devices Not on file Insurance [place] [place] [address] [place] [address] ACO [facility] [place] [address] [place] [address] ACO [facility] ACO Care Teams Mechanical Applications Engineer Relationship Specialty Start Date End Date Elisa Clark MD [address] [address] PCP - General 03/05/20 Additional Source Comments The information contained in this document represents components of the legal health record. It is not the complete legal health record.[facility]
--- OUTSIDE RECORDS SUMMARY | 2025-04-11 11:52 | XMS_ITS | Patient Health Record ---
Author [facility] Address [address] [place] [address] Care Team Providers Care Heating Unit Mechanic Name Role Phone Elisa Clark MD Primary Care Provider Unavaila Elvira Hill Unavailable [phone] Allergies Allergen (clinical drug ingredient) Drug/Non Drug [...] days Active Ciclopirox 0.77 % 1 application Group Rooms Coordinator ally Twice a day; Duration: 365 days [...] atherosclerosis of arteries of lower limbs (disorder) ([id number] ) Atherosclerosis of artery of both lower extremities (I70.203) Active confirmed Plan Of Treatment Pending Test Test Name Order Date *Liver Function Test (LFT) 05/12/2023 Insurance Providers Payer Name Payer Address Payer Phone Subscriber Number Group Number Insured Name Patient Relationship to Insured Coverage Start Date Coverage End Date [place] [address] [place] [phone] [id number] Ysohi Berry Spouse - patient is the spouse of the insured 3 Medical (General) History Medical History History ICD Code Arthritis asthma Back,Hip,and Knee pain Cancer High blood pressure Lung disease Numbness Reflux ( GERD) Chicken pox Anxiety Surgical History Surgery Date(Month/Year) Lung 2019
--- OUTSIDE RECORDS SUMMARY | 2025-04-11 11:52 | XMS_ITS | Encounter Summary ---
Author Organization [facility] Address [address] [place] [address] Care Team Providers Care Record Press Operator Name Role Phone Elisa Clark MD Primary Care Provider [phone] Encounter Details Date Type Department Care Team ([facility] st Contact Info) Description 03/22/2025 Telephone Thoracic Surgery - [address] [address] Hannah Carlisle MA Social History [...] 9:07 AM EDT I reached out to [facility] to follow up on patients last CT done on 01/11/25 at [facility] , impression states PET ,, Milena will ask Dr Manley if he will be ordering PET and the office will get back to me documented in this encounter Plan of Treatment Not on file documented as of this encounter Visit Diagnoses Not on filedocumented in this encounter Care Teams Record Press Operator Relationship Specialty Start Date End Date Elisa Clark MD [address] [place] [address] PCP - General Internal Medicine 10/18/24 documented as of this encounter
--- OUTSIDE RECORDS SUMMARY | 2025-04-11 11:53 | XMS_ITS | Encounter Summary ---
Author Organization [facility] Address [address] [place] [address] Phone Care Team Providers Care Paving Foreman Name Role Phone Elisa Clark MD Primary Care Provider [phone] Reason for Visit * Reason Comments Medication Refill Encounter Details Date Type Department Care Team ([facility] Contact Info) Description 02/20/2023 Refill [facility] [address], [address] [place] [address] Luis Erazo MD, MS [address], [address] [place] [address] [email or web address] Medication Refill Social History Tobacco Use Types [...] classified documented in this encounter Care Teams Paving Foreman Relationship Specialty Start Date End Date Elisa Clark MD [address] [place] [address] PCP - General 03/05/20 documented as of this encounter Additional Source Comments The information contained in this document represents components of the legal health record. It is not the complete legal health record.[facility]
--- OUTSIDE RECORDS SUMMARY | 2025-04-11 11:53 | XMS_ITS | Encounter Summary ---
Author Organization [facility] Address [address] [place] [address] Phone Care Team Providers Care Termite Exterminator Helper Name Role Phone Elisa Clark MD Primary Care Provider [phone] Reason for Visit * Reason Comments Medication Refill Encounter Details Date Type Department Care Team ([facility] Contact Info) Description 02/19/2023 Refill [facility] [address], [address] [place] [address] Luis Erazo MD, MS [address], [address] [place] [address] [email or web address] Medication Refill Social History Tobacco Use Types [...] on filedocumented in this encounter Care Teams Termite Exterminator Helper Relationship Specialty Start Date End Date Elisa Clark MD [address] [place] [address] PCP - General 03/05/20 documented as of this encounter Additional Source Comments The information contained in this document represents components of the legal health record. It is not the complete legal health record.[facility]
== END 2025-04-11 11:46 | disposition home or self-care (01) ==
LOC: HO.HPS 10:37
PROVIDERS: PCP Internal Medicine; Visit Provider Hospitalist
DX: C34.11 Malignant neoplasm of upper lobe, right bronchus or lung (principal); J41.0 Simple chronic bronchitis; F17.200 Nicotine dependence, unspecified, uncomplicated; R91.1 Solitary pulmonary nodule; J18.9 Pneumonia, unspecified organism; J98.4 Other disorders of lung; J22 Unspecified acute lower respiratory infection; A31.9 Mycobacterial infection, unspecified
CPT/HCPCS: 99215

== ENCOUNTER → 2025-04-11 10:36 | Outpatient (BNVA) | payer OTHER, SELFPAY | PROVIDERS: PCP Internal Medicine; Visit Provider Hospitalist | DX: J41.0 Simple chronic bronchitis (principal); F17.210 Nicotine dependence, cigarettes, uncomplicated; R91.1 Solitary pulmonary nodule; J18.9 Pneumonia, unspecified organism; J22 Unspecified acute lower respiratory infection; A31.9 Mycobacterial infection, unspecified; Z85.118 Personal history of other malignant neoplasm of bronchus and lung | CPT/HCPCS: 99212 ==

== ENCOUNTER 2025-05-15 08:38 | Outpatient (REF) | payer OTHER, SELFPAY ==
--- OUTSIDE RECORDS SUMMARY | 2025-05-15 09:05 | XMS_ITS | Patient Health Record ---
Author [facility] Address [address] [place] [address] Care Team Providers Care Apricot Packer Name Role Phone Elisa Clark MD Primary Care Provider Unavaila Elvira Hill Unavailable [phone] Allergies Allergen (clinical drug ingredient) Drug/Non Drug [...] days Active Ciclopirox 0.77 % 1 application Roofer Helper ally Twice a day; Duration: 365 days [...] atherosclerosis of arteries of lower limbs (disorder) ([id number] ) Atherosclerosis of artery of both lower extremities (I70.203) Active confirmed Plan Of Treatment Pending Test Test Name Order Date *Liver Function Test (LFT) 05/12/2023 Insurance Providers Payer Name Payer Address Payer Phone Subscriber Number Group Number Insured Name Patient Relationship to Insured Coverage Start Date Coverage End Date [place] [address] [place] [phone] [id number] Yoshi Berry Spouse - patient is the spouse of the insured 3 Medical (General) History Medical History History ICD Code Arthritis asthma Back,Hip,and Knee pain Cancer High blood pressure Lung disease Numbness Reflux ( GERD) Chicken pox Anxiety Surgical History Surgery Date(Month/Year) Lung 2019
--- OUTSIDE RECORDS SUMMARY | 2025-05-15 09:05 | XMS_ITS | Encounter Summary ---
Author Organization [facility] Address [address] [place] [address] Phone Care Team Providers Care Straddle Carrier Operator Name Role Phone Elisa Clark MD Primary Care Provider [phone] Reason for Visit * Reason Comments Medication Refill Encounter Details Date Type Department Care Team ([facility] Contact Info) Description 02/20/2023 Refill [facility] [address] 3rd Floor, [address] [place] [address] Luis Erazo MD, MS [address], [address] [place] [address] [email or web address] Medication Refill Social History Tobacco Use Types [...] classified documented in this encounter Care Teams Straddle Carrier Operator Relationship Specialty Start Date End Date Elisa Clark MD [facility] [place] [address] PCP - General 03/05/20 documented as of this encounter Additional Source Comments The information contained in this document represents components of the legal health record. It is not the complete legal health record.[facility]
--- OUTSIDE RECORDS SUMMARY | 2025-05-15 09:05 | XMS_ITS | Clinical Summary ---
Author Organization [facility] Address [address] [place] [address] Phone Care Team Providers Care Director Of Operations Home Health Name Role Phone Elisa Clark MD Primary Care Provider [phone] Allergies Active Allergy Reactions Criticality Noted Date [...] FOBT 2009 SIGMOIDOSCOPY 2009 VIRTUAL COLONOSCOPY 2009 RSV VACCINE (1 - Risk 50-74 years 1-dose series) 2014 PNEUMOCOCCAL VACCINES (50+ years) (2 of 2 - PCV) 05/20/2019 05/20/2018 INFLUENZA VACCINE (#1) 2025 , 04/19/2019, 05/13/2018, [...] Devices Not on file Insurance [place] [address] [address] [place] [address] ACO [facility] [place] [address] [place] [address] ACO [facility] A[place] Care Teams Director Of Operations Home Health Relationship Specialty Start Date End Date Elisa Clark MD [address] [place] [address] PCP - General 03/05/20 Additional Source Comments The information contained in this document represents components of the legal health record. It is not the complete legal health record.[facility]
--- OUTSIDE RECORDS SUMMARY | 2025-05-15 09:05 | XMS_ITS | Encounter Summary ---
Author Organization [facility] Address [address] [place] [address] Phone Care Team Providers Care Program Officer Name Role Phone Elisa Clark MD Primary Care Provider [phone] Reason for Visit * Reason Comments Medication Refill Encounter Details Date Type Department Care Team ([facility] Contact Info) Description 02/19/2023 Refill [facility] [address] 3rd Floor, [address] [place] [address] Luis Erazo MD, MS [address] [facility], [address] [place] [address] [email or web address] Medication Refill Social History Tobacco Use Types [...] on filedocumented in this encounter Care Teams Program Officer Relationship Specialty Start Date End Date Elisa Clark MD [address] [place] [address] PCP - General 03/05/20 documented as of this encounter Additional Source Comments The information contained in this document represents components of the legal health record. It is not the complete legal health record.[facility]
[2025-05-15 10:38] LABS: MANUAL DIFF FLAG NO
[2025-05-15 10:49] LABS: Hematocrit 39.8 % (37.0-47.0); Hemoglobin 13.1 g/dl (12.0-16.0); Imm Gran Abs Auto 0.07 X10*3/uL (0.00-0.03); Imm Gran Pct Auto 1.0 % (0.0-0.4); Lymphocytes Absolute Auto 1.9 X10*3/uL (1.2-4.9); Mean Corpuscular HGB Conc 32.9 g/dl (31.0-35.0); Mean Corpuscular Hemoglobin 33.7 pg (27.0-33.0); Mean Corpuscular Volume 102.3 fL (80.0-98.0); NRBC Abs Auto 0.000 X10*3/uL (0.0-0.012); NRBC Pct Auto 0.0 /100WBC (0.0-0.2); Platelet Count 224 X10*3/uL (160-400); Red Blood Count 3.89 X10*6/uL (4.20-5.50); White Blood Count 7.1 X10*3/uL (4.8-10.8)
[2025-05-15 11:05] LABS: Alanine Aminotransferase 14 U/L (0-31); Albumin Level 3.9 g/dL (3.5-5.0); Alkaline Phosphatase 99 U/L (39-117); Anion Gap 12 (12-20); Aspartate Amino Transferase 27 U/L (5-31); Blood Urea Nitrogen 19 mg/dL (9-16); Calcium 9.3 mg/dL (8.4-10.2); Carbon Dioxide 27 mmol/L (22-29); Chloride 100 mmol/L (96-108); Estimated Glomerular Filt Rate > 60; Potassium 4.9 mmol/L (3.3-5.1); Sodium 134 mmol/L (135-145); Total Protein 6.6 g/dL (6.5-8.0)
== END 2025-05-15 08:39 | disposition home or self-care (01) ==
LOC: HO.HMGCLDS 08:38
PROVIDERS: PCP Internal Medicine; Visit Provider Hospitalist
DX: J98.4 Other disorders of lung (principal); J41.0 Simple chronic bronchitis; J18.9 Pneumonia, unspecified organism; Z01.84 Encounter for antibody response examination
CPT/HCPCS: 36415; 80048; 80076; 82785; 85025

== ENCOUNTER 2025-05-18 13:59 | Outpatient (AMB) | payer OTHER, SELFPAY ==
[2025-05-18 14:37] VITALS: BP 134/70; PULSE 87; O2SAT 95; BMI 16.7
--- NOTE | 2025-05-18 14:37 | A.OFFVIS_ITS ---
Vital Signs 05/18/25 14:37 Height 5 ft 5 in Weight 100 lb 4.965 oz BMI 16.7 BP 134/70 Blood Pressure Location Lt brachial Position Sitting Pulse 87 Pulse Source Pulse Oximeter Pulse Oximetry (%) 95 Oxygen Delivery Method Room Air Intake Visit Reasons: COPD Assistant Associate Full Professor Required: No Accompanied by: Mother Allergies apple (Apple) Allergy (Severe, Verified 05/18/25 14:40) TONGUE SWELLS penicillin V Allergy (Unknown, Verified 05/18/25 14:40) unknown - childhood Penicillins (PENICILLINS) Allergy (Unknown, Verified 05/18/25 14:40) UNKNOWN-CHILDHOOD ALLERGY HPI Comments Details: The patient is a 59 year woman with a known history of tobacco dependency, COPD and history of lung cancer. She did undergo a right upper lobectomy many years ago with curative intent. Now she has some pulmonary nodules on the left lower lobe that are being monitored. She is followed closely by thoracic surgery at [facility]. Unfortunately she does have severe COPD. And also has significantly decreased diffusing capacity. She does use oxygen at nighttime. She does get shortness of breath with activity. Especially going up a flight of stairs. Moderate severity. We did go for brief walking oximetry and she actually did great maintaining a pulse ox of 95% throughout the ambulation speaking in full sentences without any shortness of breath. Therefore, the patient does not require supplemental oxygen at this time. She is going to follow up with a repeat CT scan in October at [facility] to figure out what to do with the irregular left lower lobe pulmonary nodule. She is currently on Trelegy which is perfectly fine. She has to quit smoking altogether she is aware that. Will follow-up in 4-6 months. If she has any issues prior to that she will call for an earlier assessment. 10/21/2024 the patient is here for a urgent follow-up visit. Apparently the patient with the usual state health until recently started developing increased nausea and fatigue. She also has productive phlegm usually clear in color. Significant amount. She is coughing the whole day. Sometimes she chokes help with her saliva. The patient is following closely with thoracic surgery since her history of lung cancer. The patient did have a CT scan order at [facility] which was done 10/20/2024. Apparently was rather does consolidation the right upper lobe area along with bronchiectatic changes bronchiectatic changes in addition to areas of necrotizing disease. I do not have the images I did request a Kim. She does have an appointment with thoracic surgery in a week. In the office her lung exam is fairly diminished. No significant crackles appreciated. We did provide him a P present nebulized solution and did provide her sputum culture for both AFB and Gram stain and culture. The patient will start Levaquin for now. She will follow-up next week with thoracic surgery. I did send a message to them as well to be aware of the abnormal findings. The patient may indeed need a bronchoscopy. She can either have that there or here. 11/17/2024 the patient is here for a pulmonary follow-up visit. She was in a hospital with IV antibiotics for what appears to be necrotizing pneumonia. Likely aspiration related with poor dentition. The patient also drinks alcohol bring it little bit increased risk. It is not clear she has a concomitant malignant process. She has completed the antibiotics. Will have her get blood work today in addition to another chest x-ray. If she continues to show improvement will continue with the chlorhexidine mouthwash and she can follow-up after her CAT scan. If the areas unchanged then will plan for bronchoscopy. She can have it done here or she can have it done at [facility] where her thoracic surgeon is located. She continues to use the respiratory therapy. She has been more tired lately. Will go ahead and check blood work including a blood gas to make sure that his CO2 is not significantly elevated. The patient follow-up in 3-4 weeks. I will let her know the results of the x-ray in the blood work once available. 01/05/2025 the patient is here for a pulmonary follow-up visit. He completed the antibiotics. Overall the patient has been doing well. Unfortunately has she has not been able to get her dental issues resolved. She is taking the chlorhexidine mouthwash with good effect. Continuously lose weight. She does have nutritional shakes that she uses at times although she does not like the boost and therefore she has not been using almost regularly. She does have a CAT scan scheduled coming up next week. If the CAT scan is stable then we can continue treating her for an infectious process. However, if there is any concerns of persistent disease then we will go ahead and perform a bronchoscopy. We will be talking after the CAT scans completed. Otherwise patient is doing okay with follow-up in 2-3 months. 04/11/2025 the patient is here for a pulmonary follow-up visit. The patient overall has been okay. She has not been able to gain weight. She is also having issues with her dentition. She has not been able to get them removed and she had a fall when she is having hard time with certain foods because she hurt her jaw when she fell. She still uses the chlorhexidine mouthwash. The patient did have a repeat PET scan and I did look at the report. We are still waiting for the images. There is increased FDG activity some cavitary lesions. On top of the though her cultures did come back positive for mycobacterium interested Dulera. Therefore the patient may either have a smoldering non tuberculosis mycobacterial disease or she could have a concomitant condition with both recurrent lung cancer and mycobacterial disease. Therefore will started on the triple therapy with azithromycin ethambutol and rifampin. Will have her get blood work again in several weeks to make sure that her kidneys and liver functions are stable. She did have a slight elevations in her liver function recently. Although appeared to be getting better. Likely repeat a CAT scan in a couple months to make sure to see stability of disease. Once I can visualize the images that can further address if she has any further diagnostic interventions. She does follow closely with thoracic surgery so we can also discuss further diagnostic interventions with them as well. But for now will start her on azithromycin ethambutol and rifampin with the hopes to see improvement in her cavitary lung disease by the next visit. She is still have flustered by the dentist as she still has not been able to get her teeth removed. Will follow-up in 2 month to follow-up her repeat CAT scan. 05/18/2025 the patient is here for pulmonary follow-up visit. She feels very tired and fatigued. She has no energy. She has also has decreased appetite all concerning findings. She has been tolerating the medications for the antimicrobial therapy. This therapies difficult to tolerate especially the triple cocktail therapy on a daily basis. She did have blood work in all the blood work is reassuring therefore she is tolerating it fairly well. She does have a CT scan scheduled this Thursday which will review to see if there is any significant improvement in the nodular density while being on the antibiotic myc obacterial therapy. If the nodules still persistent or worsening she will need additional interventions such as diagnostic bronchoscopic intervention which should be done this time by Interventional Pulmonary. The patient is still has bad dentition. This also could be contributing to chronic aspiration pneumonia. She had been under chlorhexidine mouthwash for some period of time. Now she is going to be evicted from her home and she has has a lot of psychosocial issues right now. Will start her on a stimulant to see if we can provide her some allergies in order for her to be able to do her activities of daily living and see if she gets some additional energy. She will follow-up in a couple months. Otherwise if anything abnormal on the CAT scan I will call her to follow-up with thoracic surgery on an urgent basis. [facility] Medical History (Updated 04/11/25 @ 21:57 by Roosevelt Manley MD) Mycobacterial infection, atypical Cavitary lesion of lung COPD (chronic obstructive pulmonary disease) Cavitary pneumonia Lower back pain Neck pain Restless leg syndrome History of seizure On home O2 Osteopenia Malignant neoplasm of right upper lobe of lung (~2017) Tobacco dependence Depression Anxiety Hyperlipemia Surgical History History of colonoscopy (~03/2017) History of bronchoscopy (~06/2018) History of lung surgery (~07/2018) History of tonsillectomy Family History Father Alcohol abuse Maternal Aunt Breast cancer Sister Breast cancer Brother Skin cancer Other Mental health disorder Substance use disorder Social History Household Members: Spouse Housing: House Do you presently have visiting nurse or other home services: No Alcohol intake: current Alcohol intake frequency: a few times a week Patient Tobacco Use Status: Current everyday Tobacco user Tobacco use type: Cigarette Cigarettes Per Day: 1 Years Smoked: 43 (onset 12yo) e-Cigarette/Vaping Use: Currently Using Second Hand Smoke Exposure: No Substance Use Type: Marijuana Advance Directives Date on File: 01/29/22 service: No Current occupational status: unemployed Cognitive needs: No Hearing needs: No Vision needs: Yes Review of Systems Const All systems reviewed & are unremarkable except as noted in HPI and below Reports fatigue, Denies fever(s) and Reports weight loss Eyes Reports no additional complaints ENT Denies dizziness and Reports nasal congestion Card Denies chest pain, Denies palpitations and Reports dyspnea on exertion Resp Reports change in phlegm color, Reports chest congestion, Reports cough, Denies hemoptysis, Reports excessive phlegm production and Reports dyspnea on exertion GI Denies abdominal pain Musc Denies abnormal gait, Reports back pain, Denies numbness and Denies tingling Skin/Breast Denies rash Neuro Denies abnormal gait, Denies dizziness, Denies numbness and Denies tingling Endo Reports fatigue and Denies palpitations Fam/Lymph Denies easy bleeding Physical Exam Vital Signs: Last Vital Signs Pulse 87 05/18/25 14:37 BP 134/70 05/18/25 14:37 Pulse Ox 95 05/18/25 14:37 Oxygen Delivery Method Room Air 05/18/25 14:37 BMI result Body Mass Index 16.7 Last Vital Signs Temp 98.5 F 10/28/24 07:21 Pulse 70 10/28/24 11:36 Resp 15 10/28/24 11:36 BP 137/63 10/28/24 07:21 Pulse Ox 94 10/28/24 07:21 O2 Del Method Room Air 10/28/24 07:21 BMI result Body Mass Index 17.3 Const General: cooperative, comfortable, alert and awake Nutritional Appearance: thin Orientation/consciousness: patient oriented x3 Chest Chest palpation & inspection: normal inspection of the chest Resp Effort & Inspection: normal respiratory effort, no respiratory distress and no use of accessory muscles Auscultation: diminished lung sounds Cardio Rate: regular rate Neuro General: patient oriented x3, moves all extremities and CN's II-XI intact bilaterally Assessment & Plan Assessment & Plan (1) Malignant neoplasm of right upper lobe of lung: Onset Date: ~2017 Comment: (RUL Invasive Adenocarcinoma, Acinar type, 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), f/u thoracic surgeon [place], CT 10/2024 new fairly large area of consolidation with bronchiectasis and bronchiolectasis including posterolateral remaining right upper lobe and superior segment of the right lower lobe as well as small abnormalities in left lung, severe underlying emphysema Code(s): C34.11 - Malignant neoplasm of upper lobe, right bronchus or lung Category: Medical Plan: Follow-up with oncology and thoracic surgeon at [facility] (2) COPD (chronic obstructive pulmonary disease): Comment: Severe or on supplemental O2 Code(s): J44.9 - Chronic obstructive pulmonary disease, unspecified Category: Medical Qualifiers: COPD type: chronic bronchitis Chronic bronchitis type: simple Qualified Code(s): J41.0 - Simple chronic bronchitis Plan: Continue Trelegy tobacco quitting discussed with the patient (3) Tobacco dependence: Comment: (Current smoker, onset 12yo, 1/2-1ppd x 43yrs, 30+PYH), quit 01/2024 Code(s): F17.200 - Nicotine dependence, unspecified, uncomplicated Category: Medical (4) Pulmonary nodule: Code(s): R91.1 - Solitary pulmonary nodule Category: Medical (5) Pneumonia: Code(s): J18.9 - Pneumonia, unspecified organism Category: Medical Qualifiers: Laterality: right Lung location: upper lobe of lung Pneumonia type: due to unspecified organism Qualified Code(s): J18.9 - Pneumonia, unspecified organism (6) Cavitary pneumonia: Comment: RUL on CT/CXR, Hospitalization at [facility] 10/27-10/31, discharged on 2 weeks of Levaquin, 10/30 AFB 3+ ID pending Code(s): J18.9 - Pneumonia, unspecified organism; J98.4 - Other disorders of lung Category: Medical (7) Lower respiratory infection (e.g., bronchitis, pneumonia, pneumonitis, pulmonitis): Code(s): J22 - Unspecified acute lower respiratory infection Category: Medical (8) Mycobacterial infection, atypical: Code(s): A31.9 - Mycobacterial infection, unspecified Category: Medical Plan Continue Trelegy ELIZABETH as needed continue Azithromycin/Ethambutol/Rifampin daily for SAMSON Repeat CT chest 05/20/2025 F/U with Thoracic surgery Trial Provigil F/U 8 weeks Medications: New modafinil (Provigil) 100 mg PO DAILY 30 tabs 1RF 30 days Coding Level of Care Code Est Pt Level 5 (33249) Complex EM visit Add On G2211 Diagnoses Malignant neoplasm of right upper lobe of lung C34.11 Simple chronic bronchitis J41.0 COPD type: chronic bronchitis Chronic bronchitis type: simple Tobacco dependence F17.200 Pulmonary nodule R91.1 Pneumonia of right upper lobe due to infectious organism J18.9 Laterality: right Lung location: upper lobe of lung Pneumonia type: due to unspecified organism Cavitary pneumonia J18.9; J98.4 Lower respiratory infection (e.g., bronchitis, pneumonia, pneumonitis, pulmonitis) J22 Mycobacterial infection, atypical A31.9 Time Spent (min) 45
--- OUTSIDE RECORDS SUMMARY | 2025-05-18 17:08 | XMS_ITS | Clinical Summary ---
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 Is requesting referral to [facility] as this is closer to her. Referral [...] general and how their size, shape, and spinning frame changer time affect her level of suspicion [...] Care Team Description 04/07/2025 1:38 PM EDT - 04/07/2025 11:59 PM EDT Hospital Encounter [facility] PET Scan [address] [place] [phone] Abnormal radiologic finding of lung field Discharge Disposition: Home or Self Care 03/22/2025 Telephone Thoracic Surgery - [place] [address] [facility] [address] [place] [phone] Hannah Carlisle MA from Last 3 Months Surgical History Surgery Date Site/Laterality Comments OTHER SURGICAL HISTORY 06/2018 N/A PROCEDURE: PULMONOLOGY BRONCHOSCOPY COLONOSCOPY 03/2017 N/A PROCEDURE: HISTORICAL COLONOSCOPY TONSILLECTOMY N/A PROCEDURE: HISTORICAL TONSILLECTOMY OTHER SURGICAL HISTORY 08/12/2018 PROCEDURE: OK THORACOSCOPY W/THERA WEDGE RESEXN INITIAL UNILAT; COMMENT: RUL Wedge - Invasive Adenocarcinoma (pT1bN0) Medical History Medical History Date Comments Anxiety disorder DX:Anxiety diso rder COPD (chronic obstructive pu lmonary disease) ([facility] V24, [facility] V28) DX:COPD (chronic o bstructive pulmonary disease) ([facility]) Depression DX:Depression History of seizure DX:History of seizure Hyperlipidemia DX:Hyperlipidemi a Low back pain DX:Low back pain Malignant neoplasm of right upper lobe of lung ([facility] V24, [facility] V28) DX:Malignant neopla sm of right upper lobe of lung ([facility]) Neck pain DX:Neck pain On [...] Date Smoking Tobacco: Every Day Cigarettes 1 46.8 Started: 07/13/1978 Cigars Smokeless Tobacco: Never Tobacco [...] 1983 Cervical Cancer Screening: Pap Smear 1985 RSV Immunization Adult Patients (1 - Risk 50-74 years 1-dose series) 2014 Cholesterol Screening (Lipid Panel) 06/15/2022 HIV Screening 06/15/2022 Hepatitis C Screening 06/15/2022 Lung Cancer Screening (Low Dose CT) 06/15/2022 Social Influencers of Health Screening 06/15/2022 Depression Screening 07/13/2024 COVID-19 Vaccine (7 - Moderna risk season) [...] Signed Date: 04/10/2025 10:55 ET Workstation ID: [id number] Transcribed By: Self Edit Transcribed Date: 04/10/2025 [...] Signed Date: 04/10/2025 10:55 ET Workstation ID: [id number] Transcribed By: Self Edit Transcribed Date: 04/10/2025 05:51 ET Roosevelt Manley MD IMG NM PROCEDURES Final Re sult from Last 3 Months Insurance [facility] Care Teams Business Continuity Planner Relationship Specialty Start Date End Date Elisa Clark MD [address] [place] [id number] PCP - General Internal Medicine 10/18/24
--- OUTSIDE RECORDS SUMMARY | 2025-05-18 17:08 | XMS_ITS | Encounter Summary ---
Author Organization [facility] Address [address] [place] [address] Phone Care Team Providers Care Wash Box Operator Name Role Phone Elisa Clark MD Primary Care Provider [phone] Reason for Visit * Reason Comments Medication Refill Encounter Details Date Type Department Care Team ([facility] Contact Info) Description 02/19/2023 Refill [facility] [address] 3rd [address], [address] [place] [address] Luis Erazo MD, MS [address], [address] [place] [address] [email or web address] Medication Refill Social History [...] on filedocumented in this encounter Care Teams Wash Box Operator Relationship Specialty Start Date End Date Elisa Clark MD [address] [place] [address] PCP - General 03/05/20 documented as of this encounter Additional Source Comments The information contained in this document represents components of the legal health record. It is not the complete legal health record.[facility]
--- OUTSIDE RECORDS SUMMARY | 2025-05-18 17:08 | XMS_ITS | Clinical Summary ---
Author Organization [facility] Address [address] [place] [address] Phone Care Team Providers Care Biophysics Teacher Name Role Phone Elisa Clark MD Primary Care Provider [phone] Allergies Active Allergy Reactions Criticality Noted Date [...] Devices Not on file Insurance [place] [address] [address] [place] [address] ACO [facility] [place] [address] [place] [address] ACO [facility] [address], [place] Care Teams Biophysics Teacher Relationship Specialty Start Date End Date Elisa Clark MD [address] [place] [address] PCP - General 03/05/20 Additional Source Comments The information contained in this document represents components of the legal health record. It is not the complete legal health record.[facility]
--- OUTSIDE RECORDS SUMMARY | 2025-05-18 17:08 | XMS_ITS | Patient Health Record ---
Author Organization [facility] Address [address] [place] [address] Care Team Providers Care Core Fitter Name Role Phone Elisa Clark MD Primary Care Provider Unavaila Elvira Hill Unavailable [phone] Allergies Allergen (clinical drug ingredient) Drug/Non Drug [...] days Active Ciclopirox 0.77 % 1 application [employer] Representative ally Twice a day; Duration: 365 days [...] atherosclerosis of arteries of lower limbs (disorder) (54790516014620980 ) Atherosclerosis of artery of both lower extremities (I70.203) Active confirmed Plan Of Treatment Pending Test Test Name Order Date *Liver Function Test (LFT) 05/12/2023 Insurance Providers Payer Name Payer Address Payer Phone Subscriber Number Group Number Insured Name Patient Relationship to Insured Coverage Start Date Coverage End Date [place] [address] [place] [phone] [id number] Yoshi Berry Spouse - patient is the spouse of the insured 3 Medical (General) History Medical History History ICD Code Arthritis asthma Back,Hip,and Knee pain Cancer High blood pressure Lung disease Numbness Reflux ( GERD) Chicken pox Anxiety Surgical History Surgery Date(Month/Year) Lung 2019
--- OUTSIDE RECORDS SUMMARY | 2025-05-18 17:08 | XMS_ITS | Encounter Summary ---
Author Organization [facility] Address [address] [place] [address] Phone Care Team Providers Care Special Library Librarian Name Role Phone Elisa Clark MD Primary Care Provider [phone] Reason for Visit * Reason Comments Medication Refill Encounter Details Date Type Department Care Team ([facility] Contact Info) Description 02/20/2023 Refill [facility] [address], [address] [place] [address] Luis Erazo MD, [place] [address], [address] [place] [address] [email or web address] Medication Refill Social History Tobacco [...] classified documented in this encounter Care Teams Special Library Librarian Relationship Specialty Start Date End Date Elisa Clark [place] [address] PCP - General 03/05/20 documented as of this encounter Additional Source Comments The information contained in this document represents components of the legal health record. It is not the complete legal health record.[facility]
== END 2025-05-18 15:00 | disposition home or self-care (01) ==
LOC: HO.HPS 14:00
PROVIDERS: PCP Internal Medicine; Visit Provider Hospitalist
DX: C34.11 Malignant neoplasm of upper lobe, right bronchus or lung (principal); J41.0 Simple chronic bronchitis; F17.200 Nicotine dependence, unspecified, uncomplicated; R91.1 Solitary pulmonary nodule; J18.9 Pneumonia, unspecified organism; J98.4 Other disorders of lung; J22 Unspecified acute lower respiratory infection; A31.9 Mycobacterial infection, unspecified
CPT/HCPCS: 99215

== ENCOUNTER → 2025-05-18 13:59 | Outpatient (BNVA) | payer OTHER, SELFPAY | PROVIDERS: PCP Internal Medicine; Visit Provider Hospitalist | DX: R91.1 Solitary pulmonary nodule (principal); J41.0 Simple chronic bronchitis; C34.11 Malignant neoplasm of upper lobe, right bronchus or lung; F17.200 Nicotine dependence, unspecified, uncomplicated; J18.9 Pneumonia, unspecified organism; J98.4 Other disorders of lung; J22 Unspecified acute lower respiratory infection; A31.9 Mycobacterial infection, unspecified | CPT/HCPCS: 99212 ==

== ENCOUNTER 2025-05-20 07:45 | Outpatient (REF) | payer OTHER, SELFPAY ==
--- NOTE | ~2025-05-20 | CT_ITS ---
CLINICAL HISTORY: J98.4 - Other disorders of lung CT chest without contrast Comparison: 01/11/2025 Findings: The heart is normal size. The visualized thyroid and mediastinum are unremarkable. Bilateral cavitary and non cavitary masses are noted including a new right upper lobe 3.4 x 2.8 cm solid mass. Findings may be related to neoplastic disease. The upper abdomen is unremarkable. No acute fractures. IMPRESSION: 1. Cavitary and non cavitary lesions, including new solid right upper lobe pulmonary mass suspicious for neoplastic disease. Clinically appropriate follow-up recommended. This document has been electronically signed by: Yoshi Bill MD on 05/22/2025 08:50:14
--- OUTSIDE RECORDS SUMMARY | 2025-05-20 07:46 | XMS_ITS | Clinical Summary ---
Author Organization [facility] Address [address] [place] [address] Phone Care Team Providers Care Lamp Cleaner Street Light Name Role Phone Elisa Clark MD Primary Care Provider [phone] Allergies Active Allergy Reactions Criticality Noted Date [...] Devices Not on file Insurance [place] [address] [place] [address] [facility] [place] [address] [place] [address] ACO [facility] [place], [place] Care Teams Lamp Cleaner Street Light Relationship Specialty Start Date End Date Elisa Clark MD [address] [place] [address] PCP - General 03/05/20 Additional Source Comments The information contained in this document represents components of the legal health record. It is not the complete legal health record.[facility]
--- OUTSIDE RECORDS SUMMARY | 2025-05-20 07:46 | XMS_ITS | Encounter Summary ---
Author Organization [facility] Address [address] [place] [address] Phone Care Team Providers Care Goat Farmer Name Role Phone Elisa Clark MD Primary Care Provider [phone] Reason for Visit * Reason Comments Medication Refill Encounter Details Date Type Department Care Team ([facility] Contact Info) Description 02/20/2023 Refill [facility] [address]rd [address], [address] [place] [address] Luis Erazo MD, [place] [address], [address] [place] [address] [email or web address] Medication Refill Social History Tobacco Use Types [...] classified documented in this encounter Care Teams Goat Farmer Relationship Specialty Start Date End Date Elisa Clark MD [facility] [place] [address] PCP - General 03/05/20 documented as of this encounter Additional Source Comments The information contained in this document represents components of the legal health record. It is not the complete legal health record.[facility]
--- OUTSIDE RECORDS SUMMARY | 2025-05-20 07:46 | XMS_ITS | Encounter Summary ---
Author Organization [facility] Address [address] [place] [address] Phone Care Team Providers Care Mechanism Inspector Name Role Phone Elisa Clark MD Primary Care Provider [phone] Reason for Visit * Reason Comments Medication Refill Encounter Details Date Type Department Care Team ([facility] Contact Info) Description 02/19/2023 Refill [facility] [address], [address] [place] [address] Luis Erazo MD, [place] [address], [address] [place] [address] [email or web address] Medication Refill Social History Tobacco Use Types [...] on filedocumented in this encounter Care Teams Mechanism Inspector Relationship Specialty Start Date End Date Elisa Clark MD [address] [place] [address] PCP - General 03/05/20 documented as of this encounter Additional Source Comments The information contained in this document represents components of the legal health record. It is not the complete legal health record.[facility]
--- OUTSIDE RECORDS SUMMARY | 2025-05-20 07:46 | XMS_ITS | Clinical Summary ---
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 Is requesting referral to [place] as this is closer to her. Referral [...] general and how their size, shape, and ticket dispenser changer time affect her level of suspicion [...] - 04/07/2025 11:59 PM EDT Hospital Encounter [facility] PET Scan [address] [place] [id number] Abnormal radiologic finding of lung field Discharge Disposition: Home or Self Care 03/22/2025 Telephone Thoracic Surgery - [place] [address] [place] [id number] Hannah Carlisle [place] from Last 3 [...] rder COPD (chronic obstructive pu lmonary disease) ([facility] V24, [facility] V28) DX:COPD (chronic o bstructive pulmonary disease) ([facility]) Depression DX:Depression History of seizure DX:History of seizure Hyperlipidemia DX:Hyperlipidemi a Low back pain DX:Low back pain Malignant neoplasm of right upper lobe of lung ([facility] V24, [facility] V28) DX:Malignant neopla sm of right upper lobe of lung ([facility]) Neck pain DX:Neck pain On [...] Date Smoking Tobacco: Every Day Cigarettes 1 46.9 Started: 07/13/1978 Cigars Smokeless Tobacco: Never Tobacco [...] Signed Date: 04/10/2025 10:55 ET Workstation ID: [id number] Transcribed By: Self Edit Transcribed Date: 04/10/2025 [...] Signed Date: 04/10/2025 10:55 ET Workstation ID: [id number] Transcribed By: Self Edit Transcribed Date: 04/10/2025 05:51 ET Roosevelt Manley MD IMG NM PROCEDURES Final Re sult from Last 3 Months Insurance [facility] Care Teams Mule Operator Relationship Specialty Start Date End Date Elisa Clark MD [address] [place] [id number] PCP - General Internal Medicine 10/18/24
--- OUTSIDE RECORDS SUMMARY | 2025-05-20 07:46 | XMS_ITS | Patient Health Record ---
Author Organization [facility] Address [address] [place] [address] Care Team Providers Care Human Geography Instructor Name Role Phone Elisa Clark MD Primary Care Provider Unavaila Elvira Hill Unavailable [phone] Allergies Allergen (clinical drug ingredient) Drug/Non Drug [...] days Active Ciclopirox 0.77 % 1 application Customer Counter Associate ally Twice a day; Duration: 365 days [...] atherosclerosis of arteries of lower limbs (disorder) (10862994190432845 ) Atherosclerosis of artery of both lower extremities (I70.203) Active confirmed Plan Of Treatment Pending Test Test Name Order Date *Liver Function Test (LFT) 05/12/2023 Insurance Providers Payer Name Payer Address Payer Phone Subscriber Number Group Number Insured Name Patient Relationship to Insured Coverage Start Date Coverage End Date [place] [address] [place] [phone] [id number] Yoshi Berry Spouse - patient is the spouse of the insured 3 Medical (General) History Medical History History ICD Code Arthritis asthma Back,Hip,and Knee pain Cancer High blood pressure Lung disease Numbness Reflux ( GERD) Chicken pox Anxiety Surgical History Surgery Date(Month/Year) Lung 2019
== END 2025-05-20 07:46 | disposition home or self-care (01) ==
LOC: HO.CT 07:45
PROVIDERS: PCP Internal Medicine; Visit Provider Hospitalist
DX: J98.4 Other disorders of lung (principal)
CPT/HCPCS: 71250

== ENCOUNTER → 2025-05-20 07:46 | Outpatient (BNV) | payer OTHER, SELFPAY | PROVIDERS: PCP Internal Medicine; Visit Provider Specialist | DX: J98.4 Other disorders of lung (principal); R91.8 Other nonspecific abnormal finding of lung field | CPT/HCPCS: 71250 ==